=== PATIENT | female | born 1970 | race Caucasian/White ===

== ENCOUNTER 2016-11-15 14:28 | Emergency (ER) | payer MEDICARE, MEDICAID ==
[2016-11-15] MEDS ORDERED: ASPIRIN 81 MG TABLET, CHEWABLE PO ONE (15:15)
--- NOTE | 2016-11-15 15:15 | ER Document Report ---
ED Medical Screen (RME) - General Stated Complaint: DIZZINESS Mode of Arrival: Ambulatory Information source: Patient Notes: Patient complains of dizziness that started last night around 10:30. Laying supine makes it worse. Patient does complain of some midsternal chest tightness. Chest tightness started around 10:30 as well. Patient complains of some nausea and shortness of breath as well. hx: Diabetes, anxiety, depression I have greeted and performed a rapid initial assessment of this patient. A comprehensive ED assessment and evaluation of the patient, analysis of test results and completion of the medical decision making process will be conducted by additional ED providers. TRAVEL OUTSIDE OF THE [place] IN LAST 30 DAYS: No - Related Data Allergies/Adverse Reactions: No Known Allergies Allergy (Verified 11/15/16 15:12) Past Medical History - Past Medical History Cardiac Medical History: Reports: Hx Hypercholesterolemia, Hx Hypertension Denies: Hx Coronary Artery Disease, Hx Heart Attack Pulmonary Medical History: Denies: Hx Asthma, Hx Bronchitis, Hx COPD, Hx Pneumonia, Hx Tuberculosis Neurological Medical History: Denies: Hx Cerebrovascular Accident, Hx Seizures Endocrine Medical History: Reports: Hx Diabetes Mellitus Type 2 Renal/ Medical History: Reports: Hx Kidney Stones - 2011 GI Medical History: Reports: Hx Gastroesophageal Reflux Disease Musculoskeltal Medical History: Reports Hx Arthritis - spine Psychiatric Medical History: Reports: Hx Bipolar Disorder, Hx Depression Past Surgical History: Reports: Hx Cholecystectomy, Hx Hysterectomy - Immunizations Hx Diphtheria, Pertussis, Tetanus Vaccination: Yes Physical Exam - Vital signs Vitals: Temp Pulse Resp BP Pulse Ox 98.1 F 103 H 20 157/65 H 100 11/15/16 14:48 11/15/16 14:48 11/15/16 14:48 11/15/16 14:48 11/15/16 14:48 - Cardiovascular Rhythm: Regular Heart sounds: S1 appreciated, S2 appreciated Course - Vital Signs Vital signs: Temp Pulse Resp BP Pulse Ox 98.1 F 103 H 20 157/65 H 100 11/15/16 14:48 11/15/16 14:48 11/15/16 14:48 11/15/16 14:48 11/15/16 14:48
--- NOTE | 2016-11-15 16:32 | EKG REPORT ---
SEVERITY:- OTHERWISE NORMAL ECG - SINUS TACHYCARDIA : Confirmed by: Jesús Ly MD 15-Nov-2016 16:31:13
[2016-11-15 16:57] LABS: HEMATOCRIT 26.8 % (36.0-47.0); HEMOGLOBIN 8.7 g/dL (12.0-15.5); HGB HCT DIFFERENCE -0.7; MEAN CORPUSCULAR HEMOGLOBIN 31.8 pg (27.0-33.4); MEAN CORPUSCULAR HGB CONC 32.3 g/dL (32.0-36.0); MEAN CORPUSCULAR VOLUME 99 fl (80-97); RED BLOOD COUNT 2.72 10^6/uL (3.72-5.28); RED CELL DISTRIBUTION WIDTH 15.5 % (11.5-14.0)
[2016-11-15] MEDS ORDERED: MECLIZINE HCL 25 MG TABLET PO ONE (17:13)
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
[2016-11-15 17:18] LABS: ALANINE AMINOTRANSFERASE 22 U/L (9-52); ALKALINE PHOSPHATASE 105 U/L (38-126); ANION GAP 9 (5-19); ASPARTATE AMINO TRANSFERASE 28 U/L (14-36); BILIRUBIN,TOTAL 1.3 mg/dL (0.2-1.3); BLOOD UREA NITROGEN 37 mg/dL (7-20); CARBON DIOXIDE 25 mmol/L (22-30); CHLORIDE 106 mmol/L (98-107); CREATINE KINASE 112 U/L (30-135); CREATININE RESULT 3.79 mg/dL (0.52-1.25); GLUCOSE 182 mg/dL (75-110); MAGNESIUM 1.4 mg/dL (1.6-2.3); SODIUM 140.1 mmol/L (137-145); TOTAL PROTEIN 5.8 g/dL (6.3-8.2)
[2016-11-15 17:30] LABS: CREATINE KINASE MB 2.21 ng/mL (<4.55)
[2016-11-15 17:31] LABS: TROPONIN I < 0.012 ng/mL
[2016-11-15 17:33] LABS: BASOPHILS % (MANUAL) 0 % (0-2); EOSINOPHILS % (MANUAL) 2 % (0-6); LYMPHOCYTES % (MANUAL) 28 % (13-45); TOTAL CELLS COUNTED 100
[2016-11-15 17:35] LABS: ANISOCYTOSIS SLIGHT; TOXIC GRANULATION SLIGHT
[2016-11-15 17:36] LABS: WHITE BLOOD COUNT 1.6 10^3/uL (4.0-10.5)
[2016-11-15 21:50] LABS: APPEARANCE,URINE CLEAR; BILIRUBIN,URINE NEGATIVE (NEGATIVE); GLUCOSE, URINE NEGATIVE (NEGATIVE); KETONES,URINE NEGATIVE (NEGATIVE); LEUKOCYTE ESTERASE,URINE SMALL (NEGATIVE); NITRITE,URINE NEGATIVE (NEGATIVE); PROTEIN,URINE NEGATIVE (NEGATIVE); URINE SPECIFIC GRAVITY 1.009; UROBILINOGEN,URINE NEGATIVE mg/dL (<2.0)
[2016-11-15 22:40] VITALS: BP 129/68
[2016-11-16 20:15] LABS: PATH REVIEW PATHOLOGIST REVIEWED
== END 2016-11-15 22:46 | disposition home or self-care (01) ==
LOC: ER 14:28
DX: R42 Dizziness and giddiness (principal); D69.6 Thrombocytopenia, unspecified; N39.0 Urinary tract infection, site not specified; R55 Syncope and collapse; F17.210 Nicotine dependence, cigarettes, uncomplicated; E78.00 Pure hypercholesterolemia, unspecified; I10 Essential (primary) hypertension; E11.9 Type 2 diabetes mellitus without complications; K21.9 Gastro-esophageal reflux disease without esophagitis; Z87.442 Personal history of urinary calculi; Z90.710 Acquired absence of both cervix and uterus; Z90.49 Acquired absence of other specified parts of digestive tract
CPT/HCPCS: 93005; 99284; 36415; 82553; 82550; 83690; 83735; 85025; 80053; 81001; 84484; 71020; 93010; A9270 ×2

== ENCOUNTER 2016-12-17 20:20 | Emergency (ER) | payer MEDICARE, MEDICAID ==
[2016-12-17] MEDS ORDERED: ONDANSETRON 4 MG TAB.RAPDIS PO ONE (20:35)
--- NOTE | 2016-12-17 20:36 | ER Document Report ---
ED Medical Screen (RME) - General Stated Complaint: DIZZINESS Mode of Arrival: Medic Information source: Patient Notes: Family member state that patient was difficult to arouse today. Patient does complain of some dizziness. EMS states that patient alert and oriented 4. Patient states she's not had any food today. Patient now per EMS was 154. Patient reports nausea. Patient does complain of some left-sided abdominal tenderness hx: Diabetes, splenomegaly, hysterectomy, cholecystectomy, chronic back pain, vertigo I have greeted and performed a rapid initial assessment of this patient. A comprehensive ED assessment and evaluation of the patient, analysis of test results and completion of the medical decision making process will be conducted by additional ED providers. TRAVEL OUTSIDE OF THE [place] IN LAST 30 DAYS: No - Related Data Allergies/Adverse Reactions: No Known Allergies Allergy (Verified 11/15/16 15:12) Past Medical History - Past Medical History Cardiac Medical History: Reports: Hx Hypercholesterolemia, Hx Hypertension Denies: Hx Coronary Artery Disease, Hx Heart Attack Pulmonary Medical History: Denies: Hx Asthma, Hx Bronchitis, Hx COPD, Hx Pneumonia, Hx Tuberculosis Neurological Medical History: Denies: Hx Cerebrovascular Accident, Hx Seizures Endocrine Medical History: Reports: Hx Diabetes Mellitus Type 2 Renal/ Medical History: Reports: Hx Kidney Stones - 2011. Denies: Hx Peritoneal Dialysis GI Medical History: Reports: Hx Gastroesophageal Reflux Disease, Hx Hepatitis - C Musculoskeltal Medical History: Reports Hx Arthritis - spine Psychiatric Medical History: Reports: Hx Bipolar Disorder, Hx Depression Infectious Medical History: Reports: Hx Hepatitis - C Past Surgical History: Reports: Hx Cholecystectomy, Hx Hysterectomy - Immunizations Hx Diphtheria, Pertussis, Tetanus Vaccination: Yes Physical Exam - Vital signs Vitals: Temp Pulse Resp BP 97.9 F 91 20 134/67 H 12/17/16 20:30 12/17/16 20:30 12/17/16 20:30 12/17/16 20:30 - Abdominal Tenderness: Tender - Left upper abdominal tenderness - Neurological [place]hy Coma Scale Eye Opening: Spontaneous [place] Coma Scale Verbal: Oriented [place] Coma Scale Motor: Obeys Commands [place] Coma Scale Total: 15 Course - Vital Signs Vital signs: Temp Pulse Resp BP Pulse Ox 97.9 F 91 20 134/67 H 12/17/16 20:30 12/17/16 20:30 12/17/16 20:30 12/17/16 20:30
[2016-12-17 22:16] LABS: ABSOLUTE EOSINOPHILS # (AUTO) 0.1 10^3/uL (0.0-0.6); ABSOLUTE LYMPHOCYTES (AUTO) 0.8 10^3/uL (0.5-4.7); ABSOLUTE MONOCYTES (AUTO) 0.2 10^3/uL (0.1-1.4); ABSOLUTE NEUT (AUTO) 1.7 10^3/uL (1.7-8.2); MEAN CORPUSCULAR HEMOGLOBIN 32.8 pg (27.0-33.4); RED CELL DISTRIBUTION WIDTH 14.9 % (11.5-14.0); WHITE BLOOD COUNT 2.8 10^3/uL (4.0-10.5)
[2016-12-17 22:19] LABS: APPEARANCE,URINE CLEAR; BILIRUBIN,URINE NEGATIVE (NEGATIVE); GLUCOSE, URINE NEGATIVE (NEGATIVE); KETONES,URINE NEGATIVE (NEGATIVE); LEUKOCYTE ESTERASE,URINE NEGATIVE (NEGATIVE); NITRITE,URINE NEGATIVE (NEGATIVE); PROTEIN,URINE NEGATIVE (NEGATIVE); UROBILINOGEN,URINE NEGATIVE mg/dL (<2.0)
[2016-12-17 22:21] LABS: BASOPHILS % (AUTO) 0.7 % (0-2); EOSINOPHILS % (AUTO) 2.5 % (0-6); LYMPHOCYTES % (AUTO) 30.2 % (13-45); MEAN CORPUSCULAR HGB CONC 34.5 g/dL (32.0-36.0); MEAN CORPUSCULAR VOLUME 95 fl (80-97); MONOCYTES % (AUTO) 5.6 % (3-13); RED BLOOD COUNT 3.36 10^6/uL (3.72-5.28)
[2016-12-17 22:29] LABS: ALANINE AMINOTRANSFERASE 28 U/L (9-52); ALBUMIN 3.1 g/dL (3.5-5.0); ALKALINE PHOSPHATASE 112 U/L (38-126); ANION GAP 9 (5-19); ASPARTATE AMINO TRANSFERASE 25 U/L (14-36); BILIRUBIN,TOTAL 1.6 mg/dL (0.2-1.3); BLOOD UREA NITROGEN 39 mg/dL (7-20); CALCIUM 9.2 mg/dL (8.4-10.2); CARBON DIOXIDE 25 mmol/L (22-30); CHLORIDE 106 mmol/L (98-107); CREATININE RESULT 4.11 mg/dL (0.52-1.25); GLUCOSE 152 mg/dL (75-110); LIPASE 54.1 U/L (23-300); POTASSIUM 4.5 mmol/L (3.6-5.0); SODIUM 139.7 mmol/L (137-145); TOTAL PROTEIN 6.7 g/dL (6.3-8.2)
--- NOTE | 2016-12-18 00:11 | ER Document Report ---
ED General - General Chief Complaint: Dizziness Stated Complaint: DIZZINESS Mode of Arrival: Medic Notes: Patient is a 38-year-old female presents for complaint of dizziness and feeling unwell. No vomiting. Mild intermittent headache which is chronic for her. She does have a history of pancytopenia. She is followed by a physician for this. Her counts have actually been slowly improving. Denies recent fevers or infections. She denies any focal weakness or numbness. When I walk into the room check she says that she feels improved wants to go home before even have a chance to evaluate her. She does let me evaluate her. She says that she's had similar dizziness in the past. She was seen in the ER once before prescribed meclizine for vertigo. She does not have this medication anymore. TRAVEL OUTSIDE OF THE [place] IN LAST 30 DAYS: No - Related Data Allergies/Adverse Reactions: No Known Allergies Allergy (Verified 11/15/16 15:12) Past Medical History - General Information source: Patient - Social History Smoking Status: Unknown if Ever Smoked Frequency of alcohol use: None Drug Abuse: None Family History: Reviewed & Not Pertinent Patient has suicidal ideation: No Patient has homicidal ideation: No - Past Medical History Cardiac Medical History: Reports: Hx Hypercholesterolemia, Hx Hypertension Denies: Hx Coronary Artery Disease, Hx Heart Attack Pulmonary Medical History: Denies: Hx Asthma, Hx Bronchitis, Hx COPD, Hx Pneumonia, Hx Tuberculosis Neurological Medical History: Denies: Hx Cerebrovascular Accident, Hx Seizures Endocrine Medical History: Reports: Hx Diabetes Mellitus Type 2 Renal/ Medical History: Reports: Hx Kidney Stones - 2011. Denies: Hx Peritoneal Dialysis GI Medical History: Reports: Hx Gastroesophageal Reflux Disease, Hx Hepatitis - C Musculoskeltal Medical History: Reports Hx Arthritis - spine Psychiatric Medical History: Reports: Hx Bipolar Disorder, Hx Depression Infectious Medical History: Reports: Hx Hepatitis - C Past Surgical History: Reports: Hx Cholecystectomy, Hx Hysterectomy - Immunizations Hx Diphtheria, Pertussis, Tetanus Vaccination: Yes Hx Pneumococcal Vaccination: 09/03/12 Review of Systems - Review of Systems Notes: My Normal Review Basic REVIEW OF SYSTEMS: CONSTITUTIONAL : Denies fever, chills, or sweats. Denies recent illness. EENT: Denies eye, ear, throat, or mouth pain or symptoms. Denies nasal or sinus congestion. CARDIOVASCULAR: Denies chest pain. RESPIRATORY: Denies cough, cold, or chest congestion. Denies shortness of breath, difficulty breathing, or wheezing. GASTROINTESTINAL: Denies abdominal pain. Denies nausea, vomiting, or diarrhea. Denies constipation. Last BM: GENITOURINARY: Denies difficulty urinating, painful urination, burning, frequency, or blood in urine. MUSCULOSKELETAL: Denies neck or back pain or joint pain or swelling. SKIN: Denies rash or skin lesions. NEUROLOGICAL: Had dizziness ALL OTHER SYSTEMS REVIEWED AND NEGATIVE. Physical Exam - Vital signs Vitals: Temp Pulse Resp BP 97.9 F 91 20 134/67 H 12/17/16 20:30 12/17/16 20:30 12/17/16 20:30 12/17/16 20:30 - Notes Notes: General Appearance: Well nourished, alert, cooperative, no acute distress, no obvious discomfort. Well-appearing. Vitals: reviewed, See vital signs table. Head: no swelling or tenderness to the head Eyes: PERRL, EOMI, Conjuctiva clear Mouth: No decreasd moisture Neck: Supple, no neck tenderness, No thyromegaly Lungs: No wheezing, No rales, No rhonci, No accessory muscle use, good air exchange bilaterally. Heart: Normal rate, Regular rythm, No murmur, no rub Abdomen: Normal BS, soft, No rigidity, No abdominal tenderness, No guarding, no rebound, no abdominal masses, no organomegaly Extremities: strength 5/5 in all extremities, good pulses in all extremities, no swelling or tenderness in the extremities, no edema. Skin: warm, dry, appropriate color, no rash Neuro: speech clear, oriented x 3, normal affect, responds appropriately to questions. Normal gait. Cranial nerves II through XII are intact. Distal sensation intact. Patient moves all extremities without difficulty. Course - Vital Signs Vital signs: Temp Pulse Resp BP Pulse Ox 97.9 F 91 20 134/67 H 12/17/16 20:30 12/17/16 20:30 12/17/16 20:30 12/17/16 20:30 - Laboratory Result Diagrams: 12/17/16 22:10 12/17/16 22:10 Laboratory results interpreted by me: 12/17/16 12/17/16 12/17/16 21:47 22:10 22:10 WBC 2.8 L RBC 3.36 L Hgb 11.0 L Hct 32.0 L RDW 14.9 H Plt Count 36 L BUN 39 H Creatinine 4.11 H Est GFR ( Amer) 14 L Est GFR (Non-Af Amer) 12 L Glucose 152 H Total Bilirubin 1.6 H Albumin 3.1 L Urine Blood LARGE H - Transfer of Care Notes: 12/18/16 00:09 I informed patient that I still think she should have a CT scan of her head being that she has significant thrombocytopenia and recurrent dizziness. Patient refuses this. I did inform her that I think this would be an appropriate test and I strongly recommended because if she does have bleeding on her brain this could be life-threatening. Patient says she feels well and still somewhat CT scan requests to be discharged home. Patient will be discharged home she requests. I informed her that we are happy to reevaluate her and take care of her any time and requests that she does return if she changes her mind and does want CT scan. We are also happy to reevaluate her at any time. Patient agrees with plan and will be discharged home she requests. Patient is awake alert and appropriate and demonstrates medical decision making capability and therefore cannot force any tests on her. Dictation of this chart was performed using voice recognition software; therefore, there may be some unintended grammatical errors. Discharge - Discharge Clinical Impression: Dizziness Condition: Stable Disposition: HOME, SELF-CARE Additional Instructions: Please consider returning to ER any time for reevaluation and possible CT scan of your head. As we talked about in the room, I do recommend a CT scan of your head to rule out any bleeding being that you had the dizziness and you have a history of low platelets which puts you at high risk of bleeding. Bleeding in your head could be life-threatening. Please take the medication as prescribed to help with dizziness. Please follow closely with your doctor. Please return to ER anytime for reevaluation.
[2016-12-18 01:13] VITALS: BP 126/66
== END 2016-12-18 00:10 | disposition home or self-care (01) ==
LOC: ER 20:20
DX: R42 Dizziness and giddiness (principal)
CPT/HCPCS: 99284; 36415; 83690; 85025; 80053; 81001; A9270; S0119

== ENCOUNTER 2017-01-14 16:48 | Emergency (ER) | payer MEDICARE, MEDICAID ==
--- NOTE | 2017-01-14 17:10 | ER Document Report ---
ED Medical Screen (RME) - General Stated Complaint: RIGHT SIDE/FOOT PAIN Notes: Patient is a 38-year-old female presents emergency department after fall today. Mechanical fall landing on her right foot and then onto her right chest. Patient complaining of right lower chest pain as well as right ankle. Patient states that she has a history of thrombocytopenia 2/2 cirrhosis I have greeted and performed a rapid initial assessment of this patient. A comprehensive ED assessment and evaluation of the patient, analysis of test results and completion of the medical decision making process will be conducted by additional ED providers. TRAVEL OUTSIDE OF THE [place] IN LAST 30 DAYS: No - Related Data Allergies/Adverse Reactions: No Known Allergies Allergy (Verified 01/14/17 17:06) Past Medical History - Past Medical History Cardiac Medical History: Reports: Hx Hypercholesterolemia, Hx Hypertension Denies: Hx Coronary Artery Disease, Hx Heart Attack Pulmonary Medical History: Denies: Hx Asthma, Hx Bronchitis, Hx COPD, Hx Pneumonia, Hx Tuberculosis Neurological Medical History: Denies: Hx Cerebrovascular Accident, Hx Seizures Endocrine Medical History: Reports: Hx Diabetes Mellitus Type 2 Renal/ Medical History: Reports: Hx Kidney Stones - 2011. Denies: Hx Peritoneal Dialysis GI Medical History: Reports: Hx Gastroesophageal Reflux Disease, Hx Hepatitis - C Musculoskeltal Medical History: Reports Hx Arthritis - spine Psychiatric Medical History: Reports: Hx Bipolar Disorder, Hx Depression Infectious Medical History: Reports: Hx Hepatitis - C Past Surgical History: Reports: Hx Cholecystectomy, Hx Hysterectomy - Immunizations Hx Diphtheria, Pertussis, Tetanus Vaccination: Yes Physical Exam - Vital signs Vitals: Temp Pulse Resp BP Pulse Ox 97.9 F 109 H 20 145/55 H 99 01/14/17 16:52 01/14/17 16:52 01/14/17 16:52 01/14/17 16:52 01/14/17 16:52 Course - Vital Signs Vital signs: Temp Pulse Resp BP Pulse Ox 97.9 F 109 H 20 145/55 H 99 01/14/17 16:52 01/14/17 16:52 01/14/17 16:52 01/14/17 16:52 01/14/17 16:52
[2017-01-14 17:42] LABS: PROTHROMBIN TIME 18.8 SEC (11.4-15.4)
[2017-01-14 17:43] LABS: HEMATOCRIT 31.9 % (36.0-47.0); HEMOGLOBIN 11.1 g/dL (12.0-15.5); HGB HCT DIFFERENCE 1.4; MEAN CORPUSCULAR HGB CONC 34.7 g/dL (32.0-36.0); MEAN CORPUSCULAR VOLUME 92 fl (80-97); RED BLOOD COUNT 3.46 10^6/uL (3.72-5.28); RED CELL DISTRIBUTION WIDTH 14.2 % (11.5-14.0)
--- NOTE | 2017-01-14 17:44 | ER Document Report ---
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 Her last platelet count was 17. She denies any effusion, head injury, neck pain, numbness, tingling, difficulty walking or back pain. TRAVEL OUTSIDE OF THE [place] IN LAST 30 DAYS: No - Related data Allergies/Adverse Reactions: No Known Allergies Allergy (Verified 01/14/17 17:06) Past Medical History - General Information source: Patient - Social History Smoking Status: Unknown if Ever Smoked Chew tobacco use (# tins/day): No Frequency of alcohol use: None Drug Abuse: None Family History: Reviewed & Not Pertinent Patient has suicidal ideation: No Patient has homicidal ideation: No - Past Medical History Cardiac Medical History: Reports: Hx Hypercholesterolemia, Hx Hypertension Denies: Hx Coronary Artery Disease, Hx Heart Attack Pulmonary Medical History: Denies: Hx Asthma, Hx Bronchitis, Hx COPD, Hx Pneumonia, Hx Tuberculosis Neurological Medical History: Denies: Hx Cerebrovascular Accident, Hx Seizures Endocrine Medical History: Reports: Hx Diabetes Mellitus Type 2 Renal/ Medical History: Reports: Hx Kidney Stones - 2011. Denies: Hx Peritoneal Dialysis GI Medical History: Reports: Hx Gastroesophageal Reflux Disease, Hx Hepatitis - C Musculoskeltal Medical History: Reports Hx Arthritis - spine Psychiatric Medical History: Reports: Hx Bipolar Disorder, Hx Depression Infectious Medical History: Reports: Hx Hepatitis - C Past Surgical History: Reports: Hx Cholecystectomy, Hx Hysterectomy - Immunizations Hx Diphtheria, Pertussis, Tetanus Vaccination: Yes Hx Pneumococcal Vaccination: 09/03/12 Review of Systems - Review of Systems Notes: REVIEW OF SYSTEMS: CONSTITUTIONAL: -fevers, -chills EENT: -eye pain, -difficulty swallowing, -nasal congestion CARDIOVASCULAR:-chest pain, -syncope. RESPIRATORY: -cough, -SOB GASTROINTESTINAL: -abdominal pain, - nausea, -vomiting, -diarrhea GENITOURINARY: -dysuria, -hematuria MUSCULOSKELETAL: +right ankle pain, -back pain, -neck pain SKIN: -rash or skin lesions. HEMATOLOGIC: -easy bruising or bleeding. LYMPHATIC: -swollen, enlarged glands. NEUROLOGICAL: -altered mental status or loss of consciousness, -headache, - neurologic symptoms PSYCHIATRIC: -anxiety, -depression. ALL OTHER SYSTEMS REVIEWED AND NEGATIVE. Physical Exam - Vital signs Vitals: Temp Pulse Resp BP Pulse Ox 97.9 F 109 H 20 145/55 H 99 01/14/17 16:52 01/14/17 16:52 01/14/17 16:52 01/14/17 16:52 01/14/17 16:52 - Notes Notes: PHYSICAL EXAMINATION: GENERAL: Well-appearing, well-nourished and in no acute distress. HEAD: Atraumatic, normocephalic. EYES: Pupils equal round and reactive to light, extraocular movements intact, sclera anicteric, conjunctiva are normal. ENT: nares patent, oropharynx clear without exudates. Moist mucous membranes. NECK: Normal range of motion, supple without lymphadenopathy LUNGS: Breath sounds clear to auscultation bilaterally and equal. No wheezes rales or rhonchi. HEART: Mild tenderness over right lateral chest wall. Regular rate and rhythm without murmurs ABDOMEN: Soft, nontender, normoactive bowel sounds. No guarding, no rebound. No masses appreciated. EXTREMITIES: Mild tenderness over right lateral malleolus, no effusion. Normal range of motion, no pitting or edema. No cyanosis. NEUROLOGICAL: Cranial nerves grossly intact. Normal speech, normal gait. Normal sensory, motor, and reflex exams. PSYCH: Normal mood, normal affect. SKIN: Warm, Dry, normal turgor, no rashes or lesions noted. Course - Re-evaluation Re-evalutation: Patient's chest x-ray does not show any rib fractures and ankle x-ray does not show any fractures or effusions. No hemarthrosis. Patient's platelets are 20 today, which are baseline for her. She follows with hematology as outpatient. She does not require a platelet transfusion at this time. Patient states that she takes Motrin at home. Will treat her with anti-inflammatories and ice packs with follow-up at her primary care physician and events solutions consultant. - Vital Signs Vital signs: Temp Pulse Resp BP Pulse Ox 97.9 F 109 H 20 145/55 H 99 01/14/17 16:52 01/14/17 16:52 01/14/17 16:52 01/14/17 16:52 01/14/17 16:52 - Laboratory Result Diagrams: 01/14/17 17:15 01/14/17 17:15 Laboratory results interpreted by me: 01/14/17 01/14/17 01/14/17 17:15 17:15 17:15 WBC 1.8 L RBC 3.46 L Hgb 11.1 L Hct 31.9 L RDW 14.2 H Plt Count 20 L* Abs Neuts (Manual) 1.1 L PT 18.8 H BUN 42 H Creatinine 3.78 H Est GFR ( Amer) 15 L Est GFR (Non-Af Amer) 13 L Glucose 263 H Total Bilirubin 1.8 H Albumin 3.4 L - Diagnostic Test Radiology reviewed: Image reviewed, Reports reviewed Radiology results interpreted by me: CXR and right ankle x-ray: NAD Discharge - Discharge Clinical Impression: Ankle sprain Qualifiers: Encounter type: initial encounter Involved ligament of ankle: unspecified ligament Laterality: right Qualified Code(s): S93.401A - Sprain of unspecified ligament of right ankle, initial encounter Chest wall contusion Qualifiers: Encounter type: initial encounter Laterality: right Qualified Code(s): S20.211A - Contusion of right front wall of thorax, initial encounter Condition: Good Disposition: HOME, SELF-CARE Additional Instructions: SPRAIN: Your injury is a sprain. A sprain results from stretching or tearing of the ligaments, usually from a twisting injury. The ligaments will require time and protection in order to heal properly. Many sprains are quite disabling and should be taken seriously. The usual initial treatment of sprains is cold packs, elevation, and rest of the injured area. Your physician has assessed the seriousness of your ligament injury, and has outlined a treatment plan. Understand that this treatment may change, depending on how you progress. If a re-examination was recommended, it is important that you follow up as instructed. Call the doctor any time if there is severe pain, numbness, or loss of function in the injured area. LILIANA WRAP: A compression dressing (liliana wrap) has been placed. This helps hold the area still. It limits swelling and internal bleeding. The wrap should be comfortably snug -- not tight. You should feel a sense of pressure, but not severe pain under the wrap. Unless the physician tells you otherwise, you can adjust the wrap for comfort. If the wrap causes symptoms suggesting it's too tight -- uncomfortable pressure, swelling or discoloration beyond the wrap, numbness, or severe pain - - you must loosen the wrap. If these symptoms don't resolve promptly, return for re-evaluation. SPRAINED ANKLE: Your sprained ankle results from stretching or tearing of the ligaments which support the ankle. This usually results from twisting the foot inward and under. The ligaments will require time and protection in order to heal properly. Many ankle sprains are quite disabling, and should be taken seriously. The usual treatment for an ankle sprain is cold packs; protection with tape , splints, or wraps; elevation; and staying off the ankle for at least a day. As the ankle improves, you can walk IF it's not painful to bear weight. Sports are best postponed until healing is complete. More serious sprains usually require strengthening exercises after early healing. Your physician has assessed the seriousness of the ligament injury to your ankle. However, the treatment may change, depending on how your ankle progresses. If further exams were recommended, it is important that you follow through. Call the doctor if your foot becomes numb, painful, or severely swollen. ICE & ELEVATION: Apply ice packs frequently against the painful area. Many different schedules are recommended, such as "20 minutes on, 20 minutes off" or "one hour ice, two hours rest." If you need to work, you may need to go longer between ice treatments. You should plan to have the area ice packed AT LEAST one- fourth of the time. The ice should be applied over the wrap, tape, or splint, or over a layer of cloth -- not directly against the skin. Some ice bags have a built-in cloth and can be put directly on the skin. Your injured part should be elevated as much as possible over the next 48 hours. Try to keep the injury above the level of the heart. Avoid use of the injured area. Elevation and rest will decrease the swelling. USE OF [id number] IBUPROFEN: Ibuprofen (Advil, Nuprin, Medipren, Motrin IB) is a medication for fever and pain control. In addition, it has anti- inflammatory effects which may be beneficial, especially in the treatment of injuries. It's best to take ibuprofen with food. Persons with ulcer disease or allergy to aspirin should notify their physician of this before taking ibuprofen. Ibuprofen can be given every four to six hours, for a total of four doses daily. Age Pain or fever dose Antiinflammatory dose 6-8 yr 200 mg (1 tab) 200 mg (1 tab) 9-11 yr 200 mg (1 tab) 200-400 mg (1-2 tab) 11-14 yr 200-400 mg (1-2 tab) 400 mg (2 tab) 15-adult 400 mg (2 tab) 600 mg (3 tab) FOLLOW-UP CARE: If you have been referred to a physician for follow-up care, call the physician s office for an appointment as you were instructed or within the next two days. If you experience worsening or a significant change in your symptoms, notify the physician immediately or return to the Emergency Department at any time for re-evaluation. Contusion Your injury has resulted in a contusion -- a crushing of the deep tissues. No injury to important structures was detected during the physician's exam. Contusions vary in the amount of pain they cause, and in the length of time required for healing. Typically, the area will become bruised, and will remain painful to touch for two or three weeks. However, most patients are back to working and playing within a few days. After the initial period of rest and cold-packs, your symptoms (together with the doctor's recommendations) will determine how rapidly you can get back to full activity. Usually this means "do what feels okay, but don't do things that hurt." If re-examination was recommended, it's important to follow up as instructed. Call the doctor or return any time if pain increases, if swelling becomes severe, if you develop numbness or weakness in an injured extremity, or if any other alarming symptoms occur.
[2017-01-14 17:58] LABS: ALANINE AMINOTRANSFERASE 23 U/L (9-52); ALBUMIN 3.4 g/dL (3.5-5.0); ALKALINE PHOSPHATASE 124 U/L (38-126); ANION GAP 12 (5-19); ASPARTATE AMINO TRANSFERASE 23 U/L (14-36); BILIRUBIN,TOTAL 1.8 mg/dL (0.2-1.3); BLOOD UREA NITROGEN 42 mg/dL (7-20); CALCIUM 9.2 mg/dL (8.4-10.2); CARBON DIOXIDE 24 mmol/L (22-30); CHLORIDE 105 mmol/L (98-107); CREATININE RESULT 3.78 mg/dL (0.52-1.25); GLUCOSE 263 mg/dL (75-110); POTASSIUM 4.2 mmol/L (3.6-5.0); SODIUM 141.2 mmol/L (137-145); TOTAL PROTEIN 6.6 g/dL (6.3-8.2)
[2017-01-14 18:11] LABS: BASOPHILS % (MANUAL) 0 % (0-2); EOSINOPHILS % (MANUAL) 4 % (0-6); LYMPHOCYTES % (MANUAL) 30 % (13-45); TOTAL CELLS COUNTED 50
[2017-01-14 18:12] LABS: OVALOCYTES SLIGHT; POIKILOCYTOSIS 1+
[2017-01-14 18:13] LABS: TEAR DROP CELLS SLIGHT
[2017-01-14 18:14] LABS: WHITE BLOOD COUNT 1.8 10^3/uL (4.0-10.5)
[2017-01-14] MEDS ORDERED: IBUPROFEN 600 MG TABLET PO ONE (18:43)
[2017-01-14 19:34] VITALS: BP 146/86
== END 2017-01-14 19:34 | disposition home or self-care (01) ==
LOC: ER 16:48
DX: S93.401A Sprain of unspecified ligament of right ankle, initial encounter (principal); S20.211A Contusion of right front wall of thorax, initial encounter; M79.671 Pain in right foot; D69.6 Thrombocytopenia, unspecified; K74.69 Other cirrhosis of liver; X58.XXXA Exposure to other specified factors, initial encounter
CPT/HCPCS: 99284; 36415; 85025; 85610; 80053; 73610; 71020; A9270

== ENCOUNTER → 2017-02-27 | Outpatient (CLI) | payer MEDICARE, MEDICAID | LOC: OD 13:49 | PROVIDERS: ATTEND Physician Assistant Surgical | DX: R41.0 Disorientation, unspecified (principal); K74.69 Other cirrhosis of liver | CPT/HCPCS: 36415; 82140 ==

== ENCOUNTER 2017-03-12 11:09 | Emergency (ER) | payer MEDICARE, MEDICAID ==
[2017-03-12] MEDS ORDERED: ONDANSETRON 4 MG TAB.RAPDIS PO ONE ×2 (11:19→11:46)
--- NOTE | 2017-03-12 11:21 | ER Document Report ---
ED Medical Screen (RME) - General Chief Complaint: Nausea/Vomiting Stated Complaint: VOMITING Time Seen by Provider: 03/12/17 11:19 TRAVEL OUTSIDE OF THE [place] IN LAST 30 DAYS: No - HPI Patient complains to provider of: nausea vomiting Notes: 03/12/17 11:20 Patient coming in for nausea vomiting has also for 2 days. - Related Data Allergies/Adverse Reactions: No Known Allergies Allergy (Verified 03/12/17 11:15) Past Medical History - Social History Chew tobacco use (# tins/day): No Frequency of alcohol use: None Drug Abuse: None - Past Medical History Cardiac Medical History: Reports: Hx Hypercholesterolemia, Hx Hypertension Denies: Hx Coronary Artery Disease, Hx Heart Attack Pulmonary Medical History: Denies: Hx Asthma, Hx Bronchitis, Hx COPD, Hx Pneumonia, Hx Tuberculosis Neurological Medical History: Denies: Hx Cerebrovascular Accident, Hx Seizures Endocrine Medical History: Reports: Hx Diabetes Mellitus Type 2 Renal/ Medical History: Reports: Hx Kidney Stones - 2011. Denies: Hx Peritoneal Dialysis GI Medical History: Reports: Hx Gastroesophageal Reflux Disease, Hx Hepatitis - C Musculoskeltal Medical History: Reports Hx Arthritis - spine Psychiatric Medical History: Reports: Hx Bipolar Disorder, Hx Depression Infectious Medical History: Reports: Hx Hepatitis - C Past Surgical History: Reports: Hx Cholecystectomy, Hx Hysterectomy - Immunizations Hx Diphtheria, Pertussis, Tetanus Vaccination: Yes Review of Systems - Review of Systems Gastrointestinal: Nausea, Vomiting -: Yes All other systems reviewed and negative Physical Exam - Vital signs Vitals: Temp Pulse Resp BP Pulse Ox 97.5 F 101 H 21 H 183/79 H 97 03/12/17 11:10 03/12/17 11:10 03/12/17 11:10 03/12/17 11:10 03/12/17 11:10 Interpretation: Normal - General General appearance: Appears well, Alert - HEENT Head: Normocephalic, Atraumatic Eyes: Normal Pupils: PERRL - Cardiovascular Murmur: No - Neurological Neuro grossly intact: Yes Cognition: Normal Orientation: AAOx4 [place] Coma Scale Eye Opening: Spontaneous [place] Coma Scale Verbal: Oriented [place] Coma Scale Motor: Obeys Commands [place] Coma Scale Total: 15 Speech: Normal Motor strength normal: LUE, RUE, LLE, RLE Sensory: Normal Course - Re-evaluation Re-evalutation: 03/12/17 11:21 I have greeted and performed a rapid initial assessment of this patient. A comprehensive ED assessment and evaluation of the patient, analysis of test results and completion of the medical decision making process will be conducted by additional ED providers. - Vital Signs Vital signs: Temp Pulse Resp BP Pulse Ox 97.5 F 101 H 20 183/79 H 97 03/12/17 11:10 03/12/17 11:10 03/12/17 11:14 03/12/17 11:10 03/12/17 11:10
--- NOTE | 2017-03-12 11:45 | ER Document Report ---
ED GI/ - General Chief Complaint: Nausea/Vomiting Stated Complaint: VOMITING Time Seen by Provider: 03/12/17 11:19 Mode of Arrival: Ambulatory Information source: Patient Notes: 47-year-old female complaining of nausea and vomiting this week. She's also complaining of vaginal discharge and irritation burning and itching. She denies intercourse for very long time. No fever or chills. She has a history of liver cirrhosis and "bleeding into her spleen" with thrombocytopenia. She has mild left flank pain. TRAVEL OUTSIDE OF THE [place] IN LAST 30 DAYS: No - Related Data Allergies/Adverse Reactions: No Known Allergies Allergy (Verified 03/12/17 11:15) Past Medical History - General Information source: Patient - Social History Smoking Status: Current Every Day Smoker Chew tobacco use (# tins/day): No Frequency of alcohol use: None Drug Abuse: None Lives with: Spouse/Significant other Family History: Reviewed & Not Pertinent - Past Medical History Cardiac Medical History: Reports: Hx Hypercholesterolemia, Hx Hypertension Endocrine Medical History: Reports: Hx Diabetes Mellitus Type 2 Renal/ Medical History: Reports: Hx Kidney Stones - 2011. Denies: Hx Peritoneal Dialysis GI Medical History: Reports: Hx Gastroesophageal Reflux Disease, Hx Hepatitis - C Musculoskeltal Medical History: Reports Hx Arthritis - spine Psychiatric Medical History: Reports: Hx Bipolar Disorder, Hx Depression Infectious Medical History: Reports: Hx Hepatitis - C Past Surgical History: Reports: Hx Cholecystectomy, Hx Hysterectomy - Immunizations Hx Diphtheria, Pertussis, Tetanus Vaccination: Yes Hx Pneumococcal Vaccination: 09/03/12 Review of Systems - Review of Systems Constitutional: No symptoms reported EENT: No symptoms reported Cardiovascular: No symptoms reported Respiratory: No symptoms reported Gastrointestinal: See HPI Genitourinary: No symptoms reported Female Genitourinary: See HPI Musculoskeletal: No symptoms reported Skin: No symptoms reported Hematologic/Lymphatic: No symptoms reported Neurological/Psychological: No symptoms reported Physical Exam - Vital signs Vitals: Temp Pulse Resp BP Pulse Ox 97.5 F 101 H 21 H 183/79 H 97 03/12/17 11:10 03/12/17 11:10 03/12/17 11:10 03/12/17 11:10 03/12/17 11:10 Interpretation: Normal - General General appearance: Appears well, Alert - HEENT Head: Normocephalic, Atraumatic Eyes: Normal Conjunctiva: Normal Pupils: PERRL Mucous membranes: Normal Neck: Supple. No: Lymphadenopathy - Respiratory Respiratory status: No respiratory distress Chest status: Nontender Breath sounds: Normal Chest palpation: Normal - Cardiovascular Rhythm: Regular Heart sounds: Normal auscultation Murmur: No - Abdominal Inspection: Normal Distension: No distension Bowel sounds: Normal Tenderness: Nontender. No: Tender Organomegaly: No organomegaly - Genitourinary External exam: Normal Speculum exam: Vaginal discharge - fernández Vaginal bleeding: None - Back Back: Normal, Nontender. No: CVA tenderness - Extremities General upper extremity: Normal inspection, Nontender, Normal color, Normal ROM , Normal temperature General lower extremity: Normal inspection, Nontender, Normal color, Normal ROM , Normal temperature, Normal weight bearing. No: Sandeep's sign - Neurological Neuro grossly intact: Yes Cognition: Normal Orientation: AAOx4 [place] Coma Scale Eye Opening: Spontaneous [place] Coma Scale Verbal: Oriented [place] Coma Scale Motor: Obeys Commands [place] Coma Scale Total: 15 Speech: Normal Motor strength normal: LUE, RUE, LLE, RLE Sensory: Normal - Psychological Associated symptoms: Normal affect, Normal mood - Skin Skin Temperature: Warm Skin Moisture: Dry Skin Color: Normal Skin irregularity: negative: Rash Course - Re-evaluation Re-evalutation: 03/12/17 13:11 consult luz maria guerrier for the CT, pt imaging. 03/12/17 16:02 CT is negative or hydronephrosis or renal stones and shows the same small amount of ascites and cirrhosis as previous CTs. 03/12/17 16:[address] guerrier again, pt can be discharged home with the flagyl prescription - Vital Signs Vital signs: Temp Pulse Resp BP Pulse Ox 97.5 F 101 H 20 183/79 H 97 03/12/17 11:10 03/12/17 11:10 03/12/17 11:14 03/12/17 11:10 03/12/17 11:10 - Laboratory Result Diagrams: 03/12/17 11:33 03/12/17 11:33 Laboratory results interpreted by me: 03/12/17 03/12/17 03/12/17 11:33 11:33 11:33 WBC 3.7 L RBC 3.42 L Hgb 10.9 L Hct 31.4 L RDW 15.8 H Plt Count 29 L* Chloride 109 H BUN 41 H Creatinine 4.03 H Est GFR ( Amer) 14 L Est GFR (Non-Af Amer) 12 L Glucose 164 H Total Bilirubin 1.8 H Direct Bilirubin 0.7 H Urine Protein 30 H Urine Glucose (UA) 50 H Urine Blood LARGE H Ur Leukocyte Esterase MODERATE H Discharge - Discharge Clinical Impression: Microscopic hematuria, Renal insufficiency, Trichomoniasis, Thrombocytopenia Nausea and vomiting Qualifiers: Vomiting type: unspecified Vomiting Intractability: non-intractable Qualified Code(s): R11.2 - Nausea with vomiting, unspecified Condition: Good Disposition: HOME, SELF-CARE Instructions: Vomiting ([facility]), Intravenous (IV) Fluids ([facility]), Trichomonas Infection ([facility]), Metronidazole ([facility]), Cirrhosis ([facility]) Additional Instructions: to er if worse see dr. kelsey tomorrow for recheck, copy of labs given to you take nausea medication with the flagyl, no alcohol with the medication Please complete the patient satisfaction survey if you get one, and return it.. If you do not receive a survey, then you can go to the [facility] website, [email or web address] and place your comments about your very good care. Thank you very much. It was a pleasure being your medical provider today. Prescriptions: Promethazine HCl [Phenergan 25 mg Tablet] 25 mg PO Q4HP PRN #20 tablet PRN Reason: Metronidazole 100 mg PO BID #4 tablet Referrals: NILE WELLS MD [Primary Care Provider] - Follow up as needed JONATAN PITT MD [ACTIVE STAFF] - Follow up tomorrow
[2017-03-12] MEDS ORDERED: NORMAL SALINE 1000 ML 2,000 ML IV ONE (11:46)
[2017-03-12 12:00] LABS: ABSOLUTE EOSINOPHILS # (AUTO) 0.1 10^3/uL (0.0-0.6); ABSOLUTE LYMPHOCYTES (AUTO) 0.7 10^3/uL (0.5-4.7); ABSOLUTE MONOCYTES (AUTO) 0.2 10^3/uL (0.1-1.4); ABSOLUTE NEUT (AUTO) 2.7 10^3/uL (1.7-8.2); BASOPHILS % (AUTO) 0.5 % (0-2); EOSINOPHILS % (AUTO) 2.4 % (0-6); HEMATOCRIT 31.4 % (36.0-47.0); HEMOGLOBIN 10.9 g/dL (12.0-15.5); HGB HCT DIFFERENCE 1.3; LYMPHOCYTES % (AUTO) 19.5 % (13-45); MEAN CORPUSCULAR HEMOGLOBIN 31.8 pg (27.0-33.4); MEAN CORPUSCULAR HGB CONC 34.6 g/dL (32.0-36.0); MEAN CORPUSCULAR VOLUME 92 fl (80-97); MONOCYTES % (AUTO) 5.8 % (3-13); RED BLOOD COUNT 3.42 10^6/uL (3.72-5.28); RED CELL DISTRIBUTION WIDTH 15.8 % (11.5-14.0); SEGMENTED NEUTROPHILS % (AUTO) 71.8 % (42-78); WHITE BLOOD COUNT 3.7 10^3/uL (4.0-10.5)
[2017-03-12 12:09] LABS: APPEARANCE,URINE CLEAR; BILIRUBIN,URINE NEGATIVE (NEGATIVE); GLUCOSE, URINE 50 mg/dL (NEGATIVE); KETONES,URINE NEGATIVE (NEGATIVE); LEUKOCYTE ESTERASE,URINE MODERATE (NEGATIVE); NITRITE,URINE NEGATIVE (NEGATIVE); PROTEIN,URINE 30 mg/dL (NEGATIVE); URINE SPECIFIC GRAVITY 1.011; UROBILINOGEN,URINE NEGATIVE mg/dL (<2.0)
[2017-03-12 12:17] LABS: ALANINE AMINOTRANSFERASE 31 U/L (9-52); ALBUMIN 3.6 g/dL (3.5-5.0); ALKALINE PHOSPHATASE 102 U/L (38-126); ANION GAP 13 (5-19); ASPARTATE AMINO TRANSFERASE 31 U/L (14-36); BILIRUBIN,DIRECT 0.7 mg/dL (0.0-0.4); BILIRUBIN,TOTAL 1.8 mg/dL (0.2-1.3); BLOOD UREA NITROGEN 41 mg/dL (7-20); CALCIUM 9.3 mg/dL (8.4-10.2); CARBON DIOXIDE 23 mmol/L (22-30); CHLORIDE 109 mmol/L (98-107); CREATININE RESULT 4.03 mg/dL (0.52-1.25); GLUCOSE 164 mg/dL (75-110); LIPASE 101.1 U/L (23-300); POTASSIUM 4.5 mmol/L (3.6-5.0); SODIUM 144.5 mmol/L (137-145); TOTAL PROTEIN 7.1 g/dL (6.3-8.2)
[2017-03-12] MEDS ORDERED: NORMAL SALINE 1000 ML 1,000 ML IV ONE (12:42)
[2017-03-12 14:45] LABS: CHLAM PCR NOT DETECTED (NOT DETECT)
[2017-03-12 16:18] VITALS: BP 110/57
== END 2017-03-12 16:13 | disposition home or self-care (01) ==
LOC: ER 11:09
DX: R11.2 Nausea with vomiting, unspecified (principal); A59.9 Trichomoniasis, unspecified; N28.9 Disorder of kidney and ureter, unspecified; R31.29 Other microscopic hematuria; K74.60 Unspecified cirrhosis of liver; D69.6 Thrombocytopenia, unspecified; R10.9 Unspecified abdominal pain; E11.9 Type 2 diabetes mellitus without complications; I10 Essential (primary) hypertension; F17.200 Nicotine dependence, unspecified, uncomplicated; Z87.442 Personal history of urinary calculi; Z87.19 Personal history of other diseases of the digestive system; Z90.49 Acquired absence of other specified parts of digestive tract; Z90.710 Acquired absence of both cervix and uterus
CPT/HCPCS: 99284; 36415; 87086; 87210; 83690; 85025; 80053; 81001; 87491; 87591; 76380; A9270; J7030; S0119

== ENCOUNTER 2017-03-17 14:28 | Emergency (ER) | payer MEDICARE, MEDICAID ==
--- NOTE | 2017-03-17 15:54 | ER Document Report ---
ED Fall - General Chief Complaint: Fall Stated Complaint: FALL/RIGHT KNEE INJURY Time Seen by Provider: 03/17/17 15:42 Mode of Arrival: Ambulatory Information source: Patient Notes: 27-year-old female presents to ED for complaint of fall yesterday she states she tripped over a brick. She states she has pain in her right knee right arm and has a sore throat. She states she had numerous falls in the but he knows why that she went to her primary doctor yesterday before the fall working on that. TRAVEL OUTSIDE OF THE [place] IN LAST 30 DAYS: No - HPI Occurred: Yesterday Where: Home, Outdoors Context: Tripped Associated symptoms: None Location of injury/pain: Knee, Upper extremity, Lower extremity Quality of pain: Achy, Sharp Severity: Severe Pain Level: 5 - Related data Allergies/Adverse Reactions: No Known Allergies Allergy (Verified 03/17/17 14:33) Past Medical History - General Information source: Patient - Social History Smoking Status: Never Smoker Cigarette use (# per day): No Chew tobacco use (# tins/day): No Smoking Education Provided: No Frequency of alcohol use: None Drug Abuse: None Lives with: Family Family History: Reviewed & Not Pertinent Patient has suicidal ideation: No Patient has homicidal ideation: No - Past Medical History Cardiac Medical History: Reports: Hx Hypercholesterolemia, Hx Hypertension Pulmonary Medical History: Reports: None EENT Medical History: Reports: None Neurological Medical History: Reports: None Endocrine Medical History: Reports: Hx Diabetes Mellitus Type 2 Renal/ Medical History: Reports: Hx End Stage Renal Disease, Hx Kidney Stones - 2011, Other - States she is waiting for a liver and kidney transplant Malignancy Medical History: Reports: None GI Medical History: Reports: Hx Gastroesophageal Reflux Disease, Hx Hepatitis - C, Other - States she is waiting for a kidney and liver transplant Musculoskeltal Medical History: Reports Hx Arthritis - spine Skin Medical History: Reports None Psychiatric Medical History: Reports: Hx Anxiety, Hx Bipolar Disorder, Hx Depression Traumatic Medical History: Reports: None Infectious Medical History: Reports: Hx Hepatitis - C Past Surgical History: Reports: Hx Cholecystectomy, Hx Hysterectomy - Immunizations Hx Diphtheria, Pertussis, Tetanus Vaccination: Yes Hx Pneumococcal Vaccination: 09/03/12 Review of Systems - Review of Systems Constitutional: No symptoms reported EENT: No symptoms reported Cardiovascular: No symptoms reported Respiratory: No symptoms reported Gastrointestinal: No symptoms reported Genitourinary: No symptoms reported Female Genitourinary: No symptoms reported Musculoskeletal: Other - Pain right in the right kidney. And right forearm after falling yesterday. She has abrasions with scabs to these areas Skin: Other - abrasions to right knee right forearm and right lower leg Hematologic/Lymphatic: No symptoms reported Neurological/Psychological: No symptoms reported -: Yes All other systems reviewed and negative Physical Exam - Vital signs Vitals: Temp Pulse Resp BP Pulse Ox 99.0 F 101 H 18 119/88 H 97 03/17/17 14:32 03/17/17 14:32 03/17/17 14:32 03/17/17 14:32 03/17/17 14:32 Interpretation: Normal - General General appearance: Appears well, Alert - HEENT Head: Normocephalic, Atraumatic Eyes: Normal Pupils: PERRL - Respiratory Respiratory status: No respiratory distress Chest status: Nontender Breath sounds: Normal Chest palpation: Normal - Cardiovascular Rhythm: Regular Heart sounds: Normal auscultation Murmur: No - Abdominal Inspection: Normal Distension: No distension Bowel sounds: Normal Tenderness: Nontender Organomegaly: No organomegaly - Back Back: Normal, Nontender - Extremities General upper extremity: Normal inspection, Nontender, Normal color, Normal ROM , Normal temperature General lower extremity: Normal inspection, Nontender, Normal color, Normal ROM , Normal temperature, Normal weight bearing. No: Sandeep's sign - Neurological Neuro grossly intact: Yes Cognition: Normal Orientation: AAOx4 [place] Coma Scale Eye Opening: Spontaneous [place] Coma Scale Verbal: Oriented [place] Coma Scale Motor: Obeys Commands [place] Coma Scale Total: 15 Speech: Normal Motor strength normal: LUE, RUE, LLE, RLE Sensory: Normal - Psychological Associated symptoms: Normal affect, Normal mood - Skin Skin Temperature: Warm Skin Moisture: Dry Skin Color: Normal, Ecchymosis - to right knee right forearm and right lower leg Location of irregularity: Extremities - abrasions and scabs to right knee right forearm and right lower leg Irregularity with: Tenderness Course - Re-evaluation Re-evalutation: 03/17/17 18:20 X-rays discussed with patient and written report given to patient. There is no pain at the site of the radial neck this is not an acute injury. Her pain is in the middle of the forearm where her abrasions and scabs are. Patient will be discharged home with a small prescription for narcotics due to her pain with acute injuries. Patient has been instructed to when she takes her pain medicine to try to not get up and walk around as she has had frequent falls lately. Patient has been instructed not to use Tylenol and Motrin as she states she is in the kidney and liver failure. To follow-up with her primary doctor by telephone on Monday to schedule a follow-up appointment. - Vital Signs Vital signs: Temp Pulse Resp BP Pulse Ox 99.0 F 101 H 18 119/88 H 97 03/17/17 14:32 03/17/17 14:32 03/17/17 14:32 03/17/17 14:32 03/17/17 14:32 - Diagnostic Test Radiology reviewed: Image reviewed, Reports reviewed Discharge - Discharge Clinical Impression: Contusion multiple areas Fall Qualifiers: Encounter type: initial encounter Qualified Code(s): W19.XXXA - Unspecified fall, initial encounter Abrasion of right forearm Qualifiers: Encounter type: initial encounter Qualified Code(s): S50.811A - Abrasion of right forearm, initial encounter Abrasion, right knee, initial encounter Qualifiers: Encounter type: initial encounter Qualified Code(s): S80.211A - Abrasion, right knee, initial encounter Abrasion, right lower leg, initial encounter Qualifiers: Encounter type: initial encounter Qualified Code(s): S80.811A - Abrasion, right lower leg, initial encounter Condition: Stable Disposition: HOME, SELF-CARE Additional Instructions: CONTUSION: Your injury has resulted in a contusion -- a crushing of the deep tissues. No injury to important structures was detected during the physician's exam. Contusions vary in the amount of pain they cause, and in the length of time required for healing. Typically, the area will become bruised, and will remain painful to touch for two or three weeks. However, most patients are back to working and playing within a few days. After the initial period of rest and cold-packs, your symptoms (together with the doctor's recommendations) will determine how rapidly you can get back to full activity. Usually this means "do what feels okay, but don't do things that hurt." If re-examination was recommended, it's important to follow up as instructed. Call the doctor or return any time if pain increases, if swelling becomes severe, if you develop numbness or weakness in an injured extremity, or if any other alarming symptoms occur. ABRASIONS: An abrasion is a scraping injury of the skin. Some scarring may result. The seriousness of an abrasion is not always obvious at first. Hidden tissue damage may be present and infection may occur despite proper care. Complete healing may take from ten days to as long as a month. The healing time depends on the depth of the abrasion, and on the amount of crushing of underlying tissues from the injury. Keep the wound and dressing clean. Do not shower or bathe the area until okayed by the doctor. If the dressing gets wet, remove it and blot the wound dry, then reapply a clean dressing. Dressings should be changed every day. Sunscreen should be used for six months after the skin is healed. If any signs of infection occur (swelling, redness, increasing tenderness, red streaks, profuse purulent drainage from the abrasion, tender lumps in the armpit or groin above the abrasion, or fever), see the doctor immediately. USE OF TYLENOL (ACETAMINOPHEN): Acetaminophen may be taken for pain relief or fever control. It's much safer than aspirin, offering a wider range of "safe" dosages. It is safe during . Some brand names are Tylenol, Panadol, Datril, Anacin 3, Tempra, and Liquiprin. Acetaminophen can be repeated every four hours. The following are maximum recommended dosages: WEIGHT Dose Drops Elixir Chewable( 80mg) (LBS.) drprs=droppers tsp=teaspoon 6 40 mg 0.4 ml (1/2) 6-11 80 mg 0.8 ml (full) tsp 1 tab 12-16 120 mg 1 1/2 drprs 3/4 tsp 1 1/2 tabs 17-23 160 mg 2 drprs 1 tsp 2 tabs 24-30 240 mg 3 drprs 1 1/2 tsp 3 tabs 30-35 320 mg 2 tsp 4 tabs 36-41 360 mg 2 1/4 tsp 4 1/2 tabs 42-47 400 mg 2 1/2 tsp 5 tabs 48-53 480 mg 3 tsp 6 tabs 54-59 520 mg 3 1/4 tsp 6 1/2 tabs 60-64 560 mg 3 1/2 tsp 7 tabs 65-70 600 mg 3 3/4 tsp 7 1/2 tabs 71-76 640 mg 4 tsp 8 tabs 77-82 720 mg 4 1/2 tsp 9 tabs 83-88 800 mg 5 tsp 10 tabs >89 pounds or adults 650 mg to 900 mg Acetaminophen can be repeated every four hours. Maximum dose not to exceed 4000 mg a day. These maximum recommended dosages are slightly higher than the dosages written on the product container, but these dosages are very safe and below the toxic dosage for acetaminophen. ICE & ELEVATION: Apply ice packs frequently against the painful area. Many different schedules are recommended, such as "20 minutes on, 20 minutes off" or "one hour ice, two hours rest." If you need to work, you may need to go longer between ice treatments. You should plan to have the area ice packed AT LEAST one- fourth of the time. The ice should be applied over the wrap, tape, or splint, or over a layer of cloth -- not directly against the skin. Some ice bags have a built-in cloth and can be put directly on the skin. Your injured part should be elevated as much as possible over the next 48 hours. Try to keep the injury above the level of the heart. Avoid use of the injured area. Elevation and rest will decrease the swelling. ORAL NARCOTIC MEDICATION: You have been given a prescription for pain control. This medication is a narcotic. It's best taken with food, as nausea can result if taken on an empty stomach. Don't operate machinery or drive within six hours of taking this medication. Do not combine this medicine with alcohol, or with any medication which can cause sedation (such as cold tablets or sleeping pills) unless you get permission from the physician. Narcotics tend to cause constipation. If possible, drink plenty of fluids and eat a diet high in fiber and fruits. Please be aware that prescription narcotics also have the potential for abuse. People become addicted to these medications because of the general sense of wellbeing that they induce. This feeling along with a significant reduction in tension, anxiety, and aggression provides a stimulating seductive quality to these drugs. Once your pain is under control, we encourage you to discard your unused narcotics. FOLLOW-UP CARE: If you have been referred to a physician for follow-up care, call the physician s office for an appointment as you were instructed or within the next two days. If you experience worsening or a significant change in your symptoms, notify the physician immediately or return to the Emergency Department at any time for re-evaluation. Prescriptions: Oxycodone HCl [Oxy-Ir 5 mg Tablet] 5 mg PO BIDP PRN #7 tab PRN Reason: Forms: Elevated Blood Pressure Referrals: SUSANNA CHAVEZ PA-C [Primary Care Provider] - 03/20/17
[2017-03-17 18:39] VITALS: BP 165/72
== END 2017-03-17 18:39 | disposition home or self-care (01) ==
LOC: ER 14:28
DX: S50.811A Abrasion of right forearm, initial encounter (principal); S80.211A Abrasion, right knee, initial encounter; S80.811A Abrasion, right lower leg, initial encounter; W01.0XXA Fall on same level from slipping, tripping and stumbling without subsequent striking against object, initial encounter; Y92.007 Garden or yard of unspecified non-institutional (private) residence as the place of occurrence of the external cause; E78.00 Pure hypercholesterolemia, unspecified; I10 Essential (primary) hypertension; E11.22 Type 2 diabetes mellitus with diabetic chronic kidney disease; I12.0 Hypertensive chronic kidney disease with stage 5 chronic kidney disease or end stage renal disease; N18.6 End stage renal disease; Z86.19 Personal history of other infectious and parasitic diseases; Z90.49 Acquired absence of other specified parts of digestive tract; Z90.710 Acquired absence of both cervix and uterus
CPT/HCPCS: 87070; 87880; 99283

== ENCOUNTER → 2017-03-23 | Outpatient (CLI) | payer MEDICARE, MEDICAID ==
[2017-03-23 14:58] LABS: ALANINE AMINOTRANSFERASE 29 U/L (9-52); ALBUMIN 3.2 g/dL (3.5-5.0); ALKALINE PHOSPHATASE 119 U/L (38-126); ANION GAP 10 (5-19); ASPARTATE AMINO TRANSFERASE 27 U/L (14-36); BILIRUBIN,DIRECT 0.8 mg/dL (0.0-0.4); BILIRUBIN,TOTAL 1.7 mg/dL (0.2-1.3); BLOOD UREA NITROGEN 50 mg/dL (7-20); CARBON DIOXIDE 23 mmol/L (22-30); CHLORIDE 107 mmol/L (98-107); CREATININE RESULT 4.32 mg/dL (0.52-1.25); GLUCOSE 163 mg/dL (75-110); POTASSIUM 4.9 mmol/L (3.6-5.0); SODIUM 139.7 mmol/L (137-145); TOTAL PROTEIN 6.5 g/dL (6.3-8.2)
== END ==
LOC: OD 13:57
PROVIDERS: ATTEND Internal Medicine
DX: E11.9 Type 2 diabetes mellitus without complications (principal)
CPT/HCPCS: 36415; 80053; 83036

== ENCOUNTER 2017-03-26 17:01 | Emergency (ER) | payer MEDICARE, MEDICAID ==
--- NOTE | 2017-03-26 17:29 | EKG REPORT ---
SEVERITY:- NORMAL ECG - SINUS RHYTHM : Confirmed by: Jesús Ly MD 26-Mar-2017 17:28:54
[2017-03-26 18:00] LABS: ABSOLUTE LYMPHOCYTES (AUTO) 0.4 10^3/uL (0.5-4.7); ABSOLUTE MONOCYTES (AUTO) 0.1 10^3/uL (0.1-1.4); ABSOLUTE NEUT (AUTO) 1.5 10^3/uL (1.7-8.2); BASOPHILS % (AUTO) 0.2 % (0-2); EOSINOPHILS % (AUTO) 1.4 % (0-6); HEMATOCRIT 27.9 % (36.0-47.0); HEMOGLOBIN 9.4 g/dL (12.0-15.5); HGB HCT DIFFERENCE 0.3; LYMPHOCYTES % (AUTO) 18.9 % (13-45); MEAN CORPUSCULAR HEMOGLOBIN 31.5 pg (27.0-33.4); MEAN CORPUSCULAR HGB CONC 33.8 g/dL (32.0-36.0); MEAN CORPUSCULAR VOLUME 93 fl (80-97); MONOCYTES % (AUTO) 5.8 % (3-13); RED BLOOD COUNT 2.99 10^6/uL (3.72-5.28); RED CELL DISTRIBUTION WIDTH 15.9 % (11.5-14.0); SEGMENTED NEUTROPHILS % (AUTO) 73.7 % (42-78); WHITE BLOOD COUNT 2.1 10^3/uL (4.0-10.5)
[2017-03-26 18:01] LABS: APPEARANCE,URINE SLIGHTLY-CLOUDY; BILIRUBIN,URINE NEGATIVE (NEGATIVE); GLUCOSE, URINE NEGATIVE (NEGATIVE); KETONES,URINE NEGATIVE (NEGATIVE); LEUKOCYTE ESTERASE,URINE TRACE (NEGATIVE); NITRITE,URINE NEGATIVE (NEGATIVE); PROTEIN,URINE NEGATIVE (NEGATIVE); URINE SPECIFIC GRAVITY 1.008; UROBILINOGEN,URINE NEGATIVE mg/dL (<2.0)
[2017-03-26 18:10] LABS: ALANINE AMINOTRANSFERASE 28 U/L (9-52); ALBUMIN 3.3 g/dL (3.5-5.0); ALCOHOL < 10 mg/dL (NONE DETECTED); ALKALINE PHOSPHATASE 133 U/L (38-126); ANION GAP 12 (5-19); ASPARTATE AMINO TRANSFERASE 32 U/L (14-36); BILIRUBIN,DIRECT 0.8 mg/dL (0.0-0.4); BILIRUBIN,TOTAL 1.5 mg/dL (0.2-1.3); BLOOD UREA NITROGEN 48 mg/dL (7-20); CALCIUM 8.9 mg/dL (8.4-10.2); CARBON DIOXIDE 23 mmol/L (22-30); CHLORIDE 108 mmol/L (98-107); CREATININE RESULT 4.08 mg/dL (0.52-1.25); GLUCOSE 169 mg/dL (75-110); POTASSIUM 4.2 mmol/L (3.6-5.0); SODIUM 142.5 mmol/L (137-145); TOTAL PROTEIN 6.7 g/dL (6.3-8.2)
[2017-03-26 18:18] LABS: URINE BARBITURATES SCREEN NEGATIVE; URINE METHADONE SCREEN NEGATIVE; URINE OPIATES LOW NEGATIVE; URINE PHENCYCLIDINE SCREEN NEGATIVE
--- NOTE | 2017-03-26 19:23 | ER Document Report ---
ED General - General Chief Complaint: Chest Pain Stated Complaint: CHEST PAIN/SUICIDAL IDEATION Time Seen by Provider: 03/26/17 17:12 Mode of Arrival: Medic Information source: Patient Notes: 47-year-old female history of depression presents with complaints of chest pain. Patient notes the pain is reproducible denies any fevers or chills admits to shortness of breath. Patient denies any history of any cardiac concerns. It is noted that the patient admits to suicidal ideations however denies this to myself, appears patient has been having altercations with her sister TRAVEL OUTSIDE OF THE [place] IN LAST 30 DAYS: No - HPI Onset: Yesterday Onset/Duration: Persistent Quality of pain: Achy Severity: Mild Pain Level: 1 Associated symptoms: Body/muscle aches, Chest pain Exacerbated by: Denies Relieved by: Denies Similar symptoms previously: Yes Recently seen / treated by doctor: Yes - Related Data Allergies/Adverse Reactions: No Known Allergies Allergy (Verified 03/26/17 17:19) Past Medical History - Social History Smoking Status: Unknown if Ever Smoked Chew tobacco use (# tins/day): No Frequency of alcohol use: None Drug Abuse: None Family History: Reviewed & Not Pertinent Patient has suicidal ideation: Yes Patient has homicidal ideation: No - Past Medical History Cardiac Medical History: Reports: Hx Hypercholesterolemia, Hx Hypertension Denies: Hx Coronary Artery Disease, Hx Heart Attack Pulmonary Medical History: Denies: Hx Asthma, Hx Bronchitis, Hx COPD, Hx Pneumonia, Hx Tuberculosis Neurological Medical History: Denies: Hx Cerebrovascular Accident, Hx Seizures Endocrine Medical History: Reports: Hx Diabetes Mellitus Type 2 Renal/ Medical History: Reports: Hx End Stage Renal Disease, Hx Kidney Stones - 2011. Denies: Hx Peritoneal Dialysis GI Medical History: Reports: Hx Gastroesophageal Reflux Disease, Hx Hepatitis - C Musculoskeltal Medical History: Reports Hx Arthritis - spine Psychiatric Medical History: Reports: Hx Anxiety, Hx Bipolar Disorder, Hx Depression Infectious Medical History: Reports: Hx Hepatitis - C Past Surgical History: Reports: Hx Cholecystectomy, Hx Hysterectomy - Immunizations Hx Diphtheria, Pertussis, Tetanus Vaccination: Yes Hx Pneumococcal Vaccination: 09/03/12 Review of Systems - Review of Systems Notes: PHYSICAL EXAMINATION: GENERAL: Well-appearing, well-nourished and in no acute distress. HEAD: Atraumatic, normocephalic. EYES: Pupils equal round and reactive to light, extraocular movements intact, conjunctiva are normal. ENT: Nares patent, oropharynx clear without exudates. Moist mucous membranes. NECK: Normal range of motion, supple without lymphadenopathy LUNGS: Breath sounds clear to auscultation bilaterally and equal. No wheezes rales or rhonchi. HEART: Regular rate and rhythm without murmurs ABDOMEN: Soft, nontender, nondistended abdomen. No guarding, no rebound. No masses appreciated. Female : deferred Musculoskeletal: Normal range of motion, no pitting or edema. No cyanosis. Chest pain is reproducible on palpation NEUROLOGICAL: Cranial nerves grossly intact. Normal speech, normal gait. Normal sensory, motor exams PSYCH: Normal mood, normal affect. SKIN: Mild irritation under the left breast ecchymosis left lateral thigh healing abrasions to the right alughlin left laughlin Physical Exam - Vital signs Vitals: Resp Pulse Ox 30 H 95 03/26/17 17:21 03/26/17 17:21 Course - Re-evaluation Re-evalutation: 03/26/17 19:34 Patient's cardiac enzymes no no significant abnormality, even at the patient's pain has been constant and reproducible I have very low suspicion for any cardiac concerns. I will hold her for mental health evaluation even the threats of suicidal ideation - Vital Signs Vital signs: Temp Pulse Resp BP Pulse Ox 31 H 146/57 H 97 03/26/17 19:01 03/26/17 19:01 03/26/17 19:01 - Laboratory Result Diagrams: 03/26/17 17:35 03/26/17 17:35 Laboratory results interpreted by me: 03/26/17 03/26/17 03/26/17 17:35 17:35 17:35 WBC 2.1 L RBC 2.99 L Hgb 9.4 L Hct 27.9 L RDW 15.9 H Plt Count 34 L Absolute Neutrophils 1.5 L Absolute Lymphocytes 0.4 L Chloride 108 H BUN 48 H Creatinine 4.08 H Est GFR ( Amer) 14 L Est GFR (Non-Af Amer) 12 L Glucose 169 H Total Bilirubin 1.5 H Direct Bilirubin 0.8 H Alkaline Phosphatase 133 H Albumin 3.3 L Urine Blood LARGE H Ur Leukocyte Esterase TRACE H Salicylates 1.6 L Acetaminophen < 10 L - Diagnostic Test Radiology reviewed: Image reviewed, Reports reviewed - EKG Interpretation by Me EKG shows normal: Sinus rhythm, [place], Intervals, QRS Complexes Discharge - Discharge Clinical Impression: Suicidal ideation Chronic kidney disease Qualifiers: Chronic kidney disease stage: stage 3 (moderate) Qualified Code(s): N18.3 - Chronic kidney disease, stage 3 (moderate) Chest pain Qualifiers: Chest pain type: unspecified Qualified Code(s): R07.9 - Chest pain, unspecified Condition: Stable Disposition: PSYCH HOSP/UNIT
[2017-03-26] MEDS ORDERED: ACETAMINOPHEN 325 MG TABLET PO ONE (21:45)
--- NOTE | 2017-03-27 10:11 | ER Document Report ---
ED Psych Disorder / Suicide - General Mode of Arrival: Medic Information source: Patient, [facility] Records TRAVEL OUTSIDE OF THE [place] IN LAST 30 DAYS: No - HPI Patient complains to provider of: Suicidal ideation - pt reported to EMS; however, denied upon arrival Onset: Just prior to arrival Onset was: Sudden Suicide Risk Factors: Lack of social support, Other - stress Situational problems related to: Other - altercations with sister Normal mood: Yes Associated symptoms: Normal affect, Normal mood Similar symptoms previously: Yes Recently seen / treated by doctor: Yes - PCM <ANAHI CHOUDHARY - Last Filed: 03/27/17 10:04> <ARISTIDES AGUILA - Last Filed: 03/27/17 10:43> - General Chief Complaint: Chest Pain Stated Complaint: CHEST PAIN/SUICIDAL IDEATION Time Seen by Provider: 03/26/17 17:12 - HPI Notes: Patient is a 47-year-old female who presented yesterday late afternoon via EMS with a chief complaint of chest pains. Patient did report to EMS at her home that she was experiencing suicidal ideations; however, during medical screening patient denied this. Patient was held voluntarily overnight to speak with mental health. Patient was additionally noted to be having disagreements/ altercations with her sister and also requested law-enforcement, and take a report. Patient this morning states she did make those statements yesterday while under stress. Patient states it was the first time in her life she thought about suicide. Patient states her sister and sister's boyfriend live with her as of recently, and they constantly argue. She states they broke up and he moved out; however, yesterday morning her sister resumed their relationship and he was back at the house. Patient states she just felt overwhelmed after thinking the problem had been resolved. Patient states she would like to go home, and needs a cab because she came in via EMS. Patient advised that the hospital does not provide cabs unless extreme circumstances/ hardships. Patient states her sister does not drive, but she could call her ex and ask for help. Patient is A&O. Mood is euthymic with normal affect. Patient denies suicidal/ homicidal ideations, intent, plan, or means. Patient denies A/V H; delusions not noted. Thought processes were organized. Conversational speech was WNL for prosody. Intellectual abilities were estimated within average range. Attention and focus were fair. Insight, judgment, and impulse control were fair. Diagnosis: Deferred Patient is psychiatrically cleared and recommended for discharge to follow up with a provider of her choice. Patient does not meet criteria for IVC per the [id number] as she denies SI/HI, denies prior attempts, etc. Patient was provided a list of resources should she chose to follow up for counseling. Patient was encouraged to identify and utilize coping skills to assist her in coping with her stressors. I consulted with Dr. Garcia in regards to the care and management of this patient. (ANAHI CHOUDHARY) - Related Data Allergies/Adverse Reactions: No Known Allergies Allergy (Verified 03/26/17 17:19) Home Medications: Current Home Medications Oxycodone HCl [Oxy-Ir 5 mg Tablet] 2 tab PO TIDP PRN 03/26/17 [History] Promethazine HCl [Phenergan 25 mg Tablet] 1 tab PO Q4HP PRN 03/26/17 [History] Spironolactone [Spironolactone] 1 tab PO DAILY 03/26/17 [History] Past Medical History - General Information source: Patient, [facility] Records - Social History Smoking Status: Unknown if Ever Smoked Chew tobacco use (# tins/day): No Frequency of alcohol use: None Drug Abuse: None Family History: Reviewed & Not Pertinent Patient has suicidal ideation: No Patient has homicidal ideation: No - Past Medical History Cardiac Medical History: Reports: Hx Hypercholesterolemia, Hx Hypertension Denies: Hx Coronary Artery Disease, Hx Heart Attack Pulmonary Medical History: Denies: Hx Asthma, Hx Bronchitis, Hx COPD, Hx Pneumonia, Hx Tuberculosis Neurological Medical History: Denies: Hx Cerebrovascular Accident, Hx Seizures Endocrine Medical History: Reports: Hx Diabetes Mellitus Type 2 Renal/ Medical History: Reports: Hx End Stage Renal Disease, Hx Kidney Stones - 2011. Denies: Hx Peritoneal Dialysis GI Medical History: Reports: Hx Gastroesophageal Reflux Disease, Hx Hepatitis - C Musculoskeltal Medical History: Reports Hx Arthritis - spine Psychiatric Medical History: Reports: Hx Anxiety, Hx Bipolar Disorder, Hx Depression Infectious Medical History: Reports: Hx Hepatitis - C Past Surgical History: Reports: Hx Cholecystectomy, Hx Hysterectomy - Immunizations Hx Diphtheria, Pertussis, Tetanus Vaccination: Yes Hx Pneumococcal Vaccination: 09/03/12 <ANAHI CHOUDHARY - Last Filed: 03/27/17 10:04> Course - Laboratory Result Diagrams: 03/26/17 17:35 03/26/17 17:35 <ANAHI CHOUDHARY - Last Filed: 03/27/17 10:04> - Laboratory Result Diagrams: 03/26/17 17:35 03/26/17 17:35 <ARISTIDES AGUILA - Last Filed: 03/27/17 10:43> - Re-evaluation Re-evalutation: 03/27/17 10:42 Patient evaluated by me this morning. I agree with assessment and agree with discharge today. Patient with good eye contact, cooperative with interview, is motivated and adamantly denies SI/HI. She agrees to return or seek help for any worsening symptoms or thoughts of hurting herself of others. (ARISTIDES AGUILA) - Vital Signs Vital signs: Temp Pulse Resp BP Pulse Ox 97.2 F 78 16 145/63 H 95 03/27/17 08:00 03/27/17 08:00 03/27/17 08:00 03/27/17 08:00 03/27/17 08:00 - Laboratory Laboratory results interpreted by me: 03/26/17 03/26/17 03/26/17 17:35 17:35 17:35 WBC 2.1 L RBC 2.99 L Hgb 9.4 L Hct 27.9 L RDW 15.9 H Plt Count 34 L Absolute Neutrophils 1.5 L Absolute Lymphocytes 0.4 L Chloride 108 H BUN 48 H Creatinine 4.08 H Est GFR ( Amer) 14 L Est GFR (Non-Af Amer) 12 L Glucose 169 H Total Bilirubin 1.5 H Direct Bilirubin 0.8 H Alkaline Phosphatase 133 H Albumin 3.3 L Urine Blood LARGE H Ur Leukocyte Esterase TRACE H Salicylates 1.6 L Acetaminophen < 10 L Discharge <ANAHI CHOUDHARY - Last Filed: 03/27/17 10:04> <ARISTIDES AGUILA - Last Filed: 03/27/17 10:43> - Discharge Clinical Impression: Suicidal ideation Chronic kidney disease Qualifiers: Chronic kidney disease stage: stage 3 (moderate) Qualified Code(s): N18.3 - Chronic kidney disease, stage 3 (moderate) Chest pain Qualifiers: Chest pain type: unspecified Qualified Code(s): R07.9 - Chest pain, unspecified Condition: Stable Disposition: HOME, SELF-CARE Additional Instructions: Suicidal Ideation Suicidal ideation is a common medical term for thoughts about suicide, which may be as detailed as a formulated plan, without the suicidal act itself. Although most people who undergo suicidal ideation do not commit suicide, some go on to make suicide attempts. The range of suicidal ideation varies greatly from fleeting to detailed planning, role playing, and unsuccessful attempts. Please follow up with a provider of your choice and request assistance with counseling. Please return if your symptoms worsen. Referrals: [facility] [Provider Group] - Follow up in 3-5 days
[2017-03-27 11:32] VITALS: BP 170/73
== END 2017-03-27 11:32 | disposition home or self-care (01) ==
LOC: ER 17:01
DX: R45.851 Suicidal ideations (principal); N18.3 Chronic kidney disease, stage 3 (moderate); R07.9 Chest pain, unspecified; Z79.899 Other long term (current) drug therapy
CPT/HCPCS: 93005; 99285; 36415; 80307 ×4; 84703; 85025; 80053; 81001; 93010; A9270

== ENCOUNTER 2017-04-19 18:55 | Emergency (ER) | payer MEDICARE, MEDICAID ==
--- NOTE | 2017-04-19 20:45 | ER Document Report ---
ED Skin Rash/Insect Bite/Abscs - General Chief Complaint: Skin Sore(s) Stated Complaint: LEG PAIN Time Seen by Provider: 04/19/17 19:46 Notes: Patient is a 47-year-old female who presents emergency department via EMS with sores on her legs. Palpation she had a rash on her right TRAVEL OUTSIDE OF THE [place] IN LAST 30 DAYS: No - Related Data Allergies/Adverse Reactions: No Known Allergies Allergy (Verified 04/19/17 19:03) Past Medical History - Social History Smoking Status: Never Smoker Chew tobacco use (# tins/day): No Frequency of alcohol use: None Drug Abuse: None Family History: Reviewed & Not Pertinent Patient has suicidal ideation: No Patient has homicidal ideation: No - Past Medical History Cardiac Medical History: Reports: Hx Hypercholesterolemia, Hx Hypertension Denies: Hx Coronary Artery Disease, Hx Heart Attack Pulmonary Medical History: Denies: Hx Asthma, Hx Bronchitis, Hx COPD, Hx Pneumonia, Hx Tuberculosis Neurological Medical History: Denies: Hx Cerebrovascular Accident, Hx Seizures Endocrine Medical History: Reports: Hx Diabetes Mellitus Type 2 Renal/ Medical History: Reports: Hx End Stage Renal Disease, Hx Kidney Stones - 2011. Denies: Hx Peritoneal Dialysis GI Medical History: Reports: Hx Gastroesophageal Reflux Disease, Hx Hepatitis - C Musculoskeltal Medical History: Reports Hx Arthritis - spine Psychiatric Medical History: Reports: Hx Anxiety, Hx Bipolar Disorder, Hx Depression - & anxiety Infectious Medical History: Reports: Hx Hepatitis - C Past Surgical History: Reports: Hx Cholecystectomy - 2011, Hx Hysterectomy - Immunizations Hx Diphtheria, Pertussis, Tetanus Vaccination: Yes Hx Pneumococcal Vaccination: 09/03/12 Physical Exam - Vital signs Vitals: Temp Pulse Resp BP Pulse Ox 98.6 F 112 H 22 H 199/81 H 99 04/19/17 19:03 04/19/17 19:03 04/19/17 19:03 04/19/17 19:03 04/19/17 19:03 Course - Vital Signs Vital signs: Temp Pulse Resp BP Pulse Ox 98.6 F 112 H 22 H 199/81 H 99 04/19/17 19:03 04/19/17 19:03 04/19/17 19:03 04/19/17 19:03 04/19/17 19:03
--- NOTE | 2017-04-19 21:13 | ER Document Report ---
ED Medical Screen (RME) - General Chief Complaint: Skin Sore(s) Stated Complaint: LEG PAIN Time Seen by Provider: 04/19/17 19:46 Notes: Patient is a 47-year-old female presents emergency department complaining of bilateral lower extremity rash worse on the right. Patient states that she has been seen by her primary care provider 2 weeks ago which she says was infection which has since resolved. Her primary care provider now states that her lower extremity wounds are likely related to poor circulation and lower extremity edema. No signs of infection. Patient states that this past 2 days she has noticed red numbness around breaks in her skin that have been leaking fluid. The fluid is clear. She admits to pain. Admits to pressure and itching. Past medical history significant for liver disease, cirrhosis. Patient is unsure of her hepatitis status. Admits to stage II chronic kidney disease, insulin-dependent diabetes, hypertension. Primary care provider is a physician at [facility] medicine Follows with Dr. William for gastroenterology as well as goes to [facility] for possible liver transplant evaluation. She also follows with Dr. Mckinley for her thrombocytopenia. TRAVEL OUTSIDE OF THE [place] IN LAST 30 DAYS: No - Related Data Allergies/Adverse Reactions: No Known Allergies Allergy (Verified 04/19/17 19:03) Past Medical History - Social History Chew tobacco use (# tins/day): No Frequency of alcohol use: None Drug Abuse: None - Past Medical History Cardiac Medical History: Reports: Hx Hypercholesterolemia, Hx Hypertension Denies: Hx Coronary Artery Disease, Hx Heart Attack Pulmonary Medical History: Denies: Hx Asthma, Hx Bronchitis, Hx COPD, Hx Pneumonia, Hx Tuberculosis Neurological Medical History: Denies: Hx Cerebrovascular Accident, Hx Seizures Endocrine Medical History: Reports: Hx Diabetes Mellitus Type 2 Renal/ Medical History: Reports: Hx End Stage Renal Disease, Hx Kidney Stones - 2011. Denies: Hx Peritoneal Dialysis GI Medical History: Reports: Hx Gastroesophageal Reflux Disease, Hx Hepatitis - C Musculoskeltal Medical History: Reports Hx Arthritis - spine Psychiatric Medical History: Reports: Hx Anxiety, Hx Bipolar Disorder, Hx Depression - & anxiety Infectious Medical History: Reports: Hx Hepatitis - C Past Surgical History: Reports: Hx Cholecystectomy - 2012, Hx Hysterectomy - Immunizations Hx Diphtheria, Pertussis, Tetanus Vaccination: Yes Physical Exam - Vital signs Vitals: Temp Pulse Resp BP Pulse Ox 98.6 F 112 H 22 H 199/81 H 99 04/19/17 19:03 04/19/17 19:03 04/19/17 19:03 04/19/17 19:03 04/19/17 19:03 - Skin Location of irregularity: Extremities Character of irregularity: Linear, Petechial Irregularity with: Well defined border, Weeping Course - Vital Signs Vital signs: Temp Pulse Resp BP Pulse Ox 98.6 F 112 H 22 H 199/81 H 99 04/19/17 19:03 04/19/17 19:03 04/19/17 19:03 04/19/17 19:03 04/19/17 19:03
--- NOTE | 2017-04-19 21:13 | ER Document Report ---
ED Skin Rash/Insect Bite/Abscs - General Mode of Arrival: Ambulatory Information source: Patient TRAVEL OUTSIDE OF THE [place] IN LAST 30 DAYS: No - HPI Patient complains to provider of: Skin rash/lesion <FOX FITZPATRICK - Last Filed: 04/19/17 23:47> <PAL GREGORY - Last Filed: 04/20/17 00:12> - General Chief Complaint: Skin Sore(s) Stated Complaint: skin sore Time Seen by Provider: 04/19/17 19:46 Notes: Patient is a 47 year old female, with a past medical history including diabetes , kidney disease, and hypertension, who presents to the emergency department complaining of fluid seeping from sores on her legs. Patient states that she has had sores on her legs and saw her PCP a couple of weeks ago, she was treated with antibiotics which she reports did not help. Patient noticed new sores a few days ago with fluid seeping out and denies itching them, patient is worried about the swelling in her legs and the fluid draining from the sores. Patient states the swelling has been present for a while and she has been told by her kidney doctor to keep her legs elevated which she has but it has not helped. Patient denies fever, chest pain, nausea, and trouble breathing. (FOX FITZPATRICK) - Related Data Allergies/Adverse Reactions: No Known Allergies Allergy (Verified 04/19/17 19:03) Past Medical History - General Information source: Patient - Social History Smoking Status: Never Smoker Chew tobacco use (# tins/day): No Frequency of alcohol use: None Drug Abuse: None Family History: Reviewed & Not Pertinent Patient has suicidal ideation: No Patient has homicidal ideation: No - Past Medical History Cardiac Medical History: Reports: Hx Hypercholesterolemia, Hx Hypertension Denies: Hx Coronary Artery Disease, Hx Heart Attack Pulmonary Medical History: Denies: Hx Asthma, Hx Bronchitis, Hx COPD, Hx Pneumonia, Hx Tuberculosis Neurological Medical History: Denies: Hx Cerebrovascular Accident, Hx Seizures Endocrine Medical History: Reports: Hx Diabetes Mellitus Type 2 Renal/ Medical History: Reports: Hx End Stage Renal Disease, Hx Kidney Stones - 2011. Denies: Hx Peritoneal Dialysis GI Medical History: Reports: Hx Gastroesophageal Reflux Disease, Hx Hepatitis - C Musculoskeltal Medical History: Reports Hx Arthritis - spine Psychiatric Medical History: Reports: Hx Anxiety, Hx Bipolar Disorder, Hx Depression - & anxiety Infectious Medical History: Reports: Hx Hepatitis - C Past Surgical History: Reports: Hx Cholecystectomy - 2012, Hx Hysterectomy - Immunizations Hx Diphtheria, Pertussis, Tetanus Vaccination: Yes Hx Pneumococcal Vaccination: 09/03/12 <FOX FITZPATRICK - Last Filed: 04/19/17 23:47> Review of Systems - Review of Systems Constitutional: denies: Fever EENT: No symptoms reported Cardiovascular: denies: Chest pain Respiratory: denies: Other - difficulty breathing Gastrointestinal: denies: Nausea Genitourinary: No symptoms reported Female Genitourinary: No symptoms reported Musculoskeletal: See HPI, Leg swelling Skin: See HPI, Lesions Hematologic/Lymphatic: No symptoms reported Neurological/Psychological: No symptoms reported -: Yes All other systems reviewed and negative <FOX FITZPATRICK - Last Filed: 04/19/17 23:47> Physical Exam <FOX FITZPATRICK - Last Filed: 04/19/17 23:47> <PAL GREGORY - Last Filed: 04/20/17 00:12> - Vital signs Vitals: Temp Pulse Resp BP Pulse Ox 98.6 F 112 H 22 H 199/81 H 99 04/19/17 19:03 04/19/17 19:03 04/19/17 19:03 04/19/17 19:03 04/19/17 19:03 - Notes Notes: GENERAL: Alert, interacts well. No acute distress. HEAD: Normocephalic, atraumatic. EYES: Pupils equal, round, and reactive to light. Extraocular movements intact. ENT: Oral mucosa moist, tongue midline. NECK: Full range of motion. Supple. Trachea midline. LUNGS: Clear to auscultation bilaterally, no wheezes, rales, or rhonchi. No respiratory distress. HEART: Regular rate and rhythm. No murmurs, gallops, or rubs. ABDOMEN: Soft, non-tender. Non-distended. Bowel sounds present in all 4 quadrants. EXTREMITIES: Moves all 4 extremities spontaneously. Dorsalis pedis pulses 2/4 bilaterally. 2+ pitting edema to the knee bilaterally. NEUROLOGICAL: Alert and oriented x3. Normal speech. PSYCH: Normal affect, normal mood. SKIN: Multiple breaks in skin over lower legs, right worse than left. Tracking consistent with excoriation. Excoriation to medial aspect of right calf. Clear fluid seeping from breaks. Minimal erythema, minimal petechiae. No pustules. 3 old, mostly healed, ulcers over anterior aspect of right lower leg, 4th ulcer less healed on anterior aspect of left lower leg. (FOX FITZPATRICK) Course - Laboratory Result Diagrams: 04/19/17 20:58 04/19/17 20:58 <FOX FITZPATRICK - Last Filed: 04/19/17 23:47> - Laboratory Result Diagrams: 04/19/17 20:58 04/19/17 20:58 <PAL GREGORY - Last Filed: 04/20/17 00:12> - Re-evaluation Re-evalutation: 04/19/17 23:27 CBC shows pancytopenia, slightly worsened from prior but not significantly cell. White blood cell count was 1.7, hemoglobin is 8.9, platelets are 27. Chemistries show chronic renal failure with a BUN of 38 and creatinine of 4.2, GFR is not significantly changed from prior testing approximately 1 month ago, total and direct bilirubin are similarly chronically elevated as is the alkaline phosphatase. ProBNP is only minimally elevated at 573. Cardiac enzymes are negative. Chest x-ray does show a new small left pleural effusion and mild increased interstitial markings. Patient is having no respiratory symptoms and no respiratory distress. The sores on the patient's legs do not appear acutely infected. I did discuss with the patient there is no indication for antibiotics at this time, the sores on the legs are suspicious for excoriations however the patient states she is absolutely not scratching her legs. My other concern is that she may be having some sort of an insect bite whether this comes from fleas from the animals in the home or possibly other environmental envenomation such as fire ant bites. Patient is asked to use Fleet medication on her animals in the home. Patient is offered a single dose of Lasix here to see if it helps to diurese some fluid. 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 No indication of congestive heart failure. (PAL GREGORY) - Vital Signs Vital signs: Temp Pulse Resp BP Pulse Ox 98.6 F 83 19 169/84 H 97 04/19/17 19:03 04/19/17 23:55 04/19/17 23:55 04/19/17 23:55 04/19/17 23:55 - Laboratory Laboratory results interpreted by me: 04/19/17 04/19/17 04/19/17 20:58 20:58 20:58 WBC 1.7 L RBC 2.78 L Hgb 8.9 L Hct 26.4 L RDW 16.0 H Plt Count 27 L* Band Neutrophils % 2 L Abs Neuts (Manual) 1.0 L PT 18.8 H APTT 38.7 H Carbon Dioxide 20 L BUN 38 H Creatinine 4.20 H Est GFR ( Amer) 14 L Est GFR (Non-Af Amer) 11 L Glucose 217 H Total Bilirubin 2.0 H Direct Bilirubin 0.9 H Alkaline Phosphatase 132 H NT-Pro-B Natriuret Pep 04/19/17 20:58 WBC RBC Hgb Hct RDW Plt Count Band Neutrophils % Abs Neuts (Manual) PT APTT Carbon Dioxide BUN Creatinine Est GFR ( Amer) Est GFR (Non-Af Amer) Glucose Total Bilirubin Direct Bilirubin Alkaline Phosphatase NT-Pro-B Natriuret Pep 573 H - EKG Interpretation by Me Additional EKG results interpreted by me: 04/19/17 23:29 EKG shows sinus rhythm rate of 99, first-degree AV block, poor R-wave progression, normal axis, no ST segment elevations or depressions, there are T- wave inversions noted in lead III per my interpretation. (PAL GREGORY) Discharge <FOX FITZPATRICK - Last Filed: 04/19/17 23:47> <PAL GREGORY - Last Filed: 04/20/17 00:12> - Discharge Clinical Impression: Peripheral edema, Pancytopenia, CKD (chronic kidney disease), stage IV, Skin sore Chronic liver failure Qualifiers: Hepatic coma status: without hepatic coma Qualified Code(s): K72.10 - Chronic hepatic failure without coma Hypertension Qualifiers: Hypertension type: essential hypertension Qualified Code(s): I10 - Essential ( primary) hypertension Condition: Stable Disposition: HOME, SELF-CARE Additional Instructions: You have both liver and kidney failure. This makes it very difficult for your body to hold onto fluid. It is likely what is contributing to the swelling in your legs. When you have a break in the skin such as your sores it can cause the fluid to seep out more easily than usual. Comparing your labs to prior visits your liver and your kidney failure do not appear to have changed or worsened. There is no evidence of heart failure. There is no evidence of infection to your legs. We have given you a single dose of Lasix here to see if it helps with your swelling. If it does help with your swelling please discuss more Lasix with your primary care physician, kidney doctor and liver doctor. Please apply antibiotic ointment to the sores on your legs. Please keep your legs elevated during the day and consider resting them with Lauro wraps or wearing compression stockings to help decrease the swelling. I am afraid some of the sores may be from bites from insects such as fleas or fire ants. Please examine your home closely for any insects that may be biting you, please treat your dog for fleas. Brigido Attestation: 04/20/17 00:12 I personally performed the services described in the documentation, reviewed and edited the documentation which was dictated to the scribe in my presence, and it accurately records my words and actions. (PAL GREGORY) Brigido Documentation - Scribe Written by Brigido:: brigido Carrizales, , [id number] acting as scribe for :: Khushi <FOX FITZPATRICK - Last Filed: 04/19/17 23:47>
[2017-04-19 21:25] LABS: HEMATOCRIT 26.4 % (36.0-47.0); HEMOGLOBIN 8.9 g/dL (12.0-15.5); HGB HCT DIFFERENCE 0.3; MEAN CORPUSCULAR HEMOGLOBIN 31.9 pg (27.0-33.4); MEAN CORPUSCULAR HGB CONC 33.6 g/dL (32.0-36.0); MEAN CORPUSCULAR VOLUME 95 fl (80-97); RED BLOOD COUNT 2.78 10^6/uL (3.72-5.28); WHITE BLOOD COUNT 1.7 10^3/uL (4.0-10.5)
[2017-04-19 21:34] LABS: PROTHROMBIN TIME 18.8 SEC (11.4-15.4)
[2017-04-19 21:35] LABS: PARTIAL THROMBOPLASTIN TIME 38.7 SEC (23.5-35.8)
[2017-04-19 21:38] LABS: ALANINE AMINOTRANSFERASE 35 U/L (9-52); ALBUMIN 3.5 g/dL (3.5-5.0); ALKALINE PHOSPHATASE 132 U/L (38-126); ANION GAP 12 (5-19); ASPARTATE AMINO TRANSFERASE 27 U/L (14-36); BILIRUBIN,DIRECT 0.9 mg/dL (0.0-0.4); BLOOD UREA NITROGEN 38 mg/dL (7-20); CALCIUM 8.9 mg/dL (8.4-10.2); CARBON DIOXIDE 20 mmol/L (22-30); CHLORIDE 107 mmol/L (98-107); GLUCOSE 217 mg/dL (75-110); POTASSIUM 3.7 mmol/L (3.6-5.0); SODIUM 139.3 mmol/L (137-145)
[2017-04-19 21:50] LABS: CREATINE KINASE MB 1.18 ng/mL (<4.55)
[2017-04-19 21:51] LABS: TROPONIN I < 0.012 ng/mL
[2017-04-19 21:58] LABS: BAND NEUTROPHILS % (MANUAL) 2 % (3-5); BASOPHILS % (MANUAL) 0 % (0-2); EOSINOPHILS % (MANUAL) 2 % (0-6); LYMPHOCYTES % (MANUAL) 30 % (13-45); TOTAL CELLS COUNTED 50
[2017-04-19 22:01] LABS: ANISOCYTOSIS 1+; OVALOCYTES 1+; TEAR DROP CELLS 1+; TOXIC GRANULATION SLIGHT
[2017-04-19 22:02] LABS: POIKILOCYTOSIS 1+
--- NOTE | 2017-04-19 22:59 | RADIOLOGY REPORT (SQ) ---
EXAM DESCRIPTION: CHEST PA/LAT COMPLETED DATE/TIME: 04/19/2017 9:47 pm REASON FOR STUDY: edema COMPARISON: 01/14/2017 EXAM PARAMETERS: NUMBER OF VIEWS: two views TECHNIQUE: Digital Frontal and Lateral radiographic views of the chest acquired. RADIATION DOSE: NA LIMITATIONS: none FINDINGS: LUNGS AND PLEURA: New small left pleural effusion. No consolidation. Mild increased inte rstitial markings. No consolidation. No pneumothorax. MEDIASTINUM AND HILAR STRUCTURES: Stable. HEART AND VASCULAR STRUCTURES: Mild cardiac enlargement. BONES: No acute findings. HARDWARE: None in the chest. OTHER: No other significant finding. IMPRESSION: New small left pleural effusion. No consolidation. Mild increased interstitial markings . TECHNICAL DOCUMENTATION: JOB ID: [id number] [employer]- All Rights Reserved
[2017-04-19] MEDS ORDERED: FUROSEMIDE 20 MG TABLET PO ONE (23:41)
[2017-04-19 23:55] VITALS: BP 169/84
--- NOTE | 2017-04-20 10:47 | EKG REPORT ---
SEVERITY:- ABNORMAL ECG - SINUS RHYTHM FIRST DEGREE AV BLOCK BORDERLINE R WAVE PROGRESSION, ANTERIOR LEADS : Confirmed by: Evelyn Mauricio MD 20-Apr-2017 10:46:07
== END 2017-04-19 23:55 | disposition home or self-care (01) ==
LOC: ER 18:55
DX: K72.10 Chronic hepatic failure without coma (principal); I12.9 Hypertensive chronic kidney disease with stage 1 through stage 4 chronic kidney disease, or unspecified chronic kidney disease; N18.4 Chronic kidney disease, stage 4 (severe); D61.818 Other pancytopenia; R60.0 Localized edema; L98.9 Disorder of the skin and subcutaneous tissue, unspecified; R21 Rash and other nonspecific skin eruption
CPT/HCPCS: 93005; 99284; 86900; 86901; 36415; 82553; 86850; 82550; 85025; 85610; 85730; 80053; 84484; 83880; 71020; 93010; A9270

== ENCOUNTER 2017-04-28 10:02 | Inpatient (IN) | payer MEDICARE, MEDICAID ==
--- NOTE | 2017-04-28 10:39 | ER Document Report ---
ED Medical Screen (RME) - General Mode of Arrival: Wheelchair Information source: Patient TRAVEL OUTSIDE OF THE [place] IN LAST 30 DAYS: No - HPI Patient complains to provider of: Lower abdominal pain, weakness, and dizziness Onset: Other - see notes above Associated Symptoms: Other - see notes abvoe - Related Data Smoking: Cigarettes Frequency of alcohol use: None Drug Abuse: None <JULIUS VILLARREAL - Last Filed: 04/28/17 11:24> <PAL GREGORY - Last Filed: 04/28/17 16:12> - General Chief Complaint: Weakness Stated Complaint: WEAKNESS Time Seen by Provider: 04/28/17 10:27 Notes: 47 year old female with history of kidney and liver failure (not dialyzed) presents to the ED complaining of lower abdominal pain that has been present for a 'long time' and weakness and dizziness that started yesterday. Patient reports that she has chronic abdominal pain and that her pain is not new or different. Patient had an ultrasound performed today which was scheduled by Dr. Hood. Patient believes her abdominal pain is coming from her enlarged spleen. Today, the patient describes her dizziness as if her head is spinning with a sharp shooting pain across her head and associated blurry vision that lasted for approximately 2 minutes. Patient reports that when she moves positions rapidly from a seated or laying down position to standing she develops dizziness. Patient is additionally complaining of nausea, but denies fever, diaphoresis, chills, vomiting, diarrhea, or urinary symptoms. Patient is currently on 2 antibiotics (started 5 days ago) for a possible staph infection to her bilateral legs as prescribed by a physician at [facility]. ( JULIUS VILLARREAL) - Related Data Allergies/Adverse Reactions: No Known Allergies Allergy (Verified 04/19/17 19:03) Past Medical History - General Information source: Patient - Social History Cigarette use (# per day): Yes Chew tobacco use (# tins/day): No Frequency of alcohol use: None Drug Abuse: None - Past Medical History Cardiac Medical History: Reports: Hx Hypercholesterolemia, Hx Hypertension Endocrine Medical History: Reports: Hx Diabetes Mellitus Type 2 Renal/ Medical History: Reports: Hx End Stage Renal Disease, Hx Kidney Stones - 2012, Hx Renal Insufficiency GI Medical History: Reports: Hx Gastroesophageal Reflux Disease, Hx Hepatitis - C, Hx Liver Failure Musculoskeltal Medical History: Reports Hx Arthritis - spine Psychiatric Medical History: Reports: Hx Anxiety, Hx Bipolar Disorder, Hx Depression - & anxiety Infectious Medical History: Reports: Hx Hepatitis - C Past Surgical History: Reports: Hx Cholecystectomy - 2012, Hx Hysterectomy - Immunizations Hx Diphtheria, Pertussis, Tetanus Vaccination: Yes <JULIUS VILLARREAL - Last Filed: 04/28/17 11:24> Review of Systems - Review of Systems Constitutional: See HPI, Weakness. denies: Chills, Diaphoresis, Fever EENT: See HPI, Blurred vision Cardiovascular: See HPI, Dizziness Respiratory: No symptoms reported Gastrointestinal: See HPI, Abdominal pain, Nausea. denies: Diarrhea, Vomiting Genitourinary: No symptoms reported Female Genitourinary: No symptoms reported Musculoskeletal: No symptoms reported Skin: No symptoms reported Hematologic/Lymphatic: No symptoms reported Neurological/Psychological: See HPI, Headaches -: Yes All other systems reviewed and negative <JULIUS VILLARREAL - Last Filed: 04/28/17 11:24> Physical Exam - General General appearance: Alert In distress: None - Respiratory Respiratory status: No respiratory distress Breath sounds: Normal - Cardiovascular Rhythm: Regular Heart sounds: Normal auscultation Murmur: No Friction rub: No Gallop: None auscultated - Extremities General upper extremity: Normal inspection, Normal ROM General lower extremity: Edema - 2+ pitting edema to the level of the knees bilaterally, Normal ROM. No: Normal inspection - Skin Skin Temperature: Warm Skin Moisture: Dry Skin irregularity: other - Multiple scabbed over lesions with minimal surrounding erythema some which are consistent with excoriations and some which are consistent with abscesses that have been fully drained. Presence of multiple petechiae. <JULIUS VILLARREAL - Last Filed: 04/28/17 11:24> Course - Laboratory Result Diagrams: 04/28/17 10:50 04/28/17 10:50 <JULIUS VILLARREAL - Last Filed: 04/28/17 11:24> - Laboratory Result Diagrams: 04/28/17 10:50 04/28/17 10:50 <PAL GREGORY - Last Filed: 04/28/17 16:12> - Vital Signs Vital signs: Temp Pulse Resp BP Pulse Ox 98.2 F 103 H 17 160/54 H 100 04/28/17 15:34 04/28/17 15:34 04/28/17 15:34 04/28/17 15:34 04/28/17 15:34 - Laboratory Laboratory results interpreted by me: 04/28/17 04/28/17 04/28/17 10:50 10:50 10:50 WBC 1.4 L* RBC 2.58 L Hgb 8.1 L Hct 24.6 L RDW 15.4 H Plt Count 20 L* Monocytes % (Manual) 2 L Abs Neuts (Manual) 0.9 L Abs Lymphs (Manual) 0.4 L Abs Monocytes (Manual) 0.0 L PT 18.6 H APTT 38.8 H BUN 45 H Creatinine 6.10 H Est GFR ( Amer) 9 L Est GFR (Non-Af Amer) 7 L Glucose 145 H Direct Bilirubin 0.7 H Alkaline Phosphatase 138 H Albumin 3.3 L Urine Blood 04/28/17 11:55 WBC RBC Hgb Hct RDW Plt Count Monocytes % (Manual) Abs Neuts (Manual) Abs Lymphs (Manual) Abs Monocytes (Manual) PT APTT BUN Creatinine Est GFR ( Amer) Est GFR (Non-Af Amer) Glucose Direct Bilirubin Alkaline Phosphatase Albumin Urine Blood MODERATE H Doctor's Discharge <JULIUS VILLARREAL - Last Filed: 04/28/17 11:24> <PAL GREGORY - Last Filed: 04/28/17 16:12> - Discharge Clinical Impression: Chronic pancytopenia Acute on chronic renal failure Qualifiers: Acute renal failure type: unspecified Chronic kidney disease stage: stage 4 ( severe) Qualified Code(s): N17.9 - Acute kidney failure, unspecified Liver cirrhosis Qualifiers: Hepatic cirrhosis type: unspecified hepatic cirrhosis Ascites presence: with ascites Qualified Code(s): K74.60 - Unspecified cirrhosis of liver Scribe Documentation - Scribe Written by Scribe:: Val Coy, 04/28/2017 [id number] acting as scribe for :: Khushi <JULIUS VILLARREAL - Last Filed: 04/28/17 11:24>
[2017-04-28 11:20] LABS: PROTHROMBIN TIME 18.6 SEC (11.4-15.4)
[2017-04-28 11:21] LABS: PARTIAL THROMBOPLASTIN TIME 38.8 SEC (23.5-35.8)
[2017-04-28 11:26] LABS: ALANINE AMINOTRANSFERASE 32 U/L (9-52); ALBUMIN 3.3 g/dL (3.5-5.0); ALKALINE PHOSPHATASE 138 U/L (38-126); ANION GAP 12 (5-19); ASPARTATE AMINO TRANSFERASE 31 U/L (14-36); BILIRUBIN,DIRECT 0.7 mg/dL (0.0-0.4); BILIRUBIN,TOTAL 1.2 mg/dL (0.2-1.3); BLOOD UREA NITROGEN 45 mg/dL (7-20); CALCIUM 8.7 mg/dL (8.4-10.2); CARBON DIOXIDE 23 mmol/L (22-30); CHLORIDE 105 mmol/L (98-107); CREATINE KINASE 101 U/L (30-135); GLUCOSE 145 mg/dL (75-110); POTASSIUM 4.3 mmol/L (3.6-5.0); SODIUM 140.3 mmol/L (137-145); TOTAL PROTEIN 6.7 g/dL (6.3-8.2)
[2017-04-28 11:28] LABS: HEMATOCRIT 24.6 % (36.0-47.0); HEMOGLOBIN 8.1 g/dL (12.0-15.5); HGB HCT DIFFERENCE -0.3; MEAN CORPUSCULAR HEMOGLOBIN 31.4 pg (27.0-33.4); MEAN CORPUSCULAR HGB CONC 32.9 g/dL (32.0-36.0); MEAN CORPUSCULAR VOLUME 96 fl (80-97); RED BLOOD COUNT 2.58 10^6/uL (3.72-5.28); RED CELL DISTRIBUTION WIDTH 15.4 % (11.5-14.0)
--- NOTE | 2017-04-28 11:31 | RADIOLOGY REPORT (SQ) ---
EXAM DESCRIPTION: CHEST PA/LAT COMPLETED DATE/TIME: 04/28/2017 11:18 am REASON FOR STUDY: weakness COMPARISON: 04/19/2017 EXAM PARAMETERS: NUMBER OF VIEWS: two views TECHNIQUE: Digital Frontal and Lateral radiographic views of the chest acquired. RADIATION DOSE: NA LIMITATIONS: none FINDINGS: LUNGS AND PLEURA: There is no pulmonary infiltrate or mass. There is a minimal left pleur al effusion that is improved since the earlier study. MEDIASTINUM AND HILAR STRUCTURES: No masses or contour abnormalities. HEART AND VASCULAR STRUCTURES: Heart size within normal limits. There is mild pulmonary vascular pro minence. BONES: No acute findings. HARDWARE: None in the chest. OTHER: No other significant finding. IMPRESSION: Improved small left pleural effusion with mild pulmonary vascular prominence. TECHNICAL DOCUMENTATION: JOB ID: [id number] [employer]- All Rights Reserved
[2017-04-28 11:34] LABS: BASOPHILS % (MANUAL) 0 % (0-2); EOSINOPHILS % (MANUAL) 0 % (0-6); LYMPHOCYTES % (MANUAL) 32 % (13-45); TOTAL CELLS COUNTED 50
[2017-04-28 11:38] LABS: ANISOCYTOSIS 1+; OVALOCYTES 2+; POIKILOCYTOSIS 2+
[2017-04-28 11:39] LABS: CREATINE KINASE MB 2.24 ng/mL (<4.55)
[2017-04-28 11:43] LABS: WHITE BLOOD COUNT 1.4 10^3/uL (4.0-10.5)
[2017-04-28 11:46] LABS: TROPONIN I < 0.012 ng/mL
[2017-04-28 12:26] LABS: APPEARANCE,URINE CLEAR; BILIRUBIN,URINE NEGATIVE (NEGATIVE); GLUCOSE, URINE NEGATIVE (NEGATIVE); KETONES,URINE NEGATIVE (NEGATIVE); LEUKOCYTE ESTERASE,URINE NEGATIVE (NEGATIVE); NITRITE,URINE NEGATIVE (NEGATIVE); PROTEIN,URINE NEGATIVE (NEGATIVE); URINE SPECIFIC GRAVITY 1.009; UROBILINOGEN,URINE NEGATIVE mg/dL (<2.0)
[2017-04-28 12:46] LABS: URINE BARBITURATES SCREEN NEGATIVE; URINE METHADONE SCREEN NEGATIVE; URINE OPIATES LOW NEGATIVE; URINE PHENCYCLIDINE SCREEN NEGATIVE
--- NOTE | 2017-04-28 13:46 | ER Document Report ---
ED General - General Chief Complaint: Weakness Stated Complaint: WEAKNESS Time Seen by Provider: 04/28/17 10:27 Mode of Arrival: Wheelchair TRAVEL OUTSIDE OF THE [place] IN LAST 30 DAYS: No - HPI Patient complains to provider of: Generalized weakness Notes: Patient presents today for generalized weakness. Patient has a history of liver cirrhosis currently undergoing evaluation for liver transplant at [facility]. Patient also has a history of renal failure now on dialysis at this time. Patient states she received an outpatient ultrasound and during the ultrasound process began to feel very weak states they prior she also felt weak after leaving ultrasound felt that she was very wobbly and unable to maintain a steady gait therefore patient was referred to the ER for further evaluation. Otherwise been weakness patient has no other complaints denies any headaches fevers chills nausea vomiting denies any diarrhea denies any bright red stool per rectum denies any hematochezia melena. Patient is lying flat on her back upon my evaluation alert oriented no obvious distress - Related Data Allergies/Adverse Reactions: No Known Allergies Allergy (Verified 04/19/17 19:03) Home Medications: Current Home Medications Cholecalciferol (Vitamin D3) [Vitamin D3 1000 Unit Tablet] 1,000 unit PO MO [History] Clonazepam [Klonopin] 0.5 mg PO BID 04/28/17 [History] Insulin Aspart [Novolog Flexpen] 10 unit SQ WLUNCH 04/28/17 [History] Insulin Aspart [Novolog Flexpen] 10 unit SQ WSUPPER 04/28/17 [History] Insulin Glargine,Hum.rec.anlog [Lantus Solostar] 30 unit SQ QHS 04/28/17 [ History] Oxycodone HCl [Oxycodone HCl 10 MG Tablet] 10 mg PO Q8HP PRN 04/28/17 [History] Promethazine HCl [Phenergan 25 mg Tablet] 25 mg PO Q4HP PRN 04/28/17 [History] Quetiapine Fumarate [Seroquel Xr] 300 mg PO QHS 04/28/17 [History] Spironolactone [Aldactone 25 mg Tablet] 25 mg PO DAILY 04/28/17 [History] Past Medical History - General Information source: Patient - Social History Smoking Status: Unknown if Ever Smoked Cigarette use (# per day): Yes Chew tobacco use (# tins/day): No Frequency of alcohol use: None Drug Abuse: None Family History: Reviewed & Not Pertinent Patient has suicidal ideation: No Patient has homicidal ideation: No - Past Medical History Cardiac Medical History: Reports: Hx Hypercholesterolemia, Hx Hypertension Denies: Hx Coronary Artery Disease, Hx Heart Attack Pulmonary Medical History: Denies: Hx Asthma, Hx Bronchitis, Hx COPD, Hx Pneumonia, Hx Tuberculosis Neurological Medical History: Denies: Hx Cerebrovascular Accident, Hx Seizures Endocrine Medical History: Reports: Hx Diabetes Mellitus Type 2 Renal/ Medical History: Reports: Hx End Stage Renal Disease, Hx Kidney Stones - 2011, Hx Renal Insufficiency. Denies: Hx Peritoneal Dialysis GI Medical History: Reports: Hx Gastroesophageal Reflux Disease, Hx Hepatitis - C, Hx Liver Failure Musculoskeltal Medical History: Reports Hx Arthritis - spine Psychiatric Medical History: Reports: Hx Anxiety, Hx Bipolar Disorder, Hx Depression - & anxiety Infectious Medical History: Reports: Hx Hepatitis - C Past Surgical History: Reports: Hx Cholecystectomy - 2011, Hx Hysterectomy - Immunizations Hx Diphtheria, Pertussis, Tetanus Vaccination: Yes Hx Pneumococcal Vaccination: 09/03/12 Review of Systems - Review of Systems Constitutional: Weakness EENT: No symptoms reported Cardiovascular: No symptoms reported Respiratory: No symptoms reported Gastrointestinal: No symptoms reported Genitourinary: No symptoms reported Female Genitourinary: No symptoms reported Musculoskeletal: No symptoms reported Skin: No symptoms reported Hematologic/Lymphatic: No symptoms reported Neurological/Psychological: No symptoms reported Physical Exam - Vital signs Vitals: Temp Pulse Resp BP Pulse Ox 97.8 F 92 15 145/50 H 98 04/28/17 10:06 04/28/17 10:06 04/28/17 10:06 04/28/17 10:06 04/28/17 10:06 Interpretation: Normal - General General appearance: Appears well, Alert - HEENT Head: Normocephalic, Atraumatic Eyes: Normal Pupils: PERRL - Respiratory Respiratory status: No respiratory distress Chest status: Nontender Breath sounds: Normal Chest palpation: Normal - Cardiovascular Rhythm: Regular Heart sounds: Normal auscultation Murmur: No - Abdominal Inspection: Normal Distension: Distended, Fluid wave Bowel sounds: Normal Tenderness: Nontender Organomegaly: No organomegaly - Back Back: Normal, Nontender - Extremities General upper extremity: Normal inspection, Nontender, Normal color, Normal ROM , Normal temperature General lower extremity: Nontender, Normal color, Normal ROM, Normal temperature , Normal weight bearing. No: Normal inspection - Healing wounds without signs of overt infection bilateral extremities., Sandeep's sign - Neurological Neuro grossly intact: Yes Cognition: Normal Orientation: AAOx4 Wilbur Coma Scale Eye Opening: Spontaneous Ruthy Coma Scale Verbal: Oriented Ruthy Coma Scale Motor: Obeys Commands Ruthy Coma Scale Total: 15 Speech: Normal Motor strength normal: LUE, RUE, LLE, RLE Sensory: Normal - Psychological Associated symptoms: Normal affect, Normal mood - Skin Skin Temperature: Warm Skin Moisture: Dry Skin Color: Normal Course - Re-evaluation Re-evalutation: 04/28/17 19:17 Lab work shows pancytopenia which is chronic chronic anemia chronic, cytopenia. Patient also has elevation acute on chronic renal failure with a creatinine now 6. Upon reevaluation the patient patient now admits that she was recently seen at the and [facility] and started on Keflex and Bactrim for possible wound infections. Patient case was discussed with nephrology Beck who agrees with the likely acute changes are due to antibiotics recommend holding antibiotics and gentle IV hydration. Discussed with hospitalist Dr. Ly with admit the patient to the telemetry unit for further evaluation. - Vital Signs Vital signs: Temp Pulse Resp BP Pulse Ox 98.2 F 103 H 17 160/54 H 100 04/28/17 15:34 04/28/17 15:34 04/28/17 15:34 04/28/17 15:34 04/28/17 15:34 - Laboratory Result Diagrams: 04/28/17 10:50 04/28/17 10:50 Laboratory results interpreted by me: 04/28/17 04/28/17 04/28/17 10:50 10:50 10:50 WBC 1.4 L* RBC 2.58 L Hgb 8.1 L Hct 24.6 L RDW 15.4 H Plt Count 20 L* Monocytes % (Manual) 2 L Abs Neuts (Manual) 0.9 L Abs Lymphs (Manual) 0.4 L Abs Monocytes (Manual) 0.0 L PT 18.6 H APTT 38.8 H BUN 45 H Creatinine 6.10 H Est GFR ( Amer) 9 L Est GFR (Non-Af Amer) 7 L Glucose 145 H Direct Bilirubin 0.7 H Alkaline Phosphatase 138 H Albumin 3.3 L Urine Blood 04/28/17 11:55 WBC RBC Hgb Hct RDW Plt Count Monocytes % (Manual) Abs Neuts (Manual) Abs Lymphs (Manual) Abs Monocytes (Manual) PT APTT BUN Creatinine Est GFR ( Amer) Est GFR (Non-Af Amer) Glucose Direct Bilirubin Alkaline Phosphatase Albumin Urine Blood MODERATE H Discharge - Discharge Clinical Impression: Chronic pancytopenia Acute on chronic renal failure Qualifiers: Acute renal failure type: unspecified Chronic kidney disease stage: stage 4 ( severe) Qualified Code(s): N17.9 - Acute kidney failure, unspecified Liver cirrhosis Qualifiers: Hepatic cirrhosis type: unspecified hepatic cirrhosis Ascites presence: with ascites Qualified Code(s): K74.60 - Unspecified cirrhosis of liver Condition: Fair Disposition: ADMITTED INPATIENT Admitting Provider: Hospitalist - Malachi Unit Admitted: Telemetry
[2017-04-28] MEDS ORDERED: NORMAL SALINE 1000 ML 1,000 ML IV ONE ×2 (14:05→14:53)
[2017-04-28] MEDS ORDERED: ACETAMINOPHEN 325 MG TABLET PO PRN (14:44)
[2017-04-28] MEDS ORDERED: ONDANSETRON HCL INJ/PF 4 MG/2 ML SDV IV PRN (14:44)
[2017-04-28] MEDS ORDERED: GLUCAGON,HUMAN RECOMB 1 MG INJ IM PRN (14:55)
[2017-04-28] MEDS ORDERED: DEXTROSE 40% GEL 15 GM TUBE PO PRN ×2 (14:55)
[2017-04-28] MEDS ORDERED: DEXTROSE 50%-WATER 25 GM/50 ML DISP.SYRIN IV PRN ×2 (14:55)
[2017-04-28] MEDS ORDERED: OXYCODONE HCL IR 5 MG TABLET PO PRN (14:56)
--- NOTE | 2017-04-28 15:43 | PDOC H&P ---
History of Present Illness Admission Date/PCP: 04/28/17 14:30 SUSANNA CHAVEZ PA-C Patient complains of: Generalized weakness and fatigue History of Present Illness: HUMBERTO KAY is a 47 year old female, with history of liver cirrhosis, portal hypertension, being followed by gastroenterology as well as by the liver clinic in [facility] was sent to the hospital from radiology due to generalized weakness. The patient was recently treated for cellulitis in [place] about a week ago. The patient is on 6 days of oral antibiotics. The patient has been coming back in for visiting physicians for her liver failure. She was sent by Dr. Hood to radiology for an abdominal ultrasound to evaluate the liver and the spleen. Apparently the patient was weak and therefore was sent to the hospital for evaluation. Patient complained of headache earlier this morning with some lightheadedness. Patient denies any symptoms at all other than stated above. No syncope. No sinus congestion or chills or fever. No shortness of breath or chest pain or pleurisy. No diarrhea. No vaginal discharge or bleeding. No dysuria urgency or frequency. In the emergency room, creatinine was noted to be elevated compared to baseline and therefore the patient was referred for admission. Past Medical History Past Medical History: Medication reconciliation pending verification from the patient's pharmacist. Cardiac Medical History: Reports: Hyperlipidema, Hypertension Denies: Coronary Artery Disease, Myocardial Infarction Pulmonary Medical History: Denies: Asthma, Bronchitis, Chronic Obstructive Pulmonary Disease (COPD), Pneumonia, Tuberculosis Neurological Medical History: Denies: Seizures Endocrine Medical History: Reports: Diabetes Mellitus Type 2, Obesity Renal/ Medical History: Reports: End Stage Renal Disease GI Medical History: Reports: Cirrhosis, Gastroesophageal Reflux Disease, Hepatitis - C Musculoskeltal Medical History: Reports: Arthritis - spine Psychiatric Medical History: Reports: Bipolar Disorder, Depression - & anxiety Hematology: Reports: Anemia Past Surgical History Past Surgical History: Reports: Cholecystectomy - 2012, Hysterectomy Social History Information Source: Patient Smoking Status: Never Smoker Frequency of Alcohol Use: None Hx Recreational Drug Use: No Drugs: None Hx Prescription Drug Abuse: No Family History Family History: None Parental Family History Reviewed: Yes Children Family History Reviewed: Yes Sibling(s) Family History Reviewed.: Yes Medication/Allergy Allergies/Adverse Reactions: No Known Allergies Allergy (Verified 04/19/17 19:03) Review of Systems Constitutional: PRESENT: fatigue, headache(s), weakness. ABSENT: chills, fever( s), night sweats, weight gain, weight loss Eyes: ABSENT: visual disturbances Ears: ABSENT: hearing changes Nose, Mouth, and Throat: ABSENT: mouth pain, sore throat Cardiovascular: PRESENT: dyspnea on exertion, edema - Chronic low lower extremities. ABSENT: chest pain, orthropnea, palpitations Respiratory: ABSENT: cough, dyspnea, hemoptysis, sputum Gastrointestinal: PRESENT: nausea. ABSENT: abdominal pain, constipation, diarrhea, hematemesis, hematochezia, melena, vomiting Genitourinary: ABSENT: difficulty urinating, dysuria, hematuria Musculoskeletal: ABSENT: joint swelling Integumentary: ABSENT: pruritus, rash, wounds Neurological: ABSENT: abnormal gait, abnormal speech, confusion, dizziness, focal weakness, syncope Psychiatric: ABSENT: anxiety, depression, homidical ideation, suicidal ideation Endocrine: ABSENT: cold intolerance, heat intolerance, polydipsia, polyphagia, polyuria Hematologic/Lymphatic: ABSENT: easy bleeding, easy bruising Physical Exam Vital Signs: Temp Pulse Resp BP Pulse Ox 97.8 F 96 27 H 130/50 H 100 04/28/17 10:06 04/28/17 11:27 04/28/17 15:01 04/28/17 15:01 04/28/17 15:01 General appearance: PRESENT: no acute distress, cooperative, morbidly obese Head exam: PRESENT: atraumatic, normocephalic Eye exam: PRESENT: conjunctiva pale, EOMI, PERRLA. ABSENT: scleral icterus Ear exam: PRESENT: normal external ear exam. ABSENT: drainage Mouth exam: PRESENT: moist, neck supple, tongue midline Neck exam: ABSENT: carotid bruit, JVD, lymphadenopathy, thyromegaly Respiratory exam: PRESENT: clear to auscultation bria, unlabored. ABSENT: rales , rhonchi, wheezes Cardiovascular exam: PRESENT: RRR, +S1, +S2. ABSENT: diastolic murmur, gallop, rubs, systolic murmur Pulses: PRESENT: normal dorsalis pedis pul Vascular exam: PRESENT: normal capillary refill GI/Abdominal exam: PRESENT: distended, hypoactive bowel sounds, soft. ABSENT: guarding, mass, organolmegaly, rebound, tenderness - More of pressure on the abdomen rather than tenderness Rectal exam: PRESENT: deferred Extremities exam: PRESENT: full ROM, other - Trace lower extremity edema. ABSENT: calf tenderness, clubbing Neurological exam: PRESENT: alert, awake, oriented to person, oriented to place , oriented to time, oriented to situation Psychiatric exam: PRESENT: appropriate affect, normal mood. ABSENT: homicidal ideation, suicidal ideation Skin exam: PRESENT: dry, intact, rash - Noted in both lower extremities without any purulent drainage on the dry wounds on the left., warm. ABSENT: cyanosis Results Impressions: Chest X-Ray 04/28/17 10:40 IMPRESSION: Improved small left pleural effusion with mild pulmonary vascular prominence. Assessment & Plan - Diagnosis (1) Acute on chronic renal failure Qualifiers: Acute renal failure type: unspecified Chronic kidney disease stage: stage 4 (severe) Qualified Code(s): N17.9 - Acute kidney failure, unspecified; N18.4 - Chronic kidney disease, stage 4 (severe) Is this a current diagnosis for this admission?: Yes (2) Liver cirrhosis Qualifiers: Hepatic cirrhosis type: unspecified hepatic cirrhosis Ascites presence : with ascites Qualified Code(s): K74.60 - Unspecified cirrhosis of liver Is this a current diagnosis for this admission?: Yes (3) Portal hypertension Is this a current diagnosis for this admission?: Yes (4) Diabetes mellitus type 2 in obese Is this a current diagnosis for this admission?: Yes (5) GERD (gastroesophageal reflux disease) Qualifiers: Esophagitis presence: without esophagitis Qualified Code(s): K21.9 - Gastro-esophageal reflux disease without esophagitis Is this a current diagnosis for this admission?: Yes (6) Morbid obesity Qualifiers: Obesity type: unspecified obesity type Qualified Code(s): E66.01 - Morbid (severe) obesity due to excess calories Is this a current diagnosis for this admission?: Yes (7) Pancytopenia Is this a current diagnosis for this admission?: Yes (8) Bipolar disorder Qualifiers: Active/Remission status: remission status unspecified Qualified Code (s): F31.9 - Bipolar disorder, unspecified Is this a current diagnosis for this admission?: Yes (9) Anxiety and depression Is this a current diagnosis for this admission?: Yes (10) Hyperlipidemia Qualifiers: Hyperlipidemia type: unspecified Qualified Code(s): E78.5 - Hyperlipidemia, unspecified Is this a current diagnosis for this admission?: Yes - Time Time Spent: 50 to 70 Minutes - Inpatient Certification Based on my medical assessment, after consideration of the patient's comorbidities, presenting symptoms, or acuity I expect that the services needed warrant INPATIENT care.: Yes I certify that my determination is in accordance with my understanding of Medicare's requirements for reasonable and necessary INPATIENT services [42 CFR 412.3e].: Yes Medical Necessity: Significant Comorbidiites Make Outpatient Treatment Too Risky , Need Close Monitoring Due to Risk of Patient Decompensation, Need For IV Fluids, Risk of Complication if Not Cared For in Hospital Post Hospital Care: D/C Acute Specialist Documentation - Plan Summary Plan Summary: Patient will be admitted to telemetry. I will gently hydrate the patient with normal saline for 2 L and recheck creatinine in the morning. We will consult nephrology for further evaluation. I will put the patient on Lasix as well as Aldactone. I will also put her on Inderal. In the meantime I will hold her insulin and just put her on sliding scale. We will monitor for hypoglycemia. Patient is coagulopathic and thrombocytopenic likely from underlying chronic liver disease as well as splenic sequestration. No need for DVT prophylaxis at this time. I will change the patient's antibiotic to clindamycin. Further testing depends on the initial evaluation as outlined above.
--- NOTE | 2017-04-28 16:47 | PDOC CONSULTATION ---
Consultation Consult Date: 04/28/17 Consult reason:: LILIA History of Present Illness Admission Date/PCP: 04/28/17 14:45 SUSANNA CHAVEZ PA-C History of Present Illness: HUMBERTO KAY is a 47 year old female, with history of liver cirrhosis, portal hypertension, being followed by gastroenterology as well as by the liver clinic in [facility] was sent to the hospital from radiology due to generalized weakness. The patient was recently treated for cellulitis in [place] about a week ago. The patient is on 6 days of oral antibiotics. The patient has been coming back in for visiting physicians for her liver failure. She was sent by Dr. Hood to radiology for an abdominal ultrasound to evaluate the liver and the spleen. Apparently the patient was orthostatic and weak and therefore was sent to the ER for evaluation. Patient complained of headache earlier this morning with some lightheadedness. Patient denies any symptoms other than stated above. No syncope. No sinus congestion or chills or fever. No shortness of breath or chest pain or pleurisy. No diarrhea. been constipated x 5 days. No vaginal discharge or bleeding. No dysuria urgency or frequency. Patient was seen to be in LILIA on top of underlying CKD and admitted for eval and management. Past Medical History Cardiac Medical History: Reports: Hyperlipidemia Denies: Coronary Artery Disease, Myocardial Infarction Pulmonary Medical History: Denies: Asthma, Bronchitis, Chronic Obstructive Pulmonary Disease (COPD), Pneumonia, Tuberculosis Neurological Medical History: Denies: Seizures Endocrine Medical History: Reports: Diabetes Mellitus Type 2, Obesity Renal/ Medical History: Reports: Chronic Kidney Disease Stage V, End Stage Renal Disease GI Medical History: Reports: Cirrhosis, Gastroesophageal Reflux Disease, Hepatitis - C Musculoskeltal Medical History: Reports: Arthritis - spine Psychiatric Medical History: Reports: Bipolar Disorder, Depression - & anxiety Hematology Medical History: Reports Anemia Past Surgical History Past Surgical History: Reports: Cholecystectomy - 2012, Hysterectomy Social History Smoking Status: Never Smoker Frequency of Alcohol Use: None Hx Recreational Drug Use: No Drugs: None Hx Prescription Drug Abuse: No Family History Parental Family History Reviewed: Yes - negative for esrd Children Family History Reviewed: Yes Sibling(s) Family History Reviewed.: Yes Medication/Allergy Home Medications: Cholecalciferol (Vitamin D3) [Vitamin D3 1000 Unit Tablet] 1,000 unit PO MO Insulin Aspart [Novolog Flexpen] 10 unit SQ WLUNCH 04/28/17 Insulin Aspart [Novolog Flexpen] 10 unit SQ WSUPPER 04/28/17 Oxycodone HCl [Oxycodone HCl 10 MG Tablet] 10 mg PO Q8HP PRN 04/28/17 Promethazine HCl [Phenergan 25 mg Tablet] 25 mg PO Q4HP PRN 04/28/17 Quetiapine Fumarate [Seroquel Xr] 300 mg PO QHS 04/28/17 Clindamycin HCl [Cleocin 150 mg Capsule] 300 mg PO Q6 #12 capsule 04/29/17 Clonazepam [Klonopin] 0.5 mg PO BID PRN #0 04/29/17 Docusate Sodium [Colace 100 mg Capsule] 100 mg PO BID capsule 04/29/17 Furosemide [Lasix] 40 mg PO DAILY #30 tablet 04/29/17 Insulin Glargine,Hum.rec.anlog [Lantus Solostar] 15 unit SQ QHS #0 04/29/17 Propranolol HCl [Inderal 20 mg Tablet] 20 mg PO Q12 #60 tablet 04/29/17 Spironolactone [Aldactone 25 mg Tablet] 50 mg PO DAILY #0 04/29/17 Allergies/Adverse Reactions: No Known Allergies Allergy (Verified 04/19/17 19:03) Review of Systems Constitutional: PRESENT: fatigue. ABSENT: fever(s), night sweats Nose, Mouth, and Throat: ABSENT: mouth pain, sore throat Cardiovascular: PRESENT: edema. ABSENT: dyspnea on exertion, orthropnea Respiratory: ABSENT: cough, dyspnea, hemoptysis Gastrointestinal: PRESENT: bloating, constipation. ABSENT: abdominal pain, coffee ground emesis, diarrhea, dysphagia, heartburn, hematemesis, hematochezia , melena, nausea, vomiting Neurological: ABSENT: confusion, convulsions, focal weakness Hematologic/Lymphatic: ABSENT: easy bruising, lymphadenopathy Physical Exam Vital Signs: Temp Pulse Resp BP Pulse Ox 98.2 F 103 H 17 160/54 H 100 04/28/17 15:34 04/28/17 15:34 04/28/17 15:34 04/28/17 15:34 04/28/17 15:34 Intake & Output 04/27/17 04/28/17 04/29/17 06:59 06:59 06:59 Weight 111.5 kg General appearance: PRESENT: no acute distress Eye exam: PRESENT: conjunctiva pink, EOMI, PERRLA, scleral icterus Ear exam: PRESENT: normal external ear exam Mouth exam: PRESENT: moist, neck supple Neck exam: ABSENT: lymphadenopathy, meningismus, tenderness, thyromegaly, tracheal deviation Respiratory exam: PRESENT: clear to auscultation bria. ABSENT: crackles, rhonchi Cardiovascular exam: PRESENT: +S1, +S2, systolic murmur GI/Abdominal exam: PRESENT: ascites, distended, soft. ABSENT: diminished bowel sounds, firm, guarding, hypoactive bowel sounds, organomegaly, tenderness Extremities exam: PRESENT: +2 edema Neurological exam: PRESENT: alert, awake, oriented to person, oriented to place , oriented to time Focused psych exam: ABSENT: psychomotor agitation Skin exam: ABSENT: cyanosis, dry, erythema Results Impressions: Chest X-Ray 04/28/17 10:40 IMPRESSION: Improved small left pleural effusion with mild pulmonary vascular prominence. Assessment & Plan - Diagnosis (1) LILIA (acute kidney injury) Plan: possibly from ATN from Cellulitis of left leg / Bactrim/ worsening portal HTN.Stop Bactrim and gently hydrate . Treat constipation.No acute indication of Dialysis.Agree with current treatments. I am off till monday. (2) Liver cirrhosis Qualifiers: Hepatic cirrhosis type: unspecified hepatic cirrhosis Ascites presence : with ascites Qualified Code(s): K74.60 - Unspecified cirrhosis of liver Is this a current diagnosis for this admission?: YesPlan: with portal HTN.No evidence of hepato renal yet.Monitor closely. (3) Pancytopenia Is this a current diagnosis for this admission?: Yes (4) Portal hypertension Is this a current diagnosis for this admission?: YesPlan: No signs of decompensation. Monitor. (5) Chronic kidney disease, stage 5, kidney failure Plan: Base creatinine is around 4. Not seen me in office for a long time !!.No indications for SYSTEMS SOFTWARE SPECIALIST currently. Monitor closely. I am off till monday.
[2017-04-28] MEDS: CLINDAMYCIN HCL 150 MG CAPSULE PO SCH ×2 (17:16→23:04)
[2017-04-28] MEDS: DOCUSATE SODIUM 100 MG CAPSULE PO SCH (17:17)
[2017-04-28] MEDS: FUROSEMIDE 40 MG TABLET PO SCH (17:17)
--- NOTE | 2017-04-28 20:53 | EKG REPORT ---
SEVERITY:- ABNORMAL ECG - SINUS RHYTHM FIRST DEGREE AV BLOCK : Confirmed by: Tima Leach 28-Apr-2017 20:52:28
[2017-04-28] MEDS: PROPRANOLOL HCL 20 MG TABLET PO SCH (22:17)
[2017-04-28] MEDS: INSULIN REG, HUMAN 100 UNIT/ML 3 ML VIAL (PYX) SUBCUT PRN (22:29)
[2017-04-29 05:23] LABS: ANION GAP 12 (5-19); BLOOD UREA NITROGEN 47 mg/dL (7-20); CALCIUM 8.6 mg/dL (8.4-10.2); CARBON DIOXIDE 21 mmol/L (22-30); CHLORIDE 104 mmol/L (98-107); CREATININE RESULT 5.44 mg/dL (0.52-1.25); GLUCOSE 199 mg/dL (75-110); POTASSIUM 4.6 mmol/L (3.6-5.0); SODIUM 137.3 mmol/L (137-145)
[2017-04-29] MEDS: CLINDAMYCIN HCL 150 MG CAPSULE PO SCH ×2 (05:28→12:08)
[2017-04-29] MEDS ORDERED: LANSOPRAZOLE 30 MG TAB.RAP.DR PO SCH (06:00)
[2017-04-29 07:00] LABS: ABSOLUTE EOSINOPHILS # (AUTO) 0.1 10^3/uL (0.0-0.6); ABSOLUTE LYMPHOCYTES (AUTO) 0.8 10^3/uL (0.5-4.7); ABSOLUTE MONOCYTES (AUTO) 0.2 10^3/uL (0.1-1.4); ABSOLUTE NEUT (AUTO) 2.6 10^3/uL (1.7-8.2); BASOPHILS % (AUTO) 0.5 % (0-2); EOSINOPHILS % (AUTO) 2.5 % (0-6); HEMATOCRIT 29.6 % (36.0-47.0); HEMOGLOBIN 9.8 g/dL (12.0-15.5); HGB HCT DIFFERENCE -0.2; LYMPHOCYTES % (AUTO) 20.8 % (13-45); MEAN CORPUSCULAR HEMOGLOBIN 31.6 pg (27.0-33.4); MEAN CORPUSCULAR VOLUME 96 fl (80-97); MONOCYTES % (AUTO) 5.7 % (3-13); RED BLOOD COUNT 3.09 10^6/uL (3.72-5.28); RED CELL DISTRIBUTION WIDTH 15.4 % (11.5-14.0); SEGMENTED NEUTROPHILS % (AUTO) 70.5 % (42-78)
[2017-04-29 07:23] LABS: WHITE BLOOD COUNT 3.8 10^3/uL (4.0-10.5)
[2017-04-29] MEDS ORDERED: SPIRONOLACTONE 25 MG TABLET PO SCH (10:00)
[2017-04-29] MEDS: FUROSEMIDE 40 MG TABLET PO SCH (10:52)
[2017-04-29] MEDS: DOCUSATE SODIUM 100 MG CAPSULE PO SCH (10:52)
[2017-04-29] MEDS: PROPRANOLOL HCL 20 MG TABLET PO SCH (10:52)
[2017-04-29] MEDS: INSULIN REG, HUMAN 100 UNIT/ML 3 ML VIAL (PYX) SUBCUT PRN (12:09)
[2017-04-29 13:14] VITALS: BP 145/84
--- NOTE | 2017-04-29 14:17 | PDOC DISCHARGE SUMMARY ---
General - Admit/Disc Date/PCP Admission Date/Primary Care Provider: 04/28/17 14:45 SUSANNA CHAVEZ PA-C Discharge Date: 04/29/17 - Discharge Diagnosis (1) Acute on chronic renal failure Is this a current diagnosis for this admission?: Yes (2) Liver cirrhosis Is this a current diagnosis for this admission?: Yes (3) Portal hypertension Is this a current diagnosis for this admission?: Yes (4) Diabetes mellitus type 2 in obese Is this a current diagnosis for this admission?: Yes (5) GERD (gastroesophageal reflux disease) Is this a current diagnosis for this admission?: Yes (6) Morbid obesity Is this a current diagnosis for this admission?: Yes (7) Pancytopenia Is this a current diagnosis for this admission?: Yes (8) Bipolar disorder Is this a current diagnosis for this admission?: Yes (9) Anxiety and depression Is this a current diagnosis for this admission?: Yes (10) Hyperlipidemia Is this a current diagnosis for this admission?: Yes - Additional Information Discharge Diet: Cardiac - Low-fat low-salt, Diabetic - No concentrated sweets, Other (Comments) - Renal Discharge Activity: Activity As Tolerated, Balance Activity w/Rest Home Medications: Cholecalciferol (Vitamin D3) [Vitamin D3 1000 Unit Tablet] 1,000 unit PO MO Insulin Aspart [Novolog Flexpen] 10 unit SQ WLUNCH 04/28/17 Insulin Aspart [Novolog Flexpen] 10 unit SQ WSUPPER 04/28/17 Oxycodone HCl [Oxycodone HCl 10 MG Tablet] 10 mg PO Q8HP PRN 04/28/17 Promethazine HCl [Phenergan 25 mg Tablet] 25 mg PO Q4HP PRN 04/28/17 Quetiapine Fumarate [Seroquel Xr] 300 mg PO QHS 04/28/17 Clindamycin HCl [Cleocin 150 mg Capsule] 300 mg PO Q6 #12 capsule 04/29/17 Clonazepam [Klonopin] 0.5 mg PO BID PRN #0 04/29/17 Docusate Sodium [Colace 100 mg Capsule] 100 mg PO BID capsule 04/29/17 Furosemide [Lasix] 40 mg PO DAILY #30 tablet 04/29/17 Insulin Glargine,Hum.rec.anlog [Lantus Solostar] 15 unit SQ QHS #0 04/29/17 Propranolol HCl [Inderal 20 mg Tablet] 20 mg PO Q12 #60 tablet 04/29/17 Spironolactone [Aldactone 25 mg Tablet] 50 mg PO DAILY #0 04/29/17 Additional Information: Return to the emergency room if symptoms recur. Basic metabolic panel as outpatient with primary care physician in 2-3 days. History of Present Illness Patient complains of: Generalized weakness History of Present Illness: HUMBERTO KAY is a 47 year old female, with history of liver cirrhosis, portal hypertension, being followed by gastroenterology as well as by the liver clinic in [facility] was sent to the hospital from radiology due to generalized weakness. The patient was recently treated for cellulitis in [place] about a week ago. The patient is on 6 days of oral antibiotics. The patient has been coming back in for visiting physicians for her liver failure. She was sent by Dr. Hood to radiology for an abdominal ultrasound to evaluate the liver and the spleen. Apparently the patient was weak and therefore was sent to the hospital for evaluation. Patient complained of headache earlier this morning with some lightheadedness. Patient denies any symptoms at all other than stated above. No syncope. No sinus congestion or chills or fever. No shortness of breath or chest pain or pleurisy. No diarrhea. No vaginal discharge or bleeding. No dysuria urgency or frequency. In the emergency room, creatinine was noted to be elevated compared to baseline and therefore the patient was referred for admission. Hospital Course Hospital Course: The patient was admitted to telemetry. Nephrology was consulted for the renal failure. The patient was hydrated with normal saline. Due to patient's history of cirrhosis with some ascites and likely portal hypertension, patient was started on propranolol. Likewise diuretic was started w/ Lasix and Aldactone. Nephrology evaluated the patient and eventually recommended gentle hydration for a liter or 2, with discontinuation of prior antibiotics likely causing increasing creatinine. The patient was recently treated for cellulitis and his antibiotics were changed to clindamycin. The following morning the patient significantly improved symptomatically. Creatinine improved to 5.4. At this point the patient requested to be discharged. She no longer wants to stay in the hospital as she feels more comfortable at home and she felt she is back to her baseline. She was therefore advised to increase fluid intake and follow-up with nephrology service in a week or 2. She was advised to return to the emergency room if symptoms recur. She was likewise advised to have a creatinine check in 2-3 days with her primary care physician. is at bedside was agreeable with the plan. The rest of the hospital stays unremarkable. Physical Exam Vital Signs: Temp Pulse Resp BP Pulse Ox 98.9 F 75 17 128/54 H 98 04/29/17 12:57 04/29/17 12:57 04/29/17 12:57 04/29/17 12:57 04/29/17 12:57 Intake & Output 04/28/17 04/29/17 04/30/17 06:59 06:59 06:59 Intake Total 1130 Output Total 2200 Balance -1070 Weight 112.7 kg General appearance: PRESENT: no acute distress, cooperative, obese Head exam: PRESENT: normocephalic Eye exam: PRESENT: EOMI Mouth exam: PRESENT: moist, neck supple Neck exam: ABSENT: JVD Respiratory exam: PRESENT: clear to auscultation bria. ABSENT: rhonchi, wheezes Cardiovascular exam: PRESENT: RRR. ABSENT: gallop GI/Abdominal exam: PRESENT: normal bowel sounds, soft. ABSENT: distended, tenderness Extremities exam: PRESENT: other - Trace lower extremity edema Neurological exam: PRESENT: alert, awake, oriented to person, oriented to place , oriented to time, oriented to situation Skin exam: PRESENT: dry, warm. ABSENT: cyanosis Results Laboratory Results: 04/29/17 06:30 04/29/17 04:46 04/28/17 04/29/17 04/29/17 17:25 04:46 04:46 WBC Cancelled RBC Cancelled Hgb Cancelled Hct Cancelled MCV Cancelled MCH Cancelled MCHC Cancelled RDW Cancelled Plt Count Cancelled Seg Neutrophils % Cancelled Lymphocytes % Cancelled Monocytes % Cancelled Eosinophils % Cancelled Basophils % Cancelled Absolute Neutrophils Cancelled Absolute Lymphocytes Cancelled Absolute Monocytes Cancelled Absolute Eosinophils Cancelled Absolute Basophils Cancelled Sodium 137.3 Potassium 4.6 Chloride 104 Carbon Dioxide 21 L Anion Gap 12 BUN 47 H Creatinine 5.44 H Est GFR ( Amer) 10 L Est GFR (Non-Af Amer) 8 L Glucose 199 H Calcium 8.6 Ammonia 30.1 04/29/17 06:30 WBC 3.8 L D RBC 3.09 L Hgb 9.8 L Hct 29.6 L MCV 96 MCH 31.6 MCHC 33.0 RDW 15.4 H Plt Count 29 L* Seg Neutrophils % 70.5 Lymphocytes % 20.8 Monocytes % 5.7 Eosinophils % 2.5 Basophils % 0.5 Absolute Neutrophils 2.6 Absolute Lymphocytes 0.8 Absolute Monocytes 0.2 Absolute Eosinophils 0.1 Absolute Basophils 0.0 Sodium Potassium Chloride Carbon Dioxide Anion Gap BUN Creatinine Est GFR ( Amer) Est GFR (Non-Af Amer) Glucose Calcium Ammonia Impressions: Chest X-Ray 04/28/17 10:40 IMPRESSION: Improved small left pleural effusion with mild pulmonary vascular prominence. Qualifiers PATEINT BEING DISCHARGED WITH ANY OF THE FOLLOWING DIAGNOSIS?: No Plan Discharge Plan: Follow-up with primary care physician in 2-3 days. Follow-up with Dr. Solares in 1-2 weeks. Time Spent: Less than 30 Minutes
== END 2017-04-29 13:15 | disposition home or self-care (01) | DRG 683 ==
LOC: ER 10:02 → UNDOADMIN 14:30 → EH 14:30 → 4S 15:30 → EH 15:30
PROVIDERS: ADMIT Family Medicine; ATTEND Family Medicine
DX: N17.0 Acute kidney failure with tubular necrosis (principal); I12.0 Hypertensive chronic kidney disease with stage 5 chronic kidney disease or end stage renal disease; L03.116 Cellulitis of left lower limb; D61.818 Other pancytopenia; K76.6 Portal hypertension; Z68.41 Body mass index [BMI] 40.0-44.9, adult; K74.60 Unspecified cirrhosis of liver; N18.6 End stage renal disease; E11.22 Type 2 diabetes mellitus with diabetic chronic kidney disease; K21.9 Gastro-esophageal reflux disease without esophagitis; F31.9 Bipolar disorder, unspecified; F41.8 Other specified anxiety disorders; E78.5 Hyperlipidemia, unspecified; K59.00 Constipation, unspecified; E66.01 Morbid (severe) obesity due to excess calories; R53.1 Weakness; Z99.2 Dependence on renal dialysis; Z79.4 Long term (current) use of insulin; Z79.899 Other long term (current) drug therapy
CPT/HCPCS: 36415; 71020; 76700; 80048; 80053; 80307; 81001; 82140; 82272; 82550; 82553; 82962; 84484; 85025; 85610; 85730; 93005; 93010; 93976; 99285; J1815; J3490; J7030

== ENCOUNTER → 2017-04-28 | Outpatient (CLI) | payer MEDICARE, MEDICAID ==
--- NOTE | 2017-04-28 11:58 | RADIOLOGY REPORT (SQ) ---
EXAM DESCRIPTION: U/S ABDOMEN COMPLETE W/DOPPLER COMPLETED DATE/TIME: 04/28/2017 10:10 am REASON FOR STUDY: CIRRHOSIS, NON ALCOHOL K74.69 OTHER CIRRHOSIS OF LIVER R16.1 SPLENOMEGALY, NOT E LSEWHERE CLASSIFIED N19 UNSPECIFIED KIDNEY FAILURE COMPARISON: 09/07/2015 TECHNIQUE: Dynamic and static grayscale images acquired of the abdomen and recorded on PACS. Additio nal selected color Doppler and spectral images recorded. LIMITATIONS: None. FINDINGS: PANCREAS: The body of the pancreas is normal. The head and tail were obscured by gas. LIVER: 16.4 cm. Coarse echotexture. Slightly nodular margins. There is a small amount of fluid dusty und the liver. LIVER VASCULATURE: Normal directional flow of the main portal vein and hepatic veins. GALLBLADDER: Surgically absent. ULTRASOUND-DETECTED INTERIANO'S SIGN: Not applicable. INTRAHEPATIC DUCTS AND COMMON DUCT: Common bile duct is normal at 5 mm. INFERIOR VENA CAVA: Normal flow. AORTA: The proximal aorta was normal. The mid and distal aorta were obscured by gas. RIGHT KIDNEY: Normal size, 11.5 cm. Normal echogenicity. No solid or suspicious masses. No hyd ronephrosis. No calcifications. LEFT KIDNEY: Normal size, 11.9 cm. Normal echogenicity. No solid or suspicious masses. No hydr onephrosis. No calcifications. SPLEEN: Splenomegaly. 19.3 cm. PERITONEAL AND PLEURAL SPACES: There is a small amount of ascites. OTHER: No other significant finding. IMPRESSION: 1. Cirrhosis of the liver with a small amount of ascites and with splenomegaly. 2. The study is otherwise normal. TECHNICAL DOCUMENTATION: JOB ID: [id number] [employer]- All Rights Reserved
== END ==
LOC: RAD 08:36
PROVIDERS: ATTEND Internal Medicine Gastroenterology
DX: K74.69 Other cirrhosis of liver (principal); R16.1 Splenomegaly, not elsewhere classified; N19 Unspecified kidney failure
CPT/HCPCS: 76700; 93976

== ENCOUNTER → 2017-05-04 | Outpatient (CLI) | payer MEDICARE, MEDICAID ==
[2017-05-04 17:49] LABS: HEMATOCRIT 27.1 % (36.0-47.0); HGB HCT DIFFERENCE -0.1; MEAN CORPUSCULAR HEMOGLOBIN 31.6 pg (27.0-33.4); MEAN CORPUSCULAR HGB CONC 33.3 g/dL (32.0-36.0); MEAN CORPUSCULAR VOLUME 95 fl (80-97); RED BLOOD COUNT 2.86 10^6/uL (3.72-5.28); RED CELL DISTRIBUTION WIDTH 15.3 % (11.5-14.0)
[2017-05-04 18:03] LABS: ANION GAP 13 (5-19); BLOOD UREA NITROGEN 60 mg/dL (7-20); CALCIUM 8.5 mg/dL (8.4-10.2); CARBON DIOXIDE 21 mmol/L (22-30); CHLORIDE 104 mmol/L (98-107); CREATININE RESULT 6.22 mg/dL (0.52-1.25); GLUCOSE 325 mg/dL (75-110); POTASSIUM 4.7 mmol/L (3.6-5.0)
== END ==
LOC: OD 16:04
PROVIDERS: ATTEND Physician Assistant Medical
DX: N18.4 Chronic kidney disease, stage 4 (severe) (principal); D64.9 Anemia, unspecified
CPT/HCPCS: 36415; 80048; 85027

== ENCOUNTER 2017-05-13 23:25 | Emergency (ER) | payer MEDICARE, MEDICAID ==
[2017-05-14] MEDS ORDERED: MORPHINE SULFATE 10 MG/ML INJ IV ONE ×2 (01:11→02:54)
[2017-05-14] MEDS ORDERED: ONDANSETRON HCL INJ/PF 4 MG/2 ML SDV IV ONE (01:12)
[2017-05-14 01:39] LABS: HEMATOCRIT 24.6 % (36.0-47.0); HEMOGLOBIN 8.2 g/dL (12.0-15.5); MEAN CORPUSCULAR HEMOGLOBIN 32.1 pg (27.0-33.4); MEAN CORPUSCULAR HGB CONC 33.5 g/dL (32.0-36.0); MEAN CORPUSCULAR VOLUME 96 fl (80-97); RED BLOOD COUNT 2.56 10^6/uL (3.72-5.28); RED CELL DISTRIBUTION WIDTH 16.6 % (11.5-14.0); WHITE BLOOD COUNT 1.8 10^3/uL (4.0-10.5)
[2017-05-14 01:45] LABS: PROTHROMBIN TIME 19.5 SEC (11.4-15.4)
[2017-05-14 01:46] LABS: PARTIAL THROMBOPLASTIN TIME 37.4 SEC (23.5-35.8)
[2017-05-14 01:52] LABS: ALANINE AMINOTRANSFERASE 36 U/L (9-52); ALKALINE PHOSPHATASE 138 U/L (38-126); ANION GAP 10 (5-19); ASPARTATE AMINO TRANSFERASE 29 U/L (14-36); BILIRUBIN,DIRECT 0.8 mg/dL (0.0-0.4); BILIRUBIN,TOTAL 1.6 mg/dL (0.2-1.3); BLOOD UREA NITROGEN 42 mg/dL (7-20); CALCIUM 8.4 mg/dL (8.4-10.2); CARBON DIOXIDE 21 mmol/L (22-30); CHLORIDE 106 mmol/L (98-107); CREATININE RESULT 4.02 mg/dL (0.52-1.25); GLUCOSE 353 mg/dL (75-110); SODIUM 137.3 mmol/L (137-145)
[2017-05-14 01:58] LABS: BASOPHILS % (MANUAL) 0 % (0-2); EOSINOPHILS % (MANUAL) 2 % (0-6); LYMPHOCYTES % (MANUAL) 30 % (13-45); TOTAL CELLS COUNTED 50
[2017-05-14 02:01] LABS: ANISOCYTOSIS 1+; OVALOCYTES 2+; POIKILOCYTOSIS 1+; TARGET CELLS 1+; TOXIC VACUOLATION PRESENT
--- NOTE | 2017-05-14 04:25 | RADIOLOGY REPORT (SQ) ---
EXAM DESCRIPTION: U/S ABDOMEN COMPLETE W/DOPPLER COMPLETED DATE/TIME: 05/14/2017 4:06 am REASON FOR STUDY: Flank pain COMPARISON: Abdominal ultrasound 04/28/2017. CT abdomen and pelvis 03/12/2017. TECHNIQUE: Dynamic and static grayscale images acquired of the abdomen and recorded on PACS. Additio nal selected color Doppler and spectral images recorded. LIMITATIONS: Overlying bowel loops. FINDINGS: PANCREAS: Obscured by overlying bowel loops. LIVER: Measures 16.6 cm. Heterogeneous echotexture and nodular contour, consistent with cirrhosis. LIVER VASCULATURE: Normal directional flow of the main portal vein. GALLBLADDER: Surgically absent. ULTRASOUND-DETECTED INTERIANO'S SIGN: Not applicable. INTRAHEPATIC DUCTS AND COMMON DUCT: Mild biliary ductal dilation. The common bile duct measures 8.1 mm. INFERIOR VENA CAVA: Not well visualized. AORTA: No aneurysm in the visualized proximal and distal segments, the mid abdominal aorta is obscure d by overlying bowel gas. RIGHT KIDNEY: Measures 10.7 cm. No hydronephrosis. No calcifications. LEFT KIDNEY: Measures 11.7 cm. No hydronephrosis. No calcifications. SPLEEN: Measures 20.3 cm. PERITONEAL AND PLEURAL SPACES: Small ascites. No pleural effusions were identified. IMPRESSION: Cirrhosis with splenomegaly and small ascites. Mild biliary ductal dilation. TECHNICAL DOCUMENTATION: JOB ID: [id number] [email or web address]- All Rights Reserved
[2017-05-14] MEDS ORDERED: HYDROCODONE/ACETAMINOPHEN 5-325 MG 6 TAB/DSPK PO PRN (04:41)
--- NOTE | 2017-05-14 04:43 | ER Document Report ---
ED GI/ - General Chief Complaint: Flank Pain Stated Complaint: FLANK PAIN Time Seen by Provider: 05/14/17 00:59 Notes: Patient is a 47 year old female that comes to the ED with chief complaint of left sided abdominal pain. She has a complicated past medical history including liver cirrhosis, splenomegaly, ESRD, type II diabetes, and currently awaiting liver transplant status at [facility]. She denies trauma, fever, vomiting, abnormal bowel movements. She is on pain medication but she ran out a couple of weeks ago. Patient has pending follow-up with both her provider and with [facility]. TRAVEL OUTSIDE OF THE [place] IN LAST 30 DAYS: No - Related Data Allergies/Adverse Reactions: No Known Allergies Allergy (Verified 04/19/17 19:03) Past Medical History - General Information source: Patient - Social History Smoking Status: Never Smoker Chew tobacco use (# tins/day): No Frequency of alcohol use: None Drug Abuse: None Lives with: Family Family History: Reviewed & Not Pertinent Patient has suicidal ideation: No Patient has homicidal ideation: No - Past Medical History Cardiac Medical History: Reports: Hx Hypercholesterolemia, Hx Hypertension Denies: Hx Coronary Artery Disease, Hx Heart Attack Pulmonary Medical History: Denies: Hx Asthma, Hx Bronchitis, Hx COPD, Hx Pneumonia, Hx Tuberculosis Neurological Medical History: Denies: Hx Cerebrovascular Accident, Hx Seizures Endocrine Medical History: Reports: Hx Diabetes Mellitus Type 2 Renal/ Medical History: Reports: Hx End Stage Renal Disease, Hx Kidney Stones - 2011, Hx Renal Insufficiency. Denies: Hx Peritoneal Dialysis GI Medical History: Reports: Hx Cirrhosis, Hx Gastroesophageal Reflux Disease, Hx Hepatitis - C, Hx Liver Failure Musculoskeltal Medical History: Reports Hx Arthritis - spine Psychiatric Medical History: Reports: Hx Anxiety, Hx Bipolar Disorder, Hx Depression - & anxiety Infectious Medical History: Reports: Hx Hepatitis - C Past Surgical History: Reports: Hx Cholecystectomy - 2011, Hx Hysterectomy - Immunizations Hx Diphtheria, Pertussis, Tetanus Vaccination: Yes Hx Pneumococcal Vaccination: 09/03/12 Review of Systems - Review of Systems Constitutional: No symptoms reported EENT: No symptoms reported Cardiovascular: No symptoms reported Respiratory: No symptoms reported Gastrointestinal: See HPI Genitourinary: No symptoms reported Female Genitourinary: No symptoms reported Musculoskeletal: No symptoms reported Skin: No symptoms reported Hematologic/Lymphatic: No symptoms reported Neurological/Psychological: No symptoms reported Physical Exam - Vital signs Vitals: Temp Pulse Resp BP Pulse Ox 98.2 F 113 H 18 176/68 H 100 05/13/17 23:34 05/13/17 23:34 05/13/17 23:34 05/13/17 23:34 05/13/17 23:34 Interpretation: Normal - General General appearance: Appears well, Alert In distress: None - patient does not appear to be in distress - HEENT Head: Normocephalic, Atraumatic Eyes: Normal Conjunctiva: Normal Extraocular movements intact: Yes Eyelashes: Normal Pupils: PERRL Mucous membranes: Normal Pharynx: Normal Neck: Normal - Respiratory Respiratory status: No respiratory distress Chest status: Nontender Breath sounds: Normal Chest palpation: Normal - Cardiovascular Rhythm: Regular. No: Tachycardia - no tachycardia on my exam Heart sounds: Normal auscultation, S1 appreciated, S2 appreciated Murmur: No - Abdominal Inspection: Normal Distension: No distension Bowel sounds: Normal Organomegaly: Hepatomegaly, Splenomegaly - Patient does have a palpable spleen on examination, this is not significantly tender, there is mild generalized tenderness over the left abdomen on examination. No evidence of trauma. - Back Back: Normal, Nontender. No: Tender - Extremities General upper extremity: Normal inspection, Nontender, Normal ROM, Normal strength General lower extremity: Normal inspection, Nontender, Normal ROM, Normal strength. No: Edema - Neurological Neuro grossly intact: Yes Cognition: Normal Orientation: AAOx4 [place] Coma Scale Eye Opening: Spontaneous [place] Coma Scale Verbal: Oriented [place] Coma Scale Motor: Obeys Commands [place] Coma Scale Total: 15 Speech: Normal Motor strength normal: LUE, RUE, LLE, RLE Sensory: Normal - Psychological Associated symptoms: Normal affect, Normal mood - Skin Skin Temperature: Warm Skin Moisture: Dry Skin Color: Normal Course - Re-evaluation Re-evalutation: Patient has pancytopenia similar to prior, coagulation study similar to prior, renal functioning is actually improved compared to prior. No fever, patient is not tachycardic on my evaluation, no hypotension. No evidence of ascites on examination, abdominal exam is not suggestive of spontaneous bacterial peritonitis. Ultrasound showing splenomegaly, trace ascites,Discussed with Dr. Angel. No evidence of bleeding noted from the spleen, no free fluid. There is some questionable common bile duct dilatation, however direct bilirubin is similar to prior, patient has absolutely no epigastric or right upper quadrant tenderness on examination, on reevaluation she is completely asymptomatic after medications. I did discuss patient's ultrasound, workup in detail. Patient states she feels much better and she is asking to leave, she states that she would like something for pain pending her follow-up. Patient was provided with this. I discussed strict return precautions and concerning symptoms with patient. Patient states understanding and agreement. - Vital Signs Vital signs: Temp Pulse Resp BP Pulse Ox 98.2 F 101 H 22 H 122/66 96 05/13/17 23:34 05/14/17 04:50 05/14/17 04:50 05/14/17 04:50 05/14/17 04:50 - Laboratory Result Diagrams: 05/14/17 01:29 05/14/17 01:29 Laboratory results interpreted by me: 05/14/17 05/14/17 05/14/17 01:29 01:29 01:29 WBC 1.8 L RBC 2.56 L Hgb 8.2 L Hct 24.6 L RDW 16.6 H Plt Count 23 L* Abs Neuts (Manual) 1.2 L PT 19.5 H APTT 37.4 H Carbon Dioxide 21 L BUN 42 H Creatinine 4.02 H Est GFR ( Amer) 14 L Est GFR (Non-Af Amer) 12 L Glucose 353 H Total Bilirubin 1.6 H Direct Bilirubin 0.8 H Alkaline Phosphatase 138 H Total Protein 6.0 L Albumin 3.0 L Discharge - Discharge Clinical Impression: Left sided abdominal pain, Splenomegaly Condition: Stable Disposition: HOME, SELF-CARE Additional Instructions: Take the pain medication as prescribed if needed. Follow-up with your [facility] appointment and your local primary care provider. Return to emergency department immediately if you worsen in any way including return or worsening pain, fever, vomiting, lightheadedness, or any other concerning symptoms. Prescriptions: Morphine Sulfate [Morphine Ir 15 Mg Tablet] 15 mg PO Q4HP PRN #20 tablet PRN Reason: Referrals: SUSANNA PEREIRA MD [Primary Care Provider] - Follow up as needed
[2017-05-14 04:59] VITALS: BP 122/66
== END 2017-05-14 04:53 | disposition home or self-care (01) ==
LOC: ER 23:25
DX: R16.2 Hepatomegaly with splenomegaly, not elsewhere classified (principal); K74.60 Unspecified cirrhosis of liver; D61.818 Other pancytopenia; I12.0 Hypertensive chronic kidney disease with stage 5 chronic kidney disease or end stage renal disease; E11.22 Type 2 diabetes mellitus with diabetic chronic kidney disease; N18.6 End stage renal disease
CPT/HCPCS: 96376; 99284; 96374; 96375; 36415; 85025; 85610; 85730; 80053; 76700; 93976; J2270; J2405; A9270

== ENCOUNTER → 2017-06-02 | Outpatient (CLI) | payer MEDICARE, MEDICAID ==
[2017-06-02 11:47] LABS: HEMATOCRIT 24.9 % (36.0-47.0); HEMOGLOBIN 8.6 g/dL (12.0-15.5); HGB HCT DIFFERENCE 0.9; MEAN CORPUSCULAR HEMOGLOBIN 33.2 pg (27.0-33.4); MEAN CORPUSCULAR HGB CONC 34.4 g/dL (32.0-36.0); MEAN CORPUSCULAR VOLUME 96 fl (80-97); RED BLOOD COUNT 2.59 10^6/uL (3.72-5.28); RED CELL DISTRIBUTION WIDTH 15.4 % (11.5-14.0)
[2017-06-02 12:03] LABS: ANION GAP 10 (5-19); BLOOD UREA NITROGEN 32 mg/dL (7-20); CALCIUM 8.4 mg/dL (8.4-10.2); CARBON DIOXIDE 23 mmol/L (22-30); CHLORIDE 108 mmol/L (98-107); CREATININE RESULT 3.96 mg/dL (0.52-1.25); GLUCOSE 374 mg/dL (75-110); PHOSPHORUS 3.6 mg/dL (2.5-4.5); POTASSIUM 4.1 mmol/L (3.6-5.0); SODIUM 140.8 mmol/L (137-145)
[2017-06-02 12:04] LABS: APPEARANCE,URINE CLEAR; BILIRUBIN,URINE NEGATIVE (NEGATIVE); GLUCOSE, URINE 500 mg/dL (NEGATIVE); KETONES,URINE NEGATIVE (NEGATIVE); PROTEIN,URINE 30 mg/dL (NEGATIVE); URINE SPECIFIC GRAVITY 1.013; UROBILINOGEN,URINE NEGATIVE mg/dL (<2.0)
[2017-06-02 12:05] LABS: BACTERIA,URINE 1+ /HPF; LEUKOCYTE ESTERASE,URINE NEGATIVE (NEGATIVE); NITRITE,URINE NEGATIVE (NEGATIVE); WBC,URINE 0-1 /HPF
[2017-06-02 12:10] LABS: URINE CREATININE 128.6 mg/dL (15-278); URINE PROTEIN 15.2 mg/dL (<12)
[2017-06-02 12:14] LABS: WHITE BLOOD COUNT 1.1 10^3/uL (4.0-10.5)
== END ==
LOC: OD 10:43
PROVIDERS: ATTEND Physician Assistant Medical
DX: N18.5 Chronic kidney disease, stage 5 (principal); R60.9 Edema, unspecified; I12.0 Hypertensive chronic kidney disease with stage 5 chronic kidney disease or end stage renal disease; E11.22 Type 2 diabetes mellitus with diabetic chronic kidney disease; D63.1 Anemia in chronic kidney disease
CPT/HCPCS: 36415; 80048; 81001; 82570; 83970; 84100; 84156; 85027

== ENCOUNTER 2017-07-03 10:01 | Emergency (ER) | payer MEDICARE, MEDICAID ==
--- NOTE | 2017-07-03 10:21 | ER Document Report ---
ED General - General Stated Complaint: SLURRED SPEECH Time Seen by Provider: 07/03/17 10:13 Mode of Arrival: Medic Information source: Patient Notes: 47-year-old female presents with complaints of headache slurred speech blurry vision left facial droop which resolved and then the right facial droop which resolved and now she is having a left facial droop again. Patient speaking clearly but quite tearful Patient following commands, last known well was last night TRAVEL OUTSIDE OF THE [place] IN LAST 30 DAYS: No - HPI Onset: Just prior to arrival Onset/Duration: Sudden Quality of pain: Achy Severity: Mild Pain Level: 1 Associated symptoms: Headache Exacerbated by: Denies Relieved by: Denies Similar symptoms previously: No Recently seen / treated by doctor: No - Related Data Allergies/Adverse Reactions: No Known Allergies Allergy (Verified 04/19/17 19:03) Past Medical History - Social History Smoking Status: Never Smoker Cigarette use (# per day): No Chew tobacco use (# tins/day): No Smoking Education Provided: No Family History: Reviewed & Not Pertinent - Past Medical History Cardiac Medical History: Reports: Hx Hypercholesterolemia, Hx Hypertension Denies: Hx Coronary Artery Disease, Hx Heart Attack Pulmonary Medical History: Denies: Hx Asthma, Hx Bronchitis, Hx COPD, Hx Pneumonia, Hx Tuberculosis Neurological Medical History: Denies: Hx Cerebrovascular Accident, Hx Seizures Endocrine Medical History: Reports: Hx Diabetes Mellitus Type 2 Renal/ Medical History: Reports: Hx End Stage Renal Disease, Hx Kidney Stones - 2011, Hx Renal Insufficiency. Denies: Hx Peritoneal Dialysis GI Medical History: Reports: Hx Cirrhosis, Hx Gastroesophageal Reflux Disease, Hx Hepatitis - C, Hx Liver Failure Musculoskeltal Medical History: Reports Hx Arthritis - spine Psychiatric Medical History: Reports: Hx Anxiety, Hx Bipolar Disorder, Hx Depression - & anxiety Infectious Medical History: Reports: Hx Hepatitis - C Past Surgical History: Reports: Hx Cholecystectomy - 2011, Hx Hysterectomy - Immunizations Hx Diphtheria, Pertussis, Tetanus Vaccination: Yes Hx Pneumococcal Vaccination: 09/03/12 Review of Systems - Review of Systems Notes: REVIEW OF SYSTEMS: CONSTITUTIONAL : Denies fever, chills, or sweats. Denies recent illness. EENT: Denies eye, ear, throat, or mouth pain or symptoms. Denies nasal or sinus congestion or discharge. Denies throat, tongue, or mouth swelling or difficulty swallowing. CARDIOVASCULAR: Denies chest pain. Denies palpitations or racing or irregular heart beat. Denies ankle edema. RESPIRATORY: Denies cough, cold, or chest congestion. Denies shortness of breath, difficulty breathing, or wheezing. GASTROINTESTINAL: Denies abdominal pain or distention. Denies nausea, vomiting , or diarrhea. Denies blood in vomitus, stools, or per rectum. Denies black, tarry stools. Denies constipation. GENITOURINARY: Denies difficulty urinating, painful urination, burning, frequency, blood in urine, or discharge. FEMALE GENITOURINARY: Denies vaginal bleeding, heavy or abnormal periods, irregular periods. Denies vaginal discharge or odor. MUSCULOSKELETAL: Denies back or neck pain or stiffness. Denies joint pain or swelling. SKIN: Denies rash, lesions or sores. HEMATOLOGIC : Denies easy bruising or bleeding. LYMPHATIC: Denies swollen, enlarged glands. NEUROLOGICAL: Admits to slurred speech left facial droop and right facial droop and left facial droop PSYCHIATRIC: Denies anxiety or stress. Denies depression, suicidal ideation, or homicidal ideation. ALL OTHER SYSTEMS REVIEWED AND NEGATIVE. PHYSICAL EXAMINATION: GENERAL: Well-appearing, well-nourished and in no acute distress. HEAD: Atraumatic, normocephalic. EYES: Pupils equal round and reactive to light, extraocular movements intact, conjunctiva are normal. ENT: Nares patent, oropharynx clear without exudates. Moist mucous membranes. NECK: Normal range of motion, supple without lymphadenopathy LUNGS: Breath sounds clear to auscultation bilaterally and equal. No wheezes rales or rhonchi. HEART: Regular rate and rhythm without murmurs ABDOMEN: Soft, nontender, nondistended abdomen. No guarding, no rebound. No masses appreciated. Female : deferred Musculoskeletal: Normal range of motion, no pitting or edema. No cyanosis. NEUROLOGICAL: left facial droop PSYCH: Normal mood, normal affect. SKIN: Warm, Dry, normal turgor, no rashes or lesions noted. Dictation was performed using [employer] voice recognition software Physical Exam - Vital signs Vitals: Temp Pulse Resp BP Pulse Ox 98.9 F 94 20 183/78 H 100 07/03/17 10:07/03/17 10:07/03/17 10:07/03/17 10:07/03/17 10:14 Course - Re-evaluation Re-evalutation: 07/03/17 10:25 I have very low suspicion for a CVA given how her symptoms seem to go back and forth from one side to another she has no weakness noted her speech is clear when you repeat your questions to her. I will order CT MRI to rule out an intracranial abnormality 07/03/17 11:[address] Frye that there is a bleed 07/03/17 11:14 I notified patient and sister(who i had sent out for a CVA herself) i will contact [facility] 07/03/17 11:25 [facility] ED physician accepts but requests we talk to neurosurgery first for possible direct admit only 1 platelt in the hospitali, will give that , will take 6 hours to fly more in 07/03/17 11:40 Dr Claire accepts - Vital Signs Vital signs: Temp Pulse Resp BP Pulse Ox 98.9 F 94 16 183/78 H 99 07/03/17 10:14 07/03/17 10:14 07/03/17 10:33 07/03/17 10:14 07/03/17 10:33 - Laboratory Result Diagrams: 07/03/17 10:05 07/03/17 10:05 Laboratory results interpreted by me: 07/03/17 07/03/17 07/03/17 10:05 10:05 10:05 WBC 3.1 L RBC 3.04 L Hgb 10.1 L Hct 28.4 L Plt Count 28 L* PT 19.3 H BUN 43 H Creatinine 4.41 H Est GFR ( Amer) 13 L Est GFR (Non-Af Amer) 11 L Glucose 319 H Total Bilirubin 3.2 H Direct Bilirubin 1.6 H AST 48 H Alkaline Phosphatase 139 H Creatine Kinase 494 H Albumin 3.3 L - Diagnostic Test Radiology reviewed: Image reviewed, Reports reviewed - EKG Interpretation by Me EKG shows normal: Sinus rhythm, Antonito, Intervals, QRS Complexes Discharge - Discharge Clinical Impression: Chronic kidney disease, stage 5, kidney failure, Brain mass, Pancytopenia Intraparenchymal hematoma of brain Qualifiers: Encounter type: initial encounter Laterality: left Loss of consciousness presence/duration: without LOC Qualified Code(s): S06.350A - Traumatic hemorrhage of left cerebrum without loss of consciousness, initial encounter HTN (hypertension) Qualifiers: Hypertension type: essential hypertension Qualified Code(s): I10 - Essential ( primary) hypertension Condition: Fair Disposition: [place] Referrals: GUILLE WILLIS CRNP [Primary Care Provider] - Follow up as needed
[2017-07-03] MEDS ORDERED: HALOPERIDOL LACTATE INJ 5 MG/1 ML VIAL IV ONE (10:26)
[2017-07-03 10:28] LABS: ABSOLUTE EOSINOPHILS # (AUTO) 0.1 10^3/uL (0.0-0.6); ABSOLUTE LYMPHOCYTES (AUTO) 0.7 10^3/uL (0.5-4.7); ABSOLUTE MONOCYTES (AUTO) 0.2 10^3/uL (0.1-1.4); ABSOLUTE NEUT (AUTO) 2.1 10^3/uL (1.7-8.2); BASOPHILS % (AUTO) 0.6 % (0-2); EOSINOPHILS % (AUTO) 2.8 % (0-6); HEMATOCRIT 28.4 % (36.0-47.0); HEMOGLOBIN 10.1 g/dL (12.0-15.5); HGB HCT DIFFERENCE 1.9; LYMPHOCYTES % (AUTO) 21.6 % (13-45); MEAN CORPUSCULAR HEMOGLOBIN 33.3 pg (27.0-33.4); MEAN CORPUSCULAR HGB CONC 35.5 g/dL (32.0-36.0); MEAN CORPUSCULAR VOLUME 94 fl (80-97); MONOCYTES % (AUTO) 7.4 % (3-13); RED BLOOD COUNT 3.04 10^6/uL (3.72-5.28); RED CELL DISTRIBUTION WIDTH 13.6 % (11.5-14.0); SEGMENTED NEUTROPHILS % (AUTO) 67.6 % (42-78); WHITE BLOOD COUNT 3.1 10^3/uL (4.0-10.5)
[2017-07-03 10:29] LABS: PROTHROMBIN TIME 19.3 SEC (11.4-15.4)
[2017-07-03 10:30] LABS: PARTIAL THROMBOPLASTIN TIME 33.5 SEC (23.5-35.8)
[2017-07-03 10:45] LABS: ALANINE AMINOTRANSFERASE 30 U/L (9-52); ALBUMIN 3.3 g/dL (3.5-5.0); ALKALINE PHOSPHATASE 139 U/L (38-126); ANION GAP 13 (5-19); ASPARTATE AMINO TRANSFERASE 48 U/L (14-36); BILIRUBIN,DIRECT 1.6 mg/dL (0.0-0.4); BILIRUBIN,TOTAL 3.2 mg/dL (0.2-1.3); BLOOD UREA NITROGEN 43 mg/dL (7-20); CARBON DIOXIDE 27 mmol/L (22-30); CHLORIDE 103 mmol/L (98-107); CREATINE KINASE 494 U/L (30-135); CREATININE RESULT 4.41 mg/dL (0.52-1.25); GLUCOSE 319 mg/dL (75-110); POTASSIUM 3.7 mmol/L (3.6-5.0); SODIUM 142.5 mmol/L (137-145); TOTAL PROTEIN 6.9 g/dL (6.3-8.2)
[2017-07-03 10:47] LABS: ALCOHOL < 10 mg/dL (NONE DETECTED)
[2017-07-03] MEDS ORDERED: ASPIRIN 325 MG TABLET PO ONE (10:53)
[2017-07-03 10:56] LABS: CREATINE KINASE MB 1.29 ng/mL (<4.55)
[2017-07-03 11:01] LABS: TROPONIN I < 0.012 ng/mL
[2017-07-03] MEDS ORDERED: NORMAL SALINE 250 ML IV PRN ×2 (11:08)
--- NOTE | 2017-07-03 11:13 | RADIOLOGY REPORT (SQ) ---
EXAM DESCRIPTION: CT HEAD WITHOUT COMPLETED DATE/TIME: 07/03/2017 11:04 am REASON FOR STUDY: slurred speech COMPARISON: 04/22/2016 TECHNIQUE: Axial images acquired through the brain without intravenous contrast. Images reviewed wi th bone, brain and subdural windows. Images stored on PACS. All CT scanners at this facility use dose modulation, iterative reconstruction, and/or weight based d osing when appropriate to reduce radiation dose to as low as reasonably achievable (ALARA). [facility]: Dose Right [facility]: CareDose [facility]: Dose Right [facility]: Teradose 4D [facility]: Smart Technologies RADIATION DOSE: Up-to-date CT equipment and radiation dose reduction techniques were employed. CTDIv ol: 64.6 mGy. DLP: 1034 mGy-cm. mGy. LIMITATIONS: None. FINDINGS: VENTRICLES: Normal size and contour. CEREBRUM: There is masslike area of hemorrhage within the posterior left frontal lobe measuring 2.9 x 1.9 cm. There is surrounding edema and mild associated mass effect. Otherwise normal pavon/white mat ter differentiation. CEREBELLUM: No masses. No hemorrhage. No alteration of density. No evidence for acute infarction. EXTRAAXIAL SPACES: No fluid collections. No masses. ORBITS AND GLOBE: No intra- or extraconal masses. Normal contour of globe without masses. CALVARIUM: No fracture. PARANASAL SINUSES: No fluid or mucosal thickening. SOFT TISSUES: No mass or hematoma. OTHER: No other significant finding. IMPRESSION: 2.9 CM MASSLIKE AREA OF INTRAPARENCHYMAL HEMORRHAGE LEFT POSTERIOR FRONTAL LOBE. MAIN D IFFERENTIAL INCLUDES HEMORRHAGIC INFARCTION OR MASS. FOLLOW-UP MRI IS RECOMMENDED. COMMENT: Pertinent findings on the imaging study reported as a CRITICAL RESULT to SYMONE DONALDSON at11: 06 on 07/03/2017. Category of Critical Result: INTRACRANIAL HEMORRHAGE Quality ID # [id number]: Final reports with documentation of one or more dose reduction techniques (e.g., Au tomated exposure control, adjustment of the mA and/or kV according to patient size, use of iterative reconstruction technique) TECHNICAL DOCUMENTATION: JOB ID: [id number]- All Rights Reserved
[2017-07-03] MEDS ORDERED: LABETALOL HCL INJ 20 MG/4 ML DISP.SYRIN IV ONE (11:21)
[2017-07-03] MEDS ORDERED: METOPROLOL TARTRATE PF/INJ 5 MG/5 ML SDV IV ONE (11:21)
--- NOTE | 2017-07-03 11:29 | RADIOLOGY REPORT (SQ) ---
EXAM DESCRIPTION: CHEST SINGLE VIEW COMPLETED DATE/TIME: 07/03/2017 11:09 am REASON FOR STUDY: slurred speech COMPARISON: 32,017 EXAM PARAMETERS: NUMBER OF VIEWS: One view. TECHNIQUE: Single frontal radiographic view of the chest acquired. RADIATION DOSE: NA LIMITATIONS: None. FINDINGS: LUNGS AND PLEURA: No opacities, masses or pneumothorax. No pleural effusion. MEDIASTINUM AND HILAR STRUCTURES: No masses. Contour normal. HEART AND VASCULAR STRUCTURES: Heart normal in size. Normal vasculature. BONES: No acute findings. HARDWARE: None in the chest. OTHER: No other significant finding. IMPRESSION: NO ACUTE RADIOGRAPHIC FINDING IN THE CHEST. TECHNICAL DOCUMENTATION: JOB ID: [id number]
--- NOTE | 2017-07-03 12:54 | EKG REPORT ---
SEVERITY:- ABNORMAL ECG - SINUS RHYTHM. PROBABLE INFERIOR INFARCT, AGE INDETERMINATE BORDERLINE R WAVE PROGRESSION, ANTERIOR LEADS : Confirmed by: Jesús Ly MD 03-Jul-2017 12:53:36
[2017-07-03 13:00] VITALS: BP 149/66
== END 2017-07-03 13:00 | disposition short-term general hospital (02) ==
LOC: ER 10:01
DX: S06.350A Traumatic hemorrhage of left cerebrum without loss of consciousness, initial encounter (principal); X58.XXXA Exposure to other specified factors, initial encounter; I12.0 Hypertensive chronic kidney disease with stage 5 chronic kidney disease or end stage renal disease; E11.22 Type 2 diabetes mellitus with diabetic chronic kidney disease; N18.5 Chronic kidney disease, stage 5; D61.818 Other pancytopenia; R47.81 Slurred speech; H53.8 Other visual disturbances; R29.810 Facial weakness; R51 Headache; R22.0 Localized swelling, mass and lump, head
CPT/HCPCS: 93005; 99291; 99292; 86900; 86901; 36415; 82553; 36430; 86850; 80307; 82550; 85025; 85610; 85730; 80053; 84484; 71010; 70450; 93010; P9035

== ENCOUNTER → 2017-08-18 | Outpatient (CLI) | payer MEDICARE, MEDICAID ==
[2017-08-18 16:34] LABS: ANION GAP 13 (5-19); BLOOD UREA NITROGEN 44 mg/dL (7-20); CALCIUM 8.9 mg/dL (8.4-10.2); CARBON DIOXIDE 25 mmol/L (22-30); CHLORIDE 98 mmol/L (98-107); CREATININE RESULT 4.35 mg/dL (0.52-1.25); POTASSIUM 3.8 mmol/L (3.6-5.0); SODIUM 136.3 mmol/L (137-145)
[2017-08-18 16:46] LABS: GLUCOSE 399 mg/dL (75-110)
== END ==
LOC: OD 15:44
PROVIDERS: ATTEND Physician Assistant Medical
DX: E11.22 Type 2 diabetes mellitus with diabetic chronic kidney disease (principal); I12.9 Hypertensive chronic kidney disease with stage 1 through stage 4 chronic kidney disease, or unspecified chronic kidney disease; N18.5 Chronic kidney disease, stage 5; R60.9 Edema, unspecified
CPT/HCPCS: 36415; 80048

== ENCOUNTER → 2017-09-07 | Outpatient (CLI) | payer MEDICARE, MEDICAID ==
[2017-09-07 13:55] LABS: ANION GAP 15 (5-19); BLOOD UREA NITROGEN 57 mg/dL (7-20); CALCIUM 8.5 mg/dL (8.4-10.2); CARBON DIOXIDE 23 mmol/L (22-30); CHLORIDE 101 mmol/L (98-107); CREATININE RESULT 4.87 mg/dL (0.52-1.25); GLUCOSE 359 mg/dL (75-110); PHOSPHORUS 4.2 mg/dL (2.5-4.5); POTASSIUM 3.7 mmol/L (3.6-5.0); SODIUM 138.6 mmol/L (137-145)
[2017-09-08 13:45] LABS: APPEARANCE,URINE SLIGHTLY-CLOUDY; BILIRUBIN,URINE NEGATIVE (NEGATIVE); GLUCOSE, URINE 50 mg/dL (NEGATIVE); KETONES,URINE NEGATIVE (NEGATIVE); LEUKOCYTE ESTERASE,URINE NEGATIVE (NEGATIVE); NITRITE,URINE NEGATIVE (NEGATIVE); PROTEIN,URINE NEGATIVE (NEGATIVE); URINE SPECIFIC GRAVITY 1.011; UROBILINOGEN,URINE NEGATIVE mg/dL (<2.0)
[2017-09-08 13:59] LABS: HEMATOCRIT 29.2 % (36.0-47.0); HEMOGLOBIN 10.2 g/dL (12.0-15.5); HGB HCT DIFFERENCE 1.4; MEAN CORPUSCULAR HEMOGLOBIN 31.8 pg (27.0-33.4); MEAN CORPUSCULAR HGB CONC 34.9 g/dL (32.0-36.0); MEAN CORPUSCULAR VOLUME 91 fl (80-97); RED CELL DISTRIBUTION WIDTH 15.1 % (11.5-14.0); WHITE BLOOD COUNT 2.6 10^3/uL (4.0-10.5)
[2017-09-08 14:40] LABS: PLATELET ESTIMATE 40 10^3/uL (150-450)
[2017-09-08 14:56] LABS: URINE CREATININE 182.1 mg/dL (15-278); URINE PROTEIN 9.9 mg/dL (<12)
== END ==
LOC: OD 11:42
PROVIDERS: ATTEND Physician Assistant Medical
DX: I12.0 Hypertensive chronic kidney disease with stage 5 chronic kidney disease or end stage renal disease (principal); N18.5 Chronic kidney disease, stage 5; R60.9 Edema, unspecified; E11.9 Type 2 diabetes mellitus without complications
CPT/HCPCS: 36415; 80048; 81001; 82570; 83735; 83970; 84100; 84156; 85027

== ENCOUNTER 2017-09-14 16:11 | Inpatient (IN) | payer MEDICARE, MEDICAID ==
[2017-09-14] MEDS ORDERED: NORMAL SALINE 250 ML IV PRN ×2 (17:22)
--- NOTE | 2017-09-14 17:57 | PDOC H&P ---
History of Present Illness Admission Date/PCP: 09/14/17 16:11 CHANEL CYR PA-C Patient complains of: Swelling and 50 lb weight gain History of Present Illness: HUMBERTO KAY is a 47 year old female presents as direct admitted from Dr. Solares office for initiation of dialysis. Pt states that she has gained 50 lbs in one week. Pt states that she has been a little short of breath. Pt states that she agreed to come to the hospital for dialysis. Spoke to Dr. Jaramillo who has agreed to place dialysis cath. Pt's platelet on recount are 40,000. I have spoken to Dr. Solares as well this evening. Past Medical History Cardiac Medical History: Reports: Hyperlipidema, Hypertension Denies: Coronary Artery Disease, Myocardial Infarction Pulmonary Medical History: Denies: Asthma, Bronchitis, Chronic Obstructive Pulmonary Disease (COPD), Pneumonia, Tuberculosis Neurological Medical History: Denies: Seizures Endocrine Medical History: Reports: Diabetes Mellitus Type 2 Renal/ Medical History: Reports: End Stage Renal Disease GI Medical History: Reports: Cirrhosis, Gastroesophageal Reflux Disease, Hepatitis - C Musculoskeltal Medical History: Reports: Arthritis - spine Psychiatric Medical History: Reports: Bipolar Disorder, Depression - & anxiety Hematology: Reports: Anemia Past Surgical History Past Surgical History: Reports: Cholecystectomy - 2012, Hysterectomy Social History Lives with: Spouse/Significant other Smoking Status: Former Smoker Frequency of Alcohol Use: None Hx Recreational Drug Use: No Drugs: None Hx Prescription Drug Abuse: No Family History Family History: Reviewed & Not Pertinent Parental Family History Reviewed: Yes Children Family History Reviewed: Yes Sibling(s) Family History Reviewed.: Yes Medication/Allergy Allergies/Adverse Reactions: No Known Allergies Allergy (Verified 04/19/17 19:03) Review of Systems Constitutional: PRESENT: weight gain Eyes: ABSENT: visual disturbances Ears: ABSENT: hearing changes Cardiovascular: ABSENT: chest pain, dyspnea on exertion, edema, orthropnea, palpitations Respiratory: ABSENT: cough, hemoptysis Gastrointestinal: ABSENT: abdominal pain, constipation, diarrhea, hematemesis, hematochezia, nausea, vomiting Genitourinary: ABSENT: dysuria, hematuria Musculoskeletal: ABSENT: joint swelling Integumentary: ABSENT: rash, wounds Neurological: ABSENT: abnormal gait, abnormal speech, confusion, dizziness, focal weakness, syncope Psychiatric: ABSENT: anxiety, depression, homidical ideation, suicidal ideation Endocrine: ABSENT: cold intolerance, heat intolerance, polydipsia, polyuria Hematologic/Lymphatic: ABSENT: easy bleeding, easy bruising Physical Exam Vital Signs: Temp Pulse Resp BP Pulse Ox 97.8 F 80 16 125/64 100 09/14/17 16:30 09/14/17 16:30 09/14/17 16:30 09/14/17 16:30 09/14/17 16:30 Intake & Output 09/13/17 09/14/17 09/15/17 06:59 06:59 06:59 Weight 113.4 kg General appearance: PRESENT: no acute distress, well-developed, well-nourished Head exam: PRESENT: atraumatic, normocephalic Eye exam: PRESENT: conjunctiva pink, EOMI, PERRLA. ABSENT: scleral icterus Ear exam: PRESENT: normal external ear exam Mouth exam: PRESENT: moist, tongue midline Neck exam: ABSENT: carotid bruit, JVD, lymphadenopathy, thyromegaly Respiratory exam: PRESENT: clear to auscultation bria. ABSENT: rales, rhonchi, wheezes Cardiovascular exam: PRESENT: RRR. ABSENT: diastolic murmur, rubs, systolic murmur Pulses: PRESENT: normal dorsalis pedis pul Vascular exam: PRESENT: normal capillary refill GI/Abdominal exam: PRESENT: ascites Rectal exam: PRESENT: deferred Extremities exam: PRESENT: full ROM. ABSENT: calf tenderness, clubbing, pedal edema Neurological exam: PRESENT: alert, awake, oriented to person, oriented to place , oriented to time, oriented to situation, CN II-XII grossly intact. ABSENT: motor sensory deficit Psychiatric exam: PRESENT: appropriate affect, normal mood. ABSENT: homicidal ideation, suicidal ideation Skin exam: PRESENT: dry, intact, warm. ABSENT: cyanosis, rash Assessment & Plan - Diagnosis (1) ESRD (end stage renal disease) Is this a current diagnosis for this admission?: Yes Plan: Pt will have dialysis cath placed in am by Dr. Jaramillo. Will order for platelet to be given at [address] Jar[address] request. Dr. Solares aware of pt being admitted to hospital. Pt will be NPO in am. (2) Type 2 DM with CKD stage 5 and hypertension Is this a current diagnosis for this admission?: Yes Plan: Will place on SSI. (3) Ascites Qualifiers: Ascites type: other type Qualified Code(s): R18.8 - Other ascites Is this a current diagnosis for this admission?: Yes (4) Liver cirrhosis Qualifiers: Hepatic cirrhosis type: unspecified hepatic cirrhosis Ascites presence: with ascites Qualified Code(s): K74.60 - Unspecified cirrhosis of liver Is this a current diagnosis for this admission?: Yes Plan: Will continue supportive care. (5) Morbid obesity Is this a current diagnosis for this admission?: Yes Plan: Encourage dietary changes. (6) Portal hypertension Is this a current diagnosis for this admission?: Yes Plan: Will obtain home medications. Pt will need to be on a nonselective beta stefania. (7) Increased ammonia level Is this a current diagnosis for this admission?: Yes Plan: concern for Elevated Ammonia: Will check Ammonia level and place on Lactulose. - Time Time Spent: 30 to 50 Minutes
[2017-09-14 18:09] LABS: ABSOLUTE EOSINOPHILS # (AUTO) 0.1 10^3/uL (0.0-0.6); ABSOLUTE LYMPHOCYTES (AUTO) 0.8 10^3/uL (0.5-4.7); ABSOLUTE MONOCYTES (AUTO) 0.2 10^3/uL (0.1-1.4); BASOPHILS % (AUTO) 0.6 % (0-2); EOSINOPHILS % (AUTO) 3.7 % (0-6); HEMATOCRIT 30.2 % (36.0-47.0); HEMOGLOBIN 10.3 g/dL (12.0-15.5); HGB HCT DIFFERENCE 0.7; LYMPHOCYTES % (AUTO) 25.9 % (13-45); MEAN CORPUSCULAR HEMOGLOBIN 31.7 pg (27.0-33.4); MEAN CORPUSCULAR HGB CONC 34.1 g/dL (32.0-36.0); MEAN CORPUSCULAR VOLUME 93 fl (80-97); MONOCYTES % (AUTO) 7.2 % (3-13); RED BLOOD COUNT 3.26 10^6/uL (3.72-5.28); RED CELL DISTRIBUTION WIDTH 15.3 % (11.5-14.0); SEGMENTED NEUTROPHILS % (AUTO) 62.6 % (42-78); WHITE BLOOD COUNT 3.2 10^3/uL (4.0-10.5)
[2017-09-14 18:10] LABS: PROTHROMBIN TIME 18.6 SEC (11.4-15.4)
[2017-09-14] MEDS ORDERED: PHYTONADIONE INJ 1 MG/0.5 ML DISP.SYRIN INJ ONE (18:15)
[2017-09-14] MEDS ORDERED: PHYTONADIONE INJ 10 MG/1 ML AMPULE SUBCUT ONE (19:30)
[2017-09-14] MEDS: LACTULOSE SYRUP 20 GM/30 ML UDCUP PO SCH (21:39)
[2017-09-15] MEDS: LACTULOSE SYRUP 20 GM/30 ML UDCUP PO SCH ×3 (05:06→23:30)
[2017-09-15 05:08] LABS: ABSOLUTE EOSINOPHILS # (AUTO) 0.2 10^3/uL (0.0-0.6); ABSOLUTE LYMPHOCYTES (AUTO) 1.2 10^3/uL (0.5-4.7); ABSOLUTE MONOCYTES (AUTO) 0.3 10^3/uL (0.1-1.4); ABSOLUTE NEUT (AUTO) 2.8 10^3/uL (1.7-8.2); BASOPHILS % (AUTO) 0.7 % (0-2); EOSINOPHILS % (AUTO) 4.4 % (0-6); HEMATOCRIT 29.9 % (36.0-47.0); HEMOGLOBIN 10.4 g/dL (12.0-15.5); HGB HCT DIFFERENCE 1.3; LYMPHOCYTES % (AUTO) 25.5 % (13-45); MEAN CORPUSCULAR HEMOGLOBIN 31.7 pg (27.0-33.4); MEAN CORPUSCULAR HGB CONC 34.7 g/dL (32.0-36.0); MEAN CORPUSCULAR VOLUME 92 fl (80-97); MONOCYTES % (AUTO) 7.6 % (3-13); RED BLOOD COUNT 3.27 10^6/uL (3.72-5.28); RED CELL DISTRIBUTION WIDTH 15.4 % (11.5-14.0); SEGMENTED NEUTROPHILS % (AUTO) 61.8 % (42-78); WHITE BLOOD COUNT 4.5 10^3/uL (4.0-10.5)
[2017-09-15 05:13] LABS: PROTHROMBIN TIME 18.9 SEC (11.4-15.4)
[2017-09-15 05:29] LABS: ALANINE AMINOTRANSFERASE 31 U/L (9-52); ALBUMIN 2.8 g/dL (3.5-5.0); ALKALINE PHOSPHATASE 137 U/L (38-126); ANION GAP 14 (5-19); ASPARTATE AMINO TRANSFERASE 27 U/L (14-36); BILIRUBIN,DIRECT 1.5 mg/dL (0.0-0.4); BILIRUBIN,TOTAL 2.6 mg/dL (0.2-1.3); BLOOD UREA NITROGEN 57 mg/dL (7-20); CALCIUM 8.6 mg/dL (8.4-10.2); CARBON DIOXIDE 23 mmol/L (22-30); CHLORIDE 101 mmol/L (98-107); CREATININE RESULT 5.18 mg/dL (0.52-1.25); POTASSIUM 3.6 mmol/L (3.6-5.0); SODIUM 137.5 mmol/L (137-145); TOTAL PROTEIN 6.1 g/dL (6.3-8.2)
[2017-09-15 05:43] LABS: GLUCOSE 482 mg/dL (75-110)
[2017-09-15] MEDS ORDERED: GLUCAGON,HUMAN RECOMB 1 MG INJ IM PRN (05:44)
[2017-09-15] MEDS ORDERED: DEXTROSE 40% GEL 15 GM TUBE PO PRN ×2 (05:44)
[2017-09-15] MEDS ORDERED: DEXTROSE 50%-WATER 25 GM/50 ML DISP.SYRIN IV PRN ×2 (05:44)
[2017-09-15] MEDS: INSULIN LISPRO 100 UNIT/ML 3 ML VIAL SUBCUT PRN ×2 (06:07→23:29)
[2017-09-15 10:36] LABS: ABSOLUTE EOSINOPHILS # (AUTO) 0.1 10^3/uL (0.0-0.6); ABSOLUTE LYMPHOCYTES (AUTO) 0.8 10^3/uL (0.5-4.7); ABSOLUTE MONOCYTES (AUTO) 0.3 10^3/uL (0.1-1.4); ABSOLUTE NEUT (AUTO) 1.9 10^3/uL (1.7-8.2); EOSINOPHILS % (AUTO) 4.4 % (0-6); HEMATOCRIT 27.2 % (36.0-47.0); HEMOGLOBIN 9.5 g/dL (12.0-15.5); HGB HCT DIFFERENCE 1.3; LYMPHOCYTES % (AUTO) 26.5 % (13-45); MEAN CORPUSCULAR HEMOGLOBIN 31.7 pg (27.0-33.4); MEAN CORPUSCULAR HGB CONC 34.9 g/dL (32.0-36.0); MEAN CORPUSCULAR VOLUME 91 fl (80-97); MONOCYTES % (AUTO) 8.9 % (3-13); RED CELL DISTRIBUTION WIDTH 15.3 % (11.5-14.0); SEGMENTED NEUTROPHILS % (AUTO) 59.2 % (42-78); WHITE BLOOD COUNT 3.1 10^3/uL (4.0-10.5)
[2017-09-15 11:13] LABS: HYPOCHROMASIA 1+; OVALOCYTES 2+; POIKILOCYTOSIS 2+; POLYCHROMASIA SLIGHT; TEAR DROP CELLS SLIGHT
--- NOTE | 2017-09-15 11:48 | PDOC PROGRESS REPORT ---
Subjective Progress Note for:: 09/15/17 Subjective:: Pt states that she is doing ok. Pt states that her abd is swollen. Pt states that she has not urinated for over a week. Spoke to Dr. Solares who is requesting Paracentesis. Radiology was contacted in regards to paracentesis. Physical Exam Vital Signs: Temp Pulse Resp BP Pulse Ox 98.7 F 88 16 116/64 99 09/15/17 09:03 09/15/17 09:03 09/15/17 09:03 09/15/17 09:03 09/15/17 09:03 Intake & Output 09/14/17 09/15/17 09/16/17 06:59 06:59 06:59 Intake Total 120 611 Balance 120 611 Weight 117.9 kg General appearance: PRESENT: no acute distress, well-developed, well-nourished Head exam: PRESENT: atraumatic, normocephalic Eye exam: PRESENT: conjunctiva pink, EOMI, PERRLA. ABSENT: scleral icterus Ear exam: PRESENT: normal external ear exam Mouth exam: PRESENT: dry mucosa Neck exam: ABSENT: carotid bruit, JVD, lymphadenopathy, thyromegaly Respiratory exam: PRESENT: clear to auscultation bria. ABSENT: rales, rhonchi, wheezes Cardiovascular exam: PRESENT: RRR. ABSENT: diastolic murmur, rubs, systolic murmur Pulses: PRESENT: normal dorsalis pedis pul Vascular exam: PRESENT: normal capillary refill GI/Abdominal exam: PRESENT: other - distended, + fluid wave Rectal exam: PRESENT: deferred Extremities exam: PRESENT: full ROM. ABSENT: calf tenderness, clubbing, pedal edema Neurological exam: PRESENT: alert, awake, oriented to person, oriented to place , oriented to time, oriented to situation, CN II-XII grossly intact. ABSENT: motor sensory deficit Psychiatric exam: PRESENT: appropriate affect, normal mood. ABSENT: homicidal ideation, suicidal ideation Skin exam: PRESENT: dry, intact, warm. ABSENT: cyanosis, rash Results Laboratory Results: 09/15/17 10:22 09/15/17 04:35 09/14/17 09/14/17 09/14/17 17:30 17:30 17:30 WBC 3.2 L RBC 3.26 L Hgb 10.3 L Hct 30.2 L MCV 93 MCH 31.7 MCHC 34.1 RDW 15.3 H Plt Count 26 L* Seg Neutrophils % 62.6 Lymphocytes % 25.9 Monocytes % 7.2 Eosinophils % 3.7 Basophils % 0.6 Absolute Neutrophils 2.0 Absolute Lymphocytes 0.8 Absolute Monocytes 0.2 Absolute Eosinophils 0.1 Absolute Basophils 0.0 Sodium Potassium Chloride Carbon Dioxide Anion Gap BUN Creatinine Est GFR ( Amer) Est GFR (Non-Af Amer) Glucose Calcium Total Bilirubin AST ALT Alkaline Phosphatase Ammonia 19.4 Total Protein Albumin Blood Type O POSITIVE 09/15/17 09/15/17 09/15/17 04:35 04:35 10:22 WBC 4.5 3.1 L RBC 3.27 L 3.00 L Hgb 10.4 L 9.5 L Hct 29.9 L 27.2 L MCV 92 91 MCH 31.7 31.7 MCHC 34.7 34.9 RDW 15.4 H 15.3 H Plt Count 30 L* 40 L Seg Neutrophils % 61.8 59.2 Lymphocytes % 25.5 26.5 Monocytes % 7.6 8.9 Eosinophils % 4.4 4.4 Basophils % 0.7 1.0 Absolute Neutrophils 2.8 1.9 Absolute Lymphocytes 1.2 0.8 Absolute Monocytes 0.3 0.3 Absolute Eosinophils 0.2 0.1 Absolute Basophils 0.0 0.0 Sodium 137.5 Potassium 3.6 Chloride 101 Carbon Dioxide 23 Anion Gap 14 BUN 57 H Creatinine 5.18 H Est GFR ( Amer) 11 L Est GFR (Non-Af Amer) 9 L Glucose 482 H* Calcium 8.6 Total Bilirubin 2.6 H AST 27 ALT 31 Alkaline Phosphatase 137 H Ammonia Total Protein 6.1 L Albumin 2.8 L Blood Type Assessment & Plan - Diagnosis (1) ESRD (end stage renal disease) Is this a current diagnosis for this admission?: Yes Plan: Pt will have dialysis cath placed in am by Dr. Jaramillo. Dr. Solares planning to dialyze pt today. 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 (3) Ascites Qualifiers: Ascites type: other type Qualified Code(s): R18.8 - Other ascites Is this a current diagnosis for this admission?: Yes Plan: Radiology contacted for paracentesis today. Stat PT/PTT/INR/CBC. (4) Liver cirrhosis Qualifiers: Hepatic cirrhosis type: unspecified hepatic cirrhosis Ascites presence: with ascites Qualified Code(s): K74.60 - Unspecified cirrhosis of liver Is this a current diagnosis for this admission?: Yes Plan: in setting of Hepatitis C: Will continue supportive care. (5) Morbid obesity Is this a current diagnosis for this admission?: Yes Plan: Encourage dietary changes. (6) Portal hypertension Is this a current diagnosis for this admission?: Yes Plan: Will continue propranolol. (7) Increased ammonia level Is this a current diagnosis for this admission?: Yes Plan: Ruled out. (8) Thrombocytopenia Is this a current diagnosis for this admission?: Yes Plan: Secondary to Liver disease: Pt give 2 units of platelets. (9) Anemia Qualifiers: Anemia type: unspecified type Qualified Code(s): D64.9 - Anemia, unspecified Is this a current diagnosis for this admission?: Yes Plan: Secondary Cirrhosis: Supportive care. (10) Hepatitis C Is this a current diagnosis for this admission?: Yes Plan: Supportive care. (11) DVT prophylaxis Is this a current diagnosis for this admission?: Yes Plan: SCDs - Time Time Spent with patient: 15-24 minutes
--- NOTE | 2017-09-15 12:30 | PDOC CONSULTATION ---
Consultation Consult Date: 09/15/17 Consult reason:: CKD stage V with Uremia, dyspnea for hemodialysis. History of Present Illness Admission Date/PCP: 09/14/17 16:11 CHANEL CYR PA-C History of Present Illness: HUMBERTO KAY is a 47 year old white female with a history of liver cirrhosis with portal hypertension, progressive CKD was admitted yesterday from my office for initiation of dialysis. Patient states that she has gained 50 lbs in one week. Patient states that she has been having progressive shortness of breath. She recently had a large volume paracentesis done but it seems to be rapidly re accumulating. However no abdominal pains, fever or chills. Feels progressively very weak. Latest labs shows worsening Renal nos, pancytopenia. I had spoken to Dr. Jaramillo who has agreed to place dialysis cath. She also has been quite constipated and her last BM was ? a week ago.Poor intake. I saw her again on HD which was initiated after I had access.She now has a right femoral temporary Dialysis Cath and is working well. She is undergoing HD without any issues.VS are stable. Past Medical History Cardiac Medical History: Reports: Hyperlipidemia, Hypertension-primary Denies: Coronary Artery Disease, Myocardial Infarction Pulmonary Medical History: Denies: Asthma, Bronchitis, Chronic Obstructive Pulmonary Disease (COPD), Pneumonia, Tuberculosis Neurological Medical History: Denies: Seizures Endocrine Medical History: Reports: Diabetes Mellitus Type 2 Renal/ Medical History: Reports: Chronic Kidney Disease Stage V, End Stage Renal Disease GI Medical History: Reports: Cirrhosis, Gastroesophageal Reflux Disease, Hepatitis - C Musculoskeltal Medical History: Reports: Arthritis - spine Psychiatric Medical History: Reports: Bipolar Disorder, Depression - & anxiety Psychiatric History Note: Bipolar disorder Past Surgical History Past Surgical History: Reports: Cholecystectomy - 2012, Hysterectomy Social History Lives with: Spouse/Significant other Smoking Status: Former Smoker Frequency of Alcohol Use: None Hx Recreational Drug Use: No Drugs: None Hx Prescription Drug Abuse: No Family History Parental Family History Reviewed: Yes - negative for esrd Children Family History Reviewed: No Sibling(s) Family History Reviewed.: No Medication/Allergy Home Medications: Clonazepam [Klonopin] 0.5 mg PO Q12 09/14/17 Furosemide [Lasix 40 mg Tablet] 40 mg PO BID 09/14/17 Insulin Aspart [Novolog Flexpen] 10 unit SQ BIDBS 09/14/17 NPH, Human Insulin Isophane [Novolin N (NPH) Insulin 100 unit/mL] 12 unit SQ BID @0600,1800 09/14/17 Omeprazole 20 mg PO [id number] 09/14/17 Propranolol HCl [Inderal 20 mg Tablet] 20 mg PO Q12 09/14/17 Quetiapine Fumarate [Quetiapine Fumarate ER] 400 mg PO QHS 09/14/17 Allergies/Adverse Reactions: No Known Allergies Allergy (Verified 04/19/17 19:03) Review of Systems Constitutional: PRESENT: anorexia, fatigue, weakness, weight gain. ABSENT: chills, fever(s), headache(s), night sweats Nose, Mouth, and Throat: ABSENT: mouth pain, sore throat, vertigo Cardiovascular: PRESENT: dyspnea on exertion, edema, orthropnea. ABSENT: chest pain Respiratory: PRESENT: dyspnea. ABSENT: cough, hemoptysis Gastrointestinal: PRESENT: bloating, constipation. ABSENT: abdominal pain, diarrhea, heartburn, hematemesis, hematochezia, melena, nausea, vomiting Genitourinary: ABSENT: dysuria, hematuria Integumentary: ABSENT: lesions, pruritus, rash Neurological: PRESENT: memory loss, tremor(s), weakness. ABSENT: abnormal movements, confusion Hematologic/Lymphatic: ABSENT: easy bleeding, easy bruising, lymphadenopathy Physical Exam Vital Signs: Temp Pulse Resp BP Pulse Ox 98.7 F 88 16 116/64 99 09/15/17 09:03 09/15/17 09:03 09/15/17 09:03 09/15/17 09:03 09/15/17 09:03 Intake & Output 09/14/17 09/15/17 09/16/17 06:59 06:59 06:59 Intake Total 120 611 Balance 120 611 Weight 117.9 kg General appearance: PRESENT: no acute distress, disheveled, obese Eye exam: PRESENT: conjunctiva pale, EOMI, PERRLA, scleral icterus. ABSENT: conjunctiva pink, nystagmus Ear exam: PRESENT: normal external ear exam Mouth exam: PRESENT: neck supple. ABSENT: moist Neck exam: ABSENT: JVD, lymphadenopathy, meningismus, tenderness, thyromegaly, tracheal deviation Respiratory exam: PRESENT: clear to auscultation bria, symmetrical. ABSENT: crackles Cardiovascular exam: PRESENT: +S1, +S2, systolic murmur GI/Abdominal exam: PRESENT: distended, normal bowel sounds, soft. ABSENT: guarding, mass, organomegaly, tenderness Extremities exam: PRESENT: +1 edema Neurological exam: PRESENT: awake, oriented to person, oriented to place, oriented to time Skin exam: PRESENT: dry. ABSENT: erythema, mottled, petechiae Results Laboratory Results: 09/15/17 10:22 09/15/17 04:35 09/14/17 09/14/17 09/14/17 17:30 17:30 17:30 WBC 3.2 L RBC 3.26 L Hgb 10.3 L Hct 30.2 L MCV 93 MCH 31.7 MCHC 34.1 RDW 15.3 H Plt Count 26 L* Seg Neutrophils % 62.6 Lymphocytes % 25.9 Monocytes % 7.2 Eosinophils % 3.7 Basophils % 0.6 Absolute Neutrophils 2.0 Absolute Lymphocytes 0.8 Absolute Monocytes 0.2 Absolute Eosinophils 0.1 Absolute Basophils 0.0 Sodium Potassium Chloride Carbon Dioxide Anion Gap BUN Creatinine Est GFR ( Amer) Est GFR (Non-Af Amer) Glucose Calcium Total Bilirubin AST ALT Alkaline Phosphatase Ammonia 19.4 Total Protein Albumin Blood Type O POSITIVE 09/15/17 09/15/17 09/15/17 04:35 04:35 10:22 WBC 4.5 3.1 L RBC 3.27 L 3.00 L Hgb 10.4 L 9.5 L Hct 29.9 L 27.2 L MCV 92 91 MCH 31.7 31.7 MCHC 34.7 34.9 RDW 15.4 H 15.3 H Plt Count 30 L* 40 L Seg Neutrophils % 61.8 59.2 Lymphocytes % 25.5 26.5 Monocytes % 7.6 8.9 Eosinophils % 4.4 4.4 Basophils % 0.7 1.0 Absolute Neutrophils 2.8 1.9 Absolute Lymphocytes 1.2 0.8 Absolute Monocytes 0.3 0.3 Absolute Eosinophils 0.2 0.1 Absolute Basophils 0.0 0.0 Sodium 137.5 Potassium 3.6 Chloride 101 Carbon Dioxide 23 Anion Gap 14 BUN 57 H Creatinine 5.18 H Est GFR ( Amer) 11 L Est GFR (Non-Af Amer) 9 L Glucose 482 H* Calcium 8.6 Total Bilirubin 2.6 H AST 27 ALT 31 Alkaline Phosphatase 137 H Ammonia Total Protein 6.1 L Albumin 2.8 L Blood Type Assessment & Plan - Diagnosis (1) Liver cirrhosis Qualifiers: Hepatic cirrhosis type: unspecified hepatic cirrhosis Ascites presence: with ascites Qualified Code(s): K74.60 - Unspecified cirrhosis of liver Is this a current diagnosis for this admission?: Yes Plan: From apparent HOBBS now with evidences of portal HTN, pancytopenia. (2) ESRD (end stage renal disease) Is this a current diagnosis for this admission?: Yes Plan: She has had acute on chronic CKD stage V now showing signs of uremia that required that she be initiated on hemodialysis. Etiology is Hepato renal. I went to the procedure at length about starting on hemodialysis through an temporary dialysis catheter in the groin today.I did explain the procedure of HD including complications of Hypotension, infection and rare chances of cardiac arrest. Also discussed the options of not undergoing dialysis and yje consequences. She is willing to proceed. She is undergoingHD without any issues.Its being supervised to ensure a safe and smooth procedure. Plan to UF x 1 L . Orders were discussed with Eunice my treating HD RN. (3) Hepatorenal failure Plan: Advancing Cirrhosis with evidences of Portal HTN. She has a large rather tense Ascites that needs to be drained under cover of albumin.She needs GI evaluation. (4) Thrombocytopenia Is this a current diagnosis for this admission?: Yes Plan: She is getting platlet transfusions. (5) LILIA (acute kidney injury) Plan: Decompensated CKD V now needing HD. (6) Diabetes mellitus type 2 in obese Plan: As per hospitalist (7) Dyspnea on exertion Plan: Likely a combination of central fluid overload as well as pressure form her severe Ascites. So a combination approach of getting fluid off on HD followed by a large volume paracentesis should help her very much. I have discussed this with the hospitalist. (8) Morbid obesity Is this a current diagnosis for this admission?: Yes (9) Portal hypertension Is this a current diagnosis for this admission?: Yes Plan: mentioned earlier. (10) Constipation Plan: She is on lactulose with not much help,I will order a soap suds enema.Discussed with Radha PUENTES. (11) Anemia Qualifiers: Anemia type: unspecified type Qualified Code(s): D64.9 - Anemia, unspecified Is this a current diagnosis for this admission?: Yes Plan: Part of pancytopenia underlying liver cirrhosis from [place] with portal hypertension. (12) Bipolar disorder Qualifiers: Active/Remission status: remission status unspecified Qualified Code(s): F31.9 - Bipolar disorder, unspecified Plan: Stable.
[2017-09-15] MEDS: ONDANSETRON HCL INJ/PF 4 MG/2 ML SDV IV PRN (12:46)
[2017-09-15 12:49] LABS: PARTIAL THROMBOPLASTIN TIME 33.3 SEC (23.5-35.8); PROTHROMBIN TIME 17.7 SEC (11.4-15.4)
[2017-09-15 12:50] LABS: ABSOLUTE BASOPHILS # (AUTO) 0.1 10^3/uL (0.0-0.2); ABSOLUTE EOSINOPHILS # (AUTO) 0.2 10^3/uL (0.0-0.6); ABSOLUTE LYMPHOCYTES (AUTO) 1.4 10^3/uL (0.5-4.7); ABSOLUTE MONOCYTES (AUTO) 0.3 10^3/uL (0.1-1.4); ABSOLUTE NEUT (AUTO) 3.4 10^3/uL (1.7-8.2); BASOPHILS % (AUTO) 1.5 % (0-2); EOSINOPHILS % (AUTO) 4.3 % (0-6); LYMPHOCYTES % (AUTO) 25.4 % (13-45); MEAN CORPUSCULAR HEMOGLOBIN 32.4 pg (27.0-33.4); MEAN CORPUSCULAR HGB CONC 35.3 g/dL (32.0-36.0); MEAN CORPUSCULAR VOLUME 92 fl (80-97); MONOCYTES % (AUTO) 6.2 % (3-13); RED BLOOD COUNT 3.39 10^6/uL (3.72-5.28); RED CELL DISTRIBUTION WIDTH 15.2 % (11.5-14.0); SEGMENTED NEUTROPHILS % (AUTO) 62.6 % (42-78); WHITE BLOOD COUNT 5.4 10^3/uL (4.0-10.5)
[2017-09-15 13:17] LABS: OVALOCYTES 2+; POIKILOCYTOSIS 2+; POLYCHROMASIA SLIGHT
[2017-09-15 14:49] LABS: PATH REVIEW PATHOLOGIST REVIEWED
[2017-09-15 15:59] LABS: FLUID APPEARANCE SLIGHTLY HAZY; FLUID RBC DILUENT USED NONE USED; FLUID RBC SIDE 1 168; FLUID RBC SIDE 2 186; FLUID TYPE PERITONEAL; STAIN REACTIVITY CHECK ACCEPTABLE
[2017-09-15 16:00] LABS: FLUID RBC DILUTION FACTOR 1; TOTAL RBC SQUARES COUNTED FLD 225
--- NOTE | 2017-09-15 16:25 | RADIOLOGY REPORT (SQ) ---
EXAM DESCRIPTION: U/S ABD PARACENTESIS COMPLETED DATE/TIME: 09/15/2017 3:16 pm REASON FOR STUDY: cirrhosis COMPARISON 09/01/2017 LIMITATIONS: None. PROCEDURE: After obtaining informed consent, the patient was brought to the ultrasound suite. The p rocedure was performed with the patient on a gurney. Ultrasound was used to identify a prominent poc ket of ascites in the right lower quadrant. An appropriate access site was selected. The patient wa s prepped and draped in usual sterile fashion. The access site was anesthetized with 7 mL 1% lidoca ine. A Yayn-D-Abgeybwi needle was advanced into the fluid. After aspiration of fluid the needle, th e catheter was advanced off the needle into the fluid. A total of 6,000 mL of clear straw colored fl uid was removed. The patient tolerated the procedure well left the department in satisfactory conditi on. Specimens of ascites sent for testing. IMPRESSION: Successful ultrasound-guided diagnostic and therapeutic paracentesis COMMENT: Patient medication list reviewed: Yes- Quality ID# [id number]:Eligible professional attests to doc umenting in the medical record they obtained, updated, or reviewed the patient's current medications. Quality ID #[id number]: The patient was prepped and draped using maximum sterile barrier technique including cap, mask, sterile gown, sterile gloves, a large sterile sheet, hand hygiene, and 2% Chlorhexidine fo r cutaneous antisepsis. When ultrasound is used, sterile ultrasound techniques are followed requiring sterile gel and sterile probes. Quality ID #[id number]: Final reports for procedures using fluoroscopy that document radiation exposure antoinette hubert, or exposure time and number of fluorographic images (if radiation exposure indices are not avail able) TECHNICAL DOCUMENTATION: JOB ID: [id number] [employer]- All Rights Reserved
[2017-09-15 16:31] LABS: URINE CREATININE 125.8 mg/dL (15-278)
[2017-09-15] MEDS ORDERED: HEPARIN SOD (PORCINE) 1,000 UNIT/ML 10 ML VIAL IV PRN (17:39)
[2017-09-15] MEDS ORDERED: TUBERCULIN,PURIF.PROT.DERIV. 5 TU/0.1 ML TEST 1 ML VIAL ID ONE (19:00)
[2017-09-15] MEDS: CLONAZEPAM 1 MG TABLET PO SCH (21:31)
[2017-09-15] MEDS: ALBUMIN HUMAN 50 ML IV SCH ×2 (21:31→23:29)
[2017-09-16] MEDS: ALBUMIN HUMAN 50 ML IV SCH ×2 (00:20→01:50)
[2017-09-16] MEDS: PROPRANOLOL HCL 20 MG TABLET PO SCH ×3 (01:50→21:30)
[2017-09-16] MEDS: LACTULOSE SYRUP 20 GM/30 ML UDCUP PO SCH ×2 (05:11→13:15)
[2017-09-16 05:18] LABS: ABSOLUTE EOSINOPHILS # (AUTO) 0.1 10^3/uL (0.0-0.6); ABSOLUTE LYMPHOCYTES (AUTO) 1.1 10^3/uL (0.5-4.7); ABSOLUTE MONOCYTES (AUTO) 0.3 10^3/uL (0.1-1.4); ABSOLUTE NEUT (AUTO) 2.2 10^3/uL (1.7-8.2); BASOPHILS % (AUTO) 0.6 % (0-2); EOSINOPHILS % (AUTO) 2.8 % (0-6); HEMATOCRIT 27.7 % (36.0-47.0); HEMOGLOBIN 9.8 g/dL (12.0-15.5); HGB HCT DIFFERENCE 1.7; LYMPHOCYTES % (AUTO) 30.2 % (13-45); MEAN CORPUSCULAR HEMOGLOBIN 32.2 pg (27.0-33.4); MEAN CORPUSCULAR HGB CONC 35.3 g/dL (32.0-36.0); MEAN CORPUSCULAR VOLUME 91 fl (80-97); MONOCYTES % (AUTO) 8.3 % (3-13); RED BLOOD COUNT 3.04 10^6/uL (3.72-5.28); RED CELL DISTRIBUTION WIDTH 14.7 % (11.5-14.0); SEGMENTED NEUTROPHILS % (AUTO) 58.1 % (42-78); WHITE BLOOD COUNT 3.8 10^3/uL (4.0-10.5)
[2017-09-16 05:49] LABS: ALANINE AMINOTRANSFERASE 29 U/L (9-52); ALBUMIN 3.3 g/dL (3.5-5.0); ALKALINE PHOSPHATASE 140 U/L (38-126); ANION GAP 13 (5-19); ASPARTATE AMINO TRANSFERASE 29 U/L (14-36); BILIRUBIN,DIRECT 1.7 mg/dL (0.0-0.4); BILIRUBIN,TOTAL 3.3 mg/dL (0.2-1.3); BLOOD UREA NITROGEN 34 mg/dL (7-20); CALCIUM 8.6 mg/dL (8.4-10.2); CARBON DIOXIDE 28 mmol/L (22-30); CHLORIDE 100 mmol/L (98-107); CREATININE RESULT 3.83 mg/dL (0.52-1.25); GLUCOSE 383 mg/dL (75-110); POTASSIUM 3.5 mmol/L (3.6-5.0); SODIUM 141.1 mmol/L (137-145); TOTAL PROTEIN 6.1 g/dL (6.3-8.2)
[2017-09-16] MEDS: CLONAZEPAM 1 MG TABLET PO SCH ×2 (09:40→21:31)
[2017-09-16] MEDS: INSULIN LISPRO 100 UNIT/ML 3 ML VIAL SUBCUT PRN ×4 (09:41→23:00)
[2017-09-16] MEDS ORDERED: INSULIN LISPRO 100 UNIT/ML 3 ML VIAL SUBCUT ONE (12:07)
--- NOTE | 2017-09-16 15:44 | PDOC PROGRESS REPORT ---
Subjective Progress Note for:: 09/16/17 Subjective:: Pt states that she feels much better. Pt states that she had dialysis yesterday and paracentesis. Physical Exam Vital Signs: Temp Pulse Resp BP Pulse Ox 98.7 F 76 16 109/75 99 09/16/17 11:56 09/16/17 11:56 09/16/17 11:56 09/16/17 11:56 09/16/17 11:56 Intake & Output 09/15/17 09/16/17 09/17/17 06:59 06:59 06:59 Intake Total 120 1111 Output Total 1000 Balance 120 111 Weight 117.9 kg 110.8 kg 110.8 kg General appearance: PRESENT: no acute distress, well-developed, well-nourished Head exam: PRESENT: atraumatic, normocephalic Eye exam: PRESENT: conjunctiva pink, EOMI. ABSENT: scleral icterus Ear exam: PRESENT: normal external ear exam Mouth exam: PRESENT: moist, tongue midline Neck exam: ABSENT: carotid bruit, JVD, lymphadenopathy, thyromegaly Respiratory exam: PRESENT: clear to auscultation bria. ABSENT: rales, rhonchi, wheezes Cardiovascular exam: PRESENT: RRR. ABSENT: diastolic murmur, rubs, systolic murmur Pulses: PRESENT: normal dorsalis pedis pul Vascular exam: PRESENT: normal capillary refill GI/Abdominal exam: PRESENT: normal bowel sounds, soft. ABSENT: distended, guarding, mass, organolmegaly, rebound, tenderness Rectal exam: PRESENT: deferred Extremities exam: PRESENT: full ROM. ABSENT: calf tenderness, clubbing, pedal edema Neurological exam: PRESENT: alert, awake, oriented to person, oriented to place , oriented to time, oriented to situation, CN II-XII grossly intact. ABSENT: motor sensory deficit Psychiatric exam: PRESENT: appropriate affect, normal mood. ABSENT: homicidal ideation, suicidal ideation Skin exam: PRESENT: dry, intact, warm. ABSENT: cyanosis, rash Results Laboratory Results: 09/16/17 04:40 09/16/17 04:40 09/15/17 09/15/17 09/16/17 13:30 14:25 04:40 WBC RBC Hgb Hct MCV MCH MCHC RDW Plt Count Seg Neutrophils % Lymphocytes % Monocytes % Eosinophils % Basophils % Absolute Neutrophils Absolute Lymphocytes Absolute Monocytes Absolute Eosinophils Absolute Basophils Sodium Cancelled Potassium Cancelled Chloride Cancelled Carbon Dioxide Cancelled Anion Gap Cancelled BUN Cancelled Creatinine Cancelled Est GFR ( Amer) Cancelled Est GFR (Non-Af Amer) Cancelled Glucose Cancelled Calcium Cancelled Magnesium 1.9 Total Bilirubin AST ALT Alkaline Phosphatase Total Protein Albumin Urine Osmolality 372 Fluid Type PERITONEAL Fluid Source ASCITES Fluid Color LIGHT YELLOW Fluid Appearance SLIGHTLY HAZY Fluid Viscosity LIQUID Fluid WBC 124 Fluid RBC 196 09/16/17 09/16/17 04:40 04:40 WBC 3.8 L RBC 3.04 L Hgb 9.8 L Hct 27.7 L MCV 91 MCH 32.2 MCHC 35.3 RDW 14.7 H Plt Count 40 L Seg Neutrophils % 58.1 Lymphocytes % 30.2 Monocytes % 8.3 Eosinophils % 2.8 Basophils % 0.6 Absolute Neutrophils 2.2 Absolute Lymphocytes 1.1 Absolute Monocytes 0.3 Absolute Eosinophils 0.1 Absolute Basophils 0.0 Sodium 141.1 Potassium 3.5 L Chloride 100 Carbon Dioxide 28 Anion Gap 13 BUN 34 H Creatinine 3.83 H Est GFR ( Amer) 15 L Est GFR (Non-Af Amer) 13 L Glucose 383 H Calcium 8.6 Magnesium Total Bilirubin 3.3 H AST 29 ALT 29 Alkaline Phosphatase 140 H Total Protein 6.1 L Albumin 3.3 L Urine Osmolality Fluid Type Fluid Source Fluid Color Fluid Appearance Fluid Viscosity Fluid WBC Fluid RBC Impressions: Paracentesis Ultrasound 09/15/17 00:00 IMPRESSION: Successful ultrasound-guided diagnostic and therapeutic paracentesis Assessment & Plan - Diagnosis (1) ESRD (end stage renal disease) Is this a current diagnosis for this admission?: Yes Plan: S/P Dialysis: Pt had dialysis. 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 Will Lantus and Humalog. (3) Ascites Qualifiers: Ascites type: other type Qualified Code(s): R18.8 - Other ascites Is this a current diagnosis for this admission?: Yes Plan: S/P Paracentesis. Pt doing well. (4) Liver cirrhosis Qualifiers: Hepatic cirrhosis type: unspecified hepatic cirrhosis Ascites presence: with ascites Qualified Code(s): K74.60 - Unspecified cirrhosis of liver Is this a current diagnosis for this admission?: Yes Plan: in setting of Hepatitis C: Will continue supportive care. (5) Morbid obesity Is this a current diagnosis for this admission?: Yes Plan: Encourage dietary changes. (6) Portal hypertension Is this a current diagnosis for this admission?: Yes Plan: Will continue propranolol. (7) Increased ammonia level Is this a current diagnosis for this admission?: Yes Plan: Ruled out. (8) Thrombocytopenia Is this a current diagnosis for this admission?: Yes Plan: Secondary to Liver disease: Stable. (9) Anemia Qualifiers: Anemia type: unspecified type Qualified Code(s): D64.9 - Anemia, unspecified Is this a current diagnosis for this admission?: Yes Plan: Secondary Cirrhosis: Supportive care. (10) Hepatitis C Is this a current diagnosis for this admission?: Yes Plan: Supportive care. (11) DVT prophylaxis Is this a current diagnosis for this admission?: Yes Plan: SCDs - Time Time Spent with patient: Less than 15 minutes
[2017-09-16] MEDS ORDERED: (PENDING PHARMACY ID) (Insulin Aspart [Novolog Flexpen] 10 UNIT) SQ SCH (17:00)
[2017-09-16] MEDS: INSULIN LISPRO 100 UNIT/ML 3 ML VIAL SUBCUT SCH (17:14)
[2017-09-16] MEDS ORDERED: (PENDING PHARMACY ID) (Nph, Human Insulin Isophane [Novolin N (Nph) Insulin 100 Unit/Ml] 1 SQ SCH (18:00)
[2017-09-16] MEDS: QUETIAPINE FUMARATE 100 MG TABLET PO SCH (21:31)
[2017-09-16] MEDS ORDERED: QUETIAPINE FUMARATE 400 MG PO SCH (22:00)
[2017-09-17 05:41] LABS: ABSOLUTE EOSINOPHILS # (AUTO) 0.1 10^3/uL (0.0-0.6); ABSOLUTE LYMPHOCYTES (AUTO) 0.8 10^3/uL (0.5-4.7); ABSOLUTE MONOCYTES (AUTO) 0.2 10^3/uL (0.1-1.4); BASOPHILS % (AUTO) 0.4 % (0-2); EOSINOPHILS % (AUTO) 3.2 % (0-6); HEMATOCRIT 22.8 % (36.0-47.0); HEMOGLOBIN 8.1 g/dL (12.0-15.5); HGB HCT DIFFERENCE 1.5; LYMPHOCYTES % (AUTO) 37.8 % (13-45); MEAN CORPUSCULAR HEMOGLOBIN 32.4 pg (27.0-33.4); MEAN CORPUSCULAR HGB CONC 35.5 g/dL (32.0-36.0); MEAN CORPUSCULAR VOLUME 91 fl (80-97); MONOCYTES % (AUTO) 8.4 % (3-13); RED BLOOD COUNT 2.49 10^6/uL (3.72-5.28); RED CELL DISTRIBUTION WIDTH 15.2 % (11.5-14.0); SEGMENTED NEUTROPHILS % (AUTO) 50.2 % (42-78)
[2017-09-17 06:01] LABS: WHITE BLOOD COUNT 2.1 10^3/uL (4.0-10.5)
[2017-09-17 06:09] LABS: ALANINE AMINOTRANSFERASE 30 U/L (9-52); ALBUMIN 2.5 g/dL (3.5-5.0); ALKALINE PHOSPHATASE 138 U/L (38-126); ANION GAP 13 (5-19); ASPARTATE AMINO TRANSFERASE 29 U/L (14-36); BILIRUBIN,DIRECT 1.4 mg/dL (0.0-0.4); BILIRUBIN,TOTAL 2.6 mg/dL (0.2-1.3); BLOOD UREA NITROGEN 35 mg/dL (7-20); CALCIUM 8.2 mg/dL (8.4-10.2); CARBON DIOXIDE 25 mmol/L (22-30); CHLORIDE 101 mmol/L (98-107); GLUCOSE 317 mg/dL (75-110); POTASSIUM 3.5 mmol/L (3.6-5.0); SODIUM 139.4 mmol/L (137-145)
[2017-09-17] MEDS: CLONAZEPAM 1 MG TABLET PO SCH ×2 (09:37→21:41)
[2017-09-17] MEDS: INSULIN LISPRO 100 UNIT/ML 3 ML VIAL SUBCUT PRN ×3 (09:38→17:56)
[2017-09-17] MEDS: INSULIN LISPRO 100 UNIT/ML 3 ML VIAL SUBCUT SCH ×3 (09:39→17:55)
[2017-09-17] MEDS: QUETIAPINE FUMARATE 100 MG TABLET PO SCH ×2 (09:51→21:42)
[2017-09-17] MEDS: PROPRANOLOL HCL 20 MG TABLET PO SCH ×2 (09:51→21:41)
[2017-09-17] MEDS: ONDANSETRON HCL INJ/PF 4 MG/2 ML SDV IV PRN (09:51)
[2017-09-17] MEDS ORDERED: INSULIN GLARGINE,HUM.REC.ANLOG 1,000 UNIT/10 ML UNIT SUBCUT SCH (10:00)
[2017-09-17] MEDS ORDERED: INSULIN GLARGINE,HUM.REC.ANLOG 300 UNIT/3 ML INSULN.PEN SUBCUT SCH (10:00)
[2017-09-17] MEDS ORDERED: INSULIN REG, HUMAN 100 UNIT/ML 3 ML VIAL (PYX) SUBCUT ONE (11:04)
--- NOTE | 2017-09-17 11:09 | PDOC PROGRESS REPORT ---
Subjective Progress Note for:: 09/17/17 Subjective:: Pt states that she is feeling better. Nursing states that pt stated that she is nauseated. Physical Exam Vital Signs: Temp Pulse Resp BP Pulse Ox 99.0 F 85 16 105/64 96 09/17/17 07:50 09/17/17 07:50 09/17/17 07:50 09/17/17 07:50 09/17/17 07:50 Intake & Output 09/16/17 09/17/17 09/18/17 06:59 06:59 06:59 Intake Total 1111 1518 Output Total 1000 350 Balance 111 1168 Weight 110.8 kg 110.8 kg General appearance: PRESENT: no acute distress, well-developed, well-nourished Head exam: PRESENT: atraumatic, normocephalic Eye exam: PRESENT: conjunctiva pink, EOMI, PERRLA. ABSENT: scleral icterus Ear exam: PRESENT: normal external ear exam Mouth exam: PRESENT: moist, tongue midline Neck exam: ABSENT: carotid bruit, JVD, lymphadenopathy, thyromegaly Respiratory exam: PRESENT: clear to auscultation bria. ABSENT: rales, rhonchi, wheezes Cardiovascular exam: PRESENT: RRR. ABSENT: diastolic murmur, rubs, systolic murmur Pulses: PRESENT: normal dorsalis pedis pul Vascular exam: PRESENT: normal capillary refill GI/Abdominal exam: PRESENT: other - +obese Rectal exam: PRESENT: deferred Extremities exam: PRESENT: full ROM. ABSENT: calf tenderness, clubbing, pedal edema Musculoskeletal exam: PRESENT: full ROM Neurological exam: PRESENT: alert, awake, oriented to person, oriented to place , oriented to time, oriented to situation, CN II-XII grossly intact. ABSENT: motor sensory deficit Psychiatric exam: PRESENT: appropriate affect, normal mood. ABSENT: homicidal ideation, suicidal ideation Skin exam: PRESENT: dry, intact, warm. ABSENT: cyanosis, rash Results Laboratory Results: 09/17/17 04:43 09/17/17 04:43 09/17/17 09/17/17 04:43 04:43 WBC 2.1 L D RBC 2.49 L Hgb 8.1 L Hct 22.8 L MCV 91 MCH 32.4 MCHC 35.5 RDW 15.2 H Plt Count 26 L* Seg Neutrophils % 50.2 Lymphocytes % 37.8 Monocytes % 8.4 Eosinophils % 3.2 Basophils % 0.4 Absolute Neutrophils 1.0 L Absolute Lymphocytes 0.8 Absolute Monocytes 0.2 Absolute Eosinophils 0.1 Absolute Basophils 0.0 Sodium 139.4 Potassium 3.5 L Chloride 101 Carbon Dioxide 25 Anion Gap 13 BUN 35 H Creatinine 4.00 H Est GFR ( Amer) 14 L Est GFR (Non-Af Amer) 12 L Glucose 317 H Calcium 8.2 L Total Bilirubin 2.6 H AST 29 ALT 30 Alkaline Phosphatase 138 H Total Protein 5.0 L Albumin 2.5 L Impressions: Paracentesis Ultrasound 09/15/17 00:00 IMPRESSION: Successful ultrasound-guided diagnostic and therapeutic paracentesis Assessment & Plan - Diagnosis (1) ESRD (end stage renal disease) Is this a current diagnosis for this admission?: Yes Plan: S/P Dialysis: Pt had dialysis. 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 Will increase Lantus 40units and Humalog 12 units with meal. Will give an additional 8 units SC. (3) Emesis Is this a current diagnosis for this admission?: Yes Plan: Continue PRN Zofran. (4) Ascites Qualifiers: Ascites type: other type Qualified Code(s): R18.8 - Other ascites Is this a current diagnosis for this admission?: Yes Plan: S/P Paracentesis. Pt doing well. (5) Liver cirrhosis Qualifiers: Hepatic cirrhosis type: unspecified hepatic cirrhosis Ascites presence: with ascites Qualified Code(s): K74.60 - Unspecified cirrhosis of liver Is this a current diagnosis for this admission?: Yes Plan: in setting of Hepatitis C: Will continue supportive care. (6) Morbid obesity Is this a current diagnosis for this admission?: Yes Plan: Encourage dietary changes. (7) Portal hypertension Is this a current diagnosis for this admission?: Yes Plan: Will continue propranolol. (8) Increased ammonia level Is this a current diagnosis for this admission?: Yes Plan: Ruled out. (9) Thrombocytopenia Is this a current diagnosis for this admission?: Yes Plan: Secondary to Liver disease: Stable. (10) Anemia Qualifiers: Anemia type: unspecified type Qualified Code(s): D64.9 - Anemia, unspecified Is this a current diagnosis for this admission?: Yes Plan: Secondary Cirrhosis: Supportive care. (11) Hepatitis C Is this a current diagnosis for this admission?: Yes Plan: Supportive care. (12) DVT prophylaxis Is this a current diagnosis for this admission?: Yes Plan: SCDs
--- NOTE | 2017-09-17 12:38 | Operative Report ---
Operative Report DATE OF SURGERY: 09/15/17 PREOPERATIVE DIAGNOSIS: 1. End-stage renal disease requiring hemodialysis. 2. Multiple comorbidities. POSTOPERATIVE DIAGNOSIS: 1. End-stage renal disease requiring hemodialysis. 2. Multiple comorbidities. OPERATION: 1. Ultrasound evaluation of the right femoral vein. 2. Insertion of temporary hemodialysis catheter via real-time ultrasound axis in the right femoral vein. SURGEON: YESY CASTILLO CORRECTION WORKER: None ANESTHESIA: Local TISSUE REMOVED OR ALTERED: Not applicable COMPLICATIONS: None ESTIMATED BLOOD LOSS: 5 mL. INTRAOPERATIVE FINDINGS: Satisfactory right internal jugular vein, deeply placed in this patient with high BMI. Ultrasound of great value in safe axis. Particularly with thrombocytopenia. Satisfactory positioning with the risks of blood and ingress through all 3 ports. PROCEDURE: After obtaining informed consent, the patient was positioned supine at bedside. The[ left groin] and adjacent areas were prepared with chlorhexidine and draped out with sterile linen. After the universal timeout the procedure commenced. A steriley sheathed ultrasound probe was used to evaluate the right femoral vein]. Local anesthesia was infiltrated adjacent to the probe. Access into the right femoral was accomplished using a micropuncture needle followed, by micropuncture wire and then with a micropuncture catheter. This was followed by introduction of a 0.035 guidewire, the skin opening was enlarged slightly, serially larger dilators were now placed followed by introduction of a triaysis catheter. All of these transitions were smooth. Each lumen was aspirated of blood and irrigated with heparinized solution. The catheter was now sutured to the skin using 3-0 nylon. A Bio A patch was now applied, followed by sterile dressings. Caps were placed on the end of the each of the lumens. The procedure concluded. Copies dictated operative report to Dr. Yesy Jaramillo MD.
[2017-09-18] MEDS: INSULIN LISPRO 100 UNIT/ML 3 ML VIAL SUBCUT PRN ×3 (05:43→17:05)
[2017-09-18] MEDS ORDERED: EPOETIN ALFA INJ 20000 UNIT/1 ML VIAL (RENAL) IV PRN (07:50)
[2017-09-18] MEDS: INSULIN LISPRO 100 UNIT/ML 3 ML VIAL SUBCUT SCH ×3 (08:01→17:05)
[2017-09-18] MEDS ORDERED: ONDANSETRON HCL INJ/PF 4 MG/2 ML SDV IV PRN (08:30)
[2017-09-18] MEDS ORDERED: INSULIN GLARGINE,HUM.REC.ANLOG 300 UNIT/3 ML INSULN.PEN SUBCUT SCH (10:00)
[2017-09-18 10:15] LABS: ANION GAP 11 (5-19); BLOOD UREA NITROGEN 43 mg/dL (7-20); CALCIUM 8.5 mg/dL (8.4-10.2); CARBON DIOXIDE 26 mmol/L (22-30); CHLORIDE 99 mmol/L (98-107); CREATININE RESULT 4.58 mg/dL (0.52-1.25); GLUCOSE 336 mg/dL (75-110); POTASSIUM 3.4 mmol/L (3.6-5.0); SODIUM 136.3 mmol/L (137-145)
[2017-09-18] MEDS: CLONAZEPAM 1 MG TABLET PO SCH ×2 (11:34→22:22)
[2017-09-18] MEDS: PROPRANOLOL HCL 20 MG TABLET PO SCH ×2 (11:40→18:51)
[2017-09-18] MEDS: QUETIAPINE FUMARATE 100 MG TABLET PO SCH ×2 (11:40→22:22)
[2017-09-18 13:45] LABS: ABSOLUTE BASOPHILS # (AUTO) 0.1 10^3/uL (0.0-0.2); ABSOLUTE EOSINOPHILS # (AUTO) 0.1 10^3/uL (0.0-0.6); ABSOLUTE LYMPHOCYTES (AUTO) 0.9 10^3/uL (0.5-4.7); ABSOLUTE MONOCYTES (AUTO) 0.2 10^3/uL (0.1-1.4); ABSOLUTE NEUT (AUTO) 1.3 10^3/uL (1.7-8.2); BASOPHILS % (AUTO) 2.4 % (0-2); HEMATOCRIT 25.5 % (36.0-47.0); HEMOGLOBIN 9.2 g/dL (12.0-15.5); HGB HCT DIFFERENCE 2.1; LYMPHOCYTES % (AUTO) 35.6 % (13-45); MEAN CORPUSCULAR HEMOGLOBIN 33.4 pg (27.0-33.4); MEAN CORPUSCULAR HGB CONC 36.1 g/dL (32.0-36.0); MEAN CORPUSCULAR VOLUME 93 fl (80-97); MONOCYTES % (AUTO) 8.6 % (3-13); RED BLOOD COUNT 2.76 10^6/uL (3.72-5.28); SEGMENTED NEUTROPHILS % (AUTO) 48.4 % (42-78); WHITE BLOOD COUNT 2.6 10^3/uL (4.0-10.5)
--- NOTE | 2017-09-18 14:32 | RADIOLOGY REPORT (SQ) ---
EXAM DESCRIPTION: ABDOMEN 2 VIEWS COMPLETED DATE/TIME: 09/18/2017 1:27 pm REASON FOR STUDY: ascites, dialysis catheter not functioning I12.0 HYP CHR KIDNEY DISEASE W STAGE 5 CHR KIDNEY DISEASE OR K73.9 CHRONIC HEPATITIS, UNSPECIFIED COMPARISON: None. NUMBER OF VIEWS: Two views. TECHNIQUE: Supine and erect radiographic images of the abdomen acquired. LIMITATIONS: None. FINDINGS: FREE AIR: None. No abnormal gas collections. LUNG BASES: Clear. BOWEL GAS PATTERN: Nonobstructive pattern. No dilated loops or air fluid levels. CALCIFICATIONS: No suspicious calcifications. SOFT TISSUES: Splenomegaly is suggested. HARDWARE: None in the abdomen. BONES: No acute fracture. No worrisome bone lesions. OTHER: No other significant finding. IMPRESSION: Splenomegaly. TECHNICAL DOCUMENTATION: JOB ID: [id number] [employer]- All Rights Reserved
--- NOTE | 2017-09-18 16:43 | PDOC PROGRESS REPORT ---
Subjective Progress Note for:: 09/18/17 Subjective:: Seen patient on dialysis today. She is feeling uncomfortable from her rapidly enlarging Ascites. Its non tender. She just had a large volume paracentesis done last monday.She has some dyspnea with exertion.N9o chest pains, fever or chills. Physical Exam Vital Signs: Temp Pulse Resp BP Pulse Ox 97.8 F 78 18 96/57 L 97 09/18/17 11:41 09/18/17 11:41 09/18/17 11:41 09/18/17 11:41 09/18/17 11:41 Intake & Output 09/17/17 09/18/17 09/19/17 06:59 06:59 06:59 Intake Total 1518 1024 Output Total 350 450 Balance 1168 574 Weight 110.8 kg General appearance: PRESENT: no acute distress Respiratory exam: PRESENT: clear to auscultation bria, symmetrical. ABSENT: crackles Cardiovascular exam: PRESENT: +S1, +S2, systolic murmur GI/Abdominal exam: PRESENT: distended, normal bowel sounds, soft. ABSENT: guarding, mass, organomegaly, tenderness Extremities exam: PRESENT: +1 edema Neurological exam: PRESENT: alert, awake, oriented to person, oriented to place Results Laboratory Results: 09/18/17 08:59 09/18/17 08:59 09/17/17 09/18/17 09/18/17 04:43 08:59 08:59 WBC 2.6 L RBC 2.76 L Hgb 9.2 L Hct 25.5 L MCV 93 MCH 33.4 MCHC 36.1 H RDW 15.0 H Plt Count 26 L* 29 L* Seg Neutrophils % 48.4 Lymphocytes % 35.6 Monocytes % 8.6 Eosinophils % 5.0 Basophils % 2.4 H Absolute Neutrophils 1.3 L Absolute Lymphocytes 0.9 Absolute Monocytes 0.2 Absolute Eosinophils 0.1 Absolute Basophils 0.1 Sodium 136.3 L Potassium 3.4 L Chloride 99 Carbon Dioxide 26 Anion Gap 11 BUN 43 H Creatinine 4.58 H Est GFR ( Amer) 12 L Est GFR (Non-Af Amer) 10 L Glucose 336 H Calcium 8.5 Impressions: Paracentesis Ultrasound 09/15/17 00:00 IMPRESSION: Successful ultrasound-guided diagnostic and therapeutic paracentesis Abdomen X-Ray 09/18/17 00:00 IMPRESSION: Splenomegaly. Assessment & Plan - Diagnosis (1) Liver cirrhosis Qualifiers: Hepatic cirrhosis type: unspecified hepatic cirrhosis Ascites presence: with ascites Qualified Code(s): K74.60 - Unspecified cirrhosis of liver Is this a current diagnosis for this admission?: Yes Plan: From apparent GUSTAFSON now with evidences of portal HTN, pancytopenia. Advancing Ascites which looks like needing another large volume paracentesis under albumin now. See GI input. D/W Dr Wheeler. (2) ESRD (end stage renal disease) Is this a current diagnosis for this admission?: Yes Plan: She is undergoing HD currently. However an hour into HD her femoral catheter has clotted off. Its being supervised to ensure a safe and smooth procedure. Plan to UF x 1 L, but she has become rather hypotensive and so no UF us being planned. She will need a exchange of her femoral cath as she is unfit for a permacath now given her low platlets .Will discuss with Dr Jaramillo. Orders were discussed with Eunice my treating HD RN. (3) Hepatorenal failure Plan: Advancing Cirrhosis with evidences of Portal HTN. She has a large rather tense Ascites that needs to be drained again soon under cover of albumin.She needs GI evaluation. (4) Thrombocytopenia Is this a current diagnosis for this admission?: Yes Plan: Follow up on labs which are pending. (8) Morbid obesity Is this a current diagnosis for this admission?: Yes (9) Portal hypertension Is this a current diagnosis for this admission?: Yes (11) Anemia Qualifiers: Anemia type: unspecified type Qualified Code(s): D64.9 - Anemia, unspecified Is this a current diagnosis for this admission?: Yes Plan: Adjust epo. (12) Bipolar disorder Qualifiers: Active/Remission status: remission status unspecified Qualified Code(s): F31.9 - Bipolar disorder, unspecified
--- NOTE | 2017-09-18 17:10 | PDOC PROGRESS REPORT ---
Subjective Progress Note for:: 09/18/17 Subjective:: Pt states that she feels better. Pt states that her stomach is swollen again. Pt states that she drinks a lot of water during the day. Physical Exam Vital Signs: Temp Pulse Resp BP Pulse Ox 97.6 F 92 18 87/54 L 98 09/18/17 15:50 09/18/17 15:50 09/18/17 15:50 09/18/17 15:50 09/18/17 15:50 Intake & Output 09/17/17 09/18/17 09/19/17 06:59 06:59 06:59 Intake Total 1518 1024 Output Total 350 450 Balance 1168 574 Weight 110.8 kg General appearance: PRESENT: no acute distress, well-developed, well-nourished Head exam: PRESENT: atraumatic, normocephalic Eye exam: PRESENT: conjunctiva pink, EOMI, PERRLA. ABSENT: scleral icterus Ear exam: PRESENT: normal external ear exam Mouth exam: PRESENT: moist, tongue midline Neck exam: ABSENT: carotid bruit, JVD, lymphadenopathy, thyromegaly Respiratory exam: PRESENT: clear to auscultation bria. ABSENT: rales, rhonchi, wheezes Cardiovascular exam: PRESENT: RRR. ABSENT: diastolic murmur, rubs, systolic murmur Pulses: PRESENT: normal dorsalis pedis pul Vascular exam: PRESENT: normal capillary refill GI/Abdominal exam: PRESENT: ascites, normal bowel sounds, soft Rectal exam: PRESENT: deferred Extremities exam: PRESENT: full ROM. ABSENT: calf tenderness, clubbing, pedal edema Neurological exam: PRESENT: alert, awake, oriented to person, oriented to place , oriented to time, oriented to situation, CN II-XII grossly intact. ABSENT: motor sensory deficit Psychiatric exam: PRESENT: appropriate affect, normal mood. ABSENT: homicidal ideation, suicidal ideation Skin exam: PRESENT: dry, intact, warm. ABSENT: cyanosis, rash Results Laboratory Results: 09/18/17 08:59 09/18/17 08:59 09/17/17 09/18/17 09/18/17 04:43 08:59 08:59 WBC 2.6 L RBC 2.76 L Hgb 9.2 L Hct 25.5 L MCV 93 MCH 33.4 MCHC 36.1 H RDW 15.0 H Plt Count 26 L* 29 L* Seg Neutrophils % 48.4 Lymphocytes % 35.6 Monocytes % 8.6 Eosinophils % 5.0 Basophils % 2.4 H Absolute Neutrophils 1.3 L Absolute Lymphocytes 0.9 Absolute Monocytes 0.2 Absolute Eosinophils 0.1 Absolute Basophils 0.1 Sodium 136.3 L Potassium 3.4 L Chloride 99 Carbon Dioxide 26 Anion Gap 11 BUN 43 H Creatinine 4.58 H Est GFR ( Amer) 12 L Est GFR (Non-Af Amer) 10 L Glucose 336 H Calcium 8.5 Impressions: Paracentesis Ultrasound 09/15/17 00:00 IMPRESSION: Successful ultrasound-guided diagnostic and therapeutic paracentesis Abdomen X-Ray 09/18/17 00:00 IMPRESSION: Splenomegaly. Assessment & Plan - Diagnosis (1) ESRD (end stage renal disease) Is this a current diagnosis for this admission?: Yes Plan: S/P Dialysis: dialysis cath clotted. Dr. Solares is in the process of speaking to Dr. Jaramillo about other alternatives. 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 Will increase Lantus 50units and Humalog 15 units with meal. (3) Emesis Is this a current diagnosis for this admission?: Yes Plan: Continue PRN Zofran. (4) Ascites Qualifiers: Ascites type: other type Qualified Code(s): R18.8 - Other ascites Is this a current diagnosis for this admission?: Yes Plan: S/P Paracentesis. Pt doing well. (5) Liver cirrhosis Qualifiers: Hepatic cirrhosis type: unspecified hepatic cirrhosis Ascites presence: with ascites Qualified Code(s): K74.60 - Unspecified cirrhosis of liver Is this a current diagnosis for this admission?: Yes Plan: in setting of GUSTAFSON: Will continue supportive care. Consulted GI. Called office via data coder operator - awaiting for return of call. (6) Morbid obesity Is this a current diagnosis for this admission?: Yes Plan: Encourage dietary changes. (7) Portal hypertension Is this a current diagnosis for this admission?: Yes Plan: Will continue propranolol. (8) Increased ammonia level Is this a current diagnosis for this admission?: Yes Plan: Ruled out. (9) Thrombocytopenia Is this a current diagnosis for this admission?: Yes Plan: Secondary to Liver disease: Stable. (10) Anemia Qualifiers: Anemia type: unspecified type Qualified Code(s): D64.9 - Anemia, unspecified Is this a current diagnosis for this admission?: Yes Plan: Secondary Cirrhosis: Supportive care. (11) Hepatitis C Is this a current diagnosis for this admission?: Yes Plan: Supportive care. (12) DVT prophylaxis Is this a current diagnosis for this admission?: Yes Plan: SCDs
--- NOTE | 2017-09-18 18:16 | RADIOLOGY REPORT (SQ) ---
EXAM DESCRIPTION: CHEST SINGLE VIEW COMPLETED DATE/TIME: 09/18/2017 6:08 pm REASON FOR STUDY: dyspnea COMPARISON: 07/03/2017 EXAM PARAMETERS: NUMBER OF VIEWS: One view. TECHNIQUE: Single frontal radiographic view of the chest acquired. RADIATION DOSE: NA LIMITATIONS: None. FINDINGS: LUNGS AND PLEURA: No opacities, masses or pneumothorax. No pleural effusion. MEDIASTINUM AND HILAR STRUCTURES: No masses. Contour normal. HEART AND VASCULAR STRUCTURES: Heart normal in size. Normal vasculature. BONES: No acute findings. HARDWARE: None in the chest. OTHER: No other significant finding. IMPRESSION: NO ACUTE RADIOGRAPHIC FINDING IN THE CHEST. TECHNICAL DOCUMENTATION: JOB ID: [id number] [employer]- All Rights Reserved
[2017-09-19] MEDS: INSULIN LISPRO 100 UNIT/ML 3 ML VIAL SUBCUT PRN ×3 (00:23→18:09)
[2017-09-19 05:12] LABS: ABSOLUTE EOSINOPHILS # (AUTO) 0.1 10^3/uL (0.0-0.6); ABSOLUTE LYMPHOCYTES (AUTO) 0.8 10^3/uL (0.5-4.7); ABSOLUTE MONOCYTES (AUTO) 0.2 10^3/uL (0.1-1.4); ABSOLUTE NEUT (AUTO) 1.3 10^3/uL (1.7-8.2); BASOPHILS % (AUTO) 0.5 % (0-2); EOSINOPHILS % (AUTO) 3.5 % (0-6); HEMATOCRIT 25.9 % (36.0-47.0); HEMOGLOBIN 9.1 g/dL (12.0-15.5); HGB HCT DIFFERENCE 1.4; MEAN CORPUSCULAR HEMOGLOBIN 32.1 pg (27.0-33.4); MEAN CORPUSCULAR HGB CONC 35.2 g/dL (32.0-36.0); MEAN CORPUSCULAR VOLUME 91 fl (80-97); MONOCYTES % (AUTO) 8.3 % (3-13); RED BLOOD COUNT 2.84 10^6/uL (3.72-5.28); RED CELL DISTRIBUTION WIDTH 15.1 % (11.5-14.0); SEGMENTED NEUTROPHILS % (AUTO) 53.7 % (42-78); WHITE BLOOD COUNT 2.4 10^3/uL (4.0-10.5)
[2017-09-19 05:33] LABS: ALANINE AMINOTRANSFERASE 29 U/L (9-52); ALBUMIN 2.6 g/dL (3.5-5.0); ALKALINE PHOSPHATASE 130 U/L (38-126); ANION GAP 11 (5-19); ASPARTATE AMINO TRANSFERASE 22 U/L (14-36); BILIRUBIN,DIRECT 1.1 mg/dL (0.0-0.4); BILIRUBIN,TOTAL 1.9 mg/dL (0.2-1.3); BLOOD UREA NITROGEN 45 mg/dL (7-20); CALCIUM 8.5 mg/dL (8.4-10.2); CARBON DIOXIDE 25 mmol/L (22-30); CHLORIDE 102 mmol/L (98-107); CREATININE RESULT 4.72 mg/dL (0.52-1.25); GLUCOSE 186 mg/dL (75-110); POTASSIUM 3.6 mmol/L (3.6-5.0); SODIUM 138.4 mmol/L (137-145); TOTAL PROTEIN 5.3 g/dL (6.3-8.2)
[2017-09-19] MEDS: PROPRANOLOL HCL 20 MG TABLET PO SCH (05:52)
[2017-09-19] MEDS ORDERED: NORMAL SALINE 250 ML IV PRN ×2 (08:53)
[2017-09-19] MEDS: CLONAZEPAM 1 MG TABLET PO SCH ×2 (09:56→22:56)
[2017-09-19] MEDS: QUETIAPINE FUMARATE 100 MG TABLET PO SCH ×2 (09:57→22:56)
[2017-09-19] MEDS: INSULIN GLARGINE,HUM.REC.ANLOG 300 UNIT/3 ML INSULN.PEN SUBCUT SCH (09:58)
[2017-09-19] MEDS: INSULIN LISPRO 100 UNIT/ML 3 ML VIAL SUBCUT SCH ×3 (09:59→18:09)
[2017-09-19] MEDS ORDERED: BENZONATATE 100 MG CAPSULE PO PRN (12:38)
[2017-09-19] MEDS ORDERED: PROMETHAZINE HCL INJ 25 MG/1 ML VIAL IV PRN (12:38)
[2017-09-19] MEDS: ACETAMINOPHEN 325 MG TABLET PO PRN ×2 (12:44→23:37)
[2017-09-19] MEDS ORDERED: VANCOMYCIN HCL 0 MG in DEXTROSE 5%-WATER 250 ML IV NR (14:00)
--- NOTE | 2017-09-19 14:15 | RADIOLOGY REPORT (SQ) ---
EXAM DESCRIPTION: CHEST SINGLE VIEW COMPLETED DATE/TIME: 09/19/2017 1:53 pm REASON FOR STUDY: fever COMPARISON: AP chest 09/18/2017, 07/03/2017 EXAM PARAMETERS: NUMBER OF VIEWS: One view. TECHNIQUE: Single frontal radiographic view of the chest acquired. RADIATION DOSE: NA LIMITATIONS: AP lordotic portable chest film, morbidly obese patient FINDINGS: LUNGS AND PLEURA: No opacities, masses or pneumothorax. No pleural effusion. MEDIASTINUM AND HILAR STRUCTURES: Retrocardiac hiatal hernia. Prominent central pulmonary arteries, question pulmonary hypertension. HEART AND VASCULAR STRUCTURES: Mild stable cardiomegaly BONES: No acute findings. HARDWARE: None in the chest. OTHER: No other significant finding. IMPRESSION: No acute infiltrates TECHNICAL DOCUMENTATION: JOB ID: [id number] [employer]- All Rights Reserved
[2017-09-19] MEDS ORDERED: VANCOMYCIN HCL 1,500 MG in DEXTROSE 5%-WATER 250 ML IV ONE (15:00)
[2017-09-19] MEDS ORDERED: CEFEPIME 1 GM/D5W RTU 1 GM/50 ML RTUPB IV ONE (16:00)
[2017-09-19] MEDS ORDERED: OXYCODONE HCL IR 5 MG TABLET PO PRN (17:15)
[2017-09-19] MEDS: PROPRANOLOL HCL 10 MG TABLET PO SCH (18:08)
--- NOTE | 2017-09-19 18:54 | PDOC CONSULTATION ---
Consultation Consult Date: 09/19/17 History of Present Illness Admission Date/PCP: 09/15/17 17:25 CHANEL CYR PA-C History of Present Illness: This is a 47-year-old patient was admitted on 09/14/[address] Solares office with abdominal swelling and weight gain. She needed to start dialysis. She had been getting more short of breath. According to the patient she had gained 50 pounds within the previous week. I also saw the patient in the office on 08/29/2017 with a 20 pound weight gain within 6 weeks. She was sent for paracenteses on 09/01/2017 when 6 L of fluid was removed. Ascitic fluid chemistry and cytology were unremarkable. She had been on furosemide but has not been responding much to diuresis. Her renal function has also been slowly worsening. Since admission she has received one hemodialysis and there has been difficulty maintaining a good vascular access. She also had another paracentesis on 09/15/2017 with removal of 6 L of fluid. She remains very distended. Her cirrhosis is thought to be from nonalcoholic fatty liver and previous hepatitis and autoimmune serologies were unremarkable She complains of diffuse abdominal pain with some nausea and vomiting early on today. She has also been running a high fever up to 103. She is on multiple antibiotics. There is plan to replace her vascular access tomorrow after platelet transfusion. Past Medical History Cardiac Medical History: Reports: Hyperlipidema, Hypertension Denies: Coronary Artery Disease, Myocardial Infarction Pulmonary Medical History: Denies: Asthma, Bronchitis, Chronic Obstructive Pulmonary Disease (COPD), Pneumonia, Tuberculosis Neurological Medical History: Denies: Seizures Endocrine Medical History: Reports: Diabetes Mellitus Type 2 Renal/ Medical History: Reports: End Stage Renal Disease GI Medical History: Reports: Cirrhosis - Due to fatty liver disease, Gastroesophageal Reflux Disease Denies: Hepatitis - C GI History Note: Ascites, marked splenomegaly, reflux disease, Musculoskeltal Medical History: Reports: Arthritis - spine Psychiatric Medical History: Reports: Bipolar Disorder, Depression - & anxiety Hematology: Reports: Anemia Past Surgical History Past Surgical History: Reports: Cholecystectomy - 2012, Hysterectomy Social History Lives with: Spouse/Significant other Smoking Status: Former Smoker Frequency of Alcohol Use: None Hx Recreational Drug Use: No Drugs: None Hx Prescription Drug Abuse: No Family History Family History: Reviewed & Not Pertinent Parental Family History Reviewed: No Children Family History Reviewed: NA Sibling(s) Family History Reviewed.: NA Medication/Allergy Home Medications: Clonazepam [Klonopin] 0.5 mg PO Q12 09/14/17 Furosemide [Lasix 40 mg Tablet] 40 mg PO BID 09/14/17 Insulin Aspart [Novolog Flexpen] 10 unit SQ BIDBS 09/14/17 NPH, Human Insulin Isophane [Novolin N (NPH) Insulin 100 unit/mL] 12 unit SQ BID @0600,1800 09/14/17 Omeprazole 20 mg PO ACBRKFST 09/14/17 Propranolol HCl [Inderal 20 mg Tablet] 20 mg PO Q12 09/14/17 Quetiapine Fumarate [Quetiapine Fumarate ER] 400 mg PO QHS 09/14/17 Allergies/Adverse Reactions: No Known Allergies Allergy (Verified 04/19/17 19:03) Review of Systems All systems: reviewed and no additional remarkable complaints except as stated Physical Exam Vital Signs: Temp Pulse Resp BP Pulse Ox 102.1 F H 119 H 24 H 145/74 H 100 09/19/17 11:44 09/19/17 11:56 09/19/17 11:56 09/19/17 11:56 09/19/17 11:56 Intake & Output 09/18/17 09/19/17 09/20/17 06:59 06:59 06:59 Intake Total 1024 446 Output Total 450 0 Balance 574 446 Weight 111.3 kg Exam: General: Patient is alert but looks unwell. HEENT: There is some pallor and jaundice. PERRLA. Oropharynx normal Respiratory: No chest deformity. No respiratory distress. Chest wall palpitation was unremarkable. Breath sounds were normal Cardiovascular: Heart sounds 1 and 2 normal with no murmurs. Abdominal: Firm and distended with ascites. There is no significant tenderness. Extremities: No edema Neurological: Alert and oriented Normal speech Results Laboratory Results: 09/19/17 04:13 09/19/17 04:13 09/19/17 09/19/17 09/19/17 04:13 04:13 10:18 WBC 2.4 L RBC 2.84 L Hgb 9.1 L Hct 25.9 L MCV 91 MCH 32.1 MCHC 35.2 RDW 15.1 H Plt Count 23 L* Seg Neutrophils % 53.7 Lymphocytes % 34.0 Monocytes % 8.3 Eosinophils % 3.5 Basophils % 0.5 Absolute Neutrophils 1.3 L Absolute Lymphocytes 0.8 Absolute Monocytes 0.2 Absolute Eosinophils 0.1 Absolute Basophils 0.0 Sodium 138.4 Potassium 3.6 Chloride 102 Carbon Dioxide 25 Anion Gap 11 BUN 45 H Creatinine 4.72 H Est GFR ( Amer) 12 L Est GFR (Non-Af Amer) 10 L Glucose 186 H Calcium 8.5 Total Bilirubin 1.9 H AST 22 ALT 29 Alkaline Phosphatase 130 H Total Protein 5.3 L Albumin 2.6 L Blood Type O POSITIVE 09/15/17 14:25 Peritoneal Gram Stain - Final 09/15/17 14:25 Peritoneal Body Fluid Culture - Final NO AEROBIC OR ANAEROBIC ORGANISMS RECOVERED Impressions: Paracentesis Ultrasound 09/15/17 00:00 IMPRESSION: Successful ultrasound-guided diagnostic and therapeutic paracentesis Abdomen X-Ray 09/18/17 00:00 IMPRESSION: Splenomegaly. Chest X-Ray 09/19/17 00:00 IMPRESSION: No acute infiltrates Assessment & Plan - Diagnosis (1) Ascites Qualifiers: Ascites type: other type Qualified Code(s): R18.8 - Other ascites Is this a current diagnosis for this admission?: Yes Plan: She has significant ascites that is reaccumulating quickly. This has been a problem over the last 4-6 weeks. She has needed two paracentesis this month and I suspect she will be needing more paracenteses on a 1-2 weeks basis. Her renal function is deteriorating reducing the effectiveness of diuretics. She is scheduled to receive platelet transfusion tomorrow morning prior to vascular surgery and I will suggest paracenteses about the same time. Her ascitic fluid will be sent for cultures due to her current fever. She is on antibiotics. She has a poor prognosis (2) Nonalcoholic fatty liver disease Is this a current diagnosis for this admission?: Yes (3) ESRD (end stage renal disease) Is this a current diagnosis for this admission?: Yes (4) Thrombocytopenia Is this a current diagnosis for this admission?: Yes (5) Liver cirrhosis Qualifiers: Hepatic cirrhosis type: unspecified hepatic cirrhosis Ascites presence: with ascites Qualified Code(s): K74.60 - Unspecified cirrhosis of liver Is this a current diagnosis for this admission?: Yes (6) Portal hypertension Is this a current diagnosis for this admission?: Yes
--- NOTE | 2017-09-19 19:55 | PDOC PROGRESS REPORT ---
Subjective Progress Note for:: 09/19/17 Subjective:: Patient was seen today laying in bed on her right side. She is uncomfortable in pain due to her chronic back pain and swollen stomach. Today she was to get a catheter exchange due to the clotting of the current one. She spiked a fever around 11 this morning and the catheter could not be done. Blood cultures were drawn and antibiotics of vanc and cefepime were started. She is to have here cath exchanged tomorrow if her fever goes down. She also will receive a platelet transfusion tomorrow. She will then receive dialysis after that exchange. Physical Exam Vital Signs: Temp Pulse Resp BP Pulse Ox 102.1 F H 119 H 24 H 145/74 H 100 09/19/17 11:44 09/19/17 11:56 09/19/17 11:56 09/19/17 11:56 09/19/17 11:56 Intake & Output 09/18/17 09/19/17 09/20/17 06:59 06:59 06:59 Intake Total 1024 446 Output Total 450 0 Balance 574 446 Weight 111.3 kg General appearance: PRESENT: mild distress, morbidly obese, well-developed, well -nourished Head exam: PRESENT: atraumatic, normocephalic Mouth exam: PRESENT: moist, tongue midline Neck exam: ABSENT: JVD, tracheal deviation Respiratory exam: PRESENT: clear to auscultation bria. ABSENT: accessory muscle use, chest wall tenderness, crackles, rhonchi, wheezes Cardiovascular exam: PRESENT: +S1, +S2, systolic murmur GI/Abdominal exam: PRESENT: distended, normal bowel sounds, soft. ABSENT: guarding, mass, organomegaly, tenderness Extremities exam: PRESENT: +1 edema. ABSENT: joint swelling, tenderness Musculoskeletal exam: PRESENT: normal inspection, tenderness - -lower back. ABSENT: deformity Neurological exam: PRESENT: alert, awake, oriented to person, oriented to place , oriented to time, oriented to situation Psychiatric exam: PRESENT: appropriate affect, normal mood Skin exam: PRESENT: dry, intact. ABSENT: erythema, rash Results Laboratory Results: 09/19/17 04:13 09/19/17 04:13 09/19/17 09/19/17 09/19/17 04:13 04:13 10:18 WBC 2.4 L RBC 2.84 L Hgb 9.1 L Hct 25.9 L MCV 91 MCH 32.1 MCHC 35.2 RDW 15.1 H Plt Count 23 L* Seg Neutrophils % 53.7 Lymphocytes % 34.0 Monocytes % 8.3 Eosinophils % 3.5 Basophils % 0.5 Absolute Neutrophils 1.3 L Absolute Lymphocytes 0.8 Absolute Monocytes 0.2 Absolute Eosinophils 0.1 Absolute Basophils 0.0 Sodium 138.4 Potassium 3.6 Chloride 102 Carbon Dioxide 25 Anion Gap 11 BUN 45 H Creatinine 4.72 H Est GFR ( Amer) 12 L Est GFR (Non-Af Amer) 10 L Glucose 186 H Calcium 8.5 Total Bilirubin 1.9 H AST 22 ALT 29 Alkaline Phosphatase 130 H Total Protein 5.3 L Albumin 2.6 L Blood Type O POSITIVE 09/15/17 14:25 Peritoneal Gram Stain - Final 09/15/17 14:25 Peritoneal Body Fluid Culture - Final NO AEROBIC OR ANAEROBIC ORGANISMS RECOVERED Impressions: Paracentesis Ultrasound 09/15/17 00:00 IMPRESSION: Successful ultrasound-guided diagnostic and therapeutic paracentesis Abdomen X-Ray 09/18/17 00:00 IMPRESSION: Splenomegaly. Chest X-Ray 09/19/17 00:00 IMPRESSION: No acute infiltrates Assessment & Plan - Diagnosis (1) Fever Plan: awaiting blood cultures, currently receiving antibiotics. Recommend antibiotics be given post dialysis or in the last 30 minutes of dialysis. Other areas of possible infection could be a UTI, spontaneous bacterial peritonitis, or infection around the catheter. Unable to inspect the catheter site because the patient was laying on it and did not want to move. (2) ESRD (end stage renal disease) Is this a current diagnosis for this admission?: Yes Plan: Patient will receive catheter exchange in the morning around 7 and then she will have dialysis shortly after. (3) Thrombocytopenia Is this a current diagnosis for this admission?: Yes Plan: will be receiving a platelet transfusion tomorrow prior to catheter exchange. (4) Ascites Qualifiers: Ascites type: other type Qualified Code(s): R18.8 - Other ascites Is this a current diagnosis for this admission?: Yes Plan: Refer GIs note for plan (5) Liver cirrhosis Qualifiers: Hepatic cirrhosis type: unspecified hepatic cirrhosis Ascites presence: with ascites Qualified Code(s): K74.60 - Unspecified cirrhosis of liver Is this a current diagnosis for this admission?: Yes Plan: Refer to GI's not for plan (6) Anemia Qualifiers: Anemia type: unspecified type Qualified Code(s): D64.9 - Anemia, unspecified Is this a current diagnosis for this admission?: Yes Plan: Will give epogen during dialysis tomorrow. (7) Diabetes mellitus type 2 in obese Plan: currently poorly controlled, recommended to her a better diabetic diet (8) Hepatorenal failure Plan: currently on dialysis to help with the kidneys (9) Morbid obesity Is this a current diagnosis for this admission?: Yes
[2017-09-20] MEDS: INSULIN LISPRO 100 UNIT/ML 3 ML VIAL SUBCUT PRN (00:46)
[2017-09-20] MEDS: ACETAMINOPHEN 325 MG TABLET PO PRN ×2 (04:10→14:30)
[2017-09-20 05:24] LABS: HEMATOCRIT 24.1 % (36.0-47.0); HEMOGLOBIN 8.5 g/dL (12.0-15.5); HGB HCT DIFFERENCE 1.4; MEAN CORPUSCULAR HEMOGLOBIN 32.6 pg (27.0-33.4); MEAN CORPUSCULAR HGB CONC 35.2 g/dL (32.0-36.0); MEAN CORPUSCULAR VOLUME 93 fl (80-97)
[2017-09-20 05:26] LABS: ANION GAP 13 (5-19); BLOOD UREA NITROGEN 50 mg/dL (7-20); CALCIUM 8.4 mg/dL (8.4-10.2); CARBON DIOXIDE 22 mmol/L (22-30); CHLORIDE 103 mmol/L (98-107); CREATININE RESULT 5.49 mg/dL (0.52-1.25); GLUCOSE 156 mg/dL (75-110); MAGNESIUM 1.7 mg/dL (1.6-2.3); PHOSPHORUS 3.3 mg/dL (2.5-4.5); POTASSIUM 3.5 mmol/L (3.6-5.0); SODIUM 138.4 mmol/L (137-145)
[2017-09-20] MEDS: PROPRANOLOL HCL 10 MG TABLET PO SCH (05:41)
[2017-09-20 06:00] LABS: BAND NEUTROPHILS % (MANUAL) 4 % (3-5); BASOPHILS % (MANUAL) 0 % (0-2); EOSINOPHILS % (MANUAL) 0 % (0-6); LYMPHOCYTES % (MANUAL) 14 % (13-45); TOTAL CELLS COUNTED 50
[2017-09-20 06:03] LABS: ANISOCYTOSIS 1+; OVALOCYTES 1+; POIKILOCYTOSIS 1+; POLYCHROMASIA SLIGHT; TEAR DROP CELLS 1+
--- NOTE | 2017-09-20 06:16 | PDOC PROGRESS REPORT ---
Subjective Progress Note for:: 09/19/17 Subjective:: Patient with hepatic failure and renal failure sent to initiate dialysis. Patient developing fevers and nausea. Patient needs her dialysis catheter exchanged. Patient with recurrent ascities. She is nauseated with abdominal pain. Patient started on vancomycin and cefepime. Blood cultures drawn. Physical Exam Vital Signs: Temp Pulse Resp BP Pulse Ox 102.8 F H 127 H 22 H 115/74 99 09/19/17 17:17 09/19/17 17:17 09/19/17 17:17 09/19/17 17:17 09/19/17 17:17 Intake & Output 09/18/17 09/19/17 09/20/17 06:59 06:59 06:59 Intake Total 1024 446 360 Output Total 450 0 400 Balance 574 446 -40 Weight 111.3 kg General appearance: PRESENT: mild distress, morbidly obese Head exam: PRESENT: normocephalic Eye exam: PRESENT: EOMI Ear exam: PRESENT: normal external ear exam Mouth exam: PRESENT: moist Neck exam: ABSENT: carotid bruit, JVD, lymphadenopathy, thyromegaly Respiratory exam: PRESENT: clear to auscultation bria. ABSENT: rales, rhonchi, wheezes Cardiovascular exam: PRESENT: RRR. ABSENT: diastolic murmur, rubs, systolic murmur Pulses: PRESENT: normal dorsalis pedis pul Vascular exam: PRESENT: normal capillary refill GI/Abdominal exam: PRESENT: ascites, distended. ABSENT: guarding, mass, organolmegaly, rebound, tenderness Rectal exam: PRESENT: deferred Extremities exam: PRESENT: full ROM, pedal edema. ABSENT: calf tenderness, clubbing Neurological exam: PRESENT: alert, awake, oriented to person, oriented to place , oriented to time, oriented to situation, CN II-XII grossly intact. ABSENT: motor sensory deficit Psychiatric exam: PRESENT: appropriate affect, normal mood. ABSENT: homicidal ideation, suicidal ideation Skin exam: PRESENT: dry, intact, warm. ABSENT: cyanosis, rash Results Laboratory Results: 09/19/17 04:13 09/19/17 04:13 09/19/17 09/19/17 09/19/17 04:13 04:13 10:18 WBC 2.4 L RBC 2.84 L Hgb 9.1 L Hct 25.9 L MCV 91 MCH 32.1 MCHC 35.2 RDW 15.1 H Plt Count 23 L* Seg Neutrophils % 53.7 Lymphocytes % 34.0 Monocytes % 8.3 Eosinophils % 3.5 Basophils % 0.5 Absolute Neutrophils 1.3 L Absolute Lymphocytes 0.8 Absolute Monocytes 0.2 Absolute Eosinophils 0.1 Absolute Basophils 0.0 Sodium 138.4 Potassium 3.6 Chloride 102 Carbon Dioxide 25 Anion Gap 11 BUN 45 H Creatinine 4.72 H Est GFR ( Amer) 12 L Est GFR (Non-Af Amer) 10 L Glucose 186 H Calcium 8.5 Total Bilirubin 1.9 H AST 22 ALT 29 Alkaline Phosphatase 130 H Total Protein 5.3 L Albumin 2.6 L Blood Type O POSITIVE 09/15/17 14:25 Peritoneal Gram Stain - Final 09/15/17 14:25 Peritoneal Body Fluid Culture - Final NO AEROBIC OR ANAEROBIC ORGANISMS RECOVERED Impressions: Paracentesis Ultrasound 09/15/17 00:00 IMPRESSION: Successful ultrasound-guided diagnostic and therapeutic paracentesis Abdomen X-Ray 09/18/17 00:00 IMPRESSION: Splenomegaly. Chest X-Ray 09/19/17 00:00 IMPRESSION: No acute infiltrates Assessment & Plan - Diagnosis (1) ESRD (end stage renal disease) Is this a current diagnosis for this admission?: Yes Plan: Patient started on dialysis. Patient awaiting exchange of dialysis catheter as the current catheter is not working. Surgery recommend that patient have platelets running at the same time as the catheter is being exchanged. This will be done in the morning. (2) Anemia Qualifiers: Anemia type: unspecified type Qualified Code(s): D64.9 - Anemia, unspecified Is this a current diagnosis for this admission?: Yes Plan: Due to ESRD and hepatic failure. Hemoglobin appears stable. Will allow nephrology to manage i.e. epo and iron supplement if appropriate at this time. (3) DVT prophylaxis Is this a current diagnosis for this admission?: Yes Plan: SCD patient with thrombocytopenia into the [address]. (4) Hepatitis C Is this a current diagnosis for this admission?: Yes Plan: GI was consulted had will evaluate patient. Will continue supportive care. (5) Thrombocytopenia Is this a current diagnosis for this admission?: Yes (6) Ascites Qualifiers: Ascites type: other type Qualified Code(s): R18.8 - Other ascites Is this a current diagnosis for this admission?: Yes Plan: Patient has 6000mL removed on 09/05. The fluid did not show any growth. This is secondary to her hepatic failure. Patient is no longer responding to diuresis. Patient has been started on dialysis. Patient will most likely need repeat paracentesis. (7) Diabetes mellitus type 2 in obese Plan: Continue current management. Adjust insulin accordingly. (8) Liver cirrhosis Qualifiers: Hepatic cirrhosis type: unspecified hepatic cirrhosis Ascites presence: with ascites Qualified Code(s): K74.60 - Unspecified cirrhosis of liver Is this a current diagnosis for this admission?: Yes Plan: Patient is currently decompenstated with recurrent ascities. Patient will most likely need repeat paracentesis. Plan is to give platelets in the am therefore it can be done shortly after. Patient is on low sodium diet. (9) Morbid obesity Is this a current diagnosis for this admission?: Yes Plan: Partly due to fluids however patient counseled on dietary changes. (10) Portal hypertension Is this a current diagnosis for this admission?: Yes Plan: Continue propranolol. (11) Nausea Plan: Continue with antiemetics. (12) Fever Qualifiers: Encounter type: subsequent encounter Is this a current diagnosis for this admission?: Yes Plan: Uncertain if this due to the dialysis catheter and or peritoneal fluid (SBO) . Chest X ray negative. Blood cultures drawn. Patient started on vancomycin and cefepime. Will have paracentesis done once platelets are given. - Time Time Spent with patient: 25-34 minutes Anticipated discharge: Home - Inpatient Certification Medical Necessity: Need Close Monitoring Due to Risk of Patient Decompensation, Need for IV Antibiotics
--- NOTE | 2017-09-20 07:44 | Operative Report ---
Operative Report DATE OF SURGERY: 09/15/17 PREOPERATIVE DIAGNOSIS: 1. End-stage renal disease requiring hemodialysis. 2. Multiple comorbidities. POSTOPERATIVE DIAGNOSIS: 1. End-stage renal disease requiring hemodialysis. 2. Multiple comorbidities. OPERATION: 1. Removal of previous temporary hemodialysis catheter and insertion of new temporary hemodialysis catheter over wire. SURGEON: YESY CASTILLO CLIENT PROJECT COORDINATOR: None ANESTHESIA: Local TISSUE REMOVED OR ALTERED: Not applicable ESTIMATED BLOOD LOSS: 5 mL. INTRAOPERATIVE FINDINGS: Satisfactory satisfactory removal of existing cath and replacement with a longer catheter. Easy egress of blood from all 3 ports and ingress of heparinized solution. PROCEDURE: After obtaining informed consent, the patient was positioned supine at bedside. The[ left groin] and adjacent areas were prepared with chlorhexidine and draped out with sterile linen. After the universal timeout the procedure commenced. Local anesthesia was generously infiltrated in the skin and along the course of the catheter up to the femoral vein. The sutures were removed. This was followed by introduction of a 0.035 guidewire,followed by introduction of a 30 cm long triaysis catheter. All of these transitions were smooth. Each lumen was aspirated of blood and irrigated with heparinized solution. The catheter was now sutured to the skin using 3-0 nylon. A Bio A patch was now applied, followed by sterile dressings. Caps were placed on the end of the each of the lumens. The procedure concluded. Copies dictated operative report to Dr. Yesy Jaramillo MD.
--- NOTE | 2017-09-20 08:03 | CONSULTATION REPORT E ---
Consultation Report NAME: HUMBERTO KAY : 1970 AGE: 47Y DATE: 09/20/2017 406 A TO: YESY BRADFORD M.D. FROM: JOEY VELOZ M.D. Requesting Physician This patient has severe renal failure and requires dialysis. Her existing temporary dialysis catheter is malfunctioning. There are additional issues including rapidly reaccumulating ascites, liver failure, and thrombocytopenia. At this point, I will replace the temporary hemodialysis catheter with a slightly longer catheter in the hopes of obtaining good dialysis today. Overall, the patient's condition is poor and there are significant risks. These were communicated to the patient. She seems agreeable, and we will proceed cautiously. Platelets will be running during the procedure in an effort to reduce risk. DICTATING PHYSICIAN: YESY BRADFORD M.D. [id number] PHY#: [id number] ID: [id number] JOB#: [id number] ACCT: [id number] cc:YESY BRADFORD M.D. > MTDStanley
[2017-09-20] MEDS ORDERED: INSULIN GLARGINE,HUM.REC.ANLOG 1,000 UNIT/10 ML UNIT SUBCUT ONE (08:31)
[2017-09-20 09:55] LABS: APPEARANCE,URINE CLOUDY; BILIRUBIN,URINE NEGATIVE (NEGATIVE); GLUCOSE, URINE NEGATIVE (NEGATIVE); KETONES,URINE NEGATIVE (NEGATIVE); LEUKOCYTE ESTERASE,URINE NEGATIVE (NEGATIVE); NITRITE,URINE NEGATIVE (NEGATIVE); PROTEIN,URINE NEGATIVE (NEGATIVE); URINE SPECIFIC GRAVITY 1.015
[2017-09-20] MEDS: ALBUMIN HUMAN 50 ML IV SCH ×2 (10:17→12:16)
[2017-09-20] MEDS: INSULIN GLARGINE,HUM.REC.ANLOG 300 UNIT/3 ML INSULN.PEN SUBCUT SCH (10:33)
[2017-09-20] MEDS: INSULIN LISPRO 100 UNIT/ML 3 ML VIAL SUBCUT SCH ×3 (10:33→16:55)
[2017-09-20 11:12] LABS: HEMATOCRIT 23.9 % (36.0-47.0); HEMOGLOBIN 8.3 g/dL (12.0-15.5); MEAN CORPUSCULAR HEMOGLOBIN 32.1 pg (27.0-33.4); MEAN CORPUSCULAR HGB CONC 34.7 g/dL (32.0-36.0); MEAN CORPUSCULAR VOLUME 93 fl (80-97); RED BLOOD COUNT 2.58 10^6/uL (3.72-5.28); RED CELL DISTRIBUTION WIDTH 15.9 % (11.5-14.0)
[2017-09-20 11:43] LABS: BASOPHILS % (MANUAL) 0 % (0-2); EOSINOPHILS % (MANUAL) 4 % (0-6); LYMPHOCYTES % (MANUAL) 26 % (13-45); TOTAL CELLS COUNTED 50
[2017-09-20 11:46] LABS: ANISOCYTOSIS SLIGHT; HYPOCHROMASIA SLIGHT; OVALOCYTES SLIGHT; POIKILOCYTOSIS 1+; TEAR DROP CELLS SLIGHT
[2017-09-20] MEDS ORDERED: NORMAL SALINE 250 ML IV PRN ×2 (12:19)
[2017-09-20] MEDS ORDERED: DISPOSABLE IV PRN (13:00)
[2017-09-20] MEDS ORDERED: SODIUM CITRATE IV PRN (13:00)
[2017-09-20] MEDS: CLONAZEPAM 1 MG TABLET PO SCH (13:02)
[2017-09-20] MEDS: QUETIAPINE FUMARATE 100 MG TABLET PO SCH (13:03)
[2017-09-20 13:11] LABS: PARTIAL THROMBOPLASTIN TIME 41.4 SEC (23.5-35.8); PROTHROMBIN TIME 22.9 SEC (11.4-15.4)
[2017-09-20 13:28] LABS: D-DIMER 6.48 ug/mL (0.00-0.50)
[2017-09-20] MEDS ORDERED: MIDODRINE HCL 5 MG TABLET PO SCH (14:00)
[2017-09-20 16:02] VITALS: BP 88/42
--- NOTE | 2017-09-20 17:53 | PDOC TRANSFER SUMMARY ---
General Admission Date/PCP: 09/15/17 17:25 CHANEL CYR PA-C - Transfer Diagnosis (1) ESRD (end stage renal disease) Is this a current diagnosis for this admission?: Yes (2) Anemia Is this a current diagnosis for this admission?: Yes (3) DVT prophylaxis Is this a current diagnosis for this admission?: Yes (4) Hepatitis C Is this a current diagnosis for this admission?: Yes (5) Thrombocytopenia Is this a current diagnosis for this admission?: Yes (6) Ascites Is this a current diagnosis for this admission?: Yes (8) Liver cirrhosis Is this a current diagnosis for this admission?: Yes (9) Morbid obesity Is this a current diagnosis for this admission?: Yes (10) Portal hypertension Is this a current diagnosis for this admission?: Yes (12) Fever Is this a current diagnosis for this admission?: Yes - Transfer Medications Home Medications: Clonazepam [Klonopin] 0.5 mg PO Q12 09/14/17 Furosemide [Lasix 40 mg Tablet] 40 mg PO BID 09/14/17 Insulin Aspart [Novolog Flexpen] 10 unit SQ BIDBS 09/14/17 NPH, Human Insulin Isophane [Novolin N (NPH) Insulin 100 unit/mL] 12 unit SQ BID @0600,1800 09/14/17 Omeprazole 20 mg PO ACBRKFST 09/14/17 Propranolol HCl [Inderal 20 mg Tablet] 20 mg PO Q12 09/14/17 Quetiapine Fumarate [Quetiapine Fumarate ER] 400 mg PO QHS 09/14/17 Transfer Medications: Current Medications Acetaminophen (Tylenol 325 Mg Tablet) 650 mg PO Q4HP PRN PRN Reason: pain\\fever Stop: 10/14/17 17:02 Last Admin: 09/20/17 14:30 Dose: 650 mg Benzonatate (Tessalon Perles 100 Mg Capsule) 100 mg PO Q8HP PRN PRN Reason: COUGH Stop: 10/19/17 12:37 Last Admin: 09/19/17 17:32 Dose: 100 mg Clonazepam (Klonopin 1 Mg Tablet) 0.5 mg PO Q12 SUBHASH Stop: 09/22/17 21:59 Last Admin: 09/20/17 13:02 Dose: 0.5 mg Dextrose (Dextrose Inj 50% Syringe (25 Gm/50 Ml)) 12.5 gm IV PRN PRN; Protocol PRN Reason: FOR BG 50-69 IN ALERT PATIENT Stop: 10/15/17 05:43 Dextrose (Dextrose Inj 50% Syringe (25 Gm/50 Ml)) 25 gm IV PRN PRN PRN Reason: Protocol Stop: 10/15/17 05:43 Glucagon (Glucagen Inj 1 Mg Vial) 1 mg IM PRN PRN; Protocol PRN Reason: Evaluate for BG < 70 Stop: 10/15/17 05:43 Glucose (Glutose 40% Gel 15 Gm Tube) 15 gm PO PRN PRN; Protocol PRN Reason: FOR BG 50-69 IN ALERT PATIENT Stop: 10/15/17 05:43 Glucose (Glutose 40% Gel 15 Gm Tube) 30 gm PO PRN PRN; Protocol PRN Reason: FOR BG < 50 IN ALERT PATIENT Stop: 10/15/17 05:43 Heparin Sodium (Porcine) (Heparin Flush 10 Unit/Ml 5 Ml Disp.Syrg) 30 unit IV Q8 SUBHASH Stop: 10/20/17 13:59 Last Admin: 09/20/17 13:10 Dose: Not Given Heparin Sodium (Porcine) (Heparin Flush 10 Unit/Ml 5 Ml Disp.Syrg) 30 unit IV .AFTER EACH USE PRN PRN Reason: AFTER EACH INTERMITTENT USE Stop: 10/20/17 09:44 Vancomycin HCl 750 mg/ (Dextrose) 250 mls @ 166.667 mls/hr IV [facility] Stop: 09/27/17 17:59 Cefepime HCl (Maxipime Rtu 1 Gm/D5w 50 Ml Premix Bag) 1 gm in 50 mls @ 100 mls/ hr IV [facility]PM [facility] Stop: 09/27/17 17:59 Sodium Citrate 0.2 gm/ SYRINGE (, DISPOSABLE,) 5 mls @ 0 mls/hr IV .DIALYSIS PRN; As Directed PRN Reason: THIS MED IS NOT "PRN" Stop: 09/20/17 23:59 Last Admin: 09/20/17 12:48 Dose: 0.2 gm Sodium Chloride (Nacl 0.9% 250 Ml Iv Soln) 250 mls @ 30 mls/hr IV .DURING TRANSFUSION PRN PRN Reason: THIS MED IS NOT "PRN" Stop: 09/21/17 12:18 Sodium Chloride (Nacl 0.9% 250 Ml Iv Soln) 250 mls @ 0 mls/hr IV CONTINUOUS PRN ; As Directed PRN Reason: AFTER EACH UNIT Stop: 09/21/17 12:18 Insulin Glargine (Lantus Insulin Inj 300 Unit/3 Ml Pen) 50 unit SUBCUT [facility]ILY [facility] Stop: 10/18/17 17:06 Last Admin: 09/20/17 10:33 Dose: Not Given Insulin Human Lispro (Humalog Insulin 100 Unit/1 Ml 3 Ml Vial) 0 - 12 unit SUBCUT Q6HP PRN PRN Reason: Protocol Stop: 10/15/17 05:43 Last Admin: 09/20/17 00:46 Dose: 2 unit Insulin Human Lispro (Humalog Insulin 100 Unit/1 Ml 3 Ml Vial) 15 unit SUBCUT [facility] Stop: 10/19/17 07:59 Last Admin: 09/20/17 16:55 Dose: 15 unit Nystatin (Mycostatin Cream 15 Gm) 1 applic TP BID [facility] Stop: 09/27/17 17:59 Oxycodone HCl (Oxy-Ir 5 Mg Tablet) 5 mg PO Q4HP PRN Stop: 09/26/17 17:14 Last Admin: 09/19/17 17:32 Dose: 5 mg Promethazine HCl (Phenergan Inj 25 Mg/1 Ml Vial) 6.25 mg IV Q4HP PRN PRN Reason: UNRELIEVED N/V Stop: 10/19/17 12:37 Quetiapine Fumarate (Seroquel 100 Mg Tablet) 200 mg PO Q12 SUBHASH Stop: 10/16/17 21:59 Last Admin: 09/20/17 13:03 Dose: 200 mg - Allergies Allergies/Adverse Reactions: No Known Allergies Allergy (Verified 04/19/17 19:03) - Diet/Activity Discharge Diet: Cardiac, Other (Comments) - Renal Hospital Course Hospital Course: Patient is a 47-year-old female with a history of hepatitis C, portal hypertension, type 2 diabetes, end-stage renal disease started on hemodialysis this admission, liver cirrhosis. Patient was directly admitted from Dr. Solares' s office to initiate hemodialysis. Patient had a trial since catheter placed in her right femoral on 09/15. Patient did undergo dialysis on 09/15/2017. Patient dialysis catheter soon clotted off and the dialysis catheter was exchanged on 09/20. Patient was also found to have ascites for which she underwent paracentesis on 09/15/2017. 6 L of fluid was removed. Patient appeared to be somewhat stable although in serious condition over the last several days however on 09/19/2017 patient spiked a temp with a T-max of 102.8. Workup for sepsis was started. Blood cultures are now growing gram-positive positive cocci in 2 bottles on 09/20/2017. Repeat cultures drawn on 09/20/17. Patient was already started on vancomycin and cefepime, when these cultures returned. Patient was also found to be neutropenic with a WBC of 1000 and absolute neutrophil count of 500. Patient also thrombocytopenic with platelets of 15,000. Patient was given 1 unit of platelets, after which her platelets went from 14 to 15,000. Patient was given another unit of platelets afterwards. These note that patient platelets have been steadily trending down since 09/15 at which time they were only 58,000. Patient was evaluated by gastroenterology on 09/19/2017 who recommended patient have a repeat paracentesis however this was not completed due to patient's thrombocytopenia. Patient decompensated hepatic failure, GPC bacteremia, neutropenia, fever and thrombocytopenia is concerning. Furthermore, the patient may be going into DIC. Patient PT is up to 22.9 from 17.7, INR is up to 1.90 from 1.36, PTT is up to 41.4 from 33.3, fibrinogen is 229 and fibrinogen degradation products are 10-40 patient d-dimer is 6.48. Unfortunately we do not have GI to assist with caring for the patient. Nephrology does not feel that patient is stable for dialysis due to her thrombocytopenia. Patient creatinine is currently 5.49. Patient appears to be gradually declining and at this time we have used our last unit of platelets. Patient condition is more than can be treated at this facility and [facility] has accepted this patient in transfer to assist with her care. Physical Exam Vital Signs: Temp Pulse Resp BP Pulse Ox 99.5 F 101 H 28 H 88/42 L 97 09/20/17 15:50 09/20/17 15:50 09/20/17 15:50 09/20/17 15:50 09/20/17 15:50 Intake & Output 09/19/17 09/20/17 09/21/17 06:59 06:59 06:59 Intake Total 446 881 546 Output Total 0 400 Balance 446 481 546 Weight 111.3 kg 112.3 kg General appearance: PRESENT: no acute distress, morbidly obese Head exam: PRESENT: normocephalic Eye exam: PRESENT: EOMI. ABSENT: scleral icterus Ear exam: PRESENT: normal external ear exam Mouth exam: PRESENT: moist Neck exam: ABSENT: carotid bruit, JVD, lymphadenopathy, thyromegaly Respiratory exam: PRESENT: clear to auscultation bria. ABSENT: rales, rhonchi, wheezes Cardiovascular exam: PRESENT: RRR. ABSENT: diastolic murmur, rubs, systolic murmur Pulses: PRESENT: normal dorsalis pedis pul Vascular exam: PRESENT: normal capillary refill GI/Abdominal exam: PRESENT: normal bowel sounds, soft. ABSENT: distended, guarding, mass, organolmegaly, rebound, tenderness Rectal exam: PRESENT: deferred Extremities exam: PRESENT: full ROM. ABSENT: calf tenderness, clubbing, pedal edema Neurological exam: PRESENT: alert, awake, oriented to person, oriented to place , oriented to time, oriented to situation, CN II-XII grossly intact. ABSENT: motor sensory deficit Psychiatric exam: PRESENT: appropriate affect, normal mood. ABSENT: homicidal ideation, suicidal ideation Skin exam: PRESENT: dry, intact, warm. ABSENT: cyanosis, rash Results Laboratory Results: 09/20/17 10:59 09/20/17 04:20 09/19/17 09/20/17 09/20/17 10:18 04:20 04:20 WBC 2.0 L RBC 2.60 L Hgb 8.5 L Hct 24.1 L MCV 93 MCH 32.6 MCHC 35.2 RDW 16.0 H Plt Count 14 L* Seg Neutrophils % Not Reportable Lymphocytes % Not Reportable Monocytes % Not Reportable Eosinophils % Not Reportable Basophils % Not Reportable Absolute Neutrophils Not Reportable Absolute Lymphocytes Not Reportable Absolute Monocytes Not Reportable Absolute Eosinophils Not Reportable Absolute Basophils Not Reportable Sodium 138.4 Potassium 3.5 L Chloride 103 Carbon Dioxide 22 Anion Gap 13 BUN 50 H Creatinine 5.49 H Est GFR ( Amer) 10 L Est GFR (Non-Af Amer) 8 L Glucose 156 H Calcium 8.4 Phosphorus 3.3 Magnesium 1.7 Urine Color Urine Appearance Urine pH Ur Specific [place] Urine Protein Urine Glucose (UA) Urine Ketones Urine Blood Urine Nitrite Ur Leukocyte Esterase Urine WBC (Auto) Urine RBC (Auto) Blood Type O POSITIVE 09/20/17 09/20/17 09:25 10:59 WBC 1.0 L* RBC 2.58 L Hgb 8.3 L Hct 23.9 L MCV 93 MCH 32.1 MCHC 34.7 RDW 15.9 H Plt Count 15 L* Seg Neutrophils % Not Reportable Lymphocytes % Not Reportable Monocytes % Not Reportable Eosinophils % Not Reportable Basophils % Not Reportable Absolute Neutrophils Not Reportable Absolute Lymphocytes Not Reportable Absolute Monocytes Not Reportable Absolute Eosinophils Not Reportable Absolute Basophils Not Reportable Sodium Potassium Chloride Carbon Dioxide Anion Gap BUN Creatinine Est GFR ( Amer) Est GFR (Non-Af Amer) Glucose Calcium Phosphorus Magnesium Urine Color [place] Urine Appearance CLOUDY Urine pH 5.0 Ur Specific Hamilton 1.015 Urine Protein NEGATIVE Urine Glucose (UA) NEGATIVE Urine Ketones NEGATIVE Urine Blood MODERATE H Urine Nitrite NEGATIVE Ur Leukocyte Esterase NEGATIVE Urine WBC (Auto) 3 Urine RBC (Auto) 34 Blood Type Impressions: Paracentesis Ultrasound 09/15/17 00:00 IMPRESSION: Successful ultrasound-guided diagnostic and therapeutic paracentesis Abdomen X-Ray 09/18/17 00:00 IMPRESSION: Splenomegaly. Chest X-Ray 09/19/17 00:00 IMPRESSION: No acute infiltrates Plan Time Spent: Greater than 30 Minutes - Patient being transferred to [facility] for further treatment and evaluation. Patient was accepted by Dr. Treadwell.
[2017-09-20] MEDS ORDERED: VANCOMYCIN HCL 750 MG in DEXTROSE 5%-WATER 250 ML IV SCH (18:00)
[2017-09-20] MEDS ORDERED: NYSTATIN CREAM 15 GM TP SCH (18:00)
[2017-09-20] MEDS ORDERED: CEFEPIME 1 GM/D5W RTU 1 GM/50 ML RTUPB IV SCH (18:00)
--- NOTE | 2017-09-20 18:56 | XCELERA REPORT ---
[address] [address] Transthoracic Echocardiogram Report Name: HUMBERTO KAY Age: 47 yrs Gender: Female : 1970 Patient Status: Inpatient Patient Location: [address] [place] [address] Study Date: 09/20/2017 11:07 AM Height: 64 in Weight: 247 lb BSA: 2.1 m2 Procedure: A complete two-dimensional transthoracic echocardiogram was performed (2D, M-mode, spectral and color flow Doppler). The study was technically difficult with many images being suboptimal in quality. Reason For Study: bacteremia Ordering Physician: JOSE CARPENTER Performed By: Gladis Meza Interpretation Summary The study was technically difficult with many images being suboptimal in quality. The left ventricular ejection fraction is normal. There is borderline concentric left ventricular hypertrophy. The left ventricle is grossly normal size. Doppler measurements suggest pseudonormalized left ventricular relaxation, which is associated with grade II/IV or mild to moderate diastolic dysfunction Wall motion cannot be accurately commented on, but no definite regional wall motion abnormalities noted. The right ventricular systolic function is normal. The left atrial size is normal. The right atrium is normal in size There is a trace to mild amount of mitral regurgitation There is no mitral valve stenosis. There is a trace amount of aortic regurgitation There is no aortic valve stenosis There is a trace or physiologic amount of tricuspid regurgitation There is no tricuspid stenosis. The aortic root is not well visualized. The inferior vena cava was not well visualized Minimal pericardial effusion. MMode/2D Measurements & Calculations RVDd: 3.5 cm LVIDd: 4.0 cm FS: 33.4 % Ao root diam: 2.7 cm IVSd: 1.1 cm LVIDs: 2.7 cm EDV(Teich): 69.5 ml LVPWd: 1.1 cm ESV(Teich): 26.0 ml Ao root area: 5.9 cm2 EF(Teich): 62.6 % LA dimension: 3.6 cm Doppler Measurements & Calculations MV E max marce: MV P1/2t max marce: Ao V2 max: LV V1 max P.2 cm/sec 97.2 cm/sec 168.3 cm/sec 5.8 mmHg MV A max marce: MV P1/2t: 56.3 msec Ao max PG: LV V1 max: 115.0 cm/sec 11.3 mmHg 120.4 cm/sec MV E/A: 0.85 MVA(P1/2t): 3.9 cm2 MV dec slope: 506.2 cm/sec2 PA V2 max: 107.6 cm/sec PA max P.6 mmHg Left Ventricle The left ventricle is grossly normal size. There is borderline concentric left ventricular hypertrophy. The left ventricular ejection fraction is normal. Doppler measurements suggest pseudonormalized left ventricular relaxation, which is associated with grade II/IV or mild to moderate diastolic dysfunction. Wall motion cannot be accurately commented on, but no definite regional wall motion abnormalities noted. Right Ventricle The right ventricle is borderline dilated. There is normal right ventricular wall thickness. The right ventricular systolic function is normal. Atria The right atrium is normal in size. The left atrial size is normal. Interarterial septum not well visualized and not well dopplered. Cannot comment on ASD/PFO presence. Mitral Valve The mitral valve is grossly normal. There is no mitral valve stenosis. There is a trace to mild amount of mitral regurgitation. Aortic Valve The aortic valve opens well. There is no aortic valve stenosis. There is a trace amount of aortic regurgitation. Tricuspid Valve The tricuspid valve is not well visualized secondary to technical limitations. There is no tricuspid stenosis. There is a trace or physiologic amount of tricuspid regurgitation. Pulmonic Valve The pulmonic valve is not well visualized. Great Vessels The aortic root is not well visualized. The inferior vena cava was not well visualized. Effusions Minimal pericardial effusion. : JOSE CARPENTER Shyamal
[2017-09-21] MEDS ORDERED: FLUCONAZOLE 100 MG TABLET PO SCH (10:00)
== END 2017-09-20 17:30 | disposition short-term general hospital (02) | DRG 682 ==
LOC: 4W 16:11 → 4N 09-15 15:30 → OBSVTOIN 09-15 17:25
PROVIDERS: ADMIT Emergency Medicine; ATTEND Emergency Medicine
PROC: 06HY33Z Insertion of Infusion Device into Lower Vein, Percutaneous Approach (ICD-10-PCS; principal; 2017-09-15)
PROC: 0W9G3ZX Drainage of Peritoneal Cavity, Percutaneous Approach, Diagnostic (ICD-10-PCS; 2017-09-15)
PROC: 5A1D70Z Performance of Urinary Filtration, Intermittent, Less than 6 Hours Per Day (ICD-10-PCS; 2017-09-15)
PROC: 5A1D70Z Performance of Urinary Filtration, Intermittent, Less than 6 Hours Per Day (ICD-10-PCS; 2017-09-18)
DX: I12.0 Hypertensive chronic kidney disease with stage 5 chronic kidney disease or end stage renal disease (principal); N18.6 End stage renal disease; Z68.41 Body mass index [BMI] 40.0-44.9, adult; K76.6 Portal hypertension; R18.8 Other ascites; D63.1 Anemia in chronic kidney disease; B19.20 Unspecified viral hepatitis C without hepatic coma; K74.60 Unspecified cirrhosis of liver; D69.6 Thrombocytopenia, unspecified; K76.0 Fatty (change of) liver, not elsewhere classified; E78.5 Hyperlipidemia, unspecified; K21.9 Gastro-esophageal reflux disease without esophagitis; F31.9 Bipolar disorder, unspecified; F41.9 Anxiety disorder, unspecified; E66.01 Morbid (severe) obesity due to excess calories; Z79.4 Long term (current) use of insulin; Z79.899 Other long term (current) drug therapy; Z90.49 Acquired absence of other specified parts of digestive tract; Z90.710 Acquired absence of both cervix and uterus; Z87.891 Personal history of nicotine dependence
CPT/HCPCS: 36415; 36430; 36556; 49083; 71010; 74020; 76937; 80048; 80053; 80074; 81001; 82140; 82570; 82962; 83735; 83935; 84100; 84300; 85025; 85362; 85379; 85384; 85610; 85730; 86900; 86901; 87040; 87070; 87075; 87077; 87186; 87205; 87340; 89050; 93306; C1752; C1769; G0378; G0379; J0692; J1644; J1815; J2405; J3370; J3430; J3490; J7060; P9035; P9047; Q4081

== ENCOUNTER → 2017-10-10 | Outpatient (CLI) | payer MEDICARE, MEDICAID ==
[2017-10-10 13:36] LABS: ABSOLUTE EOSINOPHILS # (AUTO) 0.2 10^3/uL (0.0-0.6); ABSOLUTE LYMPHOCYTES (AUTO) 0.9 10^3/uL (0.5-4.7); ABSOLUTE MONOCYTES (AUTO) 0.2 10^3/uL (0.1-1.4); BASOPHILS % (AUTO) 0.8 % (0-2); EOSINOPHILS % (AUTO) 5.7 % (0-6); HEMOGLOBIN 10.3 g/dL (12.0-15.5); HGB HCT DIFFERENCE 0.9; LYMPHOCYTES % (AUTO) 26.6 % (13-45); MEAN CORPUSCULAR HEMOGLOBIN 31.7 pg (27.0-33.4); MEAN CORPUSCULAR HGB CONC 34.3 g/dL (32.0-36.0); MEAN CORPUSCULAR VOLUME 92 fl (80-97); MONOCYTES % (AUTO) 6.6 % (3-13); RED BLOOD COUNT 3.25 10^6/uL (3.72-5.28); RED CELL DISTRIBUTION WIDTH 17.4 % (11.5-14.0); SEGMENTED NEUTROPHILS % (AUTO) 60.3 % (42-78); WHITE BLOOD COUNT 3.3 10^3/uL (4.0-10.5)
[2017-10-10 13:59] LABS: ANION GAP 18 (5-19); BLOOD UREA NITROGEN 115 mg/dL (7-20); CALCIUM 8.8 mg/dL (8.4-10.2); CARBON DIOXIDE 14 mmol/L (22-30); CHLORIDE 105 mmol/L (98-107); CREATININE RESULT 8.92 mg/dL (0.52-1.25); GLUCOSE 308 mg/dL (75-110); POTASSIUM 4.4 mmol/L (3.6-5.0); SODIUM 136.8 mmol/L (137-145)
== END ==
LOC: OD 11:42
PROVIDERS: ATTEND Physician Assistant Medical
DX: I12.0 Hypertensive chronic kidney disease with stage 5 chronic kidney disease or end stage renal disease (principal); N18.5 Chronic kidney disease, stage 5; E11.9 Type 2 diabetes mellitus without complications; D64.9 Anemia, unspecified
CPT/HCPCS: 36415; 80048; 85025

== ENCOUNTER → 2017-10-20 | Outpatient (CLI) | payer MEDICARE, MEDICAID ==
[2017-10-20 09:53] LABS: ABSOLUTE EOSINOPHILS # (AUTO) 0.6 10^3/uL (0.0-0.6); ABSOLUTE LYMPHOCYTES (AUTO) 1.4 10^3/uL (0.5-4.7); ABSOLUTE MONOCYTES (AUTO) 0.5 10^3/uL (0.1-1.4); ABSOLUTE NEUT (AUTO) 4.3 10^3/uL (1.7-8.2); BASOPHILS % (AUTO) 0.6 % (0-2); EOSINOPHILS % (AUTO) 8.4 % (0-6); HEMATOCRIT 37.9 % (36.0-47.0); HEMOGLOBIN 12.7 g/dL (12.0-15.5); HGB HCT DIFFERENCE 0.2; LYMPHOCYTES % (AUTO) 20.3 % (13-45); MEAN CORPUSCULAR HEMOGLOBIN 31.6 pg (27.0-33.4); MEAN CORPUSCULAR HGB CONC 33.4 g/dL (32.0-36.0); MEAN CORPUSCULAR VOLUME 95 fl (80-97); MONOCYTES % (AUTO) 7.7 % (3-13); PROTHROMBIN TIME 17.2 SEC (11.4-15.4); RED CELL DISTRIBUTION WIDTH 18.1 % (11.5-14.0); WHITE BLOOD COUNT 6.8 10^3/uL (4.0-10.5)
[2017-10-20 09:57] LABS: AMORPHOUS SEDIMENT,URINE TRACE /HPF; APPEARANCE,URINE SLIGHTLY-CLOUDY; BILIRUBIN,URINE NEGATIVE (NEGATIVE); GLUCOSE, URINE >=500 mg/dL (NEGATIVE); KETONES,URINE NEGATIVE (NEGATIVE); LEUKOCYTE ESTERASE,URINE NEGATIVE (NEGATIVE); NITRITE,URINE NEGATIVE (NEGATIVE); PROTEIN,URINE 30 mg/dL (NEGATIVE); URINE SPECIFIC GRAVITY 1.011; UROBILINOGEN,URINE NEGATIVE mg/dL (<2.0)
[2017-10-20 10:04] LABS: ALANINE AMINOTRANSFERASE 12 U/L (9-52); ALKALINE PHOSPHATASE 233 U/L (38-126); ANION GAP 15 (5-19); ASPARTATE AMINO TRANSFERASE 39 U/L (14-36); BILIRUBIN,DIRECT 0.9 mg/dL (0.0-0.4); BILIRUBIN,TOTAL 1.9 mg/dL (0.2-1.3); BLOOD UREA NITROGEN 100 mg/dL (7-20); CALCIUM 8.6 mg/dL (8.4-10.2); CARBON DIOXIDE 20 mmol/L (22-30); CHLORIDE 101 mmol/L (98-107); CREATININE RESULT 7.43 mg/dL (0.52-1.25); PHOSPHORUS 7.8 mg/dL (2.5-4.5); POTASSIUM 3.8 mmol/L (3.6-5.0); SODIUM 135.7 mmol/L (137-145); TOTAL PROTEIN 6.3 g/dL (6.3-8.2)
[2017-10-20 10:21] LABS: GLUCOSE 412 mg/dL (75-110)
== END ==
LOC: OD 09:18
PROVIDERS: ATTEND Physician Assistant Medical
DX: N18.5 Chronic kidney disease, stage 5 (principal); I12.9 Hypertensive chronic kidney disease with stage 1 through stage 4 chronic kidney disease, or unspecified chronic kidney disease; D61.818 Other pancytopenia
CPT/HCPCS: 36415; 80053; 81001; 83970; 84100; 85025; 85610; 85730

== ENCOUNTER 2017-11-09 12:46 | Emergency (ER) | payer MEDICARE, MEDICAID ==
[2017-11-09 17:09] LABS: ABSOLUTE BASOPHILS # (AUTO) 0.1 10^3/uL (0.0-0.2); ABSOLUTE EOSINOPHILS # (AUTO) 0.4 10^3/uL (0.0-0.6); ABSOLUTE LYMPHOCYTES (AUTO) 1.6 10^3/uL (0.5-4.7); ABSOLUTE MONOCYTES (AUTO) 0.6 10^3/uL (0.1-1.4); BASOPHILS % (AUTO) 1.1 % (0-2); EOSINOPHILS % (AUTO) 5.4 % (0-6); HEMATOCRIT 32.2 % (36.0-47.0); HEMOGLOBIN 11.2 g/dL (12.0-15.5); LYMPHOCYTES % (AUTO) 24.7 % (13-45); MEAN CORPUSCULAR HEMOGLOBIN 32.1 pg (27.0-33.4); MEAN CORPUSCULAR HGB CONC 34.7 g/dL (32.0-36.0); MEAN CORPUSCULAR VOLUME 92 fl (80-97); MONOCYTES % (AUTO) 8.7 % (3-13); RED BLOOD COUNT 3.49 10^6/uL (3.72-5.28); RED CELL DISTRIBUTION WIDTH 15.7 % (11.5-14.0); SEGMENTED NEUTROPHILS % (AUTO) 60.1 % (42-78); TOTAL CELLS COUNTED % (AUTO) 100 %; WHITE BLOOD COUNT 6.6 10^3/uL (4.0-10.5)
[2017-11-09 17:19] LABS: INTERNATIONAL RATION (INR) 1.45; PROTHROMBIN TIME 18.5 SEC (11.4-15.4)
[2017-11-09 17:27] LABS: PLATELET COUNT 49 10^3/uL (150-450)
[2017-11-09 17:36] LABS: ALANINE AMINOTRANSFERASE 20 U/L (9-52); ALBUMIN 2.9 g/dL (3.5-5.0); ALKALINE PHOSPHATASE 166 U/L (38-126); ANION GAP 13 (5-19); ASPARTATE AMINO TRANSFERASE 35 U/L (14-36); BILIRUBIN,DIRECT 1.2 mg/dL (0.0-0.4); BILIRUBIN,TOTAL 2.4 mg/dL (0.2-1.3); BLOOD UREA NITROGEN 83 mg/dL (7-20); CALCIUM 8.7 mg/dL (8.4-10.2); CARBON DIOXIDE 23 mmol/L (22-30); CHLORIDE 101 mmol/L (98-107); GLUCOSE 319 mg/dL (75-110); POTASSIUM 3.1 mmol/L (3.6-5.0); SODIUM 137.2 mmol/L (137-145)
--- NOTE | 2017-11-09 19:08 | ER Document Report ---
ED General - General Chief Complaint: Abdominal Swelling Stated Complaint: ABDOMINAL SWELLING Time Seen by Provider: 11/09/17 19:06 Notes: 47-year-old female past medical history hepatic encephalopathy here with complaints of abdominal swelling ongoing for the past few weeks but progressively worsening. She states she does not have any abdominal pain or back pain unless she was laying flat in which case her abdominal pain and back pain starts up again. TRAVEL OUTSIDE OF THE [place] IN LAST 30 DAYS: No - Related Data Allergies/Adverse Reactions: No Known Allergies Allergy (Verified 11/09/17 12:46) Past Medical History - Social History Smoking Status: Never Smoker Frequency of alcohol use: None Drug Abuse: None Family History: Reviewed & Not Pertinent Patient has suicidal ideation: No Patient has homicidal ideation: No - Past Medical History Cardiac Medical History: Reports: Hx Hypercholesterolemia, Hx Hypertension Denies: Hx Coronary Artery Disease, Hx Heart Attack Pulmonary Medical History: Denies: Hx Asthma, Hx Bronchitis, Hx COPD, Hx Pneumonia, Hx Tuberculosis Neurological Medical History: Denies: Hx Cerebrovascular Accident, Hx Seizures Endocrine Medical History: Reports: Hx Diabetes Mellitus Type 2 Renal/ Medical History: Reports: Hx End Stage Renal Disease, Hx Kidney Stones - 2011, Hx Renal Insufficiency. Denies: Hx Peritoneal Dialysis GI Medical History: Reports: Hx Cirrhosis - Due to fatty liver disease, Hx Gastroesophageal Reflux Disease, Hx Liver Failure. Denies: Hx Hepatitis - C Musculoskeltal Medical History: Reports Hx Arthritis - spine Psychiatric Medical History: Reports: Hx Anxiety, Hx Bipolar Disorder, Hx Depression - & anxiety Infectious Medical History: Denies: Hx Hepatitis - C Past Surgical History: Reports: Hx Cholecystectomy - 2011, Hx Hysterectomy - Immunizations Hx Diphtheria, Pertussis, Tetanus Vaccination: Yes Hx Pneumococcal Vaccination: 09/03/12 Review of Systems - Review of Systems Notes: See history of present illness for pertinent positive review of systems; otherwise all review of systems have been reviewed and are negative Physical Exam - Vital signs Vitals: Temp Pulse Resp BP Pulse Ox 98.0 F 76 18 108/57 L 100 11/09/17 12:57 11/09/17 12:57 11/09/17 12:57 11/09/17 12:57 11/09/17 12:57 - Notes Notes: PHYSICAL EXAMINATION: GENERAL: Well-appearing and in no acute distress. HEAD: Atraumatic, normocephalic. EYES: Pupils equal round and reactive to light, extraocular movements intact, sclera anicteric, conjunctiva are normal. ENT: nares patent, oropharynx clear without exudates. Moist mucous membranes. NECK: Normal range of motion, supple without lymphadenopathy LUNGS: CTAB and equal. No wheezes rales or rhonchi. HEART: Regular rate and rhythm without murmurs ABDOMEN: Soft, no tenderness. Moderate distention. No guarding, no rebound EXTREMITIES: Normal range of motion, no pitting edema. No cyanosis. NEUROLOGICAL: Cranial nerves grossly intact. Normal sensory/motor exams. PSYCH: Normal mood, normal affect. SKIN: Warm, Dry, normal turgor, no rashes or lesions noted Course - Re-evaluation Re-evalutation: 11/09/17 19:35 MEDICAL DECISION MAKING: Concern for abdominal ascites secondary to liver disease Will obtain blood work and discuss possible paracentesis Patient understands and agrees to the plan of care 11/09/17 20:32 Results unchanged from previous blood work results Patient does not want to be admitted and stay overnight I have printed an order form for her to receive outpatient paracentesis tomorrow She will come back tomorrow and have this performed outpatient - Vital Signs Vital signs: Temp Pulse Resp BP Pulse Ox 98.6 F 75 18 104/59 L 100 11/09/17 17:55 11/09/17 17:55 11/09/17 17:55 11/09/17 17:55 11/09/17 17:55 - Laboratory Result Diagrams: 11/09/17 16:50 11/09/17 16:50 Laboratory results interpreted by me: 11/09/17 11/09/17 11/09/17 16:50 16:50 16:50 RBC 3.49 L Hgb 11.2 L Hct 32.2 L RDW 15.7 H Plt Count 49 L PT 18.5 H Potassium 3.1 L BUN 83 H Creatinine 5.23 H Est GFR ( Amer) 11 L Est GFR (Non-Af Amer) 9 L Glucose 319 H Total Bilirubin 2.4 H Direct Bilirubin 1.2 H Alkaline Phosphatase 166 H Total Protein 6.0 L Albumin 2.9 L Urine Blood Urine Urobilinogen Ur Leukocyte Esterase 11/09/17 19:04 RBC Hgb Hct RDW Plt Count PT Potassium BUN Creatinine Est GFR ( Amer) Est GFR (Non-Af Amer) Glucose Total Bilirubin Direct Bilirubin Alkaline Phosphatase Total Protein Albumin Urine Blood SMALL H Urine Urobilinogen 2.0 H Ur Leukocyte Esterase TRACE H Discharge - Discharge Clinical Impression: Abdominal swelling, generalized Condition: Good Disposition: HOME, SELF-CARE Additional Instructions: Please take the outpatient radiology order that was given to you and go to the outpatient radiology department to have the paracentesis performed. Forms: Follow-Up Radiology Testing Referrals: NGA STUBBS MD [Primary Care Provider] - Follow up as needed
[2017-11-09 19:29] LABS: APPEARANCE,URINE SLIGHTLY-CLOUDY; BILIRUBIN,URINE NEGATIVE (NEGATIVE); COLOR,URINE YELLOW; GLUCOSE, URINE NEGATIVE (NEGATIVE); KETONES,URINE NEGATIVE (NEGATIVE); LEUKOCYTE ESTERASE,URINE TRACE (NEGATIVE); NITRITE,URINE NEGATIVE (NEGATIVE); PROTEIN,URINE NEGATIVE (NEGATIVE); URINE SPECIFIC GRAVITY 1.012
[2017-11-09 20:44] VITALS: BP 116/63
== END 2017-11-09 20:41 | disposition home or self-care (01) ==
LOC: ER 12:46
DX: R19.07 Generalized intra-abdominal and pelvic swelling, mass and lump (principal); E78.00 Pure hypercholesterolemia, unspecified; I10 Essential (primary) hypertension; E11.22 Type 2 diabetes mellitus with diabetic chronic kidney disease; I12.0 Hypertensive chronic kidney disease with stage 5 chronic kidney disease or end stage renal disease; N18.6 End stage renal disease; K74.69 Other cirrhosis of liver; K76.0 Fatty (change of) liver, not elsewhere classified; Z87.442 Personal history of urinary calculi; Z90.49 Acquired absence of other specified parts of digestive tract; Z90.710 Acquired absence of both cervix and uterus
CPT/HCPCS: 36415; 80053; 81001; 81025; 85025; 85610; 85730; 99284

== ENCOUNTER 2017-11-10 09:07 | Day surgery (SDC) | payer MEDICARE, MEDICAID ==
[2017-11-10] MEDS ORDERED: ALBUMIN HUMAN 250 ML IV PRN (09:40)
--- NOTE | 2017-11-10 15:15 | RADIOLOGY REPORT (SQ) ---
EXAM DESCRIPTION: U/S ABD PARACENTESIS COMPLETED DATE/TIME: 11/10/2017 1:25 pm REASON FOR STUDY: ASCITES COMPARISON Multiple previous, most recently 09/15/2017 LIMITATIONS: None. PROCEDURE: After obtaining informed consent, the patient was brought to the ultrasound suite. The p rocedure was performed with the patient on a gurney. Ultrasound was used to identify a prominent poc ket of ascites in the right lower quadrant. An appropriate access site was selected. The patient wa s prepped and draped in usual sterile fashion. The access site was anesthetized with 10 mL 1% lidoc olaf. A [id number] needle was advanced into the fluid. After aspiration of fluid the needle, t he catheter was advanced off the needle into the fluid. A total of 8,000 mL of clear straw-colored f luid was removed. The patient tolerated the procedure well left the department in satisfactory condit ion. Patient was given IV albumin. No fluid was sent for testing IMPRESSION: Successful ultrasound-guided therapeutic only paracentesis COMMENT: Patient medication list reviewed: Yes- Quality ID# [id number]:Eligible professional attests to doc umenting in the medical record they obtained, updated, or reviewed the patient's current medications. Quality ID #[id number]: The patient was prepped and draped using maximum sterile barrier technique including cap, mask, sterile gown, sterile gloves, a large sterile sheet, hand hygiene, and 2% Chlorhexidine fo r cutaneous antisepsis. When ultrasound is used, sterile ultrasound techniques are followed requiring sterile gel and sterile probes. Quality ID #[id number]: Final reports for procedures using fluoroscopy that document radiation exposure antoinette hubert, or exposure time and number of fluorographic images (if radiation exposure indices are not avail able) TECHNICAL DOCUMENTATION: JOB ID: [id number] [employer]- All Rights Reserved
[2017-11-10 16:20] VITALS: BP 102/58
== END 2017-11-10 14:25 | disposition home or self-care (01) ==
LOC: RAD 09:07
PROVIDERS: ATTEND Internal Medicine Gastroenterology
PROC: 0W9G3ZZ Drainage of Peritoneal Cavity, Percutaneous Approach (ICD-10-PCS; principal; 2017-11-10)
DX: R18.8 Other ascites (principal)
CPT/HCPCS: 82962; 49083; P9047

== ENCOUNTER → 2017-11-30 | Outpatient (CLI) | payer MEDICARE, MEDICAID ==
[2017-11-30 13:00] LABS: APPEARANCE,URINE SLIGHTLY-CLOUDY; BILIRUBIN,URINE NEGATIVE (NEGATIVE); COLOR,URINE YELLOW; GLUCOSE, URINE NEGATIVE (NEGATIVE); KETONES,URINE NEGATIVE (NEGATIVE); LEUKOCYTE ESTERASE,URINE NEGATIVE (NEGATIVE); NITRITE,URINE NEGATIVE (NEGATIVE); PROTEIN,URINE NEGATIVE (NEGATIVE); URIC ACID CRYSTALS,URINE FEW /HPF; URINE SPECIFIC GRAVITY 1.012
[2017-11-30 13:00] LABS: ABSOLUTE EOSINOPHILS # (AUTO) 0.1 10^3/uL (0.0-0.6); ABSOLUTE LYMPHOCYTES (AUTO) 0.6 10^3/uL (0.5-4.7); ABSOLUTE MONOCYTES (AUTO) 0.1 10^3/uL (0.1-1.4); ABSOLUTE NEUT (AUTO) 1.3 10^3/uL (1.7-8.2); BASOPHILS % (AUTO) 1.1 % (0-2); EOSINOPHILS % (AUTO) 4.7 % (0-6); HEMATOCRIT 30.9 % (36.0-47.0); HEMOGLOBIN 10.5 g/dL (12.0-15.5); LYMPHOCYTES % (AUTO) 27.3 % (13-45); MEAN CORPUSCULAR HEMOGLOBIN 31.1 pg (27.0-33.4); MEAN CORPUSCULAR VOLUME 92 fl (80-97); MONOCYTES % (AUTO) 5.7 % (3-13); RED BLOOD COUNT 3.38 10^6/uL (3.72-5.28); RED CELL DISTRIBUTION WIDTH 13.6 % (11.5-14.0); SEGMENTED NEUTROPHILS % (AUTO) 61.2 % (42-78); TOTAL CELLS COUNTED % (AUTO) 100 %; WHITE BLOOD COUNT 2.2 10^3/uL (4.0-10.5)
[2017-11-30 13:12] LABS: ANION GAP 12 (5-19); BLOOD UREA NITROGEN 78 mg/dL (7-20); CALCIUM 8.9 mg/dL (8.4-10.2); CARBON DIOXIDE 19 mmol/L (22-30); CHLORIDE 104 mmol/L (98-107); GLUCOSE 207 mg/dL (75-110); PHOSPHORUS 5.2 mg/dL (2.5-4.5); POTASSIUM 3.2 mmol/L (3.6-5.0); SODIUM 134.8 mmol/L (137-145)
[2017-11-30 13:17] LABS: URINE CREATININE 273.9 mg/dL (15-278)
[2017-11-30 13:42] LABS: PLATELET COUNT 25 10^3/uL (150-450)
== END ==
LOC: OD 12:18
PROVIDERS: ATTEND Physician Assistant Medical
DX: I12.0 Hypertensive chronic kidney disease with stage 5 chronic kidney disease or end stage renal disease (principal); N18.5 Chronic kidney disease, stage 5; E11.9 Type 2 diabetes mellitus without complications; E87.2 Acidosis; R18.0 Malignant ascites
CPT/HCPCS: 36415; 80048; 81001; 82570; 83735; 83970; 84100; 84156; 85025

== ENCOUNTER 2017-12-12 06:56 | Day surgery (SDC) | payer MEDICARE, MEDICAID ==
[~2017-12-12 06:56] MED LIST: ALBUMIN HUMAN 200 ML IV PRN
[2017-12-12 08:37] LABS: HEMATOCRIT 29.7 % (36.0-47.0); MEAN CORPUSCULAR HGB CONC 33.8 g/dL (32.0-36.0); MEAN CORPUSCULAR VOLUME 92 fl (80-97); RED BLOOD COUNT 3.24 10^6/uL (3.72-5.28); RED CELL DISTRIBUTION WIDTH 13.7 % (11.5-14.0)
[2017-12-12 08:39] LABS: INTERNATIONAL RATION (INR) 1.41; PROTHROMBIN TIME 18.2 SEC (11.4-15.4)
[2017-12-12 08:40] LABS: PARTIAL THROMBOPLASTIN TIME 34.2 SEC (23.5-35.8)
[2017-12-12 08:53] LABS: BLOOD UREA NITROGEN 82 mg/dL (7-20); GLUCOSE 259 mg/dL (75-110)
[2017-12-12 08:54] LABS: PLATELET COUNT 25 10^3/uL (150-450)
[2017-12-12 15:00] VITALS: BP 112/60
--- NOTE | 2017-12-12 15:58 | RADIOLOGY REPORT (SQ) ---
EXAM DESCRIPTION: U/S ABD PARACENTESIS COMPLETED DATE/TIME: 12/12/2017 2:08 pm REASON FOR STUDY: ASCITES COMPARISON None. LIMITATIONS: None. PROCEDURE: After obtaining informed consent, the patient was brought to the ultrasound suite. The p rocedure was performed with the patient on a gurney. Ultrasound was used to identify a prominent poc ket of ascites in the left lower quadrant. An appropriate access site was selected. The patient was prepped and draped in usual sterile fashion. The access site was anesthetized with 10 mL 1% lidoca ine. A [id number] needle was advanced into the fluid. After aspiration of fluid the needle, th e catheter was advanced off the needle into the fluid. A total of 6,000 mL of straw-colored fluid wa s removed. The patient tolerated the procedure well left the department in satisfactory condition. IMPRESSION: Successful ultrasound-guided paracentesis COMMENT: Patient medication list reviewed: Yes- Quality ID# [id number]:Eligible professional attests to doc umenting in the medical record they obtained, updated, or reviewed the patient's current medications. Quality ID #[id number]: The patient was prepped and draped using maximum sterile barrier technique including cap, mask, sterile gown, sterile gloves, a large sterile sheet, hand hygiene, and 2% Chlorhexidine fo r cutaneous antisepsis. When ultrasound is used, sterile ultrasound techniques are followed requiring sterile gel and sterile probes. Quality ID #[id number]: Final reports for procedures using fluoroscopy that document radiation exposure antoinette hubert, or exposure time and number of fluorographic images (if radiation exposure indices are not avail able) TECHNICAL DOCUMENTATION: JOB ID: [id number] [employer]- All Rights Reserved
== END 2017-12-12 15:00 | disposition home or self-care (01) ==
LOC: RAD 06:56
PROVIDERS: ATTEND Internal Medicine Gastroenterology
PROC: 0W9F3ZZ Drainage of Abdominal Wall, Percutaneous Approach (ICD-10-PCS; principal; 2017-12-12)
DX: K74.60 Unspecified cirrhosis of liver (principal); R18.8 Other ascites; E11.9 Type 2 diabetes mellitus without complications; I10 Essential (primary) hypertension; K21.9 Gastro-esophageal reflux disease without esophagitis; D69.6 Thrombocytopenia, unspecified; K75.81 Nonalcoholic steatohepatitis (NASH); G93.41 Metabolic encephalopathy; E66.09 Other obesity due to excess calories; Z79.4 Long term (current) use of insulin; Z79.01 Long term (current) use of anticoagulants; Z79.899 Other long term (current) drug therapy; Z86.73 Personal history of transient ischemic attack (TIA), and cerebral infarction without residual deficits; Z68.38 Body mass index [BMI] 38.0-38.9, adult
CPT/HCPCS: 86900; 86901; 36415; 36430; 84520; 82565; 82947; 85027; 85610; 85730; 49083; P9035; P9047

== ENCOUNTER 2017-12-17 17:13 | Emergency (ER) | payer MEDICARE, MEDICAID ==
--- NOTE | 2017-12-17 18:07 | ER Document Report ---
ED General - General Chief Complaint: R lower leg injury Stated Complaint: LEG INJURY Time Seen by Provider: 12/17/17 17:58 Mode of Arrival: Ambulatory Information source: Patient Notes: 47 yr old female diabetic presents with complaints of right laughlin contusion of 3 day duration. pt struck it on a bed, denies any other injuries. pt denies any fevers or chills. TRAVEL OUTSIDE OF THE [place] IN LAST 30 DAYS: No - HPI Onset: Other Onset/Duration: Persistent Quality of pain: Achy Severity: Mild Pain Level: 1 Associated symptoms: Leg swelling Exacerbated by: Denies Relieved by: Denies Similar symptoms previously: No Recently seen / treated by doctor: No - Related Data Allergies/Adverse Reactions: No Known Allergies Allergy (Verified 11/09/17 12:46) Past Medical History - Social History Smoking Status: Current Some Day Smoker Cigarette use (# per day): Yes Chew tobacco use (# tins/day): No Smoking Education Provided: No Frequency of alcohol use: None Drug Abuse: None Family History: Reviewed & Not Pertinent Patient has suicidal ideation: No Patient has homicidal ideation: No - Past Medical History Cardiac Medical History: Reports: Hx Hypercholesterolemia, Hx Hypertension Denies: Hx Coronary Artery Disease, Hx Heart Attack Pulmonary Medical History: Denies: Hx Asthma, Hx Bronchitis, Hx COPD, Hx Pneumonia, Hx Tuberculosis Neurological Medical History: Reports: Hx Cerebrovascular Accident - 2017. Denies: Hx Seizures Endocrine Medical History: Reports: Hx Diabetes Mellitus Type 2 Renal/ Medical History: Reports: Hx End Stage Renal Disease, Hx Kidney Stones - 2011, Hx Renal Insufficiency. Denies: Hx Peritoneal Dialysis GI Medical History: Reports: Hx Cirrhosis - Due to fatty liver disease, Hx Gastroesophageal Reflux Disease, Hx Liver Failure. Denies: Hx Hepatitis - C Musculoskeltal Medical History: Reports Hx Arthritis - spine Psychiatric Medical History: Reports: Hx Anxiety, Hx Bipolar Disorder, Hx Depression - & anxiety Infectious Medical History: Denies: Hx Hepatitis - C Past Surgical History: Reports: Hx Cholecystectomy - 2011, Hx Hysterectomy - Immunizations Hx Diphtheria, Pertussis, Tetanus Vaccination: Yes Hx Pneumococcal Vaccination: 09/03/12 Review of Systems - Review of Systems Notes: REVIEW OF SYSTEMS: CONSTITUTIONAL : Denies fever, chills, or sweats. Denies recent illness. EENT: Denies eye, ear, throat, or mouth pain or symptoms. Denies nasal or sinus congestion or discharge. Denies throat, tongue, or mouth swelling or difficulty swallowing. CARDIOVASCULAR: Denies chest pain. Denies palpitations or racing or irregular heart beat. Denies ankle edema. RESPIRATORY: Denies cough, cold, or chest congestion. Denies shortness of breath, difficulty breathing, or wheezing. GASTROINTESTINAL: Denies abdominal pain or distention. Denies nausea, vomiting , or diarrhea. Denies blood in vomitus, stools, or per rectum. Denies black, tarry stools. Denies constipation. GENITOURINARY: Denies difficulty urinating, painful urination, burning, frequency, blood in urine, or discharge. FEMALE GENITOURINARY: Denies vaginal bleeding, heavy or abnormal periods, irregular periods. Denies vaginal discharge or odor. MUSCULOSKELETAL: Denies back or neck pain or stiffness. Denies joint pain or swelling. SKIN: Right laughlin abrasion HEMATOLOGIC : Denies easy bruising or bleeding. LYMPHATIC: Denies swollen, enlarged glands. NEUROLOGICAL: Denies confusion or altered mental status. Denies passing out or loss of consciousness. Denies dizziness or lightheadedness. Denies headache. Denies weakness or paralysis or loss of use of either side. Denies problems with gait or speech. Denies sensory loss, numbness, or tingling. Denies seizures. PSYCHIATRIC: Denies anxiety or stress. Denies depression, suicidal ideation, or homicidal ideation. ALL OTHER SYSTEMS REVIEWED AND NEGATIVE. PHYSICAL EXAMINATION: GENERAL: Well-appearing, well-nourished and in no acute distress. HEAD: Atraumatic, normocephalic. EYES: Pupils equal round and reactive to light, extraocular movements intact, conjunctiva are normal. ENT: Nares patent, oropharynx clear without exudates. Moist mucous membranes. NECK: Normal range of motion, supple without lymphadenopathy LUNGS: Breath sounds clear to auscultation bilaterally and equal. No wheezes rales or rhonchi. HEART: Regular rate and rhythm without murmurs ABDOMEN: Soft, nontender, nondistended abdomen. No guarding, no rebound. No masses appreciated. Female : deferred Musculoskeletal: Normal range of motion, no pitting or edema. No cyanosis. NEUROLOGICAL: Cranial nerves grossly intact. Normal speech, normal gait. Normal sensory, motor exams PSYCH: Normal mood, normal affect. SKIN: Right laughlin abrasion skin tear is noted there is some pus like material in addition no secondary signs of infection there is dark erythema consistent with contusion rather than infectious process Dictation was performed using [employer] voice recognition software Physical Exam - Vital signs Vitals: Temp Pulse Resp BP Pulse Ox 98.5 F 102 H 20 129/59 H 100 12/17/17 17:27 18 17:27 12/17/17 17:27 12/17/17 17:27 12/17/17 17:27 Course - Re-evaluation Re-evalutation: 12/17/17 21:00 Wound care was performed by the nurse area was cleansed extensively Xeroform dressing was placed patient will be placed on antibiotics and given wound care, there is no signs of osteomyelitis or systemic infection at this time however patient has been made very aware that this can worsen After performing a Medical Screening Examination, I estimate there is LOW risk for OPEN FRACTURE, COMPARTMENT SYNDROME, TENDON RUPTURE, ACUTE NEUROVASCULAR INJURY, or RETAINED FOREIGN BODY, thus I consider the discharge disposition reasonable. Also, there is no evidence or peritonitis, sepsis, or toxicity. I have reevaluated this patient multiple times and no significant life threatening changes are noted. The patient and I have discussed the diagnosis and risks, and we agree with discharging home with close follow-up with the understanding that symptoms and presentations can change. We also discussed returning to the Emergency Department immediately if new or worsening symptoms occur. We have discussed the symptoms which are most concerning (e.g., changing or worsening pain, fever, numbness, weakness, cool or painful digits) that necessitate immediate return. - Vital Signs Vital signs: Temp Pulse Resp BP Pulse Ox 98.4 F 98 18 132/56 H 100 12/17/17 18:25 12/17/17 18:25 12/17/17 18:25 12/17/17 18:25 12/17/17 18:25 Discharge - Discharge Clinical Impression: Hyperglycemia, diabetic wound Hepatitis C Qualifiers: Viral hepatitis chronicity: unspecified Hepatic coma status: without hepatic coma Qualified Code(s): B19.20 - Unspecified viral hepatitis C without hepatic coma HTN (hypertension) Qualifiers: Hypertension type: essential hypertension Qualified Code(s): I10 - Essential ( primary) hypertension Condition: Stable Disposition: HOME, SELF-CARE Instructions: Wound Infection ([facility]) Prescriptions: Cephalexin Monohydrate [Keflex 500 mg Capsule] 500 mg PO QID #40 capsule Sulfamethoxazole/Trimethoprim [Bactrim Ds Tablet] 2 each PO BID #40 tablet Referrals: Wound Care [Provider Group] - Follow up tomorrow
[2017-12-17 18:31] VITALS: BP 132/56
== END 2017-12-17 18:25 | disposition home or self-care (01) ==
LOC: ER 17:13
DX: S80.822A Blister (nonthermal), left lower leg, initial encounter (principal); S80.811A Abrasion, right lower leg, initial encounter; W22.03XA Walked into furniture, initial encounter; Y92.003 Bedroom of unspecified non-institutional (private) residence as the place of occurrence of the external cause; E11.69 Type 2 diabetes mellitus with other specified complication; E11.65 Type 2 diabetes mellitus with hyperglycemia; F17.210 Nicotine dependence, cigarettes, uncomplicated; I10 Essential (primary) hypertension
CPT/HCPCS: 99283

== ENCOUNTER 2017-12-26 07:13 | Day surgery (SDC) | payer MEDICARE, MEDICAID ==
[~2017-12-26 07:13] MED LIST changes: -ALBUMIN HUMAN 200 ML IV PRN; +ALBUMIN HUMAN 250 ML IV PRN
[2017-12-26 08:36] LABS: HEMATOCRIT 30.3 % (36.0-47.0); HEMOGLOBIN 10.5 g/dL (12.0-15.5); MEAN CORPUSCULAR HGB CONC 34.6 g/dL (32.0-36.0); MEAN CORPUSCULAR VOLUME 89 fl (80-97); RED BLOOD COUNT 3.39 10^6/uL (3.72-5.28); RED CELL DISTRIBUTION WIDTH 13.8 % (11.5-14.0); WHITE BLOOD COUNT 4.7 10^3/uL (4.0-10.5)
[2017-12-26 08:43] LABS: INTERNATIONAL RATION (INR) 1.43; PROTHROMBIN TIME 18.3 SEC (11.4-15.4)
[2017-12-26 08:44] LABS: PARTIAL THROMBOPLASTIN TIME 33.5 SEC (23.5-35.8)
[2017-12-26 08:45] LABS: BLOOD UREA NITROGEN 76 mg/dL (7-20)
[2017-12-26 08:58] LABS: PLATELET COUNT 36 10^3/uL (150-450)
[2017-12-26 13:15] VITALS: BP 125/61
--- NOTE | 2017-12-26 14:46 | RADIOLOGY REPORT (SQ) ---
EXAM DESCRIPTION: U/S ABD PARACENTESIS COMPLETED DATE/TIME: 12/26/2017 12:36 pm REASON FOR STUDY: ASCITES COMPARISON 12/12/2017 LIMITATIONS: None. PROCEDURE: After obtaining informed consent, the patient was brought to the ultrasound suite. The p rocedure was performed with the patient on a gurney. Ultrasound was used to identify a prominent poc ket of ascites in the left lower quadrant. An appropriate access site was selected. The patient was prepped and draped in usual sterile fashion. The access site was anesthetized with 9 mL 1% lidocai ne. A Fnxz-S-Rmrufkad needle was advanced into the fluid. After aspiration of fluid the needle, the catheter was advanced off the needle into the fluid. A total of 7,400 mL of clear yellow fluid was removed. The patient tolerated the procedure well left the department in satisfactory condition. IMPRESSION: Successful ultrasound-guided therapeutic paracentesis COMMENT: Patient medication list reviewed: Yes- Quality ID# [id number]:Eligible professional attests to doc umenting in the medical record they obtained, updated, or reviewed the patient's current medications. Quality ID #[id number]: The patient was prepped and draped using maximum sterile barrier technique including cap, mask, sterile gown, sterile gloves, a large sterile sheet, hand hygiene, and 2% Chlorhexidine fo r cutaneous antisepsis. When ultrasound is used, sterile ultrasound techniques are followed requiring sterile gel and sterile probes. Quality ID #[id number]: Final reports for procedures using fluoroscopy that document radiation exposure antoinette hubert, or exposure time and number of fluorographic images (if radiation exposure indices are not avail able) TECHNICAL DOCUMENTATION: JOB ID: [id number] [employer]- All Rights Reserved Reading location - IP/workstation name: [email or web address]
== END 2017-12-26 13:15 | disposition home or self-care (01) ==
LOC: RAD 07:13
PROVIDERS: ATTEND Internal Medicine Gastroenterology
PROC: 0W9G3ZZ Drainage of Peritoneal Cavity, Percutaneous Approach (ICD-10-PCS; principal; 2017-12-26)
DX: R18.8 Other ascites (principal); K74.69 Other cirrhosis of liver; N19 Unspecified kidney failure; G93.41 Metabolic encephalopathy; E11.9 Type 2 diabetes mellitus without complications; D69.6 Thrombocytopenia, unspecified; E66.09 Other obesity due to excess calories
CPT/HCPCS: 86900; 86901; 36415; 36430; 82962; 84520; 82565; 85027; 85610; 85730; 49083; P9035; P9047

== ENCOUNTER → 2018-01-08 | Day surgery (SDC) | payer MEDICARE, MEDICAID | LOC: RAD 07:21 | PROVIDERS: ATTEND Internal Medicine Gastroenterology | DX: R18.8 Other ascites (principal) | CPT/HCPCS: P9047 ==

== ENCOUNTER 2018-01-09 11:14 | Emergency (ER) | payer MEDICARE, MEDICAID ==
--- NOTE | 2018-01-09 11:47 | ER Document Report ---
ED Medical Screen (RME) - General Chief Complaint: Shortness Of Breath Stated Complaint: BREATHING ISSUES Time Seen by Provider: 01/09/18 11:33 Mode of Arrival: Ambulatory Information source: Patient Notes: 47-year-old female presents 3 weeks after having paracentesis with complaints of further swelling, patient denies any fevers or chills admits to shortness of breath I have greeted and performed a rapid initial assessment of this patient. A comprehensive ED assessment and evaluation of the patient, analysis of test results and completion of the medical decision making process will be conducted by additional ED providers. PHYSICAL EXAMINATION: GENERAL: Well-appearing, well-nourished and in no acute distress. HEAD: Atraumatic, normocephalic. EYES: Pupils equal round extraocular movements intact, conjunctiva are normal. ENT: Nares patent NECK: Normal range of motion LUNGS: No respiratory distress Musculoskeletal: Normal range of motion NEUROLOGICAL: Normal speech, normal gait. PSYCH: Normal mood, normal affect. SKIN: Warm, Dry, normal turgor, no rashes or lesions noted. TRAVEL OUTSIDE OF THE [place] IN LAST 30 DAYS: No - Related Data Allergies/Adverse Reactions: No Known Allergies Allergy (Verified 01/09/18 11:16) Past Medical History - Social History Chew tobacco use (# tins/day): No Frequency of alcohol use: None Drug Abuse: None - Past Medical History Cardiac Medical History: Reports: Hx Hypercholesterolemia, Hx Hypertension Denies: Hx Coronary Artery Disease, Hx Heart Attack Pulmonary Medical History: Denies: Hx Asthma, Hx Bronchitis, Hx COPD, Hx Pneumonia, Hx Tuberculosis Neurological Medical History: Reports: Hx Cerebrovascular Accident. Denies: Hx Seizures Endocrine Medical History: Reports: Hx Diabetes Mellitus Type 2 Renal/ Medical History: Reports: Hx End Stage Renal Disease, Hx Kidney Stones - 2011, Hx Renal Insufficiency. Denies: Hx Peritoneal Dialysis GI Medical History: Reports: Hx Cirrhosis - Due to fatty liver disease, Hx Gastroesophageal Reflux Disease, Hx Liver Failure. Denies: Hx Hepatitis - C Musculoskeltal Medical History: Reports Hx Arthritis - BACK Psychiatric Medical History: Reports: Hx Anxiety, Hx Bipolar Disorder, Hx Depression - & anxiety Infectious Medical History: Denies: Hx Hepatitis - C Past Surgical History: Reports: Hx Cholecystectomy - 2011, Hx Hysterectomy - Immunizations Hx Diphtheria, Pertussis, Tetanus Vaccination: No History of Influenza Vaccine for 07/2017 - 12/2017 Season: Yes Influenza Administration Date for 07/2017 - 12/2017 Season: 07/30/17 Physical Exam - Vital signs Vitals: Temp Pulse Resp BP Pulse Ox 98.2 F 99 20 116/61 100 01/09/18 11:19 01/09/18 11:19 01/09/18 11:19 01/09/18 11:19 01/09/18 11:19 Course - Vital Signs Vital signs: Temp Pulse Resp BP Pulse Ox 98.2 F 99 20 116/61 100 01/09/18 11:19 01/09/18 11:19 01/09/18 11:19 01/09/18 11:19 01/09/18 11:19
--- NOTE | 2018-01-09 12:19 | ER Document Report ---
ED General - General Chief Complaint: Shortness Of Breath Stated Complaint: BREATHING ISSUES Time Seen by Provider: 01/09/18 11:33 Mode of Arrival: Ambulatory Notes: 47-year-old female. History of recurrent ascites. Worsening shortness of breath. Here at request for paracentesis to help with her breathing. Patient had paracentesis done approximately 3 weeks ago. Fluid has returned. Denies any fevers, chills, sweats. Denies any significant abdominal pain. Paracentesis have been performed by radiology department here on numerous occasions. TRAVEL OUTSIDE OF THE [place] IN LAST 30 DAYS: No - HPI Onset/Duration: Worse Quality of pain: Cramping Severity: Mild - Related Data Allergies/Adverse Reactions: No Known Allergies Allergy (Verified 01/09/18 11:16) Past Medical History - General Information source: Patient - Social History Smoking Status: Never Smoker Chew tobacco use (# tins/day): No Frequency of alcohol use: None Drug Abuse: None Lives with: Family Family History: Reviewed & Not Pertinent Patient has suicidal ideation: No Patient has homicidal ideation: No - Past Medical History Cardiac Medical History: Reports: Hx Hypercholesterolemia, Hx Hypertension Denies: Hx Coronary Artery Disease, Hx Heart Attack Pulmonary Medical History: Denies: Hx Asthma, Hx Bronchitis, Hx COPD, Hx Pneumonia, Hx Tuberculosis Neurological Medical History: Reports: Hx Cerebrovascular Accident. Denies: Hx Seizures Endocrine Medical History: Reports: Hx Diabetes Mellitus Type 2 Renal/ Medical History: Reports: Hx End Stage Renal Disease, Hx Kidney Stones - 2011, Hx Renal Insufficiency. Denies: Hx Peritoneal Dialysis GI Medical History: Reports: Hx Cirrhosis - Due to fatty liver disease, Hx Gastroesophageal Reflux Disease, Hx Liver Failure. Denies: Hx Hepatitis - C Musculoskeltal Medical History: Reports Hx Arthritis - BACK Psychiatric Medical History: Reports: Hx Anxiety, Hx Bipolar Disorder, Hx Depression - & anxiety Infectious Medical History: Denies: Hx Hepatitis - C Past Surgical History: Reports: Hx Cholecystectomy - 2011, Hx Hysterectomy - Immunizations Hx Diphtheria, Pertussis, Tetanus Vaccination: No Hx Pneumococcal Vaccination: 09/03/12 Review of Systems - Review of Systems Constitutional: denies: Fever, Malaise, Weakness EENT: denies: Blurred vision, Difficulty swallowing, Mouth pain Cardiovascular: Dyspnea. denies: Palpitations, Heart racing, Orthopnea, Syncope , Dizziness, Edema Respiratory: Short of breath. denies: Cough, Hurts to breathe, Wheezing Gastrointestinal: Abdominal pain. denies: Diarrhea, Nausea, Vomiting, Constipation Genitourinary: denies: Burning, Dysuria, Discharge Musculoskeletal: denies: Back pain, Gout, Joint pain Skin: denies: Change in hair/nails, Dryness, Lesions Hematologic/Lymphatic: Easy bruising. denies: Anemia, Blood clots, Easy bleeding Neurological/Psychological: denies: Dementia, Weakness, Numbness Physical Exam - Vital signs Vitals: Temp Pulse Resp BP Pulse Ox 98.2 F 99 20 116/61 100 01/09/18 11:19 01/09/18 11:19 01/09/18 11:19 01/09/18 11:19 01/09/18 11:19 Interpretation: Normal - General General appearance: Appears well, Alert - HEENT Head: Normocephalic, Atraumatic Eyes: Normal Pupils: PERRL - Respiratory Respiratory status: No respiratory distress Chest status: Nontender Breath sounds: Normal Chest palpation: Normal - Cardiovascular Rhythm: Regular Heart sounds: Normal auscultation Murmur: No - Abdominal Inspection: Normal Distension: Distended, Other - Large distended ascitic abdomen. Positive fluid wave Bowel sounds: Normal Tenderness: Nontender. No: Tender Organomegaly: No organomegaly - Back Back: Normal, Nontender - Extremities General upper extremity: Normal inspection, Nontender, Normal color, Normal ROM , Normal temperature. No: Edema General lower extremity: Normal inspection, Nontender, Normal color, Normal ROM , Normal temperature, Normal weight bearing. No: Edema, Sandeep's sign - Neurological Neuro grossly intact: Yes Cognition: Normal Orientation: AAOx4 [place] Coma Scale Eye Opening: Spontaneous [place] Coma Scale Verbal: Oriented [place] Coma Scale Motor: Obeys Commands [place] Coma Scale Total: 15 Speech: Normal Motor strength normal: LUE, RUE, LLE, RLE Sensory: Normal - Psychological Associated symptoms: Normal affect, Normal mood - Skin Skin Temperature: Warm Skin Moisture: Dry Skin Color: Normal Course - Re-evaluation Re-evalutation: 01/09/18 12:27 Consulted with radiology department. They have him on the schedule. Will try to do the ultrasound-guided paracentesis shortly. 01/09/18 13:03 Followed by gastroenterology as well as radiology. Radiology states that they do not like to do this procedure without giving her platelets. This would take approximately 4 or more hours. At this time I do not feel patient is an emergency patient. This needs to be scheduled as an appropriate outpatient visit. Consulting again with the radiologist to get advice on how they would like to proceed at this time. 01/09/18 13:[address] Hood with GI. States that she can be done tomorrow. We will coordinate this so that she can get platelets at 7 AM and be on the schedule for paracentesis tomorrow as will be unlikely to get platelets given and procedure done today. - Vital Signs Vital signs: Temp Pulse Resp BP Pulse Ox 98.2 F 99 27 H 117/64 100 01/09/18 11:19 01/09/18 11:19 01/09/18 12:22 01/09/18 12:21 01/09/18 12:22 - Laboratory Result Diagrams: 01/09/18 12:00 01/09/18 12:00 Laboratory results interpreted by me: 01/09/18 01/09/18 01/09/18 12:00 12:00 12:00 WBC 3.2 L RBC 3.34 L Hgb 10.2 L Hct 30.4 L RDW 16.2 H Plt Count 25 L* PT 18.7 H Sodium 136.3 L Carbon Dioxide 19 L BUN 90 H Creatinine 6.75 H Est GFR ( Amer) 8 L Est GFR (Non-Af Amer) 7 L Glucose 185 H Total Bilirubin 1.5 H Direct Bilirubin 1.0 H AST 48 H Alkaline Phosphatase 152 H Albumin 3.2 L Discharge - Discharge Clinical Impression: Chronic liver failure Qualifiers: Hepatic coma status: without hepatic coma Qualified Code(s): K72.10 - Chronic hepatic failure without coma Ascites Qualifiers: Ascites type: other type Qualified Code(s): R18.8 - Other ascites Condition: Good Additional Instructions: We are unable to perform procedure today but radiology will schedule you for tomorrow. Please schedule with the radiology department tomorrow as blood products will need to be given prior to the procedure. You for your understanding. Return if you have worsening symptoms or concerns but please be sure to make your appointment tomorrow. Referrals: EDIN HOOD MD [ACTIVE STAFF] - 01/10/18 7:00 am
[2018-01-09 12:26] LABS: ABSOLUTE EOSINOPHILS # (AUTO) 0.1 10^3/uL (0.0-0.6); ABSOLUTE LYMPHOCYTES (AUTO) 0.8 10^3/uL (0.5-4.7); ABSOLUTE MONOCYTES (AUTO) 0.3 10^3/uL (0.1-1.4); BASOPHILS % (AUTO) 0.8 % (0-2); EOSINOPHILS % (AUTO) 4.2 % (0-6); HEMATOCRIT 30.4 % (36.0-47.0); HEMOGLOBIN 10.2 g/dL (12.0-15.5); LYMPHOCYTES % (AUTO) 24.2 % (13-45); MEAN CORPUSCULAR HEMOGLOBIN 30.6 pg (27.0-33.4); MEAN CORPUSCULAR HGB CONC 33.6 g/dL (32.0-36.0); MEAN CORPUSCULAR VOLUME 91 fl (80-97); MONOCYTES % (AUTO) 7.8 % (3-13); RED BLOOD COUNT 3.34 10^6/uL (3.72-5.28); RED CELL DISTRIBUTION WIDTH 16.2 % (11.5-14.0); TOTAL CELLS COUNTED % (AUTO) 100 %; WHITE BLOOD COUNT 3.2 10^3/uL (4.0-10.5)
[2018-01-09 12:29] LABS: INTERNATIONAL RATION (INR) 1.46; PROTHROMBIN TIME 18.7 SEC (11.4-15.4)
[2018-01-09 12:47] LABS: ALANINE AMINOTRANSFERASE 41 U/L (9-52); ALBUMIN 3.2 g/dL (3.5-5.0); ALKALINE PHOSPHATASE 152 U/L (38-126); ANION GAP 11 (5-19); ASPARTATE AMINO TRANSFERASE 48 U/L (14-36); BILIRUBIN,TOTAL 1.5 mg/dL (0.2-1.3); BLOOD UREA NITROGEN 90 mg/dL (7-20); CARBON DIOXIDE 19 mmol/L (22-30); CHLORIDE 106 mmol/L (98-107); GLUCOSE 185 mg/dL (75-110); POTASSIUM 3.9 mmol/L (3.6-5.0); SODIUM 136.3 mmol/L (137-145); TOTAL PROTEIN 6.3 g/dL (6.3-8.2)
[2018-01-09 12:58] LABS: PLATELET COUNT 25 10^3/uL (150-450)
[2018-01-09 12:59] LABS: ANISOCYTOSIS 1+; HYPOCHROMASIA 1+; OVALOCYTES 2+; PLATELET COMMENT DECREASED; POIKILOCYTOSIS 2+; POLYCHROMASIA SLIGHT; ROULEAUX SLIGHT
[2018-01-09 13:24] VITALS: BP 116/50
== END 2018-01-09 13:29 | disposition home or self-care (01) ==
LOC: ER 11:14
DX: K72.10 Chronic hepatic failure without coma (principal); R18.8 Other ascites; R06.02 Shortness of breath; I12.0 Hypertensive chronic kidney disease with stage 5 chronic kidney disease or end stage renal disease; E11.22 Type 2 diabetes mellitus with diabetic chronic kidney disease; N18.6 End stage renal disease; R10.9 Unspecified abdominal pain
CPT/HCPCS: 36415; 80053; 85025; 85610; 99285

== ENCOUNTER 2018-01-10 06:35 | Day surgery (SDC) | payer MEDICARE, MEDICAID ==
[~2018-01-10 06:35] MED LIST changes: +ALBUMIN HUMAN 50 ML IV PRN
[2018-01-10] MEDS ORDERED: LIDOCAINE 1% INJ-PF (10 MG/ML) 30 ML SDV ONE (09:58)
--- NOTE | 2018-01-10 12:14 | RADIOLOGY REPORT (SQ) ---
EXAM DESCRIPTION: U/S ABD PARACENTESIS COMPLETED DATE/TIME: 01/10/2018 11:48 am REASON FOR STUDY: ASCITES COMPARISON None. LIMITATIONS: None. PROCEDURE: After obtaining informed consent, the patient was brought to the ultrasound suite. The p rocedure was performed with the patient on a gurney. Ultrasound was used to identify a prominent poc ket of ascites in the right lower quadrant. An appropriate access site was selected. The patient wa s prepped and draped in usual sterile fashion. The access site was anesthetized with 10 mL 1% lidoc olaf. A Anmb-E-Bjauawei needle was advanced into the fluid. After aspiration of fluid the needle, t he catheter was advanced off the needle into the fluid. A total of 8100 mL mL of sarath color fluid w as removed. The patient tolerated the procedure well left the department in satisfactory condition. IMPRESSION: Successful ultrasound-guided paracentesis COMMENT: Patient medication list reviewed: Yes Quality ID #[id number]: The patient was prepped and draped using maximum sterile barrier technique including cap, mask, sterile gown, sterile gloves, a large sterile sheet, hand hygiene, and 2% Chlorhexidine fo r cutaneous antisepsis. When ultrasound is used, sterile ultrasound techniques are followed requiring sterile gel and sterile probes. Quality ID #[id number]: Final reports for procedures using fluoroscopy that document radiation exposure antoinette hubert, or exposure time and number of fluorographic images (if radiation exposure indices are not avail able) TECHNICAL DOCUMENTATION: JOB ID: [id number] [employer]- All Rights Reserved Reading location - IP/workstation name: [email or web address]
[2018-01-10 13:01] VITALS: BP 109/57
== END 2018-01-10 13:00 | disposition home or self-care (01) ==
LOC: RAD 06:35
PROVIDERS: ATTEND Internal Medicine Gastroenterology
PROC: 0W9G3ZZ Drainage of Peritoneal Cavity, Percutaneous Approach (ICD-10-PCS; principal; 2018-01-10)
DX: R18.8 Other ascites (principal); E78.00 Pure hypercholesterolemia, unspecified; J44.9 Chronic obstructive pulmonary disease, unspecified; I12.0 Hypertensive chronic kidney disease with stage 5 chronic kidney disease or end stage renal disease; E11.22 Type 2 diabetes mellitus with diabetic chronic kidney disease; N18.6 End stage renal disease; K74.60 Unspecified cirrhosis of liver; K76.0 Fatty (change of) liver, not elsewhere classified
CPT/HCPCS: 86900; 86901; 36415; 36430; 82962; 49083; P9035; P9047; J3490

== ENCOUNTER 2018-01-24 07:23 | Day surgery (SDC) | payer MEDICARE, MEDICAID ==
[~2018-01-24 07:23] MED LIST changes: -ALBUMIN HUMAN 50 ML IV PRN
[2018-01-24 07:55] LABS: HEMATOCRIT 29.8 % (36.0-47.0); MEAN CORPUSCULAR HEMOGLOBIN 30.9 pg (27.0-33.4); MEAN CORPUSCULAR HGB CONC 33.7 g/dL (32.0-36.0); MEAN CORPUSCULAR VOLUME 92 fl (80-97); RED BLOOD COUNT 3.25 10^6/uL (3.72-5.28); RED CELL DISTRIBUTION WIDTH 16.2 % (11.5-14.0); WHITE BLOOD COUNT 3.7 10^3/uL (4.0-10.5)
[2018-01-24 08:04] LABS: INTERNATIONAL RATION (INR) 1.38; PARTIAL THROMBOPLASTIN TIME 33.8 SEC (23.5-35.8); PROTHROMBIN TIME 17.8 SEC (11.4-15.4)
[2018-01-24 08:12] LABS: BLOOD UREA NITROGEN 75 mg/dL (7-20)
[2018-01-24 08:16] LABS: PLATELET COUNT 28 10^3/uL (150-450)
[2018-01-24] MEDS ORDERED: LIDOCAINE 1% INJ-PF (10 MG/ML) 30 ML SDV ONE (09:55)
--- NOTE | 2018-01-24 11:49 | RADIOLOGY REPORT (SQ) ---
EXAM DESCRIPTION: U/S ABD PARACENTESIS COMPLETED DATE/TIME: 01/24/2018 11:14 am REASON FOR STUDY: ASCITES COMPARISON Multiple previous LIMITATIONS: None. PROCEDURE: After obtaining informed consent, the patient was brought to the ultrasound suite. The p rocedure was performed with the patient on a gurney. Ultrasound was used to identify a prominent poc ket of ascites left lower quadrant. An appropriate access site was selected. The patient was preppe d and draped in usual sterile fashion. The access site was anesthetized with 7 mL 1% lidocaine. A Bbtk-V-Jgyckazc needle was advanced into the fluid. After aspiration of fluid the needle, the cathet er was advanced off the needle into the fluid. A total of 8,000 mL of clear straw-colored fluid was removed. The patient tolerated the procedure well left the department in satisfactory condition. IMPRESSION: Successful ultrasound-guided therapeutic only paracentesis COMMENT: Patient medication list reviewed: Yes- Quality ID# [id number]:Eligible professional attests to doc umenting in the medical record they obtained, updated, or reviewed the patient's current medications. Quality ID #[id number]: The patient was prepped and draped using maximum sterile barrier technique including cap, mask, sterile gown, sterile gloves, a large sterile sheet, hand hygiene, and 2% Chlorhexidine fo r cutaneous antisepsis. When ultrasound is used, sterile ultrasound techniques are followed requiring sterile gel and sterile probes. Quality ID #[id number]: Final reports for procedures using fluoroscopy that document radiation exposure antoinette hubert, or exposure time and number of fluorographic images (if radiation exposure indices are not avail able) TECHNICAL DOCUMENTATION: JOB ID: [id number] [employer]- All Rights Reserved Reading location - IP/workstation name: [email or web address]
[2018-01-24 13:26] VITALS: BP 110/56
== END 2018-01-24 12:45 | disposition home or self-care (01) ==
LOC: RAD 07:23
PROVIDERS: ATTEND Internal Medicine Gastroenterology
PROC: 0W9G3ZZ Drainage of Peritoneal Cavity, Percutaneous Approach (ICD-10-PCS; principal; 2018-01-24)
DX: R18.8 Other ascites (principal); K74.69 Other cirrhosis of liver; D69.6 Thrombocytopenia, unspecified; G93.41 Metabolic encephalopathy; I12.9 Hypertensive chronic kidney disease with stage 1 through stage 4 chronic kidney disease, or unspecified chronic kidney disease; E11.22 Type 2 diabetes mellitus with diabetic chronic kidney disease; N18.9 Chronic kidney disease, unspecified; R00.0 Tachycardia, unspecified; E66.09 Other obesity due to excess calories; K21.9 Gastro-esophageal reflux disease without esophagitis; Z79.899 Other long term (current) drug therapy; Z79.4 Long term (current) use of insulin; Z86.73 Personal history of transient ischemic attack (TIA), and cerebral infarction without residual deficits; Z68.34 Body mass index [BMI] 34.0-34.9, adult
CPT/HCPCS: 86900; 86901; 36415; 36430; 82962; 84520; 82565; 85027; 85610; 85730; 49083; P9035; P9047; J3490

== ENCOUNTER 2018-01-29 16:36 | Emergency (ER) | payer MEDICARE, MEDICAID ==
--- NOTE | 2018-01-29 16:52 | RADIOLOGY REPORT (SQ) ---
EXAM DESCRIPTION: CHEST SINGLE VIEW COMPLETED DATE/TIME: 01/29/2018 4:43 pm REASON FOR STUDY: bed 12 stroke alert COMPARISON: AP chest 09/19/2017 EXAM PARAMETERS: NUMBER OF VIEWS: One view. TECHNIQUE: Single frontal radiographic view of the chest acquired. RADIATION DOSE: NA LIMITATIONS: None. FINDINGS: LUNGS AND PLEURA: No opacities, masses or pneumothorax. No pleural effusion. MEDIASTINUM AND HILAR STRUCTURES: No masses. Contour normal. HEART AND VASCULAR STRUCTURES: Heart normal in size. Normal vasculature. BONES: No acute findings. HARDWARE: None in the chest. OTHER: No other significant finding. IMPRESSION: NO ACUTE RADIOGRAPHIC FINDING IN THE CHEST. TECHNICAL DOCUMENTATION: JOB ID: [id number] [employer]- All Rights Reserved Reading location - IP/workstation name: [email or web address]
--- NOTE | 2018-01-29 16:56 | RADIOLOGY REPORT (SQ) ---
EXAM DESCRIPTION: CT HEAD WITHOUT COMPLETED DATE/TIME: 01/29/2018 4:45 pm REASON FOR STUDY: bed 12 stroke alert COMPARISON: [address] brain exams since 2007, most recently 07/03/2017 TECHNIQUE: Axial images acquired through the brain without intravenous contrast. Images reviewed wi th bone, brain and subdural windows. Additional sagittal and coronal reconstructions were generated. Images stored on PACS. All CT scanners at this facility use dose modulation, iterative reconstruction, and/or weight based d osing when appropriate to reduce radiation dose to as low as reasonably achievable (ALARA). [facility]: Dose Right [facility]: CareDose [facility]: Dose Right [facility]: Teradose 4D [facility]: [employer] RADIATION DOSE: CT Rad equipment meets quality standard of care and radiation dose reduction techniq ues were employed. CTDIvol: 53.2 mGy. DLP: 937 mGy-cm. mGy. LIMITATIONS: None. FINDINGS: VENTRICLES: Normal size and contour. CEREBRUM: Small focal area of encephalomalacia in the left frontal pavon-white junction region on axia l images 21-24. This is in an area of acute parenchymal hemorrhage seen 07/03/2017. Remainder of the cerebral hemispheres are unremarkable. No CT evidence of acute large territory isch emic change, acute intracranial hemorrhage, mass effect, or midline shift. CEREBELLUM: No masses. No hemorrhage. No alteration of density. No evidence for acute infarction. EXTRAAXIAL SPACES: No fluid collections. No masses. ORBITS AND GLOBE: No intra- or extraconal masses. Normal contour of globe without masses. CALVARIUM: No fracture. PARANASAL SINUSES: No fluid or mucosal thickening. SOFT TISSUES: No mass or hematoma. OTHER: Very heavily calcified bill moore's slough of Cramer vessels. 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 No acute findings. EVIDENCE OF ACUTE STROKE: No COMMENT: Pertinent findings on the imaging study reported as a CRITICAL RESULT to Fannie Agustin at16:45 on 01/29/2018. Category of Critical Result: CT code stroke Quality ID # [id number]: Final reports with documentation of one or more dose reduction techniques (e.g., Au tomated exposure control, adjustment of the mA and/or kV according to patient size, use of iterative reconstruction technique) TECHNICAL DOCUMENTATION: JOB ID: [id number] [employer]- All Rights Reserved Reading location - IP/workstation name: [facility]
[2018-01-29 16:57] LABS: ABSOLUTE EOSINOPHILS # (AUTO) 0.3 10^3/uL (0.0-0.6); ABSOLUTE LYMPHOCYTES (AUTO) 1.2 10^3/uL (0.5-4.7); ABSOLUTE MONOCYTES (AUTO) 0.4 10^3/uL (0.1-1.4); ABSOLUTE NEUT (AUTO) 2.9 10^3/uL (1.7-8.2); BASOPHILS % (AUTO) 0.6 % (0-2); EOSINOPHILS % (AUTO) 5.3 % (0-6); HEMATOCRIT 32.5 % (36.0-47.0); HEMOGLOBIN 10.9 g/dL (12.0-15.5); LYMPHOCYTES % (AUTO) 24.8 % (13-45); MEAN CORPUSCULAR HEMOGLOBIN 30.9 pg (27.0-33.4); MEAN CORPUSCULAR HGB CONC 33.5 g/dL (32.0-36.0); MEAN CORPUSCULAR VOLUME 93 fl (80-97); MONOCYTES % (AUTO) 7.9 % (3-13); RED BLOOD COUNT 3.51 10^6/uL (3.72-5.28); SEGMENTED NEUTROPHILS % (AUTO) 61.4 % (42-78); TOTAL CELLS COUNTED % (AUTO) 100 %; WHITE BLOOD COUNT 4.8 10^3/uL (4.0-10.5)
[2018-01-29 17:00] LABS: INTERNATIONAL RATION (INR) 1.41; PARTIAL THROMBOPLASTIN TIME 36.6 SEC (23.5-35.8); PROTHROMBIN TIME 18.1 SEC (11.4-15.4)
[2018-01-29 17:11] LABS: ALANINE AMINOTRANSFERASE 39 U/L (9-52); ALBUMIN 3.7 g/dL (3.5-5.0); ALKALINE PHOSPHATASE 177 U/L (38-126); ANION GAP 15 (5-19); ASPARTATE AMINO TRANSFERASE 43 U/L (14-36); BILIRUBIN,DIRECT 1.1 mg/dL (0.0-0.4); BILIRUBIN,TOTAL 1.8 mg/dL (0.2-1.3); BLOOD UREA NITROGEN 67 mg/dL (7-20); CALCIUM 9.2 mg/dL (8.4-10.2); CARBON DIOXIDE 18 mmol/L (22-30); CHLORIDE 108 mmol/L (98-107); CREATINE KINASE 75 U/L (30-135); GLUCOSE 212 mg/dL (75-110); SODIUM 141.3 mmol/L (137-145); TOTAL PROTEIN 6.8 g/dL (6.3-8.2)
[2018-01-29 17:20] LABS: PLATELET COUNT 38 10^3/uL (150-450)
[2018-01-29 17:21] LABS: CREATINE KINASE MB 1.81 ng/mL (<4.55); POTASSIUM 2.9 mmol/L (3.6-5.0); TROPONIN I < 0.012 ng/mL
[2018-01-29] MEDS ORDERED: POTASSIUM CHLORIDE 10 MEQ TABLET.SA PO ONE (17:42)
--- NOTE | 2018-01-29 17:43 | ER Document Report ---
ED General - General Chief Complaint: S/S of Possible Stroke Stated Complaint: POSSIBLE STROKE Time Seen by Provider: 01/29/18 17:41 Mode of Arrival: Medic Information source: Patient Notes: This is a 47-year-old female with a history of hepatitis C, cirrhosis, thrombocytopenia, intracranial bleed in the past. Patient is brought in by EMS for possible CVA/TIA. Patient was sitting on her porch and family member states that her mouth began to twitch and her eyes rolled in the back of her head. EMS was called. Patient's symptoms apparently improved. She does state that her speech seems to be a little off. TRAVEL OUTSIDE OF THE [place] IN LAST 30 DAYS: No - HPI Onset: Just prior to arrival Onset/Duration: Sudden Quality of pain: No pain Severity: None Pain Level: Denies Associated symptoms: denies: Chest pain, Fever, Shortness of breath Exacerbated by: Denies Relieved by: Denies Similar symptoms previously: Yes Recently seen / treated by doctor: Yes - Related Data Allergies/Adverse Reactions: No Known Allergies Allergy (Verified 01/23/18 16:45) Past Medical History - General Information source: Patient - Social History Smoking Status: Unknown if Ever Smoked Cigarette use (# per day): No Chew tobacco use (# tins/day): No Frequency of alcohol use: None Drug Abuse: None Lives with: Family Family History: Reviewed & Not Pertinent Patient has suicidal ideation: No Patient has homicidal ideation: No - Past Medical History Cardiac Medical History: Reports: Hx Hypercholesterolemia, Hx Hypertension Denies: Hx Coronary Artery Disease, Hx Heart Attack Pulmonary Medical History: Denies: Hx Asthma, Hx Bronchitis, Hx COPD, Hx Pneumonia, Hx Tuberculosis Neurological Medical History: Reports: Hx Cerebrovascular Accident. Denies: Hx Seizures Endocrine Medical History: Reports: Hx Diabetes Mellitus Type 2 Renal/ Medical History: Reports: Hx End Stage Renal Disease, Hx Kidney Stones - 2011, Hx Renal Insufficiency. Denies: Hx Peritoneal Dialysis GI Medical History: Reports: Hx Cirrhosis - Due to fatty liver disease, Hx Gastroesophageal Reflux Disease, Hx Liver Failure. Denies: Hx Hepatitis - C Musculoskeltal Medical History: Reports Hx Arthritis - BACK Psychiatric Medical History: Reports: Hx Anxiety, Hx Bipolar Disorder, Hx Depression - & anxiety Infectious Medical History: Denies: Hx Hepatitis - C Past Surgical History: Reports: Hx Cholecystectomy - 2011, Hx Hysterectomy - Immunizations Hx Diphtheria, Pertussis, Tetanus Vaccination: No Hx Pneumococcal Vaccination: 09/03/12 Review of Systems - Review of Systems Constitutional: denies: Chills, Fever EENT: No symptoms reported Cardiovascular: denies: Chest pain, Palpitations, Heart racing Respiratory: denies: Cough, Hemoptysis, Short of breath Gastrointestinal: denies: Abdominal pain, Vomiting Genitourinary: No symptoms reported Female Genitourinary: No symptoms reported Musculoskeletal: No symptoms reported Skin: No symptoms reported Hematologic/Lymphatic: No symptoms reported Neurological/Psychological: See HPI Physical Exam - Vital signs Vitals: Pulse Ox 99 01/29/18 16:38 Notes: Physical exam: GENERAL: A 7-year-old female, alert and oriented 3, appears chronically ill, no acute distress HEAD: Atraumatic, normocephalic. EYES: Pupils equal round and reactive to light, extraocular movements intact, sclera anicteric, conjunctiva are normal. ENT: TMs normal, nares patent, oropharynx clear without exudates. Moist mucous membranes. NECK: Normal range of motion, supple without obvious mass or JVD. LUNGS: Breath sounds clear to auscultation bilaterally and equal. No wheezes rales or rhonchi. HEART: Regular rate and rhythm without murmurs, rubs or gallops. ABDOMEN: Soft, normoactive bowel sounds. He does have obvious cirrhosis without any abdominal pain. EXTREMITIES: Normal range of motion, no pitting or edema. No clubbing or cyanosis. NEUROLOGICAL: Cranial nerves II through XII grossly intact. Normal speech, moving all extremities. PSYCH: Normal mood, normal affect. SKIN: Warm, Dry, normal turgor, no rashes or lesions noted. Course - Re-evaluation Re-evalutation: 01/29/18 23:19 Note: I had a long conversation with the patient and her family. Both the nurse and I were called in several times for patient fluttering eyes but every time I walk in the room, she is alert and responsive. There is no seizure activity. Patient does state that she has been anxious. The family member states that she has done this in the past and it is usually from anxiety and she has been off of her Klonopin and has not been able to get a renewed prescription from her primary care doctor. Additionally, the patient's daughter states that she does not really want her mother here because of past experience with an infected right groin dialysis port. Patient is requesting transfer to [facility]. At this point, the patient appears quite stable for discharge actually. I have recommended she follow-up with GI. I did give the patient a prescription for clonazepam because she has had it in the past and she does a history of anxiety. After a lengthy discussion, they all seem happy with this. The patient has no evidence of acute stroke. Additionally, she has a history of intracranial bleed and thrombocytopenia. The CT shows no evidence of an intracranial bleed and the patient's clinical exam and clinical picture is not consistent with an acute bleed. She is stable for discharge. - Vital Signs Vital signs: Temp Pulse Resp BP Pulse Ox 14 127/66 H 99 01/29/18 18:01 01/29/18 18:00 01/29/18 18:01 - Laboratory Result Diagrams: 01/29/18 16:15 01/29/18 16:15 Laboratory results interpreted by me: 01/29/18 01/29/18 01/29/18 16:15 16:15 16:15 RBC 3.51 L Hgb 10.9 L Hct 32.5 L RDW 17.0 H Plt Count 38 L PT 18.1 H APTT 36.6 H Potassium 2.9 L* Chloride 108 H Carbon Dioxide 18 L BUN 67 H Creatinine 5.21 H Est GFR ( Amer) 11 L Est GFR (Non-Af Amer) 9 L Glucose 212 H Total Bilirubin 1.8 H Direct Bilirubin 1.1 H AST 43 H Alkaline Phosphatase 177 H - Diagnostic Test Radiology reviewed: Image reviewed, Reports reviewed - CT of the head shows no bleed Discharge - Discharge Clinical Impression: Near syncope, Anxiety Condition: Stable Disposition: HOME, SELF-CARE Additional Instructions: As we discussed: Your head CT look good today: There was no evidence of any bleeding. Your potassium was low (2.9). You were given some potassium in the emergency room. Continue with your potassium supplementations. Continue current medicines. For the anxiety, I have prescribed some Klonopin which you have been on in the past. Continue to follow-up with a GI doctor for paracentesis (abdominal drainage) as needed every 2 weeks. Follow-up with your primary care doctor as well Return to the ER for any worsening confusion, feeling like he going to pass out or any concerns or getting worse. Prescriptions: Clonazepam 0.5 mg PO Q8HP PRN #20 tablet PRN Reason: Clonazepam [Klonopin 0.5 mg Tablet Rapid Dissolve] 0.5 mg PO Q8HP PRN #20 tab.rapdis PRN Reason: Referrals: NGA BUCK MD [Primary Care Provider] - Follow up as needed
[2018-01-29 18:23] VITALS: BP 127/66
--- NOTE | 2018-01-29 19:22 | EKG REPORT ---
SEVERITY:- ABNORMAL ECG - SINUS TACHYCARDIA NONSPECIFIC T ABNORMALITIES, DIFFUSE LEADS NON PROGRESSION R WAVE ANT CHEST LEADS, CONSIDER ANTERIOR NV, OLD : Confirmed by: Tima Leach 29-Jan-2018 19:21:29
== END 2018-01-29 18:30 | disposition home or self-care (01) ==
LOC: ER 16:36
DX: R55 Syncope and collapse (principal); F41.9 Anxiety disorder, unspecified; R25.3 Fasciculation; Z86.73 Personal history of transient ischemic attack (TIA), and cerebral infarction without residual deficits; I12.0 Hypertensive chronic kidney disease with stage 5 chronic kidney disease or end stage renal disease; E11.22 Type 2 diabetes mellitus with diabetic chronic kidney disease; N18.6 End stage renal disease
CPT/HCPCS: 93005; 99285; 36415; 82553; 82550; 85025; 85610; 85730; 80053; 84484; 71045; 70450; 93010; A9270

== ENCOUNTER 2018-02-07 07:54 | Day surgery (SDC) | payer MEDICARE, MEDICAID ==
[2018-02-07 08:31] LABS: HEMATOCRIT 29.4 % (36.0-47.0); HEMOGLOBIN 9.8 g/dL (12.0-15.5); MEAN CORPUSCULAR HEMOGLOBIN 31.1 pg (27.0-33.4); MEAN CORPUSCULAR HGB CONC 33.3 g/dL (32.0-36.0); MEAN CORPUSCULAR VOLUME 93 fl (80-97); RED BLOOD COUNT 3.15 10^6/uL (3.72-5.28); RED CELL DISTRIBUTION WIDTH 16.2 % (11.5-14.0); WHITE BLOOD COUNT 3.3 10^3/uL (4.0-10.5)
[2018-02-07 08:34] LABS: PROTHROMBIN TIME 17.9 SEC (11.4-15.4)
[2018-02-07 08:42] LABS: BLOOD UREA NITROGEN 76 mg/dL (7-20)
[2018-02-07 09:58] LABS: PLATELET COUNT 26 10^3/uL (150-450)
[2018-02-07] MEDS ORDERED: LIDOCAINE 1% INJ-PF (10 MG/ML) 30 ML SDV ONE (10:42)
--- NOTE | 2018-02-07 12:10 | RADIOLOGY REPORT (SQ) ---
EXAM DESCRIPTION: U/S ABD PARACENTESIS COMPLETED DATE/TIME: 02/07/2018 12:02 pm REASON FOR STUDY: ASCITES COMPARISON Multiple previous, most recently 01/24/2018 LIMITATIONS: None. PROCEDURE: After obtaining informed consent, the patient was brought to the ultrasound suite. The p rocedure was performed with the patient on a gurney. Ultrasound was used to identify a prominent poc ket of ascites in the right lower quadrant. An appropriate access site was selected. The patient wa s prepped and draped in usual sterile fashion. The access site was anesthetized with 9 mL 1% lidoca ine. A Ftpg-R-Ypgqczbk needle was advanced into the fluid. After aspiration of fluid the needle, th e catheter was advanced off the needle into the fluid. A total of 8,000 mL of clear yellow fluid was removed. The patient tolerated the procedure well left the department in satisfactory condition. Patient received IV albumin infusion after the paracentesis. Ascites fluid was not sent for testing. IMPRESSION: Successful ultrasound-guided paracentesis COMMENT: Patient medication list reviewed: Yes- Quality ID# [id number]:Eligible professional attests to doc umenting in the medical record they obtained, updated, or reviewed the patient's current medications. TECHNICAL DOCUMENTATION: JOB ID: [id number] [employer]- All Rights Reserved Reading location - IP/workstation name: [email or web address]
[2018-02-07 13:08] VITALS: BP 111/67
== END 2018-02-07 12:30 | disposition home or self-care (01) ==
LOC: RAD 07:54
PROVIDERS: ATTEND Internal Medicine Gastroenterology
PROC: 0W9G3ZZ Drainage of Peritoneal Cavity, Percutaneous Approach (ICD-10-PCS; principal; 2018-02-07)
DX: K74.60 Unspecified cirrhosis of liver (principal); R18.8 Other ascites; D69.6 Thrombocytopenia, unspecified; I10 Essential (primary) hypertension; K21.9 Gastro-esophageal reflux disease without esophagitis; Z79.01 Long term (current) use of anticoagulants
CPT/HCPCS: 86900; 86901; 36415 ×2; 36430; 84520; 82565; 85027; 85610; 85730; 49083; P9035; P9047; J3490

== ENCOUNTER → 2018-02-08 | Outpatient (CLI) | payer MEDICARE, MEDICAID ==
[2018-02-08 12:10] LABS: HEMATOCRIT 28.2 % (36.0-47.0); HEMOGLOBIN 9.5 g/dL (12.0-15.5); MEAN CORPUSCULAR HEMOGLOBIN 31.3 pg (27.0-33.4); MEAN CORPUSCULAR HGB CONC 33.7 g/dL (32.0-36.0); MEAN CORPUSCULAR VOLUME 93 fl (80-97); RED BLOOD COUNT 3.04 10^6/uL (3.72-5.28); RED CELL DISTRIBUTION WIDTH 15.7 % (11.5-14.0); WHITE BLOOD COUNT 2.8 10^3/uL (4.0-10.5)
[2018-02-08 12:32] LABS: ANION GAP 15 (5-19); BLOOD UREA NITROGEN 80 mg/dL (7-20); CALCIUM 9.1 mg/dL (8.4-10.2); CARBON DIOXIDE 20 mmol/L (22-30); CHLORIDE 108 mmol/L (98-107); GLUCOSE 103 mg/dL (75-110); PHOSPHORUS 5.4 mg/dL (2.5-4.5); POTASSIUM 3.7 mmol/L (3.6-5.0); SODIUM 142.9 mmol/L (137-145)
[2018-02-08 12:44] LABS: APPEARANCE,URINE SLIGHTLY-CLOUDY; BILIRUBIN,URINE NEGATIVE (NEGATIVE); COLOR,URINE YELLOW; GLUCOSE, URINE NEGATIVE (NEGATIVE); KETONES,URINE NEGATIVE (NEGATIVE); LEUKOCYTE ESTERASE,URINE TRACE (NEGATIVE); NITRITE,URINE NEGATIVE (NEGATIVE); PROTEIN,URINE NEGATIVE (NEGATIVE); URINE SPECIFIC GRAVITY 1.009; UROBILINOGEN,URINE NEGATIVE mg/dL (<2.0)
[2018-02-08 13:46] LABS: PLATELET COUNT 27 10^3/uL (150-450)
== END ==
LOC: OD 11:03
PROVIDERS: ATTEND Physician Assistant Medical
DX: N18.5 Chronic kidney disease, stage 5 (principal); I12.9 Hypertensive chronic kidney disease with stage 1 through stage 4 chronic kidney disease, or unspecified chronic kidney disease; E87.5 Hyperkalemia
CPT/HCPCS: 36415; 80048; 81001; 83735; 83970; 84100; 85027

== ENCOUNTER 2018-02-21 10:49 | Day surgery (SDC) | payer MEDICARE, MEDICAID ==
[2018-02-21 11:36] LABS: HEMOGLOBIN 9.9 g/dL (12.0-15.5); MEAN CORPUSCULAR HEMOGLOBIN 31.6 pg (27.0-33.4); MEAN CORPUSCULAR HGB CONC 34.1 g/dL (32.0-36.0); MEAN CORPUSCULAR VOLUME 93 fl (80-97); RED BLOOD COUNT 3.14 10^6/uL (3.72-5.28); RED CELL DISTRIBUTION WIDTH 14.5 % (11.5-14.0); WHITE BLOOD COUNT 2.9 10^3/uL (4.0-10.5)
[2018-02-21 11:38] LABS: INTERNATIONAL RATION (INR) 1.44; PARTIAL THROMBOPLASTIN TIME 33.5 SEC (23.5-35.8); PROTHROMBIN TIME 18.3 SEC (11.4-15.4)
[2018-02-21 11:42] LABS: BLOOD UREA NITROGEN 66 mg/dL (7-20)
[2018-02-21 12:14] LABS: PLATELET COUNT 28 10^3/uL (150-450)
[2018-02-21] MEDS ORDERED: LIDOCAINE 1% INJ-PF (10 MG/ML) 30 ML SDV ONE (13:20)
[2018-02-21 15:44] VITALS: BP 105/68
--- NOTE | 2018-02-21 15:55 | RADIOLOGY REPORT (SQ) ---
EXAM DESCRIPTION: U/S ABD PARACENTESIS COMPLETED DATE/TIME: 02/21/2018 2:42 pm REASON FOR STUDY: ASCITES COMPARISON MULTIPLE PREVIOUS LIMITATIONS: None. PROCEDURE: After obtaining informed consent, the patient was brought to the ultrasound suite. The p rocedure was performed with the patient on a gurney. Ultrasound was used to identify a prominent poc ket of ascites in the left lower quadrant. An appropriate access site was selected. The patient was prepped and draped in usual sterile fashion. The access site was anesthetized with 8 mL 1% lidocai ne. A Bjdj-U-Khnxlcde needle was advanced into the fluid. After aspiration of fluid the needle, the catheter was advanced off the needle into the fluid. A total of 8,000 mL of clear yellow fluid was removed. The patient tolerated the procedure well left the department in satisfactory condition. Therapeutic only. Patient received platelets and IV albumin IMPRESSION: Successful ultrasound-guided paracentesis COMMENT: Patient medication list reviewed: Yes- Quality ID# [id number]:Eligible professional attests to doc umenting in the medical record they obtained, updated, or reviewed the patient's current medications. TECHNICAL DOCUMENTATION: JOB ID: [id number] [employer]- All Rights Reserved Reading location - IP/workstation name: [email or web address]
== END 2018-02-21 15:35 | disposition home or self-care (01) ==
LOC: RAD 10:49
PROVIDERS: ATTEND Internal Medicine Gastroenterology
DX: R18.8 Other ascites (principal); K75.81 Nonalcoholic steatohepatitis (NASH); K74.60 Unspecified cirrhosis of liver; I10 Essential (primary) hypertension; E11.9 Type 2 diabetes mellitus without complications
CPT/HCPCS: 86900; 86901; 36415; 36430; 86850; 82962; 84520; 82565; 85027; 85610; 85730; 49083; P9035; P9047; J3490

== ENCOUNTER 2018-03-07 07:00 | Day surgery (SDC) | payer MEDICARE, MEDICAID ==
[2018-03-07] MEDS ORDERED: ALBUMIN HUMAN 250 ML IV PRN (07:22)
[2018-03-07 08:18] LABS: INTERNATIONAL RATION (INR) 1.49; PROTHROMBIN TIME 18.8 SEC (11.4-15.4)
[2018-03-07 08:19] LABS: PARTIAL THROMBOPLASTIN TIME 34.5 SEC (23.5-35.8)
[2018-03-07 08:20] LABS: HEMATOCRIT 30.2 % (36.0-47.0); HEMOGLOBIN 10.4 g/dL (12.0-15.5); MEAN CORPUSCULAR HEMOGLOBIN 31.6 pg (27.0-33.4); MEAN CORPUSCULAR HGB CONC 34.4 g/dL (32.0-36.0); MEAN CORPUSCULAR VOLUME 92 fl (80-97); RED CELL DISTRIBUTION WIDTH 14.6 % (11.5-14.0); WHITE BLOOD COUNT 2.8 10^3/uL (4.0-10.5)
[2018-03-07 08:35] LABS: BLOOD UREA NITROGEN 67 mg/dL (7-20)
[2018-03-07 08:43] LABS: PLATELET COUNT 24 10^3/uL (150-450)
--- NOTE | 2018-03-07 13:37 | RADIOLOGY REPORT (SQ) ---
EXAM DESCRIPTION: U/S ABD PARACENTESIS COMPLETED DATE/TIME: 03/07/2018 1:21 pm REASON FOR STUDY: ASCITES COMPARISON None. LIMITATIONS: None. PROCEDURE: After obtaining informed consent, the patient was brought to the ultrasound suite. The p rocedure was performed with the patient on a gurney. Ultrasound was used to identify a prominent poc ket of ascites in the right lower quadrant. An appropriate access site was selected. The patient wa s prepped and draped in usual sterile fashion. The access site was anesthetized with 3 mL 1% lidoca ine. A Dvmt-F-Ygoyhvls needle was advanced into the fluid. After aspiration of fluid the needle, th e catheter was advanced off the needle into the fluid. A total of 8,000 mL of sarath colored fluid wa s removed. The patient tolerated the procedure well left the department in satisfactory condition. IMPRESSION: Successful ultrasound-guided paracentesis COMMENT: Patient medication list reviewed: Yes- Quality ID# [id number]:Eligible professional attests to doc umenting in the medical record they obtained, updated, or reviewed the patient's current medications. TECHNICAL DOCUMENTATION: JOB ID: [id number] [employer]- All Rights Reserved Reading location - IP/workstation name: [email or web address]
[2018-03-07 14:12] VITALS: BP 116/60
== END 2018-03-07 14:05 | disposition home or self-care (01) ==
LOC: RAD 07:00
PROVIDERS: ATTEND Internal Medicine Gastroenterology
DX: R18.8 Other ascites (principal); I12.9 Hypertensive chronic kidney disease with stage 1 through stage 4 chronic kidney disease, or unspecified chronic kidney disease; E11.22 Type 2 diabetes mellitus with diabetic chronic kidney disease; N18.9 Chronic kidney disease, unspecified; K74.60 Unspecified cirrhosis of liver; D69.6 Thrombocytopenia, unspecified; Z86.73 Personal history of transient ischemic attack (TIA), and cerebral infarction without residual deficits
CPT/HCPCS: 86900; 86901; 36415; 36430; 84520; 82565; 85027; 85610; 85730; 49083; P9035; P9047

== ENCOUNTER 2018-03-19 07:20 | Day surgery (SDC) | payer MEDICARE, MEDICAID ==
[2018-03-19 08:18] LABS: HEMATOCRIT 29.6 % (36.0-47.0); HEMOGLOBIN 10.2 g/dL (12.0-15.5); MEAN CORPUSCULAR HEMOGLOBIN 31.3 pg (27.0-33.4); MEAN CORPUSCULAR HGB CONC 34.5 g/dL (32.0-36.0); MEAN CORPUSCULAR VOLUME 91 fl (80-97); RED BLOOD COUNT 3.25 10^6/uL (3.72-5.28); RED CELL DISTRIBUTION WIDTH 14.4 % (11.5-14.0); WHITE BLOOD COUNT 2.8 10^3/uL (4.0-10.5)
[2018-03-19 08:29] LABS: INTERNATIONAL RATION (INR) 1.58; PROTHROMBIN TIME 19.7 SEC (11.4-15.4)
[2018-03-19 08:30] LABS: PARTIAL THROMBOPLASTIN TIME 37.4 SEC (23.5-35.8)
[2018-03-19 08:33] LABS: BLOOD UREA NITROGEN 66 mg/dL (7-20)
[2018-03-19 08:53] LABS: PLATELET COUNT 25 10^3/uL (150-450)
[2018-03-19] MEDS ORDERED: LIDOCAINE 1% INJ-PF (10 MG/ML) 30 ML SDV ONE (12:41)
--- NOTE | 2018-03-19 14:19 | RADIOLOGY REPORT (SQ) ---
EXAM DESCRIPTION: U/S ABD PARACENTESIS COMPLETED DATE/TIME: 03/19/2018 1:47 pm REASON FOR STUDY: ASCITES COMPARISON Multiple previous LIMITATIONS: None. PROCEDURE: After obtaining informed consent, the patient was brought to the ultrasound suite. The p rocedure was performed with the patient on a gurney. Ultrasound was used to identify a prominent poc ket of ascites . An appropriate access site was selected. The patient was prepped and draped in usu al sterile fashion. The access site was anesthetized with 8 mL of 1% lidocaine. A Lxzo-O-Yforkbqs needle was advanced into the fluid. After aspiration of fluid the needle, the catheter was advanced off the needle into the fluid. A total of 8,000 mL of sarath colored fluid was removed. The patient t olerated the procedure well left the department in satisfactory condition. Patient received platelets and IV albumin infusion. No ascites was sent for testing. IMPRESSION: Successful ultrasound-guided paracentesis COMMENT: Patient medication list reviewed: Yes- Quality ID# [id number]:Eligible professional attests to doc umenting in the medical record they obtained, updated, or reviewed the patient's current medications. TECHNICAL DOCUMENTATION: JOB ID: [id number] [employer]- All Rights Reserved Reading location - IP/workstation name: [email or web address]
[2018-03-19 14:35] VITALS: BP 97/59
== END 2018-03-19 14:20 | disposition home or self-care (01) ==
LOC: RAD 07:20
PROVIDERS: ATTEND Internal Medicine Gastroenterology
DX: R18.8 Other ascites (principal); K74.60 Unspecified cirrhosis of liver; K75.81 Nonalcoholic steatohepatitis (NASH); D69.6 Thrombocytopenia, unspecified; E11.9 Type 2 diabetes mellitus without complications; I10 Essential (primary) hypertension; Z79.01 Long term (current) use of anticoagulants
CPT/HCPCS: 86900; 86901; 36415; 36430; 84520; 82565; 85027; 85610; 85730; 49083; P9035; P9047; J3490

== ENCOUNTER 2018-03-20 15:58 | Day surgery (SDC) | payer MEDICARE, MEDICAID ==
[~2018-03-20 15:58] MED LIST changes: -ALBUMIN HUMAN 250 ML IV PRN; +DIPHENHYDRAMINE HCL 50 MG/ML VIAL ONE; +EPINEPHRINE INJ 1 MG/10 ML DISP.SYRIN ONE; +FENTANYL CITRATE INJ/PF 100 MCG/2 ML AMPUL ONE; +FLUMAZENIL INJ 0.5 MG/5 ML VIAL ONE; +GLUCAGON,HUMAN RECOMB 1 MG INJ ONE; +MIDAZOLAM 2 MG/2 ML INJ ONE; +NALOXONE HCL INJ/PF 0.4 MG/1 ML SDV ONE
[2018-03-20] MEDS: MIDAZOLAM 2 MG/2 ML INJ ONE ×2 (18:03→18:10)
--- NOTE | 2018-03-20 18:35 | Operative Report ---
Operative Report DATE OF SURGERY: 03/20/18 Operative Report: Pre-op diagnosis: History of cirrhosis. Esophageal variceal surveillance Post-op diagnosis: 1. Small grade 1 esophageal varices Surgery: Esophagogastroduodenoscopy with biopsy Medications: Versed 2.5 mg Fentanyl 50 mcg IV push Tissue removed: Antral biopsy for pathology Procedure: After informed consent obtained from patient, the throat was sprayed with Hurricane and conscious sedation was achieved. The upper endoscope was inserted into the esophagus under direct vision and advanced into the stomach. The duodenum was entered and examined to the second part. Endoscope was then slowly pulled out of the patient as the mucosa was examined into details. Patient tolerated procedure well. Findings Esophagus: There were 2 small varices that flattened with air insufflation. Antrum: Normal Body: Normal except for residual food Fundus: Normal Duodenum first part: Normal Duodenum second part: Normal Plan: Await pathology. Repeat EGD in 1 year OPERATION: .
[2018-03-20 19:19] VITALS: BP 108/59
== END 2018-03-20 19:20 | disposition home or self-care (01) ==
LOC: END 15:58
PROVIDERS: ATTEND Internal Medicine Gastroenterology
DX: I85.00 Esophageal varices without bleeding (principal); R18.8 Other ascites; K74.69 Other cirrhosis of liver; K21.9 Gastro-esophageal reflux disease without esophagitis; I12.9 Hypertensive chronic kidney disease with stage 1 through stage 4 chronic kidney disease, or unspecified chronic kidney disease; E11.22 Type 2 diabetes mellitus with diabetic chronic kidney disease; N18.4 Chronic kidney disease, stage 4 (severe); D69.6 Thrombocytopenia, unspecified; K75.81 Nonalcoholic steatohepatitis (NASH); Z86.73 Personal history of transient ischemic attack (TIA), and cerebral infarction without residual deficits; Z79.899 Other long term (current) drug therapy
CPT/HCPCS: 43239; 88305 ×2; J2250; J3010; J0171; J1200; J1610; J2310; J3490

== ENCOUNTER 2018-03-26 10:22 | Emergency (ER) | payer MEDICARE, MEDICAID ==
[2018-03-26] MEDS ORDERED: ONDANSETRON 4 MG TAB.RAPDIS PO ONE (10:56)
--- NOTE | 2018-03-26 10:58 | ER Document Report ---
ED General - General Chief Complaint: Vomiting Stated Complaint: VOMITING & DIZZY Time Seen by Provider: 03/26/18 10:47 TRAVEL OUTSIDE OF THE [place] IN LAST 30 DAYS: No - HPI Notes: 48-year-old female history of cirrhosis, hepatitis C presents with nausea vomiting for a week. Patient states she thinks she needs to have her abdomen tapped again she is not scheduled for 6 more days. States her physician/ primary care will not let her get weekly. They Also Limit the Drainage Amount 8 L Where She Has Gone to [place] with a Drain 10 L. She Is Tired of Having Her Abdomen Feels Firm. Although She Denies Pain She States She Is Just Bloated with This Ascites. - Related Data Allergies/Adverse Reactions: No Known Allergies Allergy (Verified 03/26/18 10:23) Past Medical History - Social History Smoking Status: Unknown if Ever Smoked Family History: Reviewed & Not Pertinent - Past Medical History Cardiac Medical History: Reports: Hx Hypercholesterolemia, Hx Hypertension Denies: Hx Coronary Artery Disease, Hx Heart Attack Pulmonary Medical History: Denies: Hx Asthma, Hx Bronchitis, Hx COPD, Hx Pneumonia, Hx Tuberculosis Neurological Medical History: Reports: Hx Cerebrovascular Accident - 06/2017. Denies: Hx Seizures Endocrine Medical History: Reports: Hx Diabetes Mellitus Type 2 Renal/ Medical History: Reports: Hx End Stage Renal Disease, Hx Kidney Stones - 2011, Hx Renal Insufficiency. Denies: Hx Peritoneal Dialysis GI Medical History: Reports: Hx Cirrhosis - Due to fatty liver disease, Hx Gastroesophageal Reflux Disease, Hx Liver Failure. Denies: Hx Hepatitis - C Musculoskeltal Medical History: Reports Hx Arthritis - BACK Psychiatric Medical History: Reports: Hx Anxiety, Hx Bipolar Disorder, Hx Depression - & anxiety Infectious Medical History: Denies: Hx Hepatitis - C Past Surgical History: Reports: Hx Cholecystectomy - 2011, Hx Hysterectomy - Immunizations Hx Diphtheria, Pertussis, Tetanus Vaccination: No Hx Pneumococcal Vaccination: 09/03/12 Review of Systems - Review of Systems Notes: REVIEW OF SYSTEMS: CONSTITUTIONAL: -fevers, -chills EENT: -eye pain, -difficulty swallowing, -nasal congestion CARDIOVASCULAR: -chest pain, -syncope. RESPIRATORY: -cough, -SOB GASTROINTESTINAL: -abdominal pain, positive for nausea and vomiting-diarrhea GENITOURINARY: -dysuria, -hematuria MUSCULOSKELETAL: -back pain, -neck pain SKIN: -rash or skin lesions. HEMATOLOGIC: -easy bruising or bleeding. LYMPHATIC: -swollen, enlarged glands. NEUROLOGICAL: -altered mental status or loss of consciousness, -headache, - neurologic symptoms PSYCHIATRIC: -anxiety, -depression. ALL OTHER SYSTEMS REVIEWED AND NEGATIVE. Physical Exam - Vital signs Vitals: Temp Pulse Resp BP Pulse Ox 98.0 F 80 14 117/53 L 99 03/26/18 10:29 03/26/18 10:03/26/18 10:03/26/18 10:03/26/18 10:29 - Notes Notes: PHYSICAL EXAMINATION: GENERAL: Well-appearing, well-nourished and in no acute distress. HEAD: Atraumatic, normocephalic. EYES: Pupils equal round and reactive to light, extraocular movements intact, sclera anicteric, conjunctiva are normal. ENT: nares patent, oropharynx clear without exudates. Moist mucous membranes. NECK: Normal range of motion, supple without lymphadenopathy LUNGS: Breath sounds clear to auscultation bilaterally and equal. No wheezes rales or rhonchi. HEART: Regular rate and rhythm without murmurs abdomen: Patient's abdomen soft nontender but there is a fluid wave noted.. EXTREMITIES: Normal range of motion, no pitting or edema. No cyanosis. NEUROLOGICAL: Cranial nerves grossly intact. Normal speech, normal gait. Normal sensory and motor exams. PSYCH: Normal mood, normal affect. SKIN: Warm, Dry, normal turgor, no rashes or lesions noted. Course - Re-evaluation Re-evalutation: 03/26/18 12:02 Pleasant female presents with some mild nausea. She is just frustrated with her disease state. Extensive lab workup to show thrombocytopenia but this is near her baseline. She is scheduled to get more platelets next Monday when she gets her abdomen drained of ascites. Patient given antiemetics feeling much improved. Will be given some more oral antiemetics as prescription follow-up with family doctor tomorrow. - Vital Signs Vital signs: Temp Pulse Resp BP Pulse Ox 98.0 F 80 14 117/53 L 99 03/26/18 10:29 03/26/18 10:03/26/18 10:03/26/18 10:03/26/18 10:29 - Laboratory Result Diagrams: 03/26/18 11:00 Laboratory results interpreted by me: 03/26/18 03/26/18 03/26/18 11:00 11:00 11:00 WBC 2.9 L RBC 3.32 L Hgb 10.5 L Hct 30.6 L RDW 14.7 H Plt Count 24 L* Total Bilirubin 2.1 H Direct Bilirubin 1.0 H AST 37 H Ammonia < 8.7 L Total Protein 5.6 L Albumin 3.0 L - EKG Interpretation by Me Additional EKG results interpreted by me: 03/26/18 11:35 Normal sinus rhythm [address] elevations or depressions no pathologic T- wave inversions. Discharge - Discharge Clinical Impression: Liver cirrhosis Qualifiers: Hepatic cirrhosis type: other cirrhosis Qualified Code(s): K74.69 - Other cirrhosis of liver Vomiting Qualifiers: Vomiting type: unspecified Vomiting Intractability: non-intractable Nausea presence: with nausea Qualified Code(s): R11.2 - Nausea with vomiting, unspecified Disposition: HOME, SELF-CARE Instructions: Vomiting ([facility]) Prescriptions: Ondansetron [Zofran Odt 4 mg Tablet] 1 - 2 tab PO Q4H PRN #15 tab.rapdis PRN Reason: For Nausea/Vomiting Referrals: NGA BUCK MD [Primary Care Provider] - Follow up as needed
[2018-03-26 11:18] LABS: ABSOLUTE EOSINOPHILS # (AUTO) 0.1 10^3/uL (0.0-0.6); ABSOLUTE LYMPHOCYTES (AUTO) 0.6 10^3/uL (0.5-4.7); ABSOLUTE MONOCYTES (AUTO) 0.2 10^3/uL (0.1-1.4); BASOPHILS % (AUTO) 1.2 % (0-2); EOSINOPHILS % (AUTO) 4.5 % (0-6); HEMATOCRIT 30.6 % (36.0-47.0); HEMOGLOBIN 10.5 g/dL (12.0-15.5); LYMPHOCYTES % (AUTO) 19.9 % (13-45); MEAN CORPUSCULAR HEMOGLOBIN 31.5 pg (27.0-33.4); MEAN CORPUSCULAR HGB CONC 34.2 g/dL (32.0-36.0); MEAN CORPUSCULAR VOLUME 92 fl (80-97); MONOCYTES % (AUTO) 6.1 % (3-13); RED BLOOD COUNT 3.32 10^6/uL (3.72-5.28); RED CELL DISTRIBUTION WIDTH 14.7 % (11.5-14.0); SEGMENTED NEUTROPHILS % (AUTO) 68.3 % (42-78); TOTAL CELLS COUNTED % (AUTO) 100 %; WHITE BLOOD COUNT 2.9 10^3/uL (4.0-10.5)
[2018-03-26 11:34] LABS: ALANINE AMINOTRANSFERASE 36 U/L (9-52); ALKALINE PHOSPHATASE 102 U/L (38-126); ASPARTATE AMINO TRANSFERASE 37 U/L (14-36); BILIRUBIN,TOTAL 2.1 mg/dL (0.2-1.3); TOTAL PROTEIN 5.6 g/dL (6.3-8.2)
[2018-03-26 11:47] LABS: PLATELET COUNT 24 10^3/uL (150-450)
--- NOTE | 2018-03-26 16:39 | EKG REPORT ---
SEVERITY:- ABNORMAL ECG - SINUS RHYTHM PROBABLE INFERIOR INFARCT, AGE INDETERMINATE : Confirmed by: Tima Leach 26-Mar-2018 16:38:42
[2018-03-26 19:46] VITALS: BP 117/62
== END 2018-03-26 15:14 | disposition home or self-care (01) ==
LOC: ER 10:22
DX: K74.69 Other cirrhosis of liver (principal); R11.2 Nausea with vomiting, unspecified; R42 Dizziness and giddiness; I10 Essential (primary) hypertension; E11.9 Type 2 diabetes mellitus without complications
CPT/HCPCS: 93005; 99284; 36415; 82140; 85025; 80076; 93010; A9270; S0119

== ENCOUNTER 2018-04-02 08:52 | Day surgery (SDC) | payer MEDICARE, MEDICAID ==
[~2018-04-02 08:52] MED LIST changes: +ALBUMIN HUMAN 62.5 GM/250 ML RTUINJ IV PRN; -DIPHENHYDRAMINE HCL 50 MG/ML VIAL ONE; -EPINEPHRINE INJ 1 MG/10 ML DISP.SYRIN ONE; -FENTANYL CITRATE INJ/PF 100 MCG/2 ML AMPUL ONE; -FLUMAZENIL INJ 0.5 MG/5 ML VIAL ONE; -GLUCAGON,HUMAN RECOMB 1 MG INJ ONE; -MIDAZOLAM 2 MG/2 ML INJ ONE; -NALOXONE HCL INJ/PF 0.4 MG/1 ML SDV ONE
[2018-04-02 09:43] LABS: HEMATOCRIT 28.4 % (36.0-47.0); HEMOGLOBIN 9.9 g/dL (12.0-15.5); MEAN CORPUSCULAR HGB CONC 34.9 g/dL (32.0-36.0); MEAN CORPUSCULAR VOLUME 92 fl (80-97); RED CELL DISTRIBUTION WIDTH 14.9 % (11.5-14.0); WHITE BLOOD COUNT 3.7 10^3/uL (4.0-10.5)
[2018-04-02 09:57] LABS: BLOOD UREA NITROGEN 76 mg/dL (7-20)
[2018-04-02 11:25] LABS: INTERNATIONAL RATION (INR) 1.43; PROTHROMBIN TIME 18.2 SEC (11.4-15.4)
[2018-04-02 11:26] LABS: PARTIAL THROMBOPLASTIN TIME 37.6 SEC (23.5-35.8)
[2018-04-02] MEDS ORDERED: LIDOCAINE 1% INJ-PF (10 MG/ML) 30 ML SDV ONE (12:29)
--- NOTE | 2018-04-02 14:31 | RADIOLOGY REPORT (SQ) ---
EXAM DESCRIPTION: U/S ABD PARACENTESIS COMPLETED DATE/TIME: 04/02/2018 2:03 pm REASON FOR STUDY: ASCITES COMPARISON None. LIMITATIONS: None. PROCEDURE: After obtaining informed consent, the patient was brought to the ultrasound suite. The p rocedure was performed with the patient on a gurney. Ultrasound was used to identify a prominent poc ket of ascites in the right lower quadrant. An appropriate access site was selected. The patient wa s prepped and draped in usual sterile fashion. The access site was anesthetized with 5 mL 1% lidoca ine. A Vtyc-B-Xzwugyte needle was advanced into the fluid. After aspiration of fluid the needle, th e catheter was advanced off the needle into the fluid. A total of 8,000 mL of sarath colored fluid wa s removed. The patient tolerated the procedure well left the department in satisfactory condition. IMPRESSION: Successful ultrasound-guided paracentesis COMMENT: Patient medication list reviewed: Yes- Quality ID# [id number]:Eligible professional attests to doc umenting in the medical record they obtained, updated, or reviewed the patient's current medications. TECHNICAL DOCUMENTATION: JOB ID: [id number] [employer]- All Rights Reserved Reading location - IP/workstation name: [email or web address]
[2018-04-02 15:04] VITALS: BP 91/47
[2018-04-02 15:34] LABS: PLATELET COUNT 25 10^3/uL (150-450)
== END 2018-04-02 14:00 | disposition home or self-care (01) ==
LOC: RAD 08:52
PROVIDERS: ATTEND Internal Medicine Gastroenterology
DX: R18.8 Other ascites (principal); K74.60 Unspecified cirrhosis of liver; K75.81 Nonalcoholic steatohepatitis (NASH); D69.6 Thrombocytopenia, unspecified; E11.9 Type 2 diabetes mellitus without complications; I10 Essential (primary) hypertension; Z79.899 Other long term (current) drug therapy; Z79.01 Long term (current) use of anticoagulants
CPT/HCPCS: 86900; 86901; 36415; 36430; 84520; 82565; 85027; 85610; 85730; 49083; P9035; P9047; J3490

== ENCOUNTER → 2018-04-12 | Outpatient (CLI) | payer MEDICARE, MEDICAID ==
[2018-04-12 11:24] LABS: HEMATOCRIT 28.5 % (36.0-47.0); HEMOGLOBIN 9.9 g/dL (12.0-15.5); MEAN CORPUSCULAR HEMOGLOBIN 32.4 pg (27.0-33.4); MEAN CORPUSCULAR HGB CONC 34.7 g/dL (32.0-36.0); MEAN CORPUSCULAR VOLUME 94 fl (80-97); RED BLOOD COUNT 3.04 10^6/uL (3.72-5.28); RED CELL DISTRIBUTION WIDTH 15.8 % (11.5-14.0)
[2018-04-12 11:49] LABS: ANION GAP 13 (5-19); BLOOD UREA NITROGEN 76 mg/dL (7-20); CALCIUM 8.9 mg/dL (8.4-10.2); CARBON DIOXIDE 23 mmol/L (22-30); CHLORIDE 106 mmol/L (98-107); GLUCOSE 129 mg/dL (75-110); POTASSIUM 4.3 mmol/L (3.6-5.0); SODIUM 141.5 mmol/L (137-145)
[2018-04-12 12:17] LABS: PLATELET COUNT 28 10^3/uL (150-450)
== END ==
LOC: OD 09:45
PROVIDERS: ATTEND Physician Assistant Medical
DX: Z12.31 Encounter for screening mammogram for malignant neoplasm of breast (principal)
CPT/HCPCS: 36415; 80048; 85027

== ENCOUNTER 2018-04-18 08:44 | Day surgery (SDC) | payer MEDICARE, MEDICAID ==
[~2018-04-18 08:44] MED LIST changes: +ALBUMIN HUMAN 62.5 GM/250 ML RTUINJ IV ONE
[2018-04-18 09:54] LABS: INTERNATIONAL RATION (INR) 1.55; PROTHROMBIN TIME 19.4 SEC (11.4-15.4)
[2018-04-18 10:02] LABS: BLOOD UREA NITROGEN 69 mg/dL (7-20)
[2018-04-18 11:52] LABS: HEMATOCRIT 26.2 % (36.0-47.0); HEMOGLOBIN 9.1 g/dL (12.0-15.5); MEAN CORPUSCULAR HEMOGLOBIN 32.2 pg (27.0-33.4); MEAN CORPUSCULAR HGB CONC 34.8 g/dL (32.0-36.0); MEAN CORPUSCULAR VOLUME 93 fl (80-97); RED BLOOD COUNT 2.83 10^6/uL (3.72-5.28); RED CELL DISTRIBUTION WIDTH 15.1 % (11.5-14.0); WHITE BLOOD COUNT 3.2 10^3/uL (4.0-10.5)
[2018-04-18 12:21] LABS: PLATELET COUNT 25 10^3/uL (150-450)
[2018-04-18] MEDS ORDERED: LIDOCAINE 1% INJ-PF (10 MG/ML) 30 ML SDV ONE (13:33)
--- NOTE | 2018-04-18 15:09 | RADIOLOGY REPORT (SQ) ---
EXAM DESCRIPTION: U/S ABD PARACENTESIS COMPLETED DATE/TIME: 04/18/2018 2:44 pm REASON FOR STUDY: ASCITES COMPARISON Multiple previous LIMITATIONS: None. PROCEDURE: After obtaining informed consent, the patient was brought to the ultrasound suite. The p rocedure was performed with the patient on a gurney. Ultrasound was used to identify a prominent poc ket of ascites in the right lower quadrant. An appropriate access site was selected. The patient wa s prepped and draped in usual sterile fashion. The access site was anesthetized with 7 mL 1% lidoca ine. A Fceg-C-Agajpigc needle was advanced into the fluid. After aspiration of fluid the needle, th e catheter was advanced off the needle into the fluid. A total of 8000 mL mL of clear yellow fluid w as removed. The patient tolerated the procedure well left the department in satisfactory condition. IMPRESSION: Successful ultrasound-guided paracentesis COMMENT: Patient medication list reviewed: Yes- Quality ID# [id number]:Eligible professional attests to doc umenting in the medical record they obtained, updated, or reviewed the patient's current medications. TECHNICAL DOCUMENTATION: JOB ID: [id number] [employer]- All Rights Reserved Reading location - IP/workstation name: [email or web address]
--- NOTE | 2018-04-18 15:24 | RADIOLOGY REPORT (SQ) ---
EXAM DESCRIPTION: CT HEAD WITHOUT COMPLETED DATE/TIME: 04/18/2018 2:55 pm REASON FOR STUDY: HEPATIC ENCEPHALOPATHY (G93.41), DISORIENTATIONS (R41.0), HEADACHE (R51) R18.8 OT HER ASCITES G93.41 METABOLIC ENCEPHALOPATHY R41.0 DISORIENTATION, UNSPECIFIED COMPARISON: None. TECHNIQUE: Axial images acquired through the brain without intravenous contrast. Images reviewed wi th bone, brain and subdural windows. Additional sagittal and coronal reconstructions were generated. Images stored on PACS. All CT scanners at this facility use dose modulation, iterative reconstruction, and/or weight based d osing when appropriate to reduce radiation dose to as low as reasonably achievable (ALARA). [facility]: Dose Right [facility]: CareDose [facility]: Dose Right [facility]: Teradose 4D [facility]: [employer] RADIATION DOSE: CT Rad equipment meets quality standard of care and radiation dose reduction techniq ues were employed. CTDIvol: 48.5 mGy. DLP: 855 mGy-cm. mGy. LIMITATIONS: None. FINDINGS: VENTRICLES: Normal size and contour. CEREBRUM: No masses. No hemorrhage. No midline shift. Small focal area of encephalomalacia in the left frontal lobe unchanged. No evidence for acute infarction. Normal pavon/white matter differentiat ion. No areas of low density in the white matter. CEREBELLUM: No masses. No hemorrhage. No alteration of density. No evidence for acute infarction. EXTRAAXIAL SPACES: No fluid collections. No masses. ORBITS AND GLOBE: No intra- or extraconal masses. Normal contour of globe without masses. CALVARIUM: No fracture. PARANASAL SINUSES: No fluid or mucosal thickening. SOFT TISSUES: No mass or hematoma. OTHER: No other significant finding. IMPRESSION: STABLE SMALL OLD INFARCT IN THE LEFT FRONTAL LOBE. OTHERWISE NO ACUTE OR SIGNIFICANT FI NDINGS. EVIDENCE OF ACUTE STROKE: NO. COMMENT: Quality ID # [id number]: Final reports with documentation of one or more dose reduction techniques (e.g., Automated exposure control, adjustment of the mA and/or kV according to patient size, use of iterative reconstruction technique) TECHNICAL DOCUMENTATION: JOB ID: [id number] [employer]- All Rights Reserved Reading location - IP/workstation name: [email or web address]
[2018-04-18 16:09] VITALS: BP 132/66
== END 2018-04-18 16:00 | disposition home or self-care (01) ==
LOC: RAD 08:44
PROVIDERS: ATTEND Internal Medicine Gastroenterology
DX: R18.8 Other ascites (principal); G93.41 Metabolic encephalopathy; R41.0 Disorientation, unspecified; R51 Headache; E11.9 Type 2 diabetes mellitus without complications; I10 Essential (primary) hypertension; K75.81 Nonalcoholic steatohepatitis (NASH); K74.60 Unspecified cirrhosis of liver
CPT/HCPCS: 86900; 86901; 36415; 36430; 84520; 82565; 85027; 85610; 85730; 49083; 70450; P9035; P9047; J3490

== ENCOUNTER 2018-04-20 13:20 | Emergency (ER) | payer MEDICARE, MEDICAID ==
--- NOTE | 2018-04-20 14:13 | ER Document Report ---
ED Medical Screen (RME) - General Chief Complaint: Flank Pain Stated Complaint: POSSIBLE KIDNEY ISSUES Time Seen by Provider: 04/20/18 14:00 Mode of Arrival: Ambulatory Information source: Patient Notes: 48 yr old male hx of cirrhosis presents with suprapubic pressure and bilateral flank pain . deniees fevers, hd 8 liters taken off on monday, no abd pain I have greeted and performed a rapid initial assessment of this patient. A comprehensive ED assessment and evaluation of the patient, analysis of test results and completion of the medical decision making process will be conducted by additional ED providers. PHYSICAL EXAMINATION: GENERAL: Well-appearing, well-nourished and in no acute distress. HEAD: Atraumatic, normocephalic. EYES: Pupils equal round extraocular movements intact, conjunctiva are normal. ENT: Nares patent NECK: Normal range of motion LUNGS: No respiratory distress Musculoskeletal: Normal range of motion NEUROLOGICAL: Normal speech, normal gait. PSYCH: Normal mood, normal affect. SKIN: Warm, Dry, normal turgor, no rashes or lesions noted. TRAVEL OUTSIDE OF THE [place] IN LAST 30 DAYS: No - Related Data Allergies/Adverse Reactions: No Known Allergies Allergy (Verified 04/20/18 13:23) Past Medical History - Past Medical History Cardiac Medical History: Reports: Hx Hypercholesterolemia, Hx Hypertension Denies: Hx Coronary Artery Disease, Hx Heart Attack Pulmonary Medical History: Denies: Hx Asthma, Hx Bronchitis, Hx COPD, Hx Pneumonia, Hx Tuberculosis Neurological Medical History: Reports: Hx Cerebrovascular Accident - 06/2017, Hx Seizures - BACK Endocrine Medical History: Reports: Hx Diabetes Mellitus Type 2 Renal/ Medical History: Reports: Hx End Stage Renal Disease, Hx Kidney Stones - 2011, Hx Renal Insufficiency. Denies: Hx Peritoneal Dialysis GI Medical History: Reports: Hx Cirrhosis - Due to fatty liver disease, Hx Gastroesophageal Reflux Disease, Hx Liver Failure. Denies: Hx Hepatitis - C Musculoskeltal Medical History: Reports Hx Arthritis - BACK Psychiatric Medical History: Reports: Hx Anxiety, Hx Bipolar Disorder, Hx Depression - & anxiety Infectious Medical History: Denies: Hx Hepatitis - C Past Surgical History: Reports: Hx Cholecystectomy - 2011, Hx Hysterectomy - Immunizations Hx Diphtheria, Pertussis, Tetanus Vaccination: No History of Influenza Vaccine for 07/2017 - 12/2017 Season: Unknown Influenza Administration Date for 07/2017 - 12/2017 Season: 07/30/17 Physical Exam - Vital signs Vitals: Temp Pulse Resp BP Pulse Ox 98.4 F 94 16 123/58 L 100 04/20/18 13:38 04/20/18 13:38 04/20/18 13:38 04/20/18 13:38 04/20/18 13:38 Course - Vital Signs Vital signs: Temp Pulse Resp BP Pulse Ox 98.4 F 94 16 123/58 L 100 04/20/18 13:38 04/20/18 13:38 04/20/18 13:38 04/20/18 13:38 04/20/18 13:38 Doctor's Discharge - Discharge Referrals: EDIN FELIZ MD [Primary Care Provider] - Follow up as needed
--- NOTE | 2018-04-20 14:39 | ER Document Report ---
ED GI/ - General Chief Complaint: Flank Pain Stated Complaint: POSSIBLE KIDNEY ISSUES Time Seen by Provider: 04/20/18 14:00 Mode of Arrival: Ambulatory Notes: The patient is a 48-year-old female, past medical history chronic ascites, presents with suprapubic pain, dysuria and bilateral flank pain, worse on the right side. She is also having some diarrhea and vomiting. She denies fevers, hematemesis, blood in her stool, rash or abdominal pain. TRAVEL OUTSIDE OF THE [place] IN LAST 30 DAYS: No - Related Data Allergies/Adverse Reactions: No Known Allergies Allergy (Verified 04/20/18 13:23) Past Medical History - General Information source: Patient - Social History Smoking Status: Never Smoker Chew tobacco use (# tins/day): No Frequency of alcohol use: None Drug Abuse: None Family History: Reviewed & Not Pertinent Patient has suicidal ideation: No Patient has homicidal ideation: No - Past Medical History Cardiac Medical History: Reports: Hx Hypercholesterolemia, Hx Hypertension Denies: Hx Coronary Artery Disease, Hx Heart Attack Pulmonary Medical History: Denies: Hx Asthma, Hx Bronchitis, Hx COPD, Hx Pneumonia, Hx Tuberculosis Neurological Medical History: Reports: Hx Cerebrovascular Accident - 06/2017, Hx Seizures - BACK Endocrine Medical History: Reports: Hx Diabetes Mellitus Type 2 Renal/ Medical History: Reports: Hx End Stage Renal Disease, Hx Kidney Stones - 2011, Hx Renal Insufficiency. Denies: Hx Peritoneal Dialysis GI Medical History: Reports: Hx Cirrhosis - Due to fatty liver disease, Hx Gastroesophageal Reflux Disease, Hx Liver Failure. Denies: Hx Hepatitis - C Musculoskeltal Medical History: Reports Hx Arthritis - BACK Psychiatric Medical History: Reports: Hx Anxiety, Hx Bipolar Disorder, Hx Depression - & anxiety Infectious Medical History: Denies: Hx Hepatitis - C Past Surgical History: Reports: Hx Cholecystectomy - 2011, Hx Hysterectomy - Immunizations Hx Diphtheria, Pertussis, Tetanus Vaccination: No Hx Pneumococcal Vaccination: 09/03/12 Review of Systems - Review of Systems Notes: REVIEW OF SYSTEMS: CONSTITUTIONAL: -fevers, -chills EENT: -eye pain, -difficulty swallowing, -nasal congestion CARDIOVASCULAR: -chest pain, -syncope. RESPIRATORY: -cough, -SOB GASTROINTESTINAL: -abdominal pain, +nausea, +vomiting, +diarrhea GENITOURINARY: +dysuria, +hematuria MUSCULOSKELETAL: +B/L flank pain, -neck pain SKIN: -rash or skin lesions. HEMATOLOGIC: -easy bruising or bleeding. LYMPHATIC: -swollen, enlarged glands. NEUROLOGICAL: -altered mental status or loss of consciousness, -headache, - neurologic symptoms PSYCHIATRIC: -anxiety, -depression. ALL OTHER SYSTEMS REVIEWED AND NEGATIVE. Physical Exam - Vital signs Vitals: Temp Pulse Resp BP Pulse Ox 98.4 F 94 16 123/58 L 100 04/20/18 13:38 04/20/18 13:38 04/20/18 13:38 04/20/18 13:38 04/20/18 13:38 - Notes Notes: PHYSICAL EXAMINATION: GENERAL: Uncomfortable, vomiting. HEAD: Atraumatic, normocephalic. EYES: Pupils equal round and reactive to light, extraocular movements intact, sclera anicteric, conjunctiva are normal. ENT: nares patent, oropharynx clear without exudates. Moist mucous membranes. NECK: Normal range of motion, supple without lymphadenopathy LUNGS: Breath sounds clear to auscultation bilaterally and equal. No wheezes rales or rhonchi. HEART: Regular rate and rhythm without murmurs ABDOMEN: Nontender abdomen, ascites. BACK: No CVA tenderness. EXTREMITIES: Normal range of motion, no pitting or edema. No cyanosis. NEUROLOGICAL: Cranial nerves grossly intact. Normal speech, normal gait. Normal sensory and motor exams. PSYCH: Normal mood, normal affect. SKIN: Warm, Dry, normal turgor, no rashes or lesions noted. Course - Re-evaluation Re-evalutation: Patient with a 1 mm kidney stone at the UVJ. She has hematuria, but no evidence of an infected kidney stone. After Zofran and hydrocodone, her pain and nausea are under control. Blood work is consistent with her known CKD and liver failure. Instructed patient about return precautions and she understands. - Vital Signs Vital signs: Temp Pulse Resp BP Pulse Ox 98.4 F 94 16 123/58 L 100 04/20/18 13:38 04/20/18 13:38 04/20/18 13:38 04/20/18 13:38 04/20/18 13:38 - Laboratory Result Diagrams: 04/20/18 14:20 04/20/18 14:20 Laboratory results interpreted by me: 04/20/18 04/20/18 04/20/18 13:38 14:20 14:20 WBC 3.3 L RBC 2.70 L Hgb 8.8 L Hct 25.4 L RDW 15.2 H Plt Count 28 L* BUN 60 H Creatinine 5.13 H Est GFR ( Amer) 11 L Est GFR (Non-Af Amer) 9 L Glucose 185 H Total Bilirubin 1.7 H Direct Bilirubin 0.8 H AST 44 H Albumin 3.3 L Urine Blood SMALL H Ur Leukocyte Esterase TRACE H - Diagnostic Test Radiology reviewed: Image reviewed, Reports reviewed Radiology results interpreted by me: CT A/P: 1. LARGE AMOUNT OF ASCITES. 2. MILD PROMINENCE OF THE COLLECTING SYSTEM OF THE RIGHT KIDNEY. THE RIGHT URETER IS DIFFICULT TO VISUALIZE DUE TO THE LARGE AMOUNT OF ASCITES. THERE IS A TINY 1 MM CALCULUS IN THE POSTERIOR BLADDER ALONG THE RIGHT SIDE NEAR THE EXPECTED LOCATION OF THE URETERAL VESICULAR JUNCTION AND CANNOT EXCLUDE A POSSIBLE TINY CALCULUS AT THE UVJ. 3. HETEROGENOUS NODULAR CONTOUR OF THE LIVER CONSISTENT WITH CIRRHOSIS. MASSIVE SPLENOMEGALY, ALSO PRESENT ON PRIOR STUDIES. 4. EDEMA IN THE SUBCUTANEOUS TISSUES OF THE BODY. 5. NO OTHER SIGNIFICANT FINDINGS. Discharge - Discharge Clinical Impression: Kidney stone Condition: Stable Disposition: HOME, SELF-CARE Additional Instructions: KIDNEY STONE: You are passing or have passed a kidney stone. These stones are usually due to increased calcium or uric acid concentrations in your urine. Stones within the kidney itself are not painful. The pain occurs as the stone leaves the kidney to pass down the long tube, called the ureter, leading to the bladder. If the stone is small, it will usually pass by itself. Most patients can pass the stone at home. You will usually receive medications for pain, nausea or vomiting, and sometimes a medication to assist in passing the kidney stone. However, if the pain is very severe or if vomiting prevents you from taking oral pain medications, you may need to return for further treatment. Drink three or four quarts of fluids per day. You will be given pain medication (if needed) and urine strainers. Strain all your urine to see if the stone passes. If your doctor has asked you to bring the stone in for analysis, return with the stone once it has passed. Return if pain or vomiting become severe, if you develop a high fever, if you are unable to pass your urine, or if other unusual symptoms occur. ANTINAUSEA MEDICATION: You have been given a medication to suppress nausea and vomiting. This type of medication can be given as a shot, pill, or suppository. It will usually last for many hours. Pills and shots usually last six to eight hours, suppositories last about 12 hours. For the typical illness, only one or two doses of the medication may be necessary. Mild lightheadedness may occur. This type of medicine can cause drowsiness. Do not drive or operate dangerous machinery while under its influence. Do not mix with alcohol. See your doctor at once if you have muscle spasms or tightness, or uncontrollable motions (particularly of the neck, mouth, or jaw). Persistent vomiting or severe lightheadedness should also be evaluated by the physician. ORAL NARCOTIC MEDICATION: You have been given a prescription for pain control. This medication is a narcotic. It's best taken with food, as nausea can result if taken on an empty stomach. Don't operate machinery or drive within six hours of taking this medication. Do not combine this medicine with alcohol, or with any medication which can cause sedation (such as cold tablets or sleeping pills) unless you get permission from the physician. Narcotics tend to cause constipation. If possible, drink plenty of fluids and eat a diet high in fiber and fruits. Please be aware that prescription narcotics also have the potential for abuse. People become addicted to these medications because of the general sense of wellbeing that they induce. This feeling along with a significant reduction in tension, anxiety, and aggression provides a stimulating seductive quality to these drugs. Once your pain is under control, we encourage you to discard your unused narcotics. FOLLOW-UP CARE: If you have been referred to a physician for follow-up care, call the physician s office for an appointment as you were instructed or within the next two days. If you experience worsening or a significant change in your symptoms, notify the physician immediately or return to the Emergency Department at any time for re-evaluation. Prescriptions: Hydrocodone Bitartrate [Zohydro ER] 10 mg PO Q12H PRN #8 cap.er.12h PRN Reason: Ondansetron [Zofran Odt 4 mg Tablet] 1 - 2 tab PO Q4H PRN #15 tab.rapdis PRN Reason: For Nausea/Vomiting Forms: Elevated Blood Pressure Referrals: EDIN FELIZ MD [ACTIVE STAFF] - Follow up as needed
[2018-04-20 14:44] LABS: ABSOLUTE EOSINOPHILS # (AUTO) 0.1 10^3/uL (0.0-0.6); ABSOLUTE LYMPHOCYTES (AUTO) 0.6 10^3/uL (0.5-4.7); ABSOLUTE MONOCYTES (AUTO) 0.2 10^3/uL (0.1-1.4); ABSOLUTE NEUT (AUTO) 2.4 10^3/uL (1.7-8.2); BASOPHILS % (AUTO) 0.5 % (0-2); EOSINOPHILS % (AUTO) 3.7 % (0-6); HEMATOCRIT 25.4 % (36.0-47.0); HEMOGLOBIN 8.8 g/dL (12.0-15.5); LYMPHOCYTES % (AUTO) 16.7 % (13-45); MEAN CORPUSCULAR HEMOGLOBIN 32.6 pg (27.0-33.4); MEAN CORPUSCULAR HGB CONC 34.7 g/dL (32.0-36.0); MEAN CORPUSCULAR VOLUME 94 fl (80-97); RED CELL DISTRIBUTION WIDTH 15.2 % (11.5-14.0); SEGMENTED NEUTROPHILS % (AUTO) 73.1 % (42-78); TOTAL CELLS COUNTED % (AUTO) 100 %; WHITE BLOOD COUNT 3.3 10^3/uL (4.0-10.5)
[2018-04-20 14:59] LABS: APPEARANCE,URINE CLEAR; BILIRUBIN,URINE NEGATIVE (NEGATIVE); COLOR,URINE YELLOW; GLUCOSE, URINE NEGATIVE (NEGATIVE); KETONES,URINE NEGATIVE (NEGATIVE); LEUKOCYTE ESTERASE,URINE TRACE (NEGATIVE); NITRITE,URINE NEGATIVE (NEGATIVE); PROTEIN,URINE NEGATIVE (NEGATIVE); URINE SPECIFIC GRAVITY 1.012; UROBILINOGEN,URINE NEGATIVE mg/dL (<2.0)
[2018-04-20 15:00] LABS: ALANINE AMINOTRANSFERASE 34 U/L (9-52); ALBUMIN 3.3 g/dL (3.5-5.0); ALKALINE PHOSPHATASE 93 U/L (38-126); ANION GAP 15 (5-19); ASPARTATE AMINO TRANSFERASE 44 U/L (14-36); BILIRUBIN,DIRECT 0.8 mg/dL (0.0-0.4); BILIRUBIN,TOTAL 1.7 mg/dL (0.2-1.3); BLOOD UREA NITROGEN 60 mg/dL (7-20); CALCIUM 8.5 mg/dL (8.4-10.2); CARBON DIOXIDE 22 mmol/L (22-30); CHLORIDE 106 mmol/L (98-107); GLUCOSE 185 mg/dL (75-110); POTASSIUM 3.8 mmol/L (3.6-5.0); SODIUM 142.9 mmol/L (137-145); TOTAL PROTEIN 6.7 g/dL (6.3-8.2)
[2018-04-20] MEDS ORDERED: ONDANSETRON 4 MG TAB.RAPDIS PO ONE (15:10)
[2018-04-20 15:18] LABS: ANISOCYTOSIS SLIGHT; HYPOCHROMASIA SLIGHT; OVALOCYTES 2+; PLATELET COMMENT DECREASED; PLATELET COUNT 28 10^3/uL (150-450); POIKILOCYTOSIS 2+; POLYCHROMASIA SLIGHT; TEAR DROP CELLS SLIGHT
--- NOTE | 2018-04-20 15:35 | RADIOLOGY REPORT (SQ) ---
EXAM DESCRIPTION: CT ABD/PELVIS NO ORAL OR IV COMPLETED DATE/TIME: 04/20/2018 3:20 pm REASON FOR STUDY: nausea, vomiting, abdominal pain COMPARISON: 08/30/2016. TECHNIQUE: CT scan of the abdomen and pelvis performed without intravenous or oral contrast. Images reviewed with lung, soft tissue, and bone windows. Reconstructed coronal and sagittal MPR images revi ewed. All images stored on PACS. All CT scanners at this facility use dose modulation, iterative reconstruction, and/or weight based d osing when appropriate to reduce radiation dose to as low as reasonably achievable (ALARA). [facility]: Dose Right [facility]: CareDose [facility]: Dose Right [facility]: Teradose 4D [facility]: [employer] RADIATION DOSE: mGy. LIMITATIONS: None. FINDINGS: LOWER CHEST: No significant findings. No nodules or infiltrates. NON-CONTRASTED LIVER, SPLEEN, ADRENALS: Evaluation limited by lack of IV contrast. Heterogenous nodu lar contour of the liver. No focal lesions. Marked splenomegaly, measuring 23.5 cm. No identified significant masses. PANCREAS: No masses. No peripancreatic inflammatory changes. GALLBLADDER: Surgically absent. RIGHT KIDNEY AND URETER: No suspicious masses. Assessment limited by lack of IV contrast. No signif icant calcifications. Mild prominence of the collecting system and ureter. Difficult to evaluate t he ureter due to the presence of the large amount of ascites. There is a tiny 1 mm calculus along th e posterior wall of the bladder on the right side near the expected location of the ureteral vesicula r junction. LEFT KIDNEY AND URETER: No suspicious masses. Assessment limited by lack of IV contrast. No signifi cant calcifications. No hydronephrosis or hydroureter. AORTA AND RETROPERITONEUM: No aneurysm. No retroperitoneal masses or adenopathy. BOWEL AND PERITONEAL CAVITY: No obvious masses or inflammatory changes. Large amount of free fluid. APPENDIX: Normal. PELVIS, BLADDER, AND ABDOMINAL WALL:No abnormal masses. Diffuse edema in the subcutaneous tissues of the body. Large amount of free fluid. Bladder normal. BONES: No significant findings. OTHER: No other significant finding. IMPRESSION: 1. LARGE AMOUNT OF ASCITES. 2. MILD PROMINENCE OF THE COLLECTING SYSTEM OF THE RIGHT KIDNEY. THE RIGHT URETER IS DIFFICULT TO SUALIZE DUE TO THE LARGE AMOUNT OF ASCITES. THERE IS A TINY 1 MM CALCULUS IN THE POSTERIOR BLADDER A LONG THE RIGHT SIDE NEAR THE EXPECTED LOCATION OF THE URETERAL VESICULAR JUNCTION AND CANNOT EXCLUDE A POSSIBLE TINY CALCULUS AT THE UVJ. 3. HETEROGENOUS NODULAR CONTOUR OF THE LIVER CONSISTENT WITH CIRRHOSIS. MASSIVE SPLENOMEGALY, ALSO P RESENT ON PRIOR STUDIES. 4. EDEMA IN THE SUBCUTANEOUS TISSUES OF THE BODY. 5. NO OTHER SIGNIFICANT FINDINGS. COMMENT: Quality ID # [id number]: Final reports with documentation of one or more dose reduction techniques (e.g., Automated exposure control, adjustment of the mA and/or kV according to patient size, use of iterative reconstruction technique) TECHNICAL DOCUMENTATION: JOB ID: [id number] [employer]- All Rights Reserved Reading location - IP/workstation name: [email or web address]
[2018-04-20] MEDS ORDERED: HYDROCODONE/ACETAMINOPHEN 5-325 MG TABLET PO ONE (15:44)
[2018-04-20] MEDS ORDERED: HYDROCODONE BIT/HOMATROPINE 5-1.5 MG TABLET PO ONE (15:48)
[2018-04-20 16:18] VITALS: BP 122/78
== END 2018-04-20 16:05 | disposition home or self-care (01) ==
LOC: ER 13:20
DX: N20.1 Calculus of ureter (principal); R31.9 Hematuria, unspecified; K72.90 Hepatic failure, unspecified without coma; R18.8 Other ascites; E11.22 Type 2 diabetes mellitus with diabetic chronic kidney disease; I12.0 Hypertensive chronic kidney disease with stage 5 chronic kidney disease or end stage renal disease; N18.6 End stage renal disease; Z99.2 Dependence on renal dialysis; R30.0 Dysuria; R16.1 Splenomegaly, not elsewhere classified; R19.7 Diarrhea, unspecified; R11.10 Vomiting, unspecified
CPT/HCPCS: 99284; 36415; 85025; 80053; 81001; 74176; A9270 ×2; S0119

== ENCOUNTER 2018-05-01 08:50 | Day surgery (SDC) | payer MEDICARE, MEDICAID ==
[~2018-05-01 08:50] MED LIST changes: -ALBUMIN HUMAN 62.5 GM/250 ML RTUINJ IV ONE
[2018-05-01 10:07] LABS: INTERNATIONAL RATION (INR) 1.64; PROTHROMBIN TIME 20.2 SEC (11.4-15.4)
[2018-05-01 10:08] LABS: HEMATOCRIT 25.4 % (36.0-47.0); MEAN CORPUSCULAR HEMOGLOBIN 33.2 pg (27.0-33.4); MEAN CORPUSCULAR HGB CONC 35.4 g/dL (32.0-36.0); MEAN CORPUSCULAR VOLUME 94 fl (80-97); PARTIAL THROMBOPLASTIN TIME 37.1 SEC (23.5-35.8); RED BLOOD COUNT 2.71 10^6/uL (3.72-5.28); RED CELL DISTRIBUTION WIDTH 15.1 % (11.5-14.0); WHITE BLOOD COUNT 1.9 10^3/uL (4.0-10.5)
[2018-05-01 10:21] LABS: BLOOD UREA NITROGEN 61 mg/dL (7-20)
[2018-05-01 10:36] LABS: PLATELET COUNT 23 10^3/uL (150-450)
[2018-05-01] MEDS ORDERED: LIDOCAINE 1% INJ-PF (10 MG/ML) 30 ML SDV ONE (13:06)
[2018-05-01 15:08] VITALS: BP 111/59
--- NOTE | 2018-05-01 15:11 | RADIOLOGY REPORT (SQ) ---
EXAM DESCRIPTION: U/S ABD PARACENTESIS COMPLETED DATE/TIME: 05/01/2018 2:15 pm REASON FOR STUDY: ASCITES COMPARISON Multiple previous, most recently 04/18/2018 LIMITATIONS: None. PROCEDURE: After obtaining informed consent, the patient was brought to the ultrasound suite. The p rocedure was performed with the patient on a gurney. Ultrasound was used to identify a prominent poc ket of ascites in the right lower quadrant. An appropriate access site was selected. The patient wa s prepped and draped in usual sterile fashion. The access site was anesthetized with 6 mL 1% lidoca ine. A Uhuy-S-Uvhuxdsv needle was advanced into the fluid. After aspiration of fluid the needle, th e catheter was advanced off the needle into the fluid. A total of 8,000 mL of clear yellow fluid was removed. The patient tolerated the procedure well left the department in satisfactory condition. Patient received IV albumin. No fluid was sent for testing. IMPRESSION: Successful ultrasound-guided therapeutic paracentesis COMMENT: Patient medication list reviewed: Yes- Quality ID# [id number]:Eligible professional attests to doc umenting in the medical record they obtained, updated, or reviewed the patient's current medications. TECHNICAL DOCUMENTATION: JOB ID: [id number] [employer]- All Rights Reserved Reading location - IP/workstation name: [email or web address]
== END 2018-05-01 15:00 | disposition home or self-care (01) ==
LOC: RAD 08:50
PROVIDERS: ATTEND Internal Medicine Gastroenterology
DX: R18.8 Other ascites (principal); K21.9 Gastro-esophageal reflux disease without esophagitis; N18.6 End stage renal disease; K76.6 Portal hypertension; K74.60 Unspecified cirrhosis of liver; Z99.2 Dependence on renal dialysis
CPT/HCPCS: 86900; 86901; 36415; 36430; 84520; 82565; 85027; 85610; 85730; 49083; P9035; P9047; J3490

== ENCOUNTER 2018-05-15 08:54 | Day surgery (SDC) | payer MEDICARE, MEDICAID ==
[2018-05-15 09:36] LABS: HEMATOCRIT 27.1 % (36.0-47.0); HEMOGLOBIN 9.6 g/dL (12.0-15.5); MEAN CORPUSCULAR HEMOGLOBIN 32.8 pg (27.0-33.4); MEAN CORPUSCULAR HGB CONC 35.6 g/dL (32.0-36.0); MEAN CORPUSCULAR VOLUME 92 fl (80-97); RED BLOOD COUNT 2.94 10^6/uL (3.72-5.28); RED CELL DISTRIBUTION WIDTH 14.3 % (11.5-14.0); WHITE BLOOD COUNT 3.5 10^3/uL (4.0-10.5)
[2018-05-15 09:46] LABS: BLOOD UREA NITROGEN 70 mg/dL (7-20); INTERNATIONAL RATION (INR) 1.53; PROTHROMBIN TIME 19.2 SEC (11.4-15.4)
[2018-05-15 09:47] LABS: PARTIAL THROMBOPLASTIN TIME 36.8 SEC (23.5-35.8)
[2018-05-15] MEDS ORDERED: ALBUMIN HUMAN 62.5 GM/250 ML RTUINJ IV ONE (10:00)
[2018-05-15 10:06] LABS: PLATELET COUNT 28 10^3/uL (150-450)
[2018-05-15] MEDS ORDERED: ALBUMIN HUMAN 12.5 GM/50 ML RTUINJ IV SCH (10:15)
[2018-05-15] MEDS ORDERED: LIDOCAINE 1% INJ-PF (10 MG/ML) 30 ML SDV ONE (13:34)
--- NOTE | 2018-05-15 15:02 | RADIOLOGY REPORT (SQ) ---
EXAM DESCRIPTION: U/S ABD PARACENTESIS COMPLETED DATE/TIME: 05/15/2018 2:52 pm REASON FOR STUDY: ASCITES COMPARISON 05/01/2018 LIMITATIONS: None. PROCEDURE: After obtaining informed consent, the patient was brought to the ultrasound suite. The p rocedure was performed with the patient on a gurney. Ultrasound was used to identify a prominent poc ket of ascites in the right lower quadrant. An appropriate access site was selected. The patient wa s prepped and draped in usual sterile fashion. The access site was anesthetized with 6 mL 1% lidoca ine. A Eixs-S-Hwanmghj needle was advanced into the fluid. After aspiration of fluid the needle, th e catheter was advanced off the needle into the fluid. A total of 8,000 mL of clear yellow fluid was removed. The patient tolerated the procedure well left the department in satisfactory condition. Patient received platelets before the procedure, patient received IV albumin during the procedure IMPRESSION: Successful ultrasound-guided therapeutic only paracentesis COMMENT: Patient medication list reviewed: Yes- Quality ID# [id number]:Eligible professional attests to doc umenting in the medical record they obtained, updated, or reviewed the patient's current medications. TECHNICAL DOCUMENTATION: JOB ID: [id number] [employer]- All Rights Reserved Reading location - IP/workstation name: [email or web address]
[2018-05-15 15:45] VITALS: BP 110/71
== END 2018-05-15 15:40 | disposition home or self-care (01) ==
LOC: RAD 08:54
PROVIDERS: ATTEND Internal Medicine Gastroenterology
DX: R18.8 Other ascites (principal); K74.60 Unspecified cirrhosis of liver; K75.81 Nonalcoholic steatohepatitis (NASH); I12.9 Hypertensive chronic kidney disease with stage 1 through stage 4 chronic kidney disease, or unspecified chronic kidney disease; E11.22 Type 2 diabetes mellitus with diabetic chronic kidney disease; N18.9 Chronic kidney disease, unspecified
CPT/HCPCS: 86900; 86901; 36415; 36430; 84520; 82565; 84132; 85027; 85610; 85730; 49083; P9035; P9047; J3490

== ENCOUNTER 2018-05-30 09:19 | Day surgery (SDC) | payer MEDICARE, MEDICAID ==
[2018-05-30 10:23] LABS: HEMATOCRIT 22.7 % (36.0-47.0); MEAN CORPUSCULAR HEMOGLOBIN 32.2 pg (27.0-33.4); MEAN CORPUSCULAR HGB CONC 34.7 g/dL (32.0-36.0); MEAN CORPUSCULAR VOLUME 93 fl (80-97); RED BLOOD COUNT 2.45 10^6/uL (3.72-5.28); WHITE BLOOD COUNT 2.2 10^3/uL (4.0-10.5)
[2018-05-30 10:27] LABS: INTERNATIONAL RATION (INR) 1.54; PROTHROMBIN TIME 19.3 SEC (11.4-15.4)
[2018-05-30 10:28] LABS: PARTIAL THROMBOPLASTIN TIME 36.1 SEC (23.5-35.8)
[2018-05-30 10:40] LABS: BLOOD UREA NITROGEN 76 mg/dL (7-20)
[2018-05-30 11:30] LABS: HEMOGLOBIN 7.9 g/dL (12.0-15.5)
[2018-05-30 11:31] LABS: PLATELET COUNT 23 10^3/uL (150-450)
[2018-05-30] MEDS ORDERED: LIDOCAINE 1% INJ-PF (10 MG/ML) 30 ML SDV ONE (13:00)
[2018-05-30 14:46] VITALS: BP 108/52
--- NOTE | 2018-05-30 15:41 | RADIOLOGY REPORT (SQ) ---
EXAM DESCRIPTION: U/S ABD PARACENTESIS COMPLETED DATE/TIME: 05/30/2018 2:45 pm REASON FOR STUDY: ASCITES COMPARISON None. LIMITATIONS: None. PROCEDURE: After obtaining informed consent, the patient was brought to the ultrasound suite. The p rocedure was performed with the patient on a gurney. Ultrasound was used to identify a prominent poc ket of ascites in the right lower quadrant. An appropriate access site was selected. The patient wa s prepped and draped in usual sterile fashion. The access site was anesthetized with 10 mL 1% lidoc olaf. A Lcmp-U-Dkgvrmho needle was advanced into the fluid. After aspiration of fluid the needle, t he catheter was advanced off the needle into the fluid. A total of 8,000 mL of sarath colored fluid w as removed. The patient tolerated the procedure well left the department in satisfactory condition. IMPRESSION: Successful ultrasound-guided paracentesis COMMENT: Patient medication list reviewed: Yes- Quality ID# [id number]:Eligible professional attests to doc umenting in the medical record they obtained, updated, or reviewed the patient's current medications. TECHNICAL DOCUMENTATION: JOB ID: [id number] [employer]- All Rights Reserved Reading location - IP/workstation name: [email or web address]
== END 2018-05-30 14:50 | disposition home or self-care (01) ==
LOC: RAD 09:19
PROVIDERS: ATTEND Internal Medicine Gastroenterology
DX: R18.8 Other ascites (principal); K75.81 Nonalcoholic steatohepatitis (NASH); K74.60 Unspecified cirrhosis of liver; N18.9 Chronic kidney disease, unspecified; Z86.73 Personal history of transient ischemic attack (TIA), and cerebral infarction without residual deficits; Z79.01 Long term (current) use of anticoagulants; Z79.899 Other long term (current) drug therapy
CPT/HCPCS: 86900; 86901; 36415; 36430; 84520; 82565; 85027; 85610; 85730; 49083; P9035; P9047; J3490

== ENCOUNTER 2018-05-30 19:52 | Observation (INO) | payer MEDICARE, MEDICAID ==
[2018-05-30] MEDS ORDERED: NORMAL SALINE 1000 ML 1,000 ML IV ONE (20:19)
[2018-05-30 20:50] LABS: INTERNATIONAL RATION (INR) 1.55; PARTIAL THROMBOPLASTIN TIME 36.3 SEC (23.5-35.8); PROTHROMBIN TIME 19.3 SEC (11.4-15.4)
[2018-05-30 20:53] LABS: HEMATOCRIT 21.9 % (36.0-47.0); MEAN CORPUSCULAR HGB CONC 34.3 g/dL (32.0-36.0); MEAN CORPUSCULAR VOLUME 93 fl (80-97); RED BLOOD COUNT 2.35 10^6/uL (3.72-5.28); RED CELL DISTRIBUTION WIDTH 14.3 % (11.5-14.0); WHITE BLOOD COUNT 2.3 10^3/uL (4.0-10.5)
[2018-05-30 20:58] LABS: ALANINE AMINOTRANSFERASE 29 U/L (9-52); ALBUMIN 3.2 g/dL (3.5-5.0); ALKALINE PHOSPHATASE 88 U/L (38-126); ANION GAP 12 (5-19); ASPARTATE AMINO TRANSFERASE 34 U/L (14-36); BILIRUBIN,DIRECT 0.8 mg/dL (0.0-0.4); BILIRUBIN,TOTAL 1.8 mg/dL (0.2-1.3); BLOOD UREA NITROGEN 74 mg/dL (7-20); CALCIUM 8.4 mg/dL (8.4-10.2); CARBON DIOXIDE 24 mmol/L (22-30); CHLORIDE 106 mmol/L (98-107); CREATINE KINASE 84 U/L (30-135); GLUCOSE 111 mg/dL (75-110); POTASSIUM 3.7 mmol/L (3.6-5.0); SODIUM 142.4 mmol/L (137-145); TOTAL PROTEIN 6.3 g/dL (6.3-8.2)
[2018-05-30 20:59] LABS: ALCOHOL < 10 mg/dL (NONE DETECTED)
[2018-05-30 21:01] LABS: HEMOGLOBIN 7.5 g/dL (12.0-15.5)
[2018-05-30 21:02] LABS: PLATELET COUNT 29 10^3/uL (150-450)
[2018-05-30 21:09] LABS: TROPONIN I < 0.012 ng/mL
--- NOTE | 2018-05-30 21:13 | RADIOLOGY REPORT (SQ) ---
EXAM DESCRIPTION: CHEST SINGLE VIEW COMPLETED DATE/TIME: 05/30/2018 9:01 pm REASON FOR STUDY: altered mental status COMPARISON: 01/29/2018 EXAM PARAMETERS: NUMBER OF VIEWS: One view. TECHNIQUE: Single frontal radiographic view of the chest acquired. RADIATION DOSE: NA LIMITATIONS: None. FINDINGS: LUNGS AND PLEURA: No opacities, masses or pneumothorax. No pleural effusion. MEDIASTINUM AND HILAR STRUCTURES: No masses. Contour normal. HEART AND VASCULAR STRUCTURES: Heart normal in size. Normal vasculature. BONES: No acute findings. HARDWARE: None in the chest. OTHER: No other significant finding. IMPRESSION: NO ACUTE RADIOGRAPHIC FINDING IN THE CHEST. TECHNICAL DOCUMENTATION: JOB ID: [id number] [employer]- All Rights Reserved Reading location - IP/workstation name: [email or web address]
[2018-05-30 21:21] LABS: ABSOLUTE LYMPHOCYTES# (MANUAL) 0.5 10^3/uL (0.5-4.7); ABSOLUTE MONOCYTES # (MANUAL) 0.1 10^3/uL (0.1-1.4); ABSOLUTE NEUTROPHILS# (MANUAL) 1.6 10^3/uL (1.7-8.2); BASOPHILS % (MANUAL) 2 % (0-2); EOSINOPHILS % (MANUAL) 4 % (0-6); LYMPHOCYTES % (MANUAL) 22 % (13-45); MONOCYTES % (MANUAL) 4 % (3-13); SEGMENTED NEUTROPHILS % (MAN) 68 % (42-78); TOTAL CELLS COUNTED 50
[2018-05-30 21:23] LABS: ANISOCYTOSIS 1+; HYPOCHROMASIA 2+; PLATELET COMMENT DECREASED; PLATELET LARGE PRESENT
--- NOTE | 2018-05-30 21:33 | RADIOLOGY REPORT (SQ) ---
EXAM DESCRIPTION: CT HEAD WITHOUT COMPLETED DATE/TIME: 05/30/2018 9:18 pm REASON FOR STUDY: altered mental status COMPARISON: 04/18/2018 TECHNIQUE: Axial images acquired through the brain without intravenous contrast. Images reviewed wi th bone, brain and subdural windows. Additional sagittal and coronal reconstructions were generated. Images stored on PACS. All CT scanners at this facility use dose modulation, iterative reconstruction, and/or weight based d osing when appropriate to reduce radiation dose to as low as reasonably achievable (ALARA). [facility]: Dose Right [facility]: CareDose [facility]: Dose Right [facility]: Teradose 4D [facility]: Smart [employer] RADIATION DOSE: CT Rad equipment meets quality standard of care and radiation dose reduction techniq ues were employed. CTDIvol: 53.2 mGy. DLP: 937 mGy-cm. mGy. LIMITATIONS: None. FINDINGS: VENTRICLES: Normal size and contour. CEREBRUM: No masses. No hemorrhage. No midline shift. No evidence for acute infarction. Once agai n there is a small stable left frontal infarct. Normal pavon/white matter differentiation. No areas of low density in the white matter. CEREBELLUM: No masses. No hemorrhage. No alteration of density. No evidence for acute infarction. EXTRAAXIAL SPACES: No fluid collections. No masses. ORBITS AND GLOBE: No intra- or extraconal masses. Normal contour of globe without masses. CALVARIUM: No fracture. PARANASAL SINUSES: No fluid or mucosal thickening. SOFT TISSUES: No mass or hematoma. OTHER: No other significant finding. IMPRESSION: No acute intracranial imaging findings. Stable old left frontal infarct. EVIDENCE OF ACUTE STROKE: NO. COMMENT: Quality ID # [id number]: Final reports with documentation of one or more dose reduction techniques (e.g., Automated exposure control, adjustment of the mA and/or kV according to patient size, use of iterative reconstruction technique) TECHNICAL DOCUMENTATION: JOB ID: [id number] [employer]- All Rights Reserved Reading location - IP/workstation name: [email or web address]
[2018-05-30] MEDS ORDERED: NORMAL SALINE 250 ML IV PRN ×3 (21:46→23:54)
--- NOTE | 2018-05-30 22:01 | EKG REPORT ---
SEVERITY:- BORDERLINE ECG - SINUS RHYTHM BORDERLINE T ABNORMALITIES, INFERIOR LEADS : Confirmed by: Tima Leach 30-May-2018 22:00:32
--- NOTE | 2018-05-30 23:14 | ER Document Report ---
ED General - General Chief Complaint: Altered Mental Status Stated Complaint: ALTERED MENTAL STATUS Time Seen by Provider: 05/30/18 20:01 Mode of Arrival: Wheelchair Information source: Patient, Friend Cannot obtain history due to: Altered mental status TRAVEL OUTSIDE OF THE [place] IN LAST 30 DAYS: No - HPI Onset: Just prior to arrival Onset/Duration: Sudden Quality of pain: No pain Severity: Moderate Pain Level: 0 Associated symptoms: Weakness Exacerbated by: Denies Relieved by: Denies Similar symptoms previously: No Recently seen / treated by doctor: Yes - Related Data Allergies/Adverse Reactions: No Known Allergies Allergy (Verified 05/30/18 10:05) Past Medical History - Social History Smoking Status: Smoker,Current Status Unk Family History: Reviewed & Not Pertinent - Past Medical History Cardiac Medical History: Reports: Hx Hypercholesterolemia Denies: Hx Coronary Artery Disease, Hx Heart Attack, Hx Hypertension Pulmonary Medical History: Denies: Hx Asthma, Hx Bronchitis, Hx COPD, Hx Pneumonia, Hx Tuberculosis Neurological Medical History: Reports: Hx Cerebrovascular Accident - 2017. Denies: Hx Seizures Endocrine Medical History: Reports: Hx Diabetes Mellitus Type 2 Renal/ Medical History: Reports: Hx End Stage Renal Disease, Hx Kidney Stones - 2011, Hx Renal Insufficiency. Denies: Hx Peritoneal Dialysis GI Medical History: Reports: Hx Cirrhosis - Due to fatty liver disease, Hx Gastroesophageal Reflux Disease, Hx Liver Failure. Denies: Hx Hepatitis - C Musculoskeletal Medical History: Reports Hx Arthritis - BACK Psychiatric Medical History: Reports: Hx Anxiety, Hx Bipolar Disorder, Hx Depression - & anxiety Infectious Medical History: Denies: Hx Hepatitis - C Past Surgical History: Reports: Hx Cholecystectomy - 2011, Hx Hysterectomy - Immunizations Hx Diphtheria, Pertussis, Tetanus Vaccination: No Hx Pneumococcal Vaccination: 09/03/12 Review of Systems - Review of Systems -: Yes ROS unobtainable due to patient's medical condition Constitutional: denies: Fever Cardiovascular: No symptoms reported Respiratory: No symptoms reported Gastrointestinal: No symptoms reported Genitourinary: No symptoms reported Musculoskeletal: No symptoms reported Skin: No symptoms reported Hematologic/Lymphatic: No symptoms reported Neurological/Psychological: Confusion, Weakness -: Yes All other systems reviewed and negative Physical Exam - Vital signs Vitals: Resp Pulse Ox 22 H 100 05/30/18 20:09 05/30/18 20:09 - General General appearance: Alert In distress: None - HEENT Head: Normocephalic, Atraumatic Eyes: Normal Conjunctiva: Normal Cornea: Normal Pupils: PERRL - Respiratory Respiratory status: No respiratory distress Chest status: Nontender Breath sounds: Normal Chest palpation: Normal - Cardiovascular Rhythm: Regular Heart sounds: Normal auscultation Murmur: No - Abdominal Inspection: Normal Distension: No distension Bowel sounds: Normal Tenderness: Nontender Organomegaly: No organomegaly - Back Back: Normal, Nontender - Extremities General upper extremity: Normal inspection, Nontender, Normal color, Normal ROM , Normal temperature General lower extremity: Normal inspection, Nontender, Normal color, Normal ROM , Normal temperature, Normal weight bearing. No: Sandeep's sign - Neurological Neuro grossly intact: Yes Cognition: Confused Orientation: Disoriented to person Ruthy Coma Scale Eye Opening: Spontaneous Leburn Coma Scale Verbal: Confused Leburn Coma Scale Motor: Obeys Commands Leburn Coma Scale Total: 14 Speech: Normal Cranial nerves: Normal - Psychological Associated symptoms: Flat affect - Skin Skin Temperature: Warm Skin Moisture: Dry Skin Color: Normal Course - Vital Signs Vital signs: Temp Pulse Resp BP Pulse Ox 20 105/46 L 100 05/30/18 23:41 05/30/18 23:41 05/30/18 23:41 - Laboratory Result Diagrams: 05/30/18 20:00 05/30/18 20:00 Laboratory results interpreted by me: 05/30/18 05/30/18 05/30/18 20:00 20:00 20:00 WBC 2.3 L RBC 2.35 L Hgb 7.5 L Hct 21.9 L RDW 14.3 H Plt Count 29 L* Abs Neuts (Manual) 1.6 L PT 19.3 H APTT 36.3 H BUN 74 H Creatinine 5.47 H Est GFR ( Amer) 10 L Est GFR (Non-Af Amer) 8 L Glucose 111 H Magnesium 2.6 H Total Bilirubin 1.8 H Direct Bilirubin 0.8 H Ammonia Albumin 3.2 L Crossmatch 05/30/18 05/30/18 20:00 21:53 WBC RBC Hgb Hct RDW Plt Count Abs Neuts (Manual) PT APTT BUN Creatinine Est GFR ( Amer) Est GFR (Non-Af Amer) Glucose Magnesium Total Bilirubin Direct Bilirubin Ammonia 37.3 H Albumin Crossmatch See Detail - Transfer of Care Notes: 05/30/18 23:16 Patient CARE was discussed with the hospitalist on-call Dr. Moore. We will admit patient to the hospital for further evaluation and management. Discharge - Discharge Clinical Impression: Hepatorenal failure, ESRD (end stage renal disease), Thrombocytopenia Liver cirrhosis Qualifiers: Hepatic cirrhosis type: unspecified hepatic cirrhosis Ascites presence: with ascites Qualified Code(s): K74.60 - Unspecified cirrhosis of liver Anemia Qualifiers: Anemia type: unspecified type Qualified Code(s): D64.9 - Anemia, unspecified Altered mental status, unspecified Qualifiers: Altered mental status type: somnolence Qualified Code(s): R40.0 - Somnolence Condition: Stable Disposition: ADMITTED INPATIENT Admitting Provider: Hospitalist Unit Admitted: Telemetry
[2018-05-30] MEDS ORDERED: FUROSEMIDE 40 MG TABLET PO PRN (23:54)
[2018-05-30] MEDS ORDERED: ACETAMINOPHEN 325 MG TABLET PO PRN (23:56)
[2018-05-30] MEDS ORDERED: ONDANSETRON HCL INJ/PF 4 MG/2 ML SDV IV PRN (23:56)
[2018-05-30] MEDS ORDERED: IPRATROPIUM/ALBUTEROL 0.5-2.5 MG/3 ML AMPUL NEB PRN (23:56)
--- NOTE | 2018-05-31 00:15 | PDOC H&P ---
History of Present Illness Admission Date/PCP: 05/30/18 23:[address] interpreter: Dr Eliseo Hood Patient complains of: Altered mental status and drowsy History of Present Illness: HUMBERTO KAY is a 48 year old female with past medical history of liver cirrhosis, recurrent ascites, chronic kidney disease end-stage not currently on dialysis presents to the emergency room with complaint of altered mental status. Patient went to her official court interpreter today; she had a paracentesis done with removal of 8 L of peritoneal fluid followed by albumin transfusion. After patient went home patient was found to be sleepy and drowsy by family. No history of nausea vomiting or abdominal pain. She reports some chronic lower back pain. No history of fever or chills or chest pain or shortness of breath. No focal weakness or numbness or slurred speech or facial asymmetry. Patient denies urinary symptoms. Patient has chronic low blood pressure. On arrival to emergency room her vitals are stable with blood pressure 103/62. Patient had a CT head done which showed no acute process. Patient's laboratory workup showed a white count of 2.3 and hemoglobin of 7.5. Her baseline hemoglobin is around 9. Her chemistries showed creatinine of 5.4 which is around her baseline. Ammonia level is 37. Urine analysis is pending. Patient was referred to hospital service for admission. She is currently alert awake oriented 3. Past Medical History Cardiac Medical History: Reports: Hyperlipidema Denies: Coronary Artery Disease, Myocardial Infarction, Hypertension Pulmonary Medical History: Denies: Asthma, Bronchitis, Chronic Obstructive Pulmonary Disease (COPD), Pneumonia, Tuberculosis Neurological Medical History: Denies: Seizures Endocrine Medical History: Reports: Diabetes Mellitus Type 2 Renal/ Medical History: Reports: End Stage Renal Disease GI Medical History: Reports: Cirrhosis - Due to fatty liver disease, Gastroesophageal Reflux Disease Denies: Hepatitis - C Musculoskeltal Medical History: Reports: Arthritis - BACK Psychiatric Medical History: Reports: Bipolar Disorder, Depression - & anxiety Hematology: Denies: Anemia Past Surgical History Past Surgical History: Reports: Cholecystectomy - 2012, Hysterectomy Social History Information Source: Patient Smoking Status: Former Smoker Frequency of Alcohol Use: None Hx Recreational Drug Use: No Drugs: None Hx Prescription Drug Abuse: No Family History Family History: Reviewed & Not Pertinent Parental Family History Reviewed: No Children Family History Reviewed: No Sibling(s) Family History Reviewed.: No Medication/Allergy Home Medications: Furosemide [Lasix] 40 mg PO DAILY 11/10/17 Propranolol HCl [Inderal 20 mg Tablet] 1 tab PO DAILY 11/10/17 Sodium Bicarbonate 1 tab PO DAILY 11/10/17 Potassium Bicarbonate/Cit AC [Potassium 25 Meq Tab Eff] 1 tab PO QHS 12/12/17 Ondansetron [Zofran Odt 4 mg Tablet] 1 - 2 tab PO Q4H PRN #15 tab.rapdis Allergies/Adverse Reactions: No Known Allergies Allergy (Verified 05/30/18 10:05) Review of Systems All systems: reviewed and no additional remarkable complaints except as stated Physical Exam Vital Signs: Temp Pulse Resp BP Pulse Ox 20 105/46 L 100 05/30/18 23:41 05/30/18 23:41 05/30/18 23:41 General appearance: PRESENT: no acute distress, cooperative, disheveled, thin Head exam: PRESENT: atraumatic, normocephalic Eye exam: ABSENT: conjunctival injection, conjunctiva pink, conjunctiva pale, EOMI, nystagmus, periorbital swelling, PERRLA, scleral icterus, other Ear exam: ABSENT: bleeding, drainage, normal external ear exam, TM's normal bilaterally, other Mouth exam: PRESENT: dry mucosa, neck supple Neck exam: ABSENT: carotid bruit, JVD Respiratory exam: PRESENT: clear to auscultation bria. ABSENT: crackles, rhonchi , wheezes Cardiovascular exam: PRESENT: RRR, +S1, +S2 GI/Abdominal exam: PRESENT: ascites, distended, normal bowel sounds, soft. ABSENT: tenderness Rectal exam: PRESENT: deferred Gentrourinary exam: ABSENT: ecchymosis, erythema, lacerations, lesions, scrotal swelling, testicular tenderness, urethral discharge, indwelling catheter, other Extremities exam: ABSENT: calf tenderness, clubbing, full ROM, joint swelling, pedal edema, tenderness, +1 edema, +2 edema, other Musculoskeletal exam: PRESENT: ambulatory Neurological exam: PRESENT: alert, altered, awake, oriented to person, oriented to place, oriented to time, oriented to situation Psychiatric exam: ABSENT: homicidal ideation, suicidal ideation Skin exam: ABSENT: rash Results Laboratory Results: All lab results reviewed. Impressions: Chest X-Ray 05/30/18 20:24 IMPRESSION: NO ACUTE RADIOGRAPHIC FINDING IN THE CHEST. Head CT 05/30/18 20:25 IMPRESSION: No acute intracranial imaging findings. Stable old left frontal infarct. EVIDENCE OF ACUTE STROKE: NO. Status: Image reviewed by me Assessment & Plan - Diagnosis (1) Altered mental status, unspecified Qualifiers: Altered mental status type: somnolence Qualified Code(s): R40.0 - Somnolence Is this a current diagnosis for this admission?: Yes Plan: Most likely secondary to elevated ammonia level along with volume depletion due to recent paracentesis. Patient's mental status has improved in the emergency room. CT head is negative. No focal deficit. Urine analysis pending. No evidence of infection yet. We will continue monitor mental status. Will admit patient under observation status. We will follow up urine analysis. Will continue lactulose and recheck ammonia level. (2) Anemia Qualifiers: Anemia type: unspecified type Qualified Code(s): D64.9 - Anemia, unspecified Is this a current diagnosis for this admission?: Yes Plan: Patient has acute on chronic anemia. Unknown etiology however likely secondary to anemia of chronic disease. Will check stool for occult blood. We will order 1 unit of PRBC. Recheck CBC in morning. (3) ESRD (end stage renal disease) Is this a current diagnosis for this admission?: No Plan: Not currently on dialysis. Creatinine is currently at baseline. (4) Liver cirrhosis Qualifiers: Hepatic cirrhosis type: unspecified hepatic cirrhosis Ascites presence: with ascites Qualified Code(s): K74.60 - Unspecified cirrhosis of liver; R18.8 - Other ascites; R18.8 - Other ascites Is this a current diagnosis for this admission?: No Plan: Patient with liver cirrhosis and recurrent ascites. Currently status post paracentesis today followed by albumin transfusion. Will resume current home medication. (5) Thrombocytopenia Plan: As per official court interpreter will give platelet transfusion. No evidence of bleeding. - Time Time Spent: 30 to 50 Minutes - Inpatient Certification Based on my medical assessment, after consideration of the patient's comorbidities, presenting symptoms, or acuity I expect that the services needed warrant INPATIENT care.: No I certify that my determination is in accordance with my understanding of Medicare's requirements for reasonable and necessary INPATIENT services [42 CFR 412.3e].: No
[2018-05-31 00:20] LABS: APPEARANCE,URINE SLIGHTLY-CLOUDY; BILIRUBIN,URINE NEGATIVE (NEGATIVE); COLOR,URINE YELLOW; GLUCOSE, URINE NEGATIVE (NEGATIVE); KETONES,URINE NEGATIVE (NEGATIVE); LEUKOCYTE ESTERASE,URINE TRACE (NEGATIVE); NITRITE,URINE NEGATIVE (NEGATIVE); PROTEIN,URINE NEGATIVE (NEGATIVE); URINE SPECIFIC GRAVITY 1.011; UROBILINOGEN,URINE NEGATIVE mg/dL (<2.0)
[2018-05-31 00:29] LABS: URINE AMPHETAMINES SCREEN NEGATIVE; URINE BARBITURATES SCREEN NEGATIVE; URINE BENZODIAZEPINES SCREEN NEGATIVE; URINE COCAINE SCREEN NEGATIVE; URINE MARIJUANA (THC) SCREEN NEGATIVE; URINE METHADONE SCREEN NEGATIVE; URINE PHENCYCLIDINE SCREEN NEGATIVE
[2018-05-31] MEDS ORDERED: ONDANSETRON HCL INJ/PF 4 MG/2 ML SDV ONE (01:40)
[2018-05-31] MEDS ORDERED: MORPHINE SULFATE 10 MG/ML INJ IV ONE (03:05)
[2018-05-31] MEDS ORDERED: MORPHINE SULFATE 10 MG/ML INJ ONE (03:09)
[2018-05-31] MEDS ORDERED: PROMETHAZINE HCL INJ 25 MG/1 ML VIAL IV ONE (04:02)
[2018-05-31] MEDS ORDERED: PROMETHAZINE HCL INJ 25 MG/1 ML VIAL ONE (04:06)
[2018-05-31 04:32] LABS: HEMATOCRIT 23.3 % (36.0-47.0); MEAN CORPUSCULAR HEMOGLOBIN 31.9 pg (27.0-33.4); MEAN CORPUSCULAR HGB CONC 34.2 g/dL (32.0-36.0); MEAN CORPUSCULAR VOLUME 93 fl (80-97); RED CELL DISTRIBUTION WIDTH 14.1 % (11.5-14.0); WHITE BLOOD COUNT 2.9 10^3/uL (4.0-10.5)
[2018-05-31 04:38] LABS: ANION GAP 16 (5-19); BLOOD UREA NITROGEN 71 mg/dL (7-20); CALCIUM 8.5 mg/dL (8.4-10.2); CARBON DIOXIDE 21 mmol/L (22-30); CHLORIDE 107 mmol/L (98-107); GLUCOSE 115 mg/dL (75-110); POTASSIUM 3.6 mmol/L (3.6-5.0); SODIUM 144.1 mmol/L (137-145)
[2018-05-31 05:12] LABS: PLATELET COUNT 43 10^3/uL (150-450)
[2018-05-31] MEDS: LACTULOSE SYRUP 20 GM/30 ML UDCUP PO SCH ×2 (06:39→14:06)
[2018-05-31] MEDS ORDERED: PROPRANOLOL HCL 20 MG TABLET PO SCH (10:00)
[2018-05-31] MEDS ORDERED: SODIUM BICARBONATE 650 MG TABLET PO SCH (10:00)
[2018-05-31] MEDS ORDERED: FUROSEMIDE 40 MG TABLET PO SCH (10:00)
[2018-05-31 16:05] VITALS: BP 93/49
--- NOTE | 2018-05-31 19:04 | PDOC DISCHARGE SUMMARY ---
General - Admit/Disc Date/PCP Admission Date/Primary Care Provider: 05/30/18 23:24 Discharge Date: 05/31/18 - Discharge Diagnosis (1) Altered mental status, unspecified Is this a current diagnosis for this admission?: Yes (2) Volume depletion Is this a current diagnosis for this admission?: Yes - Additional Information Resuscitation Status: Full Code Discharge Diet: Cardiac Discharge Activity: Activity As Tolerated Prescriptions: Furosemide [Lasix 40 mg Tablet] 40 mg PO BID 30 Days #60 tablet Spironolactone 50 mg PO DAILY 30 Days #30 tablet Home Medications: Fluoxetine HCl [Prozac 20 mg Capsule] 20 mg PO QAM 05/31/18 Furosemide [Lasix 40 mg Tablet] 40 mg PO BID 30 Days #60 tablet 05/31/18 Lactulose [Cephulac Syrup 20 gm/30 ml Udcup] 20 gm PO Q8 udc 05/31/18 Propranolol HCl [Inderal 20 mg Tablet] 20 mg PO DAILY tablet 05/31/18 Spironolactone 50 mg PO DAILY 30 Days #30 tablet 05/31/18 Trazodone HCl [Desyrel 50 mg Tablet] 50 mg PO QHS 05/31/18 History of Present Illness History of Present Illness: HUMBERTO KAY is a 48 year old female with past medical history of liver cirrhosis, recurrent ascites, chronic kidney disease end-stage not currently on dialysis presents to the emergency room with complaint of altered mental status. Patient was apparently well. Patient went to her general engineer yesterday and she had a paracentesis done with removal of 8 L of peritoneal fluid followed by albumin transfusion. On the way back to her home after the procedure, she felt dizzy. When she got home, patient was found to be sleepy and drowsy by family. No history of nausea vomiting or abdominal pain. She reports some chronic lower back pain. No history of fever or chills or chest pain or shortness of breath. No focal weakness or numbness or slurred speech or facial asymmetry. Patient denies urinary symptoms. Patient has chronic low blood pressure. No hematemesis or melena. On arrival to emergency room her vitals are stable with blood pressure 103/62. Patient had a CT head done which showed no acute process. Patient's laboratory workup showed a white count of 2.3 and hemoglobin of 7.5. Her baseline hemoglobin is around 9. Her chemistries showed creatinine of 5.4 which is around her baseline. Ammonia level is 37. Urine analysis is pending. Patient was referred to hospital service for admission. She was alert awake oriented 3 upon admission. Hospital Course Hospital Course: Patient was given IV fluids in the ER. She was already awake alert and oriented 3 upon assessment of admitting physician. It appears that he confusion and dizziness was likely related to volume depletion after a large volume paracentesis. She did state that they were a week delayed for for her scheduled paracentesis. She did have thrombocytopenia and anemia. Both of which are chronic. Her previous platelet counts are running in the 20s. She did get 2 units of platelet concentrates and a unit of packed RBC. She did not have any clinical sign of bleeding. Patient remained awake alert oriented 3 throughout the day. She denies any acute complaints. She will be discharge and will follow up with her PCP. She appears to be on 80 mg of Lasix twice daily. She has chronic low normal blood pressures. Diuretics were readjusted to 40 mg twice daily and spironolactone 50 mg daily. Physical Exam Vital Signs: Temp Pulse Resp BP Pulse Ox 98.5 F 64 14 93/49 L 100 05/31/18 16:12 05/31/18 16:12 05/31/18 16:12 05/31/18 16:12 05/31/18 16:12 Intake & Output 05/30/18 05/31/18 06/01/18 06:59 06:59 06:59 Intake Total 1417 720 Output Total 500 Balance 1417 220 Weight 169 lb 8.568 oz General appearance: PRESENT: no acute distress, well-developed, well-nourished Head exam: PRESENT: atraumatic, normocephalic Eye exam: PRESENT: conjunctiva pink Neck exam: ABSENT: carotid bruit, JVD, lymphadenopathy, thyromegaly Respiratory exam: PRESENT: clear to auscultation bria. ABSENT: rales, rhonchi, wheezes Cardiovascular exam: PRESENT: RRR. ABSENT: diastolic murmur, rubs, systolic murmur Pulses: PRESENT: normal dorsalis pedis pul Vascular exam: PRESENT: normal capillary refill GI/Abdominal exam: PRESENT: ascites, distended Rectal exam: PRESENT: deferred Extremities exam: PRESENT: full ROM Neurological exam: PRESENT: alert, awake, oriented to person, oriented to place , oriented to time, oriented to situation, CN II-XII grossly intact. ABSENT: motor sensory deficit Psychiatric exam: PRESENT: appropriate affect, normal mood. ABSENT: homicidal ideation, suicidal ideation Results Laboratory Results: 05/31/18 04:10 05/31/18 04:10 05/30/18 05/31/18 05/31/18 23:36 04:10 04:10 WBC 2.9 L RBC 2.50 L Hgb 8.0 L Hct 23.3 L MCV 93 MCH 31.9 MCHC 34.2 RDW 14.1 H Plt Count 43 L Sodium 144.1 Potassium 3.6 Chloride 107 Carbon Dioxide 21 L Anion Gap 16 BUN 71 H Creatinine 4.96 H Est GFR ( Amer) 11 L Est GFR (Non-Af Amer) 9 L Glucose 115 H Calcium 8.5 Urine Color YELLOW Urine Appearance SLIGHTLY-CLOUDY Urine pH 5.0 Ur Specific [place] 1.011 Urine Protein NEGATIVE Urine Glucose (UA) NEGATIVE Urine Ketones NEGATIVE Urine Blood NEGATIVE Urine Nitrite NEGATIVE Ur Leukocyte Esterase TRACE H Urine WBC (Auto) 7 Urine RBC (Auto) 1 Impressions: Chest X-Ray 05/30/18 20:24 IMPRESSION: NO ACUTE RADIOGRAPHIC FINDING IN THE CHEST. Head CT 05/30/18 20:25 IMPRESSION: No acute intracranial imaging findings. Stable old left frontal infarct. EVIDENCE OF ACUTE STROKE: NO. Qualifiers - * PATIENT BEING DISCHARGED WITH ANY OF THE FOLLOWING DIAGNOSIS: No
== END 2018-05-31 17:00 | disposition home or self-care (01) ==
LOC: ER 19:52 → INTOOBSV 23:24 → EH 23:24 → 4W 05-31 11:51
PROVIDERS: ADMIT Internal Medicine; ATTEND Internal Medicine
PROC: 30233R1 Transfusion of Nonautologous Platelets into Peripheral Vein, Percutaneous Approach (ICD-10-PCS; principal; 2018-05-31)
PROC: 30233N1 Transfusion of Nonautologous Red Blood Cells into Peripheral Vein, Percutaneous Approach (ICD-10-PCS; 2018-05-31)
DX: R40.0 Somnolence (principal); E86.9 Volume depletion, unspecified; E11.22 Type 2 diabetes mellitus with diabetic chronic kidney disease; I95.89 Other hypotension; N18.6 End stage renal disease; D69.6 Thrombocytopenia, unspecified; D64.89 Other specified anemias; K76.0 Fatty (change of) liver, not elsewhere classified; K74.60 Unspecified cirrhosis of liver; R18.8 Other ascites; G89.29 Other chronic pain; M54.5 Low back pain; Z79.899 Other long term (current) drug therapy; Z90.49 Acquired absence of other specified parts of digestive tract; Z90.710 Acquired absence of both cervix and uterus; Z87.891 Personal history of nicotine dependence; Z86.73 Personal history of transient ischemic attack (TIA), and cerebral infarction without residual deficits; Z98.890 Other specified postprocedural states
CPT/HCPCS: 93005; 99285; 96360; 96361; 86900; 86901; 36415 ×2; 82553; 36430; 86850; 80307 ×2; 82140; 82550; 83735; 85025; 85027; 85610; 85730; 80048; 80053; 81001; 84484; 86920; 71045; 70450; 93010; G0378 ×2; P9016; P9035; A9270 ×3; J2270; J2550; J3490; J2405; J7030; 49083; 82565; 84520; P9047

== ENCOUNTER 2018-06-13 08:51 | Day surgery (SDC) | payer MEDICARE, MEDICAID ==
[2018-06-13 09:46] LABS: HEMATOCRIT 25.3 % (36.0-47.0); HEMOGLOBIN 8.7 g/dL (12.0-15.5); INTERNATIONAL RATION (INR) 1.52; MEAN CORPUSCULAR HEMOGLOBIN 31.9 pg (27.0-33.4); MEAN CORPUSCULAR HGB CONC 34.6 g/dL (32.0-36.0); MEAN CORPUSCULAR VOLUME 92 fl (80-97); RED BLOOD COUNT 2.74 10^6/uL (3.72-5.28); RED CELL DISTRIBUTION WIDTH 14.8 % (11.5-14.0); WHITE BLOOD COUNT 3.1 10^3/uL (4.0-10.5)
[2018-06-13 09:47] LABS: PARTIAL THROMBOPLASTIN TIME 35.9 SEC (23.5-35.8)
[2018-06-13 09:54] LABS: BLOOD UREA NITROGEN 83 mg/dL (7-20)
[2018-06-13 10:23] LABS: PLATELET COUNT 28 10^3/uL (150-450)
[2018-06-13] MEDS ORDERED: LIDOCAINE 1% INJ-PF (10 MG/ML) 30 ML SDV ONE (12:56)
[2018-06-13 15:43] VITALS: BP 97/54
--- NOTE | 2018-06-13 16:10 | RADIOLOGY REPORT (SQ) ---
EXAM DESCRIPTION: U/S ABD PARACENTESIS COMPLETED DATE/TIME: 06/13/2018 2:41 pm REASON FOR STUDY: ASCITES COMPARISON Multiple previous paracentesis LIMITATIONS: None. PROCEDURE: After obtaining informed consent, the patient was brought to the ultrasound suite. The p rocedure was performed with the patient on a gurney. Ultrasound was used to identify a prominent poc ket of ascites in the right lower quadrant. An appropriate access site was selected. The patient wa s prepped and draped in usual sterile fashion. The access site was anesthetized with 3.5 mL 1% lido austen. A [id number] needle was advanced into the fluid. After aspiration of fluid the needle, the catheter was advanced off the needle into the fluid. A total of 8,000 mL of serosanguineous flui d was removed. The patient tolerated the procedure well left the department in satisfactory condition . No testing on the peritoneal fluid. IMPRESSION: Successful ultrasound-guided therapeutic only paracentesis COMMENT: Patient medication list reviewed: Yes- Quality ID# [id number]:Eligible professional attests to doc umenting in the medical record they obtained, updated, or reviewed the patient's current medications. TECHNICAL DOCUMENTATION: JOB ID: [id number] [employer]- All Rights Reserved Reading location - IP/workstation name: [email or web address]
== END 2018-06-13 15:40 | disposition home or self-care (01) ==
LOC: RAD 08:51
PROVIDERS: ATTEND Internal Medicine Gastroenterology
DX: R18.8 Other ascites (principal); K75.81 Nonalcoholic steatohepatitis (NASH); K74.69 Other cirrhosis of liver; E11.9 Type 2 diabetes mellitus without complications; I10 Essential (primary) hypertension; D69.6 Thrombocytopenia, unspecified; N19 Unspecified kidney failure; G93.41 Metabolic encephalopathy; E66.09 Other obesity due to excess calories; K21.9 Gastro-esophageal reflux disease without esophagitis; Z79.899 Other long term (current) drug therapy; Z79.4 Long term (current) use of insulin; Z86.73 Personal history of transient ischemic attack (TIA), and cerebral infarction without residual deficits; Z68.34 Body mass index [BMI] 34.0-34.9, adult
CPT/HCPCS: 86900; 86901; 36415; 36430; 84520; 82565; 85027; 85610; 85730; 49083; P9035; P9047; J3490

== ENCOUNTER 2018-06-21 14:14 | Emergency (ER) | payer MEDICARE, MEDICAID ==
[2018-06-21 14:22] VITALS: BP 118/66
--- NOTE | 2018-06-21 16:00 | ER Document Report ---
ED General - General Chief Complaint: Abdominal Pain Stated Complaint: ABDOMINAL/BACK PAIN Time Seen by Provider: 06/21/18 14:42 Mode of Arrival: Ambulatory Information source: Patient Notes: This is a 48-year-old female with a history of hep C, liver failure, chronic ascites treated with serial paracentesis, who last had a paracentesis 1 week ago that presents to the emergency room with increased abdominal distention. She denies fever, shortness of breath, abdominal pain. Labs reveal that she has normally a platelet count in the 25,000 range. TRAVEL OUTSIDE OF THE [place] IN LAST 30 DAYS: No - HPI Onset: Last week Onset/Duration: Gradual Quality of pain: No pain Severity: None Pain Level: Denies Associated symptoms: denies: Chills, Fever, Shortness of breath Exacerbated by: Denies Relieved by: Denies Similar symptoms previously: Yes Recently seen / treated by doctor: Yes - Related Data Allergies/Adverse Reactions: No Known Allergies Allergy (Verified 05/30/18 10:05) Past Medical History - General Information source: Patient - Social History Smoking Status: Former Smoker Cigarette use (# per day): No Chew tobacco use (# tins/day): No Frequency of alcohol use: None Drug Abuse: None Lives with: Spouse/Significant other Family History: Reviewed & Not Pertinent Patient has suicidal ideation: No Patient has homicidal ideation: No - Past Medical History Cardiac Medical History: Reports: Hx Hypercholesterolemia Denies: Hx Coronary Artery Disease, Hx Heart Attack, Hx Hypertension Pulmonary Medical History: Denies: Hx Asthma, Hx Bronchitis, Hx COPD, Hx Pneumonia, Hx Tuberculosis Neurological Medical History: Reports: Hx Cerebrovascular Accident - 2017. Denies: Hx Seizures Endocrine Medical History: Reports: Hx Diabetes Mellitus Type 2 Renal/ Medical History: Reports: Hx End Stage Renal Disease, Hx Kidney Stones - 2011, Hx Renal Insufficiency. Denies: Hx Peritoneal Dialysis GI Medical History: Reports: Hx Cirrhosis - Due to fatty liver disease, Hx Gastroesophageal Reflux Disease, Hx Liver Failure. Denies: Hx Hepatitis - C Musculoskeletal Medical History: Reports Hx Arthritis - BACK Psychiatric Medical History: Reports: Hx Anxiety, Hx Bipolar Disorder, Hx Depression - stress related Infectious Medical History: Denies: Hx Hepatitis - C Past Surgical History: Reports: Hx Cholecystectomy - 2011, Hx Hysterectomy - Immunizations Hx Diphtheria, Pertussis, Tetanus Vaccination: No Hx Pneumococcal Vaccination: 09/03/12 Review of Systems - Review of Systems Constitutional: denies: Chills, Fever EENT: No symptoms reported Cardiovascular: No symptoms reported Respiratory: No symptoms reported Gastrointestinal: See HPI Genitourinary: No symptoms reported Female Genitourinary: No symptoms reported Musculoskeletal: No symptoms reported Skin: No symptoms reported Hematologic/Lymphatic: No symptoms reported Neurological/Psychological: No symptoms reported Physical Exam - Vital signs Vitals: Temp Pulse Resp BP Pulse Ox 97.7 F 82 20 118/66 100 06/21/18 14:21 06/21/18 14:21 06/21/18 14:21 06/21/18 14:21 06/21/18 14:21 Notes: Physical exam: GENERAL: 48-year-old female, alert and oriented 3, no acute distress. HEAD: Atraumatic, normocephalic. EYES: Pupils equal round and reactive to light, extraocular movements intact, conjunctiva are normal. ENT: Oropharynx clear. Moist mucous membranes. NECK: Normal range of motion, supple without obvious mass or JVD. LUNGS: Breath sounds clear to auscultation bilaterally and equal. No wheezes rales or rhonchi. HEART: Regular rate and rhythm without murmurs, rubs or gallops. ABDOMEN: Soft, normoactive bowel sounds. Distended with obvious ascites, no tenderness to palpation. No guarding, no rebound. She has previous sites on the abdominal wall were paracentesis have been performed. These are healing and there is no evidence of infection. EXTREMITIES: Normal range of motion, no pitting or edema. No clubbing or cyanosis. NEUROLOGICAL: Cranial nerves II through XII grossly intact. No asterixis. Normal speech, moving all extremities. PSYCH: Normal mood, normal affect. SKIN: Warm, Dry, normal turgor, no rashes or lesions noted. Course - Re-evaluation Re-evalutation: 06/21/18 15:59 Patient's oxygenation is very good. She is breathing comfortably. There is no indication for emergent paracentesis given her stable pulmonary function, nontender abdomen and there is no suspicion for SBP. I discussed case with radiology. Patient has a fair amount of ascites which is reaccumulated. There is no evidence of SBP. She has no abdominal pain at all. Her vital signs are stable. She has had no fever. The procedural PA did [facility] There are standing orders for labs as well as platelets. 06/21/18 20:02 - Vital Signs Vital signs: Temp Pulse Resp BP Pulse Ox 97.7 F 82 20 118/66 100 06/21/18 14:21 06/21/18 14:21 06/21/18 14:21 06/21/18 14:21 06/21/18 14:21 Discharge - Discharge Clinical Impression: Ascites Condition: Stable Disposition: HOME, SELF-CARE Additional Instructions: As we discussed, they will be preparing to do the procedure tomorrow. You will receive platelets prior to the procedure. Go to the outpatient radiology suite (where you have been before for this procedure) at 9 AM tomorrow. Follow-up with Dr. Matthews your GI doctor. Follow-up with your primary care doctor as planned. Referrals: NGA BUCK MD [Primary Care Provider] - Follow up as needed
== END 2018-06-21 16:08 | disposition home or self-care (01) ==
LOC: ER 14:14
DX: R18.8 Other ascites (principal); Z98.890 Other specified postprocedural states; E11.9 Type 2 diabetes mellitus without complications; Z86.19 Personal history of other infectious and parasitic diseases; Z87.891 Personal history of nicotine dependence
CPT/HCPCS: 99284

== ENCOUNTER 2018-06-22 08:48 | Day surgery (SDC) | payer MEDICARE, MEDICAID ==
[2018-06-22 10:06] LABS: HEMATOCRIT 24.6 % (36.0-47.0); HEMOGLOBIN 8.6 g/dL (12.0-15.5); MEAN CORPUSCULAR HEMOGLOBIN 32.4 pg (27.0-33.4); MEAN CORPUSCULAR HGB CONC 34.8 g/dL (32.0-36.0); MEAN CORPUSCULAR VOLUME 93 fl (80-97); RED BLOOD COUNT 2.64 10^6/uL (3.72-5.28); RED CELL DISTRIBUTION WIDTH 14.5 % (11.5-14.0); WHITE BLOOD COUNT 4.1 10^3/uL (4.0-10.5)
[2018-06-22 10:11] LABS: INTERNATIONAL RATION (INR) 1.42; PROTHROMBIN TIME 18.1 SEC (11.4-15.4)
[2018-06-22 10:24] LABS: PLATELET COUNT 27 10^3/uL (150-450)
[2018-06-22 10:26] LABS: BLOOD UREA NITROGEN 79 mg/dL (7-20)
--- NOTE | 2018-06-22 14:41 | RADIOLOGY REPORT (SQ) ---
EXAM DESCRIPTION: U/S ABD PARACENTESIS COMPLETED DATE/TIME: 06/22/2018 2:23 pm REASON FOR STUDY: ASCITES COMPARISON None. LIMITATIONS: None. PROCEDURE: After obtaining informed consent, the patient was brought to the ultrasound suite. The p rocedure was performed with the patient on a gurney. Ultrasound was used to identify a prominent poc ket of ascites in the right lower quadrant. An appropriate access site was selected. The patient wa s prepped and draped in usual sterile fashion. The access site was anesthetized with 3 mL 1% lidoca ine. A Tbhb-W-Qfapynfx needle was advanced into the fluid. After aspiration of fluid the needle, th e catheter was advanced off the needle into the fluid. A total of 6,000 mL of sarath fluid was remove d. The patient tolerated the procedure well left the department in satisfactory condition. IMPRESSION: Successful ultrasound-guided paracentesis COMMENT: Patient medication list reviewed: Yes- Quality ID# [id number]:Eligible professional attests to doc umenting in the medical record they obtained, updated, or reviewed the patient's current medications. TECHNICAL DOCUMENTATION: JOB ID: [id number] [employer]- All Rights Reserved Reading location - IP/workstation name: [email or web address]
[2018-06-22 16:28] VITALS: BP 112/66
== END 2018-06-22 16:15 | disposition home or self-care (01) ==
LOC: RAD 08:48
PROVIDERS: ATTEND Internal Medicine Gastroenterology
DX: R18.8 Other ascites (principal); E78.00 Pure hypercholesterolemia, unspecified; Z79.01 Long term (current) use of anticoagulants; Z87.891 Personal history of nicotine dependence
CPT/HCPCS: 86900; 86901; 36415; 36430; 84520; 82565; 85027; 85610; 85730; 49083; P9035; P9047

== ENCOUNTER 2018-07-04 08:54 | Day surgery (SDC) | payer MEDICARE, MEDICAID ==
[2018-07-04 09:22] LABS: INTERNATIONAL RATION (INR) 1.54; PROTHROMBIN TIME 19.2 SEC (11.4-15.4)
[2018-07-04 09:23] LABS: PARTIAL THROMBOPLASTIN TIME 36.3 SEC (23.5-35.8)
[2018-07-04 09:30] LABS: HEMATOCRIT 24.8 % (36.0-47.0); HEMOGLOBIN 8.8 g/dL (12.0-15.5); MEAN CORPUSCULAR HEMOGLOBIN 32.8 pg (27.0-33.4); MEAN CORPUSCULAR HGB CONC 35.3 g/dL (32.0-36.0); MEAN CORPUSCULAR VOLUME 93 fl (80-97); RED BLOOD COUNT 2.67 10^6/uL (3.72-5.28); RED CELL DISTRIBUTION WIDTH 15.1 % (11.5-14.0)
[2018-07-04 09:36] LABS: BLOOD UREA NITROGEN 89 mg/dL (7-20)
[2018-07-04 10:18] LABS: PLATELET COUNT 31 10^3/uL (150-450)
--- NOTE | 2018-07-04 14:42 | RADIOLOGY REPORT (SQ) ---
EXAM DESCRIPTION: U/S ABD PARACENTESIS COMPLETED DATE/TIME: 07/04/2018 2:34 pm REASON FOR STUDY: ASCITES COMPARISON None. LIMITATIONS: None. PROCEDURE: After obtaining informed consent, the patient was brought to the ultrasound suite. The p rocedure was performed with the patient on a gurney. Ultrasound was used to identify a prominent poc ket of ascites in the right lower quadrant. An appropriate access site was selected. The patient wa s prepped and draped in usual sterile fashion. The access site was anesthetized with 3 mL 1% lidoca ine. A Nueq-Q-Iubqvntl needle was advanced into the fluid. After aspiration of fluid the needle, th e catheter was advanced off the needle into the fluid. A total of 8,000 mL of serosanguineous fluid was removed. The patient tolerated the procedure well left the department in satisfactory condition. IMPRESSION: Successful ultrasound-guided paracentesis COMMENT: Patient medication list reviewed: Yes- Quality ID# [id number]:Eligible professional attests to doc umenting in the medical record they obtained, updated, or reviewed the patient's current medications. TECHNICAL DOCUMENTATION: JOB ID: [id number] [employer]- All Rights Reserved Reading location - IP/workstation name: [email or web address]
[2018-07-04 15:33] VITALS: BP 132/79
== END 2018-07-04 15:15 | disposition home or self-care (01) ==
LOC: RAD 08:54
PROVIDERS: ATTEND Internal Medicine Gastroenterology
DX: R18.8 Other ascites (principal); K74.60 Unspecified cirrhosis of liver; Z79.01 Long term (current) use of anticoagulants
CPT/HCPCS: 86900; 86901; 36415; 36430; 86850; 84520; 82565; 85027; 85610; 85730; 49083; P9035; P9047

== ENCOUNTER 2018-07-19 07:05 | Day surgery (SDC) | payer MEDICARE, MEDICAID ==
[2018-07-19 08:03] LABS: HEMATOCRIT 22.6 % (36.0-47.0); MEAN CORPUSCULAR HGB CONC 34.5 g/dL (32.0-36.0); MEAN CORPUSCULAR VOLUME 93 fl (80-97); RED BLOOD COUNT 2.44 10^6/uL (3.72-5.28); RED CELL DISTRIBUTION WIDTH 14.3 % (11.5-14.0); WHITE BLOOD COUNT 2.6 10^3/uL (4.0-10.5)
[2018-07-19 08:07] LABS: INTERNATIONAL RATION (INR) 1.54; PROTHROMBIN TIME 19.2 SEC (11.4-15.4)
[2018-07-19 08:08] LABS: BLOOD UREA NITROGEN 94 mg/dL (7-20); PARTIAL THROMBOPLASTIN TIME 37.4 SEC (23.5-35.8)
[2018-07-19 08:43] LABS: HEMOGLOBIN 7.8 g/dL (12.0-15.5)
[2018-07-19 08:45] LABS: PLATELET COUNT 24 10^3/uL (150-450)
[2018-07-19] MEDS: ALBUMIN HUMAN 12.5 GM/50 ML RTUINJ IV PRN ×2 (11:13→11:32)
[2018-07-19 14:12] VITALS: BP 92/51
--- NOTE | 2018-07-19 14:12 | RADIOLOGY REPORT (SQ) ---
EXAM DESCRIPTION: U/S ABD PARACENTESIS COMPLETED DATE/TIME: 07/19/2018 1:50 pm REASON FOR STUDY: ASCITES COMPARISON Multiple previous LIMITATIONS: None. PROCEDURE: After obtaining informed consent, the patient was brought to the ultrasound suite. The p rocedure was performed with the patient on a gurney. Ultrasound was used to identify a prominent poc ket of ascites in the right lower quadrant. An appropriate access site was selected. The patient wa s prepped and draped in usual sterile fashion. The access site was anesthetized with 6 mL 1% lidoca ine. A Wwyf-X-Vfxtasem needle was advanced into the fluid. After aspiration of fluid the needle, th e catheter was advanced off the needle into the fluid. A total of 8,000 mL of clear yellow fluid was removed. The patient tolerated the procedure well left the department in satisfactory condition. [place] barnard was used to seal the abdominal wall puncture site. Patient received IV albumin after the procedure was over Therapeutic only, no labs were ordered on ascites fluid IMPRESSION: Successful ultrasound-guided therapeutic paracentesis COMMENT: Patient medication list reviewed: Yes- Quality ID# [id number]:Eligible professional attests to doc umenting in the medical record they obtained, updated, or reviewed the patient's current medications. TECHNICAL DOCUMENTATION: JOB ID: [id number] [employer]- All Rights Reserved Reading location - IP/workstation name: [email or web address]
== END 2018-07-19 14:05 | disposition home or self-care (01) ==
LOC: RAD 07:05
PROVIDERS: ATTEND Internal Medicine Gastroenterology
DX: K70.31 Alcoholic cirrhosis of liver with ascites (principal); K75.81 Nonalcoholic steatohepatitis (NASH); E11.9 Type 2 diabetes mellitus without complications; I10 Essential (primary) hypertension; D69.6 Thrombocytopenia, unspecified
CPT/HCPCS: 86900; 86901; 36415; 36430; 84520; 82565; 85027; 85610; 85730; 49083; P9035; P9047

== ENCOUNTER 2018-07-24 00:21 | Emergency (ER) | payer MEDICARE, MEDICAID ==
[2018-07-24] MEDS ORDERED: RINGERS SOLUTION,LACTATED 1,000 ML IV PRN (00:32)
--- NOTE | 2018-07-24 00:52 | ER Document Report ---
ED General <YONNYROSITA - Last Filed: 07/24/18 01:18> - General TRAVEL OUTSIDE OF THE [place] IN LAST 30 DAYS: No <KERON URIBE - Last Filed: 07/24/18 03:11> - General Chief Complaint: Probable Seizure Stated Complaint: POSSIBLE SEIZURE Time Seen by Provider: 07/24/18 00:30 - HPI Notes: Patient is a 48-year-old female with a history of liver cirrhosis, recurrent ascites, prev CVA, chronic kidney disease end-stage not currently on dialysis who presents to the ED by EMS for concern of abd pain and muscle twitching of the face/rt arm. EMS gave the patient 2.5 mg of Versed on 2 occasions for her twitching as she had twitching in her right arm and right face. They state that they were able to eliminate the twitching in the arm, but the face recurred. Patient states that she has had twitching in the past. Patient acknowledges that she is primarily here because of her abdominal pain. No drug allergies. Patient has had a previous CVA on the left side of her brain resulting in chronic weakness to her right arm and speech issues. Denies any headache, fever, head injury, neck pain, changes in vision/mentation/hearing, URI, sore throat, chest pain, palpitations, syncope, cough, shortness of breath , wheeze, dyspnea, nausea/vomiting/diarrhea, urinary retention, dysuria, hematuria, loss of control of bowel or bladder, numbness/tingling, or rash. ( KERON URIBE) - Related Data Allergies/Adverse Reactions: No Known Allergies Allergy (Verified 07/19/18 07:41) Past Medical History - Social History Smoking Status: Unknown if Ever Smoked Family History: Reviewed & Not Pertinent - Past Medical History Cardiac Medical History: Reports: Hx Hypercholesterolemia Denies: Hx Coronary Artery Disease, Hx Heart Attack, Hx Hypertension Pulmonary Medical History: Denies: Hx Asthma, Hx Bronchitis, Hx COPD, Hx Pneumonia, Hx Tuberculosis Neurological Medical History: Reports: Hx Cerebrovascular Accident - Pt states no deficits. Denies: Hx Seizures Endocrine Medical History: Reports: Hx Diabetes Mellitus Type 2 Renal/ Medical History: Reports: Hx End Stage Renal Disease, Hx Kidney Stones - 2012, Hx Renal Insufficiency. Denies: Hx Peritoneal Dialysis GI Medical History: Reports: Hx Cirrhosis - Due to fatty liver disease, Hx Gastroesophageal Reflux Disease, Hx Liver Failure. Denies: Hx Hepatitis - C Musculoskeletal Medical History: Reports Hx Arthritis - BACK Psychiatric Medical History: Reports: Hx Anxiety, Hx Bipolar Disorder, Hx Depression - stress related Infectious Medical History: Denies: Hx Hepatitis - C Past Surgical History: Reports: Hx Cholecystectomy - 2012, Hx Hysterectomy - Immunizations Hx Diphtheria, Pertussis, Tetanus Vaccination: Yes Hx Pneumococcal Vaccination: 09/03/12 <KERON URIBE - Last Filed: 07/24/18 03:11> Review of Systems - Review of Systems -: Yes All other systems reviewed and negative <KERON URIBE - Last Filed: 07/24/18 03:11> Physical Exam <ROSITA ANGEL - Last Filed: 07/24/18 01:18> <KERON URIBE - Last Filed: 07/24/18 03:11> - Vital signs Vitals: Resp Pulse Ox 21 H 98 07/24/18 00:31 07/24/18 00:31 - Notes Notes: PHYSICAL EXAMINATION: GENERAL: in no acute distress. HEAD: Atraumatic, normocephalic. Non-tender. EYES: Pupils equal round and reactive to light, extraocular movements intact, mild jaundice, conjunctiva are normal. No nystagmus. ENT: EAC clear b/l. TM's intact b/l without erythema, fluid, or perforation. Nares patent and without discharge. oropharynx clear without exudates. No tonsilar hypertrophy or erythema. Moist mucous membranes. NECK: Normal range of motion, supple without lymphadenopathy. No rigidity/ meningismus. No midline tenderness. LUNGS: Breath sounds clear to auscultation bilaterally and equal. No wheezes rales or rhonchi. HEART: Regular rate and rhythm without murmurs, rubs, gallops. ABDOMEN: Soft, ascites noted. No guarding, no rebound. Normal bowel sounds present. No CVA tenderness bilaterally. + mild generalized tenderness. Musculoskeletal: Rt arm: weakness associated 3+/5. N/v intact distal. Ext's otherwise b/l: FROM to passive/active. Strength 5+/5. No deficits noted. No bony tenderness of extremities. Extremities: No cyanosis, clubbing, or edema b/l. Peripheral pulses 2+. Capillary refill less than 2 seconds. NEUROLOGICAL: GCS 15. Cranial nerves grossly intact, but small droop right side. + twitching rt side of face. slurring speech. Reflexes 2+ b/l. PRASANTH's negative. Pt unable to lift rt arm to test drift but does have some resistance against gravity. Pt notes rt side weakness and speech normal for her. PSYCH: Normal mood, normal affect. SKIN: Warm, Dry, normal turgor, no rashes or lesions noted. mild jaundice ( KERON URIBE) Course - Laboratory Result Diagrams: 07/24/18 00:46 07/24/18 00:46 <ROSITA ANGEL - Last Filed: 07/24/18 01:18> - Laboratory Result Diagrams: 07/24/18 00:46 07/24/18 00:46 <KERON URIBE - Last Filed: 07/24/18 03:11> - Re-evaluation Re-evalutation: 07/24/18 01:18 Physician speech language pathology assistant, Keron Uribe, may come evaluate the patient. Patient presents with unknown complaint. Paramedics when they arrived noticed she was having some right-sided facial twitching and therefore they are given her Versed thinking this could be a seizure. She did not have any convulsions anywhere else. Patient first arrived she was under the influence of Versed and therefore they cannot get a good history. They sent her straight to CT scan. CT scan shows her old stroke and calcification which is unchanged comparison to her previous CT scan upon my review. Into the room to reevaluate the patient she is now able to talk and tell me some history. She said she has intermittent abdominal pain due to her liver failure and at times that pain exacerbates. As well she apparently called the ambulance today per her report. She does have intermittent twitching of her face but this is very intermittent and she says this is a recurring problem that she has had for a while. She also has right-sided arm weakness which is related to her old stroke and is not new. Left upper extremity has no weakness. Is able lift both lower extremities off the bed and hold them against gravity without difficulty. She denies recent fevers. She has not septic or toxic appearing. Her current vital signs are normal. At this time will obtain baseline blood work and treat her pain and reassess. (ROSITA ANGEL) 07/24/18 00:57 Labs and imaging ordered. Reviewed with Dr. Angel who will eval the patient as well. 07/24/18 01:10 Dr. Angel evaluated the patient and does not believe this to be seizures nor an acute stroke she has previous left-sided CVA on CT scan and chronic right- sided deficit. We will continue workup as planned otherwise to further evaluate. He does not suspect peritonitis at this time. 07/24/18 02:10 Patient is an afebrile, well-hydrated 48-year-old female who presents to the ED chronic abdominal pain. Vitals are acceptable without any significant tachycardia, tachypnea, hypoxia, or hypotension. HR currently 83 on monitor. PE is otherwise unremarkable. CT scan was unremarkable for any acute pathology. CBC, CMP, magnesium, coags, urinalysis, urine drug screen, EKG were acceptable at this time and were all similar to baseline. Fentanyl was given IV for pain medication. Patient is nontoxic-appearing and is tolerating p.o. without any difficulties. I did review the labs and imaging with the patient and reassured her at this time. Patient states that she is feeling "okay" and would like to go home. No further labs or imaging warranted at this time based on H&P. I did review the case again with Dr. Angel who is in agreement with disposition and plan. Low suspicion/risk for acute appendicitis, bowel obstruction, acute cholecystitis, acute cholangitis, perforated diverticulitis, incarcerated hernia, pancreatitis, perforated ulcer, peritonitis, sepsis, or other systemic emergent condition at this time. Patient is aware that her condition can change from initial presentation and she needs to monitor symptoms closely and seek medical attention if any acute changes. Conservative measures otherwise for symptoms. Recheck with your PCM this week. Return to the ED with any worsening/concerning symptoms otherwise as reviewed in discharge. Patient is in agreement. (KERON URIBE) - Vital Signs Vital signs: Temp Pulse Resp BP Pulse Ox 20 100/52 L 100 07/24/18 02:09 07/24/18 02:09 07/24/18 02:09 - Laboratory Laboratory results interpreted by me: 07/24/18 07/24/18 07/24/18 00:46 00:46 00:46 WBC 2.9 L RBC 2.40 L Hgb 7.7 L Hct 22.1 L RDW 14.3 H Plt Count 20 L* Absolute Lymphocytes 0.4 L PT 19.1 H Potassium 3.4 L Chloride 110 H Carbon Dioxide 16 L BUN 88 H Creatinine 6.05 H Est GFR ( Amer) 9 L Est GFR (Non-Af Amer) 7 L Glucose 158 H Calcium 8.0 L Total Bilirubin 1.4 H Direct Bilirubin 0.7 H Total Protein 5.5 L Albumin 2.6 L Urine Blood 07/24/18 01:18 WBC RBC Hgb Hct RDW Plt Count Absolute Lymphocytes PT Potassium Chloride Carbon Dioxide BUN Creatinine Est GFR ( Amer) Est GFR (Non-Af Amer) Glucose Calcium Total Bilirubin Direct Bilirubin Total Protein Albumin Urine Blood LARGE H Discharge <ROSITA ANGEL - Last Filed: 07/24/18 01:18> <KERON URIBE - Last Filed: 07/24/18 03:11> - Discharge Clinical Impression: Hepatorenal failure Ascites Qualifiers: Ascites type: other type Qualified Code(s): R18.8 - Other ascites Anemia Qualifiers: Anemia type: unspecified type Qualified Code(s): D64.9 - Anemia, unspecified Abdominal pain Qualifiers: Abdominal location: generalized Qualified Code(s): R10.84 - Generalized abdominal pain Condition: Stable Disposition: HOME, SELF-CARE Instructions: Abdominal Pain ([facility]) Additional Instructions: Maintain adequate fluid and food intake Healthy diet Monitor for any worsening symptoms Make sure you are staying hydrated enough to urinate and have normal BM's Recheck with your PCM in 2-3 days Consider consult with Gastroenterology for ongoing/worsening symptoms Return to the ED with any worsening symptoms and/or development of fever, headache, chest pain, palpitations, syncope, shortness of breath, trouble breathing, abdominal pain, n/v/d, blood in stool/urine, weakness, or other worsening symptoms that are concerning to you. Referrals: NGA BUCK MD [Primary Care Provider] - 07/26/18
[2018-07-24 01:20] LABS: ALANINE AMINOTRANSFERASE 27 U/L (9-52); ALBUMIN 2.6 g/dL (3.5-5.0); ALKALINE PHOSPHATASE 86 U/L (38-126); ANION GAP 13 (5-19); ASPARTATE AMINO TRANSFERASE 26 U/L (14-36); BILIRUBIN,DIRECT 0.7 mg/dL (0.0-0.4); BILIRUBIN,TOTAL 1.4 mg/dL (0.2-1.3); BLOOD UREA NITROGEN 88 mg/dL (7-20); CARBON DIOXIDE 16 mmol/L (22-30); CHLORIDE 110 mmol/L (98-107); GLUCOSE 158 mg/dL (75-110); INTERNATIONAL RATION (INR) 1.53; POTASSIUM 3.4 mmol/L (3.6-5.0); PROTHROMBIN TIME 19.1 SEC (11.4-15.4); SODIUM 138.8 mmol/L (137-145); TOTAL PROTEIN 5.5 g/dL (6.3-8.2)
[2018-07-24 01:21] LABS: PARTIAL THROMBOPLASTIN TIME 35.1 SEC (23.5-35.8)
[2018-07-24 01:27] LABS: ABSOLUTE EOSINOPHILS # (AUTO) 0.1 10^3/uL (0.0-0.6); ABSOLUTE LYMPHOCYTES (AUTO) 0.4 10^3/uL (0.5-4.7); ABSOLUTE MONOCYTES (AUTO) 0.2 10^3/uL (0.1-1.4); ABSOLUTE NEUT (AUTO) 2.2 10^3/uL (1.7-8.2); BASOPHILS % (AUTO) 0.8 % (0-2); EOSINOPHILS % (AUTO) 4.8 % (0-6); HEMATOCRIT 22.1 % (36.0-47.0); LYMPHOCYTES % (AUTO) 13.7 % (13-45); MEAN CORPUSCULAR HEMOGLOBIN 32.3 pg (27.0-33.4); MEAN CORPUSCULAR VOLUME 92 fl (80-97); MONOCYTES % (AUTO) 6.5 % (3-13); RED CELL DISTRIBUTION WIDTH 14.3 % (11.5-14.0); SEGMENTED NEUTROPHILS % (AUTO) 74.2 % (42-78); TOTAL CELLS COUNTED % (AUTO) 100 %; WHITE BLOOD COUNT 2.9 10^3/uL (4.0-10.5)
--- NOTE | 2018-07-24 01:37 | RADIOLOGY REPORT (SQ) ---
EXAM DESCRIPTION: CT HEAD WITHOUT IV CONTRAST COMPLETED DATE/TME: 07/24/2018 00:43 CLINICAL HISTORY: 48 years Female, rt facial twitch, rt arm weakness, slurring COMPARISON: 8.1.18. TECHNIQUE: No contrast. Coronal and sagittal reformat. This exam was performed according to our departmental dose-optimization program, which includes automated exposure control, adjustment of the mA and/or kV according to patient size and/or use of iterative reconstruction technique. FINDINGS: Curvilinear high attenuation associated with the left precentral gyrus or sulcus, image 24 series 2, similar appearance previously; differential diagnosis includes small subarachnoid hemorrhage, chronic microcalcification, or small linear parenchymal hemorrhage. No mass, mass effect, or midline shift. Atherosclerosis. Brain and extra-axial structures appear otherwise intact. IMPRESSION: Curvilinear high attenuation associated with the left precentral gyrus or sulcus, image 24 series 2, similar appearance previously; differential diagnosis includes small subarachnoid hemorrhage, chronic microcalcification, or small linear parenchymal hemorrhage.
[2018-07-24 01:40] LABS: HEMOGLOBIN 7.7 g/dL (12.0-15.5); PLATELET COUNT 20 10^3/uL (150-450)
[2018-07-24 01:43] LABS: APPEARANCE,URINE SLIGHTLY-CLOUDY; BILIRUBIN,URINE NEGATIVE (NEGATIVE); COLOR,URINE YELLOW; GLUCOSE, URINE NEGATIVE (NEGATIVE); KETONES,URINE NEGATIVE (NEGATIVE); LEUKOCYTE ESTERASE,URINE NEGATIVE (NEGATIVE); NITRITE,URINE NEGATIVE (NEGATIVE); PROTEIN,URINE NEGATIVE (NEGATIVE); URINE SPECIFIC GRAVITY 1.013; UROBILINOGEN,URINE NEGATIVE mg/dL (<2.0)
[2018-07-24 01:54] LABS: URINE AMPHETAMINES SCREEN NEGATIVE; URINE BARBITURATES SCREEN NEGATIVE; URINE BENZODIAZEPINES SCREEN UNCONFIRMED POSITIVE; URINE COCAINE SCREEN NEGATIVE; URINE MARIJUANA (THC) SCREEN NEGATIVE; URINE METHADONE SCREEN NEGATIVE; URINE PHENCYCLIDINE SCREEN NEGATIVE
[2018-07-24] MEDS ORDERED: FENTANYL CITRATE INJ/PF 100 MCG/2 ML AMPUL IV ONE (02:10)
[2018-07-24 03:49] VITALS: BP 101/60
--- NOTE | 2018-07-24 17:02 | EKG REPORT ---
SEVERITY:- BORDERLINE ECG - SINUS RHYTHM BORDERLINE T ABNORMALITIES, INFERIOR LEADS : Confirmed by: Evelyn Mauricio MD 24-Jul-2018 17:01:23
== END 2018-07-24 03:49 | disposition home or self-care (01) ==
LOC: ER 00:21
DX: K76.7 Hepatorenal syndrome (principal); R18.8 Other ascites; E11.22 Type 2 diabetes mellitus with diabetic chronic kidney disease; N18.6 End stage renal disease; D63.1 Anemia in chronic kidney disease; R10.84 Generalized abdominal pain; R25.3 Fasciculation; I69.331 Monoplegia of upper limb following cerebral infarction affecting right dominant side; I69.328 Other speech and language deficits following cerebral infarction; Z90.49 Acquired absence of other specified parts of digestive tract
CPT/HCPCS: 93005; 99285; 51702; 96374; 36415; 87086; 83735; 85025; 85610; 85730; 80053; 81001; 80307; 70450; 93010; J3010

== ENCOUNTER 2018-07-31 08:51 | Day surgery (SDC) | payer MEDICARE, MEDICAID ==
[2018-07-31 10:01] LABS: HEMATOCRIT 22.8 % (36.0-47.0); INTERNATIONAL RATION (INR) 1.58; MEAN CORPUSCULAR HEMOGLOBIN 31.6 pg (27.0-33.4); MEAN CORPUSCULAR HGB CONC 34.2 g/dL (32.0-36.0); MEAN CORPUSCULAR VOLUME 92 fl (80-97); PROTHROMBIN TIME 19.6 SEC (11.4-15.4); RED BLOOD COUNT 2.47 10^6/uL (3.72-5.28); WHITE BLOOD COUNT 2.8 10^3/uL (4.0-10.5)
[2018-07-31 10:02] LABS: PARTIAL THROMBOPLASTIN TIME 35.1 SEC (23.5-35.8)
[2018-07-31 10:24] LABS: HEMOGLOBIN 7.8 g/dL (12.0-15.5)
[2018-07-31 10:25] LABS: PLATELET COUNT 26 10^3/uL (150-450)
[2018-07-31 10:30] LABS: BLOOD UREA NITROGEN 90 mg/dL (7-20)
[2018-07-31] MEDS ORDERED: ALBUMIN HUMAN 62.5 GM/250 ML RTUINJ IV PRN (11:38)
[2018-07-31] MEDS ORDERED: LIDOCAINE 1% INJ-PF (10 MG/ML) 30 ML SDV ONE (12:58)
[2018-07-31 14:47] VITALS: BP 104/76
--- NOTE | 2018-07-31 14:59 | RADIOLOGY REPORT (SQ) ---
EXAM DESCRIPTION: U/S ABD PARACENTESIS COMPLETED DATE/TIME: 07/31/2018 2:11 pm REASON FOR STUDY: ASCITES COMPARISON 07/19/2018 LIMITATIONS: None. PROCEDURE: After obtaining informed consent, the patient was brought to the ultrasound suite. The p rocedure was performed with the patient on a gurney. Ultrasound was used to identify a prominent poc ket of ascites in the LEFT LOWER QUADRANT. An appropriate access site was selected. The patient was prepped and draped in usual sterile fashion. The access site was anesthetized with 6 mL 1% lidocai ne. A Rgsm-A-Xoscvsyp needle was advanced into the fluid. After aspiration of fluid the needle, the catheter was advanced off the needle into the fluid. A total of 8,000 mL of clear sarath colored flu id was removed. The patient tolerated the procedure well left the department in satisfactory conditio n. No specimen was sent for testing. IMPRESSION: Successful ultrasound-guided therapeutic paracentesis COMMENT: Patient medication list reviewed: Yes- Quality ID# [id number]:Eligible professional attests to doc umenting in the medical record they obtained, updated, or reviewed the patient's current medications. TECHNICAL DOCUMENTATION: JOB ID: [id number] [employer]- All Rights Reserved Reading location - IP/workstation name: [email or web address]
== END 2018-07-31 14:50 | disposition home or self-care (01) ==
LOC: RAD 08:51
PROVIDERS: ATTEND Internal Medicine Gastroenterology
DX: I10 Essential (primary) hypertension (principal); D69.6 Thrombocytopenia, unspecified; K75.81 Nonalcoholic steatohepatitis (NASH); K70.31 Alcoholic cirrhosis of liver with ascites; E11.9 Type 2 diabetes mellitus without complications
CPT/HCPCS: 86900; 86901; 36415; 36430; 86850; 84520; 82565; 85027; 85610; 85730; 49083; P9035; P9047; J3490

== ENCOUNTER 2018-08-15 08:51 | Day surgery (SDC) | payer MEDICARE, MEDICAID ==
[2018-08-15 09:45] LABS: HEMATOCRIT 19.7 % (36.0-47.0); MEAN CORPUSCULAR HEMOGLOBIN 31.3 pg (27.0-33.4); MEAN CORPUSCULAR HGB CONC 34.1 g/dL (32.0-36.0); MEAN CORPUSCULAR VOLUME 92 fl (80-97); RED BLOOD COUNT 2.14 10^6/uL (3.72-5.28); RED CELL DISTRIBUTION WIDTH 13.7 % (11.5-14.0); WHITE BLOOD COUNT 2.6 10^3/uL (4.0-10.5)
[2018-08-15 09:51] LABS: INTERNATIONAL RATION (INR) 1.53; PROTHROMBIN TIME 19.1 SEC (11.4-15.4)
[2018-08-15 09:52] LABS: PARTIAL THROMBOPLASTIN TIME 36.5 SEC (23.5-35.8)
[2018-08-15 10:04] LABS: BLOOD UREA NITROGEN 83 mg/dL (7-20)
[2018-08-15 10:27] LABS: HEMOGLOBIN 6.7 g/dL (12.0-15.5); PLATELET COUNT 19 10^3/uL (150-450)
--- NOTE | 2018-08-15 16:01 | RADIOLOGY REPORT (SQ) ---
EXAM DESCRIPTION: U/S ABD PARACENTESIS COMPLETED DATE/TIME: 08/15/2018 3:46 pm REASON FOR STUDY: ASCITES R18.8 OTHER ASCITES Z79.01 HALF-WAY (CURRENT) USE OF ANTICOAGULANTS COMPARISON: None. LIMITATIONS: None. PROCEDURE: Procedure, risks, benefit, and alternative explained to patient who then gave written con sent. The right lower abdominal wall marked using ultrasound guidance. A time-out was called for co rrect marking verification. Abdomen prepped and draped using sterile technique. Local anesthesia ach ieved using 3.0 ml of 1% lidocaine injection. A 6fr Fozp-Q-[id number] set was introduced into the melly toneal cavity. Fluid was drained. The catheter was removed and entry site was covered with sterile bandage. No immediate complications noted. Images acquired during the procedure were stored on PACS. FINDINGS: ENTRY SITE: Right lower quadrant FLUID VOLUME: 8,000 CC FLUID ANALYSIS: Serosanguineous OTHER: Therapeutic only. IMPRESSION: SUCCESSFUL ULTRASOUND GUIDED PARACENTESIS. COMMENT: Patient medication list reviewed:Yes- Quality ID# [id number]:Eligible professional attests to docu menting in the medical record they obtained, updated, or reviewed the patient's current medications. TECHNICAL DOCUMENTATION: JOB ID: [id number] [employer]- All Rights Reserved Reading location - IP/workstation name: [facility]
[2018-08-15 16:45] VITALS: BP 116/65
== END 2018-08-15 16:41 | disposition home or self-care (01) ==
LOC: RAD 08:51
PROVIDERS: ATTEND Internal Medicine Gastroenterology
DX: R18.8 Other ascites (principal); K75.81 Nonalcoholic steatohepatitis (NASH); D69.6 Thrombocytopenia, unspecified; E11.9 Type 2 diabetes mellitus without complications; I10 Essential (primary) hypertension; Z79.01 Long term (current) use of anticoagulants
CPT/HCPCS: 86900; 86901; 36415; 36430; 86850; 84520; 82565; 85027; 85610; 85730; 86920; 49083; P9016; P9035; P9047

== ENCOUNTER → 2018-08-16 | Outpatient (CLI) | payer MEDICARE, MEDICAID ==
[2018-08-16 10:03] LABS: HEMATOCRIT 23.4 % (36.0-47.0); HEMOGLOBIN 8.1 g/dL (12.0-15.5); MEAN CORPUSCULAR HEMOGLOBIN 31.4 pg (27.0-33.4); MEAN CORPUSCULAR HGB CONC 34.7 g/dL (32.0-36.0); MEAN CORPUSCULAR VOLUME 91 fl (80-97); RED BLOOD COUNT 2.58 10^6/uL (3.72-5.28); RED CELL DISTRIBUTION WIDTH 14.8 % (11.5-14.0); WHITE BLOOD COUNT 2.9 10^3/uL (4.0-10.5)
[2018-08-16 10:09] LABS: APPEARANCE,URINE CLEAR; BILIRUBIN,URINE NEGATIVE (NEGATIVE); COLOR,URINE YELLOW; GLUCOSE, URINE NEGATIVE (NEGATIVE); KETONES,URINE NEGATIVE (NEGATIVE); LEUKOCYTE ESTERASE,URINE NEGATIVE (NEGATIVE); NITRITE,URINE NEGATIVE (NEGATIVE); PROTEIN,URINE NEGATIVE (NEGATIVE); URINE SPECIFIC GRAVITY 1.012; UROBILINOGEN,URINE NEGATIVE mg/dL (<2.0)
[2018-08-16 10:15] LABS: ANION GAP 14 (5-19); BLOOD UREA NITROGEN 78 mg/dL (7-20); CALCIUM 8.3 mg/dL (8.4-10.2); CARBON DIOXIDE 14 mmol/L (22-30); CHLORIDE 111 mmol/L (98-107); GLUCOSE 151 mg/dL (75-110); PHOSPHORUS 5.9 mg/dL (2.5-4.5); POTASSIUM 4.9 mmol/L (3.6-5.0); SODIUM 138.9 mmol/L (137-145)
[2018-08-16 10:41] LABS: PLATELET COUNT 26 10^3/uL (150-450)
== END ==
LOC: OD 09:17
PROVIDERS: ATTEND Internal Medicine Nephrology
DX: E11.22 Type 2 diabetes mellitus with diabetic chronic kidney disease (principal); I12.9 Hypertensive chronic kidney disease with stage 1 through stage 4 chronic kidney disease, or unspecified chronic kidney disease; N18.5 Chronic kidney disease, stage 5; R60.9 Edema, unspecified
CPT/HCPCS: 36415; 80048; 81001; 83970; 84100; 85027

== ENCOUNTER 2018-08-22 17:31 | Emergency (ER) | payer MEDICARE, MEDICAID ==
[2018-08-22] MEDS ORDERED: METOCLOPRAMIDE HCL INJ/PF 10 MG/2 ML SDV IV ONE (19:12)
--- NOTE | 2018-08-22 19:13 | ER Document Report ---
ED Medical Screen (RME) - General Chief Complaint: Abdominal Pain Stated Complaint: ABDOMINAL PAIN, DIARRHEA Time Seen by Provider: 08/22/18 19:01 TRAVEL OUTSIDE OF THE [place] IN LAST 30 DAYS: No - HPI Notes: 08/22/18 19:13 History of liver failure paracentesis every 2 weeks coming in for nausea vomiting diarrhea - Related Data Allergies/Adverse Reactions: No Known Allergies Allergy (Verified 08/22/18 17:32) Past Medical History - Social History Chew tobacco use (# tins/day): No Frequency of alcohol use: None Drug Abuse: None - Past Medical History Cardiac Medical History: Reports: Hx Hypercholesterolemia Denies: Hx Coronary Artery Disease, Hx Heart Attack, Hx Hypertension Pulmonary Medical History: Denies: Hx Asthma, Hx Bronchitis, Hx COPD, Hx Pneumonia, Hx Tuberculosis Neurological Medical History: Reports: Hx Cerebrovascular Accident - Pt states no deficits. Denies: Hx Seizures Endocrine Medical History: Reports: Hx Diabetes Mellitus Type 2 Renal/ Medical History: Reports: Hx End Stage Renal Disease, Hx Kidney Stones - 2011, Hx Renal Insufficiency. Denies: Hx Peritoneal Dialysis GI Medical History: Reports: Hx Cirrhosis - Due to fatty liver disease, Hx Gastroesophageal Reflux Disease, Hx Liver Failure. Denies: Hx Hepatitis - C Musculoskeltal Medical History: Reports Hx Arthritis - back Psychiatric Medical History: Reports: Hx Anxiety, Hx Bipolar Disorder, Hx Depression - stress related Infectious Medical History: Denies: Hx Hepatitis - C Past Surgical History: Reports: Hx Cholecystectomy - 2011, Hx Hysterectomy - Immunizations Hx Diphtheria, Pertussis, Tetanus Vaccination: Yes History of Influenza Vaccine for 07/2017 - 12/2017 Season: Yes Influenza Administration Date for 07/2017 - 12/2017 Season: 07/30/17 Review of Systems - Review of Systems Gastrointestinal: Diarrhea, Nausea, Vomiting Physical Exam - Vital signs Vitals: Temp Pulse Resp BP Pulse Ox 98.6 F 101 H 20 128/60 H 100 08/22/18 18:07 08/22/18 18:07 08/22/18 18:07 08/22/18 18:07 08/22/18 18:07 Course - Vital Signs Vital signs: Temp Pulse Resp BP Pulse Ox 98.6 F 101 H 20 128/60 H 100 08/22/18 18:07 08/22/18 18:07 08/22/18 18:07 08/22/18 18:07 08/22/18 18:07 Doctor's Discharge - Discharge Referrals: Tono PORRAS MD [Primary Care Provider] - Follow up as needed
[2018-08-22 19:43] LABS: ABSOLUTE BASOPHILS # (AUTO) 0.1 10^3/uL (0.0-0.2); ABSOLUTE EOSINOPHILS # (AUTO) 0.4 10^3/uL (0.0-0.6); ABSOLUTE LYMPHOCYTES (AUTO) 1.2 10^3/uL (0.5-4.7); ABSOLUTE MONOCYTES (AUTO) 0.4 10^3/uL (0.1-1.4); ABSOLUTE NEUT (AUTO) 5.7 10^3/uL (1.7-8.2); EOSINOPHILS % (AUTO) 5.4 % (0-6); HEMATOCRIT 28.7 % (36.0-47.0); HEMOGLOBIN 9.8 g/dL (12.0-15.5); LYMPHOCYTES % (AUTO) 14.9 % (13-45); MEAN CORPUSCULAR HEMOGLOBIN 31.4 pg (27.0-33.4); MEAN CORPUSCULAR HGB CONC 34.2 g/dL (32.0-36.0); MEAN CORPUSCULAR VOLUME 92 fl (80-97); MONOCYTES % (AUTO) 5.4 % (3-13); RED BLOOD COUNT 3.12 10^6/uL (3.72-5.28); RED CELL DISTRIBUTION WIDTH 15.5 % (11.5-14.0); SEGMENTED NEUTROPHILS % (AUTO) 73.3 % (42-78); TOTAL CELLS COUNTED % (AUTO) 100 %; WHITE BLOOD COUNT 7.8 10^3/uL (4.0-10.5)
[2018-08-22 19:45] LABS: PLATELET COUNT 54 10^3/uL (150-450)
[2018-08-22 19:48] LABS: INTERNATIONAL RATION (INR) 1.39; PROTHROMBIN TIME 17.8 SEC (11.4-15.4)
[2018-08-22 19:49] LABS: APPEARANCE,URINE SLIGHTLY-CLOUDY; BILIRUBIN,URINE NEGATIVE (NEGATIVE); COLOR,URINE YELLOW; GLUCOSE, URINE NEGATIVE (NEGATIVE); KETONES,URINE NEGATIVE (NEGATIVE); LEUKOCYTE ESTERASE,URINE TRACE (NEGATIVE); NITRITE,URINE NEGATIVE (NEGATIVE); PARTIAL THROMBOPLASTIN TIME 35.4 SEC (23.5-35.8); PROTEIN,URINE NEGATIVE (NEGATIVE); URINE SPECIFIC GRAVITY 1.013; UROBILINOGEN,URINE NEGATIVE mg/dL (<2.0)
[2018-08-22 20:06] LABS: ALANINE AMINOTRANSFERASE 21 U/L (9-52); ALBUMIN 3.4 g/dL (3.5-5.0); ALKALINE PHOSPHATASE 95 U/L (38-126); ANION GAP 15 (5-19); ASPARTATE AMINO TRANSFERASE 39 U/L (14-36); BILIRUBIN,DIRECT 0.8 mg/dL (0.0-0.4); BILIRUBIN,TOTAL 2.1 mg/dL (0.2-1.3); BLOOD UREA NITROGEN 88 mg/dL (7-20); CALCIUM 9.1 mg/dL (8.4-10.2); CARBON DIOXIDE 15 mmol/L (22-30); CHLORIDE 110 mmol/L (98-107); GLUCOSE 137 mg/dL (75-110); LIPASE 181.4 U/L (23-300); POTASSIUM 4.8 mmol/L (3.6-5.0); SODIUM 139.8 mmol/L (137-145); TOTAL PROTEIN 7.1 g/dL (6.3-8.2)
[2018-08-22] MEDS ORDERED: NORMAL SALINE 1000 ML 1,000 ML IV ONE (21:13)
--- NOTE | 2018-08-22 21:14 | ER Document Report ---
ED GI/ - General Chief Complaint: Abdominal Pain Stated Complaint: ABDOMINAL PAIN, DIARRHEA Time Seen by Provider: 08/22/18 19:01 Mode of Arrival: Ambulatory Information source: Patient Notes: Patient is a 48-year-old female who presents with chief complaint of nausea, vomiting and diarrhea. Patient reports that her symptoms started yesterday. Patient reports several family members with similar symptoms. Patient reports history of liver failure, states she gets paracentesis done every 2 weeks, last one was done 1 week ago. Patient reports intermittent abdominal cramping, denies any blood in the vomit or stool, denies any fever. TRAVEL OUTSIDE OF THE [place] IN LAST 30 DAYS: No - Related Data Allergies/Adverse Reactions: No Known Allergies Allergy (Verified 08/22/18 17:32) Past Medical History - General Information source: Patient - Social History Smoking Status: Never Smoker Chew tobacco use (# tins/day): No Frequency of alcohol use: None Drug Abuse: None Family History: Reviewed & Not Pertinent Patient has suicidal ideation: No Patient has homicidal ideation: No - Past Medical History Cardiac Medical History: Reports: Hx Hypercholesterolemia Denies: Hx Coronary Artery Disease, Hx Heart Attack, Hx Hypertension Pulmonary Medical History: Denies: Hx Asthma, Hx Bronchitis, Hx COPD, Hx Pneumonia, Hx Tuberculosis Neurological Medical History: Reports: Hx Cerebrovascular Accident - Pt states no deficits. Denies: Hx Seizures Endocrine Medical History: Reports: Hx Diabetes Mellitus Type 2 Renal/ Medical History: Reports: Hx End Stage Renal Disease, Hx Kidney Stones - 2011, Hx Renal Insufficiency. Denies: Hx Peritoneal Dialysis GI Medical History: Reports: Hx Cirrhosis - Due to fatty liver disease, Hx Gastroesophageal Reflux Disease, Hx Liver Failure. Denies: Hx Hepatitis - C Musculoskeletal Medical History: Reports Hx Arthritis - back Psychiatric Medical History: Reports: Hx Anxiety, Hx Bipolar Disorder, Hx Depression - stress related Infectious Medical History: Denies: Hx Hepatitis - C Past Surgical History: Reports: Hx Cholecystectomy - 2011, Hx Hysterectomy - Immunizations Hx Diphtheria, Pertussis, Tetanus Vaccination: Yes Hx Pneumococcal Vaccination: 09/03/12 Review of Systems - Review of Systems Gastrointestinal: Abdominal pain, Diarrhea, Nausea, Vomiting -: Yes All other systems reviewed and negative Physical Exam - Vital signs Vitals: Temp Pulse Resp BP Pulse Ox 98.6 F 101 H 20 128/60 H 100 08/22/18 18:07 08/22/18 18:07 10/24/18 18:07 08/22/18 18:07 08/22/18 18:07 - Notes Notes: PHYSICAL EXAMINATION: GENERAL: Well-appearing, well-nourished and in mild distress. HEAD: Atraumatic, normocephalic. EYES: Pupils equal round and reactive to light, extraocular movements intact, conjunctiva are normal. ENT: Nares patent, oropharynx clear without exudates. Moist mucous membranes. NECK: Normal range of motion, supple without lymphadenopathy LUNGS: Breath sounds clear to auscultation bilaterally and equal. No wheezes rales or rhonchi. HEART: Regular rate and rhythm without murmurs ABDOMEN: Soft, nontender, distended abdomen. No guarding, no rebound. No masses appreciated. Female : deferred Musculoskeletal: Normal range of motion, no pitting or edema. No cyanosis. NEUROLOGICAL: Cranial nerves grossly intact. Normal speech, normal gait. Normal sensory, motor exams PSYCH: Normal mood, normal affect. SKIN: Warm, Dry, normal turgor, no rashes or lesions noted. Course - Re-evaluation Re-evalutation: Patient's lab work is unchanged from her baseline labs drawn at recently. Patient reports significant improvement of her symptoms after administration of IV Reglan. Patient has had no episodes of diarrhea while in the emergency department. Patient given 1 L of IV fluids. Patient also given 4 mg of morphine IV. After a several hour monitoring. Patient reports that she is feeling well enough to go home. Patient will be discharged home with Phenergan and instructed to follow-up with her primary care provider. Patient is agreeable to this plan patient given ED return precautions as outlined on her discharge papers. - Vital Signs Vital signs: Temp Pulse Resp BP Pulse Ox 98.6 F 101 H 20 128/60 H 100 08/22/18 18:07 08/22/18 18:07 08/22/18 18:07 08/22/18 18:07 08/22/18 18:07 - Laboratory Result Diagrams: 08/22/18 19:29 08/22/18 19:29 Laboratory results interpreted by me: 08/22/18 08/22/18 08/22/18 19:29 19:29 19:29 RBC 3.12 L Hgb 9.8 L Hct 28.7 L RDW 15.5 H Plt Count 54 L PT 17.8 H Chloride 110 H Carbon Dioxide 15 L BUN 88 H Creatinine 6.66 H Est GFR ( Amer) 8 L Est GFR (Non-Af Amer) 7 L Glucose 137 H Total Bilirubin 2.1 H Direct Bilirubin 0.8 H AST 39 H Albumin 3.4 L Ur Leukocyte Esterase 08/22/18 19:29 RBC Hgb Hct RDW Plt Count PT Chloride Carbon Dioxide BUN Creatinine Est GFR ( Amer) Est GFR (Non-Af Amer) Glucose Total Bilirubin Direct Bilirubin AST Albumin Ur Leukocyte Esterase TRACE H Discharge - Discharge Clinical Impression: Nausea Abdominal pain Qualifiers: Abdominal location: unspecified location Qualified Code(s): R10.9 - Unspecified abdominal pain Diarrhea Qualifiers: Diarrhea type: unspecified type Qualified Code(s): R19.7 - Diarrhea, unspecified Condition: Stable Disposition: HOME, SELF-CARE Additional Instructions: Abdominal Pain There are many causes of abdominal pain. Pain can mean a serious problem requiring surgery (such as appendicitis). It can also be an innocent problem that goes away on its own (such as a viral infection). Often, time must pass to determine the cause of pain. The physician does not feel that hospitalization is necessary, at present. Things may change within the next 24 hours. Call the doctor or come back for re- examination if any problems occur, such as: (1) Pain that becomes more severe, steady, or becomes concentrated in one specific area. Also, pain that is more severe with movement or coughing. (2) Vomiting that persists or becomes more frequent. (3) Blood in the vomitus, urine, or bowel movements. Blood in the stool may have a tarry or black appearance. (4) Shaking chills or fever greater than 100 degrees F. (5) The abdomen becomes more distended or swollen. (6) Bowel movements cease. (7) Failure to improve as expected. Please use nausea medications as directed. Follow-up with your primary care provider. Return to the emergency department if you develop any of the above warning signs. Prescriptions: Promethazine HCl [Phenergan 25 mg Tablet] 1 - 2 tab PO Q6H PRN #15 tablet PRN Reason: Referrals: Tono PORRAS MD [ACTIVE STAFF] - Follow up as needed
[2018-08-22] MEDS ORDERED: MORPHINE SULFATE 10 MG/ML INJ IV ONE (22:14)
[2018-08-22] MEDS ORDERED: PROMETHAZINE HCL 25 MG SUPP (4 SUPP/ER DISP) PR ONE (23:04)
[2018-08-22 23:33] VITALS: BP 130/58
== END 2018-08-22 23:33 | disposition home or self-care (01) ==
LOC: ER 17:31
DX: R10.9 Unspecified abdominal pain (principal); R11.2 Nausea with vomiting, unspecified; R19.7 Diarrhea, unspecified; E11.9 Type 2 diabetes mellitus without complications
CPT/HCPCS: 99284; 96361; 96374; 96375; 36415; 83690; 85025; 85610; 85730; 80053; 81001; A9270; J2765; J2270; J7030; J3490

== ENCOUNTER 2018-08-23 08:00 | Emergency (ER) | payer MEDICARE, MEDICAID ==
[2018-08-23] MEDS ORDERED: NORMAL SALINE 500 ML IV ONE (08:53)
--- NOTE | 2018-08-23 08:53 | ER Document Report ---
ED GI/ - General Chief Complaint: Abdominal Pain Stated Complaint: NAUSEA/ABDOMINAL PAIN Time Seen by Provider: 08/23/18 08:22 Mode of Arrival: Ambulatory Information source: Patient Notes: Patient presents with a 5-day history of left-sided abdominal pain with nausea vomiting and diarrhea. Patient states she is vomited x2 today and had diarrhea x4 episodes. Patient states that she does have cirrhosis and gets paracentesis every 2 weeks. Patient's last paracentesis was 1 week ago. Patient denies any fever or urinary symptoms. Patient does states she has chronic kidney disease but is not a dialysis patient. TRAVEL OUTSIDE OF THE [place] IN LAST 30 DAYS: No - HPI Patient complains to provider of: Abdominal pain, Diarrhea, Vomiting Onset: Other - 5 days Timing/Duration: Gradual Quality of pain: Achy Pain Level: 3 Location: Other - Left lateral side Vaginal bleeding (Compared to normal period): None Associated symptoms: Diarrhea, Nausea, Vomiting. denies: Chest pain, Dysuria, Fever, Shortness of breath, Urinary hesitancy, Urinary frequency, Urinary retention Exacerbated by: Denies Relieved by: Denies Similar symptoms previously: Yes Recently seen / treated by doctor: Yes - Related Data Allergies/Adverse Reactions: No Known Allergies Allergy (Verified 08/23/18 08:04) Past Medical History - General Information source: Patient - Social History Smoking Status: Never Smoker Frequency of alcohol use: None Drug Abuse: None Occupation: None Lives with: Spouse/Significant other Family History: Reviewed & Not Pertinent Patient has suicidal ideation: No Patient has homicidal ideation: No - Past Medical History Cardiac Medical History: Reports: Hx Hypercholesterolemia Denies: Hx Coronary Artery Disease, Hx Heart Attack, Hx Hypertension Pulmonary Medical History: Denies: Hx Asthma, Hx Bronchitis, Hx COPD, Hx Pneumonia, Hx Tuberculosis Neurological Medical History: Reports: Hx Cerebrovascular Accident - Pt states no deficits. Denies: Hx Seizures Endocrine Medical History: Reports: Hx Diabetes Mellitus Type 2 Renal/ Medical History: Reports: Hx End Stage Renal Disease, Hx Kidney Stones - 2011, Hx Renal Insufficiency. Denies: Hx Peritoneal Dialysis GI Medical History: Reports: Hx Cirrhosis - Due to fatty liver disease, Hx Gastroesophageal Reflux Disease, Hx Liver Failure. Denies: Hx Hepatitis - C Musculoskeletal Medical History: Reports Hx Arthritis - back Psychiatric Medical History: Reports: Hx Anxiety, Hx Bipolar Disorder, Hx Depression - stress related Infectious Medical History: Denies: Hx Hepatitis - C Past Surgical History: Reports: Hx Cholecystectomy - 2012, Hx Hysterectomy, Other - Biweekly paracentesis - Immunizations Hx Diphtheria, Pertussis, Tetanus Vaccination: Yes Hx Pneumococcal Vaccination: 09/03/12 Review of Systems - Review of Systems Constitutional: No symptoms reported. denies: Fever, Recent illness EENT: No symptoms reported Cardiovascular: No symptoms reported. denies: Chest pain, Dizziness Respiratory: No symptoms reported. denies: Cough, Short of breath Gastrointestinal: Abdominal pain, Diarrhea, Nausea, Vomiting Genitourinary: No symptoms reported. denies: Dysuria, Flank pain Female Genitourinary: No symptoms reported Musculoskeletal: No symptoms reported. denies: Back pain Skin: No symptoms reported Hematologic/Lymphatic: No symptoms reported Neurological/Psychological: No symptoms reported Physical Exam - Vital signs Vitals: Temp Pulse Resp BP Pulse Ox 98.3 F 109 H 19 117/49 L 100 08/23/18 08:03 08/23/18 08:03 08/23/18 08:03 08/23/18 08:03 08/23/18 08:03 - General General appearance: Alert In distress: None - HEENT Head: Normocephalic, Atraumatic Eyes: Normal Conjunctiva: Normal. No: Icteric Nasal: Normal Mouth/Lips: Normal Neck: Normal, Supple. No: Lymphadenopathy - Respiratory Respiratory status: No respiratory distress Chest status: Nontender Breath sounds: Normal. No: Rales, Rhonchi, Stridor, Wheezing Chest palpation: Normal - Cardiovascular Rhythm: Tachycardia Heart sounds: S1 appreciated, S2 appreciated - Abdominal Inspection: Caput medussa Distension: Distended Bowel sounds: Normal Tenderness: Tender - Left lateral side tenderness - Back Back: Normal, Nontender. No: CVA tenderness - Extremities General upper extremity: Normal inspection, Normal ROM General lower extremity: Normal inspection, Normal ROM. No: Edema - Neurological Neuro grossly intact: Yes Cognition: Normal [place] Coma Scale Eye Opening: Spontaneous [place] Coma Scale Verbal: Oriented Ruthy Coma Scale Motor: Obeys Commands [place] Coma Scale Total: 15 - Psychological Associated symptoms: Normal affect, Normal mood - Skin Skin Temperature: Warm Skin Moisture: Dry Skin Color: Normal Course - Re-evaluation Re-evalutation: 08/23/18 10:00 Dr. Silva took a phone call from radiologist who recommends giving patient platelets and having patient over for paracentesis. 08/23/18 14:00 Patient to ultrasound for paracentesis at this time. 08/23/18 15:16 Patient returned to room from ultrasound after having her paracentesis performed. Patient states that abdominal pain is improved although still present. She complains of persistent diarrhea and is requesting some Imodium. 08/23/18 16:[address] Silva who agrees with discharge plan of care at this time. Patient does have a history of chronic kidney disease stage V and is followed by a security specialist. Patient's renal function test is at her baseline. Recommends follow-up with her GI doctor. Patient's abdomen is soft. No guarding at this time. Patient with stable vital signs. Pt tolerating oral fluids without emesis. 08/23/18 20:15 - Vital Signs Vital signs: Temp Pulse Resp BP Pulse Ox 98.1 F 99 18 112/63 100 08/23/18 17:00 08/23/18 17:00 08/23/18 17:00 08/23/18 17:00 08/23/18 17:00 - Laboratory Result Diagrams: 08/23/18 09:10 08/23/18 09:10 Laboratory results interpreted by me: 08/23/18 08/23/18 08/23/18 09:10 09:10 09:25 RBC 2.97 L Hgb 9.3 L Hct 27.4 L RDW 15.7 H Plt Count 70 L Seg Neutrophils % 83.0 H Lymphocytes % 7.6 L Absolute Neutrophils 8.3 H Chloride 112 H Carbon Dioxide 14 L BUN 86 H Creatinine 6.52 H Est GFR ( Amer) 8 L Est GFR (Non-Af Amer) 7 L Glucose 155 H Total Bilirubin 2.6 H Direct Bilirubin 1.1 H Albumin 3.2 L Ur Leukocyte Esterase TRACE H Labs- Entire Visit 08/23/18 08/23/18 08/23/18 09:10 09:10 09:10 WBC 10.0 RBC 2.97 L Hgb 9.3 L Hct 27.4 L MCV 92 MCH 31.2 MCHC 33.9 RDW 15.7 H Plt Count 70 L Seg Neutrophils % 83.0 H Lymphocytes % 7.6 L Monocytes % 6.7 Eosinophils % 2.2 Basophils % 0.5 Absolute Neutrophils 8.3 H Absolute Lymphocytes 0.8 Absolute Monocytes 0.7 Absolute Eosinophils 0.2 Absolute Basophils 0.1 Toxic Granulation SLIGHT Platelet Comment DECREASED Poikilocytosis 2+ Tear Drop Cells SLIGHT Ovalocytes 2+ Sodium 139.6 Potassium 4.6 Chloride 112 H Carbon Dioxide 14 L Anion Gap 14 BUN 86 H Creatinine 6.52 H Est GFR ( Amer) 8 L Est GFR (Non-Af Amer) 7 L Glucose 155 H Lactic Acid 1.7 Calcium 8.8 Magnesium 2.1 Total Bilirubin 2.6 H Direct Bilirubin 1.1 H Neonat Total Bilirubin Not Reportable Neonat Direct Bilirubin Not Reportable Neonat Indirect Bili Not Reportable AST 29 ALT 22 Alkaline Phosphatase 91 Ammonia Total Protein 6.7 Albumin 3.2 L Lipase 110.4 Urine Color Urine Appearance Urine pH Ur Specific [place] Urine Protein Urine Glucose (UA) Urine Ketones Urine Blood Urine Nitrite Urine Bilirubin Urine Urobilinogen Ur Leukocyte Esterase Urine WBC (Auto) Urine RBC (Auto) Urine Bacteria (Auto) Squamous Epi Cells Auto Urine Mucus (Auto) Urine Ascorbic Acid Blood Type Antibody Screen 08/23/18 08/23/18 08/23/18 09:25 10:23 10:23 WBC RBC Hgb Hct MCV MCH MCHC RDW Plt Count Seg Neutrophils % Lymphocytes % Monocytes % Eosinophils % Basophils % Absolute Neutrophils Absolute Lymphocytes Absolute Monocytes Absolute Eosinophils Absolute Basophils Toxic Granulation Platelet Comment Poikilocytosis Tear Drop Cells Ovalocytes Sodium Potassium Chloride Carbon Dioxide Anion Gap BUN Creatinine Est GFR ( Amer) Est GFR (Non-Af Amer) Glucose Lactic Acid Calcium Magnesium Total Bilirubin Direct Bilirubin Neonat Total Bilirubin Neonat Direct Bilirubin Neonat Indirect Bili AST ALT Alkaline Phosphatase Ammonia 29.2 Total Protein Albumin Lipase Urine Color YELLOW Urine Appearance SLIGHTLY-CLOUDY Urine pH 5.0 Ur Specific [place] 1.013 Urine Protein NEGATIVE Urine Glucose (UA) NEGATIVE Urine Ketones NEGATIVE Urine Blood NEGATIVE Urine Nitrite NEGATIVE Urine Bilirubin NEGATIVE Urine Urobilinogen NEGATIVE Ur Leukocyte Esterase TRACE H Urine WBC (Auto) 4 Urine RBC (Auto) 1 Urine Bacteria (Auto) TRACE Squamous Epi Cells Auto 1 Urine Mucus (Auto) RARE Urine Ascorbic Acid NEGATIVE Blood Type O POSITIVE Antibody Screen NEGATIVE - Diagnostic Test Radiology reviewed: Reports reviewed Discharge - Discharge Clinical Impression: Nausea, Thrombocytopenia, ESRD (end stage renal disease) Diarrhea Qualifiers: Diarrhea type: unspecified type Qualified Code(s): R19.7 - Diarrhea, unspecified Ascites Qualifiers: Ascites type: other type Qualified Code(s): R18.8 - Other ascites Condition: Stable Disposition: HOME, SELF-CARE Instructions: Abdominal Pain ([facility]), Diarrhea, Nonspecific ([facility]) Additional Instructions: Return immediately for any new or worsening symptoms Followup with your primary care provider, call tomorrow to make a followup appointment Follow-up with your security specialist for further evaluation of your chronic renal failure Follow-up with Dr. Feliz regarding your ascites as well as your diarrhea symptoms. Referrals: CARRIE MARQUEZ MD [Primary Care Provider] - Follow up as needed EDIN FELIZ MD [ACTIVE STAFF] - Follow up tomorrow Tono PORRAS MD [ACTIVE STAFF] - Follow up in 3-5 days
[2018-08-23 09:44] LABS: ABSOLUTE BASOPHILS # (AUTO) 0.1 10^3/uL (0.0-0.2); ABSOLUTE EOSINOPHILS # (AUTO) 0.2 10^3/uL (0.0-0.6); ABSOLUTE LYMPHOCYTES (AUTO) 0.8 10^3/uL (0.5-4.7); ABSOLUTE MONOCYTES (AUTO) 0.7 10^3/uL (0.1-1.4); ABSOLUTE NEUT (AUTO) 8.3 10^3/uL (1.7-8.2); BASOPHILS % (AUTO) 0.5 % (0-2); EOSINOPHILS % (AUTO) 2.2 % (0-6); HEMATOCRIT 27.4 % (36.0-47.0); HEMOGLOBIN 9.3 g/dL (12.0-15.5); LYMPHOCYTES % (AUTO) 7.6 % (13-45); MEAN CORPUSCULAR HEMOGLOBIN 31.2 pg (27.0-33.4); MEAN CORPUSCULAR HGB CONC 33.9 g/dL (32.0-36.0); MEAN CORPUSCULAR VOLUME 92 fl (80-97); MONOCYTES % (AUTO) 6.7 % (3-13); RED BLOOD COUNT 2.97 10^6/uL (3.72-5.28); RED CELL DISTRIBUTION WIDTH 15.7 % (11.5-14.0); TOTAL CELLS COUNTED % (AUTO) 100 %
[2018-08-23 09:50] LABS: ALANINE AMINOTRANSFERASE 22 U/L (9-52); ALBUMIN 3.2 g/dL (3.5-5.0); ALKALINE PHOSPHATASE 91 U/L (38-126); ANION GAP 14 (5-19); ASPARTATE AMINO TRANSFERASE 29 U/L (14-36); BILIRUBIN,DIRECT 1.1 mg/dL (0.0-0.4); BILIRUBIN,TOTAL 2.6 mg/dL (0.2-1.3); BLOOD UREA NITROGEN 86 mg/dL (7-20); CALCIUM 8.8 mg/dL (8.4-10.2); CARBON DIOXIDE 14 mmol/L (22-30); CHLORIDE 112 mmol/L (98-107); GLUCOSE 155 mg/dL (75-110); LIPASE 110.4 U/L (23-300); POTASSIUM 4.6 mmol/L (3.6-5.0); SODIUM 139.6 mmol/L (137-145); TOTAL PROTEIN 6.7 g/dL (6.3-8.2)
[2018-08-23 09:54] LABS: APPEARANCE,URINE SLIGHTLY-CLOUDY; BILIRUBIN,URINE NEGATIVE (NEGATIVE); COLOR,URINE YELLOW; GLUCOSE, URINE NEGATIVE (NEGATIVE); KETONES,URINE NEGATIVE (NEGATIVE); LEUKOCYTE ESTERASE,URINE TRACE (NEGATIVE); NITRITE,URINE NEGATIVE (NEGATIVE); PROTEIN,URINE NEGATIVE (NEGATIVE); URINE SPECIFIC GRAVITY 1.013; UROBILINOGEN,URINE NEGATIVE mg/dL (<2.0)
[2018-08-23] MEDS ORDERED: NORMAL SALINE 250 ML IV PRN (10:00)
--- NOTE | 2018-08-23 10:05 | RADIOLOGY REPORT (SQ) ---
EXAM DESCRIPTION: ACUTE ABDOMEN SERIES COMPLETED DATE/TIME: 08/23/2018 9:41 am REASON FOR STUDY: left lat side pain COMPARISON: CT abdomen pelvis 04/20/2018 Paracentesis 07/19/2018, 08/15/2018 NUMBER OF VIEWS: Three views. TECHNIQUE: Frontal chest, supine abdomen and upright abdomen radiographic images acquired. LIMITATIONS: None. FINDINGS: CHEST: Lungs clear of infiltrates. No acute infiltrates. No pleural effusion. No pneumo thorax. FREE AIR: None. No abnormal gas collections. BOWEL GAS PATTERN: Air-filled nonobstructed colon small bowel and stomach. Hazy density over the abd omen worrisome for large amount of ascites CALCIFICATIONS: No suspicious calcifications. HARDWARE: Clips right upper quadrant post cholecystectomy SOFT TISSUES: Splenomegaly, 18 cm BONES: No acute fracture. No worrisome bone lesions. OTHER: No other significant finding. IMPRESSION: Nonobstructive bowel gas pattern No acute infiltrates Probable ascites with hazy increased density over the abdomen COMMENT: Report called to Dr Silva TECHNICAL DOCUMENTATION: JOB ID: [id number] [employer]- All Rights Reserved Reading location - IP/workstation name: [email or web address]
[2018-08-23 10:40] LABS: PLATELET COUNT 70 10^3/uL (150-450)
[2018-08-23 10:41] LABS: OVALOCYTES 2+; PLATELET COMMENT DECREASED; POIKILOCYTOSIS 2+; TEAR DROP CELLS SLIGHT; TOXIC GRANULATION SLIGHT
[2018-08-23] MEDS ORDERED: LOPERAMIDE HCL 2 MG CAPSULE PO ONE (15:15)
--- NOTE | 2018-08-23 15:27 | RADIOLOGY REPORT (SQ) ---
EXAM DESCRIPTION: U/S ABD PARACENTESIS COMPLETED DATE/TIME: 08/23/2018 3:17 pm REASON FOR STUDY: Cirrhosis COMPARISON Multiple previous, most recently 08/15/2018 LIMITATIONS: None. PROCEDURE: After obtaining informed consent, the patient was brought to the ultrasound suite. The p rocedure was performed with the patient on a gurney. Ultrasound was used to identify a prominent poc ket of ascites in the left lower quadrant. An appropriate access site was selected. The patient was prepped and draped in usual sterile fashion. The access site was anesthetized with 6 mL 1% lidocai ne. A Spax-P-Hrgkxubt needle was advanced into the fluid. After aspiration of fluid the needle, the catheter was advanced off the needle into the fluid. A total of 7,000 mL of clear sarath fluid was r emoved. The patient tolerated the procedure well left the department in satisfactory condition. Because the patient was experiencing abdominal pain prior to the paracentesis, specimens of ascites w ere sent to the lab for Gram stain culture and sensitivity. IMPRESSION: Successful ultrasound-guided paracentesis Specimen of fluid sent for culture COMMENT: Patient medication list reviewed: Yes- Quality ID# [id number]:Eligible professional attests to doc umenting in the medical record they obtained, updated, or reviewed the patient's current medications. TECHNICAL DOCUMENTATION: JOB ID: [id number] [employer]- All Rights Reserved Reading location - IP/workstation name: [email or web address]
[2018-08-23 17:23] VITALS: BP 112/63
== END 2018-08-23 17:00 | disposition home or self-care (01) ==
LOC: ER 08:00
PROC: 0W9G3ZZ Drainage of Peritoneal Cavity, Percutaneous Approach (ICD-10-PCS; principal; 2018-08-23)
DX: R18.8 Other ascites (principal); R10.9 Unspecified abdominal pain; D69.6 Thrombocytopenia, unspecified; R11.2 Nausea with vomiting, unspecified; R40.2412 Glasgow coma scale score 13-15, at arrival to emergency department; R19.7 Diarrhea, unspecified; I12.0 Hypertensive chronic kidney disease with stage 5 chronic kidney disease or end stage renal disease; N18.6 End stage renal disease; E78.00 Pure hypercholesterolemia, unspecified; Z86.73 Personal history of transient ischemic attack (TIA), and cerebral infarction without residual deficits; Z87.442 Personal history of urinary calculi; K74.60 Unspecified cirrhosis of liver; K21.9 Gastro-esophageal reflux disease without esophagitis; M19.90 Unspecified osteoarthritis, unspecified site; F41.9 Anxiety disorder, unspecified; F31.9 Bipolar disorder, unspecified
CPT/HCPCS: 99285; 86900; 86901; 36415; 87045; 87205; 87070; 36430; 86850; 82140; 83605; 83690; 83735; 85025; 87075; 80053; 81001; 87493; 74022; 49083 ×2; P9035; A9270

== ENCOUNTER 2018-09-05 08:50 | Day surgery (SDC) | payer MEDICARE, MEDICAID ==
[2018-09-05 09:42] LABS: INTERNATIONAL RATION (INR) 1.57; PROTHROMBIN TIME 19.5 SEC (11.4-15.4)
[2018-09-05 09:43] LABS: PARTIAL THROMBOPLASTIN TIME 36.4 SEC (23.5-35.8)
[2018-09-05 09:51] LABS: HEMATOCRIT 24.6 % (36.0-47.0); HEMOGLOBIN 8.5 g/dL (12.0-15.5); MEAN CORPUSCULAR HEMOGLOBIN 31.8 pg (27.0-33.4); MEAN CORPUSCULAR HGB CONC 34.7 g/dL (32.0-36.0); MEAN CORPUSCULAR VOLUME 92 fl (80-97); RED BLOOD COUNT 2.68 10^6/uL (3.72-5.28); RED CELL DISTRIBUTION WIDTH 15.6 % (11.5-14.0); WHITE BLOOD COUNT 5.1 10^3/uL (4.0-10.5)
[2018-09-05] MEDS ORDERED: ONDANSETRON HCL INJ/PF 4 MG/2 ML SDV ONE (09:52)
[2018-09-05 09:55] LABS: BLOOD UREA NITROGEN 88 mg/dL (7-20)
[2018-09-05 10:15] LABS: PLATELET COUNT 27 10^3/uL (150-450)
--- NOTE | 2018-09-05 14:33 | RADIOLOGY REPORT (SQ) ---
EXAM DESCRIPTION: U/S ABD PARACENTESIS COMPLETED DATE/TIME: 09/05/2018 2:21 pm REASON FOR STUDY: ASCITES COMPARISON 08/23/2018, 08/15/2018, 07/31/2018 LIMITATIONS: None. PROCEDURE: After obtaining informed consent, the patient was brought to the ultrasound suite. The p rocedure was performed with the patient on a gurney. Ultrasound was used to identify a prominent poc ket of ascites in the right lower quadrant. An appropriate access site was selected. The patient wa s prepped and draped in usual sterile fashion. The access site was anesthetized with 6 mL 1% lidoca ine. A [id number] needle was advanced into the fluid. After aspiration of fluid the needle, th e catheter was advanced off the needle into the fluid. A total of 8,000 mL of clear yellow fluid was removed. The patient tolerated the procedure well left the department in satisfactory condition. Fluid was sent for testing as per Dr. Hood IMPRESSION: Successful ultrasound-guided diagnostic and therapeutic paracentesis COMMENT: Patient medication list reviewed: Yes- Quality ID# [id number]:Eligible professional attests to doc umenting in the medical record they obtained, updated, or reviewed the patient's current medications. TECHNICAL DOCUMENTATION: JOB ID: [id number] [employer]- All Rights Reserved Reading location - IP/workstation name: [email or web address]
[2018-09-05 15:10] VITALS: BP 104/52
[2018-09-05 15:47] LABS: FLUID COLOR STRAW; FLUID SOURCE ABDOMEN; FLUID TYPE PERITONEAL
[2018-09-05 15:48] LABS: FLUID APPEARANCE SLIGHTLY HAZY; FLUID VISCOSITY LIQUID
== END 2018-09-05 15:00 | disposition home or self-care (01) ==
LOC: RAD 08:50
PROVIDERS: ATTEND Internal Medicine Gastroenterology
DX: R18.8 Other ascites (principal); D64.9 Anemia, unspecified; Z79.01 Long term (current) use of anticoagulants; E78.00 Pure hypercholesterolemia, unspecified; N18.6 End stage renal disease; D69.6 Thrombocytopenia, unspecified; I25.10 Atherosclerotic heart disease of native coronary artery without angina pectoris; B19.20 Unspecified viral hepatitis C without hepatic coma
CPT/HCPCS: 86900; 86901; 36415; 87205; 87070; 36430; 84520; 82565; 85027; 85610; 85730; 89050; 87075; 49083; P9035; P9047; J2405

== ENCOUNTER 2018-09-06 06:03 | Inpatient (IN) | payer MEDICARE, MEDICAID ==
[2018-09-06 06:32] LABS: HEMATOCRIT 21.5 % (36.0-47.0); MEAN CORPUSCULAR HEMOGLOBIN 31.6 pg (27.0-33.4); MEAN CORPUSCULAR HGB CONC 34.5 g/dL (32.0-36.0); MEAN CORPUSCULAR VOLUME 92 fl (80-97); RED BLOOD COUNT 2.34 10^6/uL (3.72-5.28); RED CELL DISTRIBUTION WIDTH 15.8 % (11.5-14.0); WHITE BLOOD COUNT 4.3 10^3/uL (4.0-10.5)
[2018-09-06 06:41] LABS: ALANINE AMINOTRANSFERASE 28 U/L (9-52); ALBUMIN 3.2 g/dL (3.5-5.0); ALKALINE PHOSPHATASE 106 U/L (38-126); ANION GAP 18 (5-19); ASPARTATE AMINO TRANSFERASE 28 U/L (14-36); BILIRUBIN,DIRECT 0.6 mg/dL (0.0-0.4); BILIRUBIN,TOTAL 1.2 mg/dL (0.2-1.3); BLOOD UREA NITROGEN 93 mg/dL (7-20); CARBON DIOXIDE 13 mmol/L (22-30); CHLORIDE 109 mmol/L (98-107); CREATINE KINASE 48 U/L (30-135); GLUCOSE 131 mg/dL (75-110); SODIUM 139.5 mmol/L (137-145); TOTAL PROTEIN 5.9 g/dL (6.3-8.2)
[2018-09-06 06:49] LABS: POTASSIUM 6.3 mmol/L (3.6-5.0)
[2018-09-06 06:51] LABS: INTERNATIONAL RATION (INR) 1.84; PARTIAL THROMBOPLASTIN TIME 37.3 SEC (23.5-35.8)
[2018-09-06 06:53] LABS: CREATINE KINASE MB 2.92 ng/mL (<4.55); TROPONIN I < 0.012 ng/mL
[2018-09-06 06:55] LABS: PROTHROMBIN TIME 22.1 SEC (11.4-15.4)
[2018-09-06 06:56] LABS: ABSOLUTE LYMPHOCYTES# (MANUAL) 0.6 10^3/uL (0.5-4.7); ABSOLUTE MONOCYTES # (MANUAL) 0.2 10^3/uL (0.1-1.4); ABSOLUTE NEUTROPHILS# (MANUAL) 3.3 10^3/uL (1.7-8.2); BAND NEUTROPHILS % (MANUAL) 3 % (3-5); BASOPHILS % (MANUAL) 0 % (0-2); EOSINOPHILS % (MANUAL) 5 % (0-6); LYMPHOCYTES % (MANUAL) 13 % (13-45); MONOCYTES % (MANUAL) 5 % (3-13); SEGMENTED NEUTROPHILS % (MAN) 74 % (42-78); TOTAL CELLS COUNTED 100
[2018-09-06 07:03] LABS: ANISOCYTOSIS SLIGHT; BURR CELLS SLIGHT; OVALOCYTES 1+; PLATELET COMMENT DECREASED; POIKILOCYTOSIS 1+; SCHISTOCYTES SLIGHT; TARGET CELLS SLIGHT
--- NOTE | 2018-09-06 07:03 | RADIOLOGY REPORT (SQ) ---
EXAM DESCRIPTION: XR CHEST 1 VIEW COMPLETED DATE/TME: 09/06/2018 06:16 CLINICAL HISTORY: 48 years Female, AMS COMPARISON: 8.1.18 NUMBER OF VIEWS/TECHNIQUE: 1/AP FINDINGS: Clear lungs of adequate volume, and normal cardiac silhouette. Right PICC line appears adequate. No pneumothorax. Stable bony thorax. IMPRESSION: No acute cardiopulmonary findings.
--- NOTE | 2018-09-06 07:04 | ER Document Report ---
ED General - General Chief Complaint: Altered Mental Status Stated Complaint: ALTERED MENTAL STATUS Time Seen by Provider: 09/06/18 06:20 Mode of Arrival: Medic Information source: Emergency Med Personnel Cannot obtain history due to: Altered mental status Notes: 48-year-old female with liver failure, type 2 diabetes, bipolar disorder, previous CVA presents via EMS after reportedly her son found her altered this morning. EMS reports last known well was yesterday. EMS reported that the patient's son lives with the patient found her confused this morning and then reports that the patient fell. According to EMS the son reported that the patient did not hit her head she had no loss of consciousness. Unclear what the patient's baseline mental status is. TRAVEL OUTSIDE OF THE [place] IN LAST 30 DAYS: No - Related Data Allergies/Adverse Reactions: No Known Allergies Allergy (Verified 08/23/18 08:04) Past Medical History - General Information source: Emergency Med Personnel, [facility], [facility] Records Cannot obtain history due to: Altered mental status - Social History Smoking Status: Unknown if Ever Smoked Family History: Reviewed & Not Pertinent Patient has suicidal ideation: No Patient has homicidal ideation: No - Past Medical History Cardiac Medical History: Reports: Hx Hypercholesterolemia, Hx Hypertension Denies: Hx Coronary Artery Disease, Hx Heart Attack Pulmonary Medical History: Denies: Hx Asthma, Hx Bronchitis, Hx COPD, Hx Pneumonia, Hx Tuberculosis Neurological Medical History: Reports: Hx Cerebrovascular Accident - Pt states no deficits. Denies: Hx Seizures Endocrine Medical History: Reports: Hx Diabetes Mellitus Type 2 Renal/ Medical History: Reports: Hx End Stage Renal Disease, Hx Kidney Stones - 2011, Hx Renal Insufficiency. Denies: Hx Peritoneal Dialysis GI Medical History: Reports: Hx Cirrhosis - Due to fatty liver disease, Hx Gastroesophageal Reflux Disease, Hx Liver Failure. Denies: Hx Hepatitis - C Musculoskeletal Medical History: Reports Hx Arthritis - back Psychiatric Medical History: Reports: Hx Anxiety, Hx Bipolar Disorder, Hx Depression - stress related Infectious Medical History: Denies: Hx Hepatitis - C Past Surgical History: Reports: Hx Cholecystectomy - 2011, Hx Hysterectomy, Other - Biweekly paracentesis - Immunizations Hx Diphtheria, Pertussis, Tetanus Vaccination: Yes Hx Pneumococcal Vaccination: 09/03/12 Review of Systems - Review of Systems -: Yes ROS unobtainable due to patient's medical condition Physical Exam - Vital signs Vitals: BP 122/57 L 09/06/18 06:09 - Notes Notes: PHYSICAL EXAMINATION: GENERAL: Well-appearing, well-nourished and in no acute distress. C collar in place. On backboard. GCS 12 HEAD: Atraumatic, normocephalic. EYES: Pupils equal round and reactive to light, extraocular movements intact, sclera anicteric, conjunctiva are normal. ENT: Nares patent, oropharynx clear without exudates. Moist mucous membranes. No hemanotympanum . No blood in nares. No dental fracture NECK: Normal range of motion, supple without lymphadenopathy. Trachea midline LUNGS: Breath sounds clear to auscultation bilaterally and equal. No wheezes rales or rhonchi. HEART: Regular rate and rhythm without murmurs. Pulses intact all throughout. ABDOMEN: Soft, nontender, nondistended abdomen. No guarding, no rebound. No masses appreciated. Musculoskeletal: Normal range of motion, no pitting or edema. No cyanosis. Hip non tender, stable. NEUROLOGICAL: Confused speech. Does not follow commands. PSYCH: Nonverbal SKIN: Warm, No active bleeding Course - Re-evaluation Re-evalutation: Laboratory 09/06/18 09/06/18 09/06/18 05:43 05:43 05:43 WBC 4.3 RBC 2.34 L Hgb 7.4 L Hct 21.5 L MCV 92 MCH 31.6 MCHC 34.5 RDW 15.8 H Plt Count 28 L* Total Counted 100 Seg Neutrophils % Not Reportable Seg Neuts % (Manual) 74 Band Neutrophils % 3 Lymphocytes % Not Reportable Lymphocytes % (Manual) 13 Monocytes % Not Reportable Monocytes % (Manual) 5 Eosinophils % Not Reportable Eosinophils % (Manual) 5 Basophils % Not Reportable Basophils % (Manual) 0 Absolute Neutrophils Not Reportable Abs Neuts (Manual) 3.3 Absolute Lymphocytes Not Reportable Abs Lymphs (Manual) 0.6 Absolute Monocytes Not Reportable Abs Monocytes (Manual) 0.2 Absolute Eosinophils Not Reportable Absolute Eos (Manual) 0.2 Absolute Basophils Not Reportable Abs Basophils (Manual) 0.0 Platelet Comment DECREASED Poikilocytosis 1+ Anisocytosis SLIGHT Target Cells SLIGHT Ovalocytes 1+ Rolando Cells SLIGHT Schistocytes SLIGHT PT INR APTT Sodium 139.5 Potassium 6.3 H* Chloride 109 H Carbon Dioxide 13 L Anion Gap 18 BUN 93 H Creatinine 7.09 H Est GFR ( Amer) 7 L Est GFR (Non-Af Amer) 6 L Glucose 131 H POC Glucose Lactic Acid Calcium 9.0 Total Bilirubin 1.2 Direct Bilirubin 0.6 H Neonat Total Bilirubin Not Reportable Neonat Direct Bilirubin Not Reportable Neonat Indirect Bili Not Reportable AST 28 ALT 28 Alkaline Phosphatase 106 Ammonia Creatine Kinase 48 CK-MB (CK-2) 2.92 Troponin I < 0.012 Total Protein 5.9 L Albumin 3.2 L Urine Color Urine Appearance Urine pH Ur Specific [place] Urine Protein Urine Glucose (UA) Urine Ketones Urine Blood Urine Nitrite Urine Bilirubin Urine Urobilinogen Ur Leukocyte Esterase Urine WBC (Auto) Urine RBC (Auto) Squamous Epi Cells Auto Amorphous Sediment Auto Urine Mucus (Auto) Urine Ascorbic Acid Blood Type 09/06/18 09/06/18 09/06/18 06:31 06:31 06:50 WBC RBC Hgb Hct MCV MCH MCHC RDW Plt Count Total Counted Seg Neutrophils % Seg Neuts % (Manual) Band Neutrophils % Lymphocytes % Lymphocytes % (Manual) Monocytes % Monocytes % (Manual) Eosinophils % Eosinophils % (Manual) Basophils % Basophils % (Manual) Absolute Neutrophils Abs Neuts (Manual) Absolute Lymphocytes Abs Lymphs (Manual) Absolute Monocytes Abs Monocytes (Manual) Absolute Eosinophils Absolute Eos (Manual) Absolute Basophils Abs Basophils (Manual) Platelet Comment Poikilocytosis Anisocytosis Target Cells Ovalocytes Rolando Cells Schistocytes PT 22.1 H INR 1.84 APTT 37.3 H Sodium Potassium Chloride Carbon Dioxide Anion Gap BUN Creatinine Est GFR ( Amer) Est GFR (Non-Af Amer) Glucose POC Glucose 140 H Lactic Acid Calcium Total Bilirubin Direct Bilirubin Neonat Total Bilirubin Neonat Direct Bilirubin Neonat Indirect Bili AST ALT Alkaline Phosphatase Ammonia 112.8 H Creatine Kinase CK-MB (CK-2) Troponin I Total Protein Albumin Urine Color Urine Appearance Urine pH Ur Specific [place] Urine Protein Urine Glucose (UA) Urine Ketones Urine Blood Urine Nitrite Urine Bilirubin Urine Urobilinogen Ur Leukocyte Esterase Urine WBC (Auto) Urine RBC (Auto) Squamous Epi Cells Auto Amorphous Sediment Auto Urine Mucus (Auto) Urine Ascorbic Acid Blood Type 09/06/18 09/06/18 09/06/18 07:45 07:45 08:05 WBC RBC Hgb Hct MCV MCH MCHC RDW Plt Count Total Counted Seg Neutrophils % Seg Neuts % (Manual) Band Neutrophils % Lymphocytes % Lymphocytes % (Manual) Monocytes % Monocytes % (Manual) Eosinophils % Eosinophils % (Manual) Basophils % Basophils % (Manual) Absolute Neutrophils Abs Neuts (Manual) Absolute Lymphocytes Abs Lymphs (Manual) Absolute Monocytes Abs Monocytes (Manual) Absolute Eosinophils Absolute Eos (Manual) Absolute Basophils Abs Basophils (Manual) Platelet Comment Poikilocytosis Anisocytosis Target Cells Ovalocytes Rolando Cells Schistocytes PT INR APTT Sodium Potassium Chloride Carbon Dioxide Anion Gap BUN Creatinine Est GFR ( Amer) Est GFR (Non-Af Amer) Glucose POC Glucose Lactic Acid 1.5 Calcium Total Bilirubin Direct Bilirubin Neonat Total Bilirubin Neonat Direct Bilirubin Neonat Indirect Bili AST ALT Alkaline Phosphatase Ammonia Creatine Kinase CK-MB (CK-2) Troponin I Total Protein Albumin Urine Color YELLOW Urine Appearance SLIGHTLY-CLOUDY Urine pH 5.0 Ur Specific [place] 1.014 Urine Protein 30 H Urine Glucose (UA) NEGATIVE Urine Ketones NEGATIVE Urine Blood SMALL H Urine Nitrite NEGATIVE Urine Bilirubin NEGATIVE Urine Urobilinogen NEGATIVE Ur Leukocyte Esterase NEGATIVE Urine WBC (Auto) 3 Urine RBC (Auto) 2 Squamous Epi Cells Auto 1 Amorphous Sediment Auto TRACE Urine Mucus (Auto) RARE Urine Ascorbic Acid NEGATIVE Blood Type O POSITIVE 09/06/18 09/06/18 09/06/18 16:00 18:02 18:30 WBC 3.3 L RBC 2.03 L Hgb 6.4 L Hct 18.6 L MCV 92 MCH 31.4 MCHC 34.3 RDW 15.8 H Plt Count 28 L* Total Counted Seg Neutrophils % 71.5 Seg Neuts % (Manual) Band Neutrophils % Lymphocytes % 20.0 Lymphocytes % (Manual) Monocytes % 4.4 Monocytes % (Manual) Eosinophils % 3.5 Eosinophils % (Manual) Basophils % 0.6 Basophils % (Manual) Absolute Neutrophils 2.4 Abs Neuts (Manual) Absolute Lymphocytes 0.7 Abs Lymphs (Manual) Absolute Monocytes 0.1 Abs Monocytes (Manual) Absolute Eosinophils 0.1 Absolute Eos (Manual) Absolute Basophils 0.0 Abs Basophils (Manual) Platelet Comment Poikilocytosis Anisocytosis Target Cells Ovalocytes Rolando Cells Schistocytes PT INR APTT Sodium 140.9 Potassium 5.9 H Chloride 111 H Carbon Dioxide 14 L Anion Gap 16 BUN 92 H Creatinine 6.91 H Est GFR ( Amer) 8 L Est GFR (Non-Af Amer) 6 L Glucose 98 POC Glucose 88 Lactic Acid Calcium 8.9 Total Bilirubin 1.1 Direct Bilirubin 0.5 H Neonat Total Bilirubin Not Reportable Neonat Direct Bilirubin Not Reportable Neonat Indirect Bili Not Reportable AST 26 ALT 26 Alkaline Phosphatase 81 Ammonia Creatine Kinase CK-MB (CK-2) Troponin I Total Protein 5.4 L Albumin 2.8 L Urine Color Urine Appearance Urine pH Ur Specific [place] Urine Protein Urine Glucose (UA) Urine Ketones Urine Blood Urine Nitrite Urine Bilirubin Urine Urobilinogen Ur Leukocyte Esterase Urine WBC (Auto) Urine RBC (Auto) Squamous Epi Cells Auto Amorphous Sediment Auto Urine Mucus (Auto) Urine Ascorbic Acid Blood Type 09/06/18 18:30 WBC RBC Hgb Hct MCV MCH MCHC RDW Plt Count Total Counted Seg Neutrophils % Seg Neuts % (Manual) Band Neutrophils % Lymphocytes % Lymphocytes % (Manual) Monocytes % Monocytes % (Manual) Eosinophils % Eosinophils % (Manual) Basophils % Basophils % (Manual) Absolute Neutrophils Abs Neuts (Manual) Absolute Lymphocytes Abs Lymphs (Manual) Absolute Monocytes Abs Monocytes (Manual) Absolute Eosinophils Absolute Eos (Manual) Absolute Basophils Abs Basophils (Manual) Platelet Comment Poikilocytosis Anisocytosis Target Cells Ovalocytes [place] Cells Schistocytes PT INR APTT Sodium 140.4 Potassium 5.8 H Chloride 111 H Carbon Dioxide 13 L Anion Gap 16 BUN 88 H Creatinine 6.76 H Est GFR ( Amer) 8 L Est GFR (Non-Af Amer) 6 L Glucose 88 POC Glucose Lactic Acid Calcium 9.0 Total Bilirubin Direct Bilirubin Neonat Total Bilirubin Neonat Direct Bilirubin Neonat Indirect Bili AST ALT Alkaline Phosphatase Ammonia Creatine Kinase CK-MB (CK-2) Troponin I Total Protein Albumin Urine Color Urine Appearance Urine pH Ur Specific [place] Urine Protein Urine Glucose (UA) Urine Ketones Urine Blood Urine Nitrite Urine Bilirubin Urine Urobilinogen Ur Leukocyte Esterase Urine WBC (Auto) Urine RBC (Auto) Squamous Epi Cells Auto Amorphous Sediment Auto Urine Mucus (Auto) Urine Ascorbic Acid Blood Type 48-year-old female with liver failure, renal failure presents via EMS with altered mental status. Last known well was yesterday. Vital signs reviewed and within normal limits upon arrival. Patient is unable to provide any history. Nursing was able to contact the patient's son who states that the patient was last known normal last night. She did undergo a paracentesis which removed 8 L of fluid yesterday. Patient also did receive a platelet transfusion yesterday. Vital signs reviewed and within normal limits upon arrival. Patient is alert but not verbally responsive. CBC is without leukocytosis but does show a stable anemia. Significant thrombocytopenia. CMP is consistent with renal failure. Patient initially found to have a potassium of 6.3 for which insulin and dextrose was given. EKG did not show peaked T waves, prolonged QRS or ND depression. 09/06/18 07:46 Attempted to call the patient's next of kin Carlyle Deras and was unable to reach him or leave a message because his mailbox is not currently set up. 09/06/18 09:[address] Venita grubbs the patient's primary care physician who provides us the information that the patient is in liver and renal failure and not a candidate for transplant or dialysis reportedly secondary to the cause of the patient's liver and renal failure. She was recently admitted to [facility] for sepsis secondary to SBP and at that point made a DNR. Patient currently has a PICC line in and according to her primary care physician has been receiving ceftriaxone. She also received a dose of ceftriaxone during her ED course. We did call back the son who now answers to confirm that the patient is DNR and he states "I have no idea". PCP states they do have documentation. The plan per primary care physician after patient' s recent admission was to transition the patient from palliative care to hospice. I did call the patient's press operator helper Dr. Craven for further recommendations and to see if he is willing to consult on the patient while she is admitted to the hospital. Patient's press operator helper was made aware the patient admission status and does agree to consult on the patient. Lactulose ordered. I did speak to the hospitalist who will accept the patient to the [facility] 09/06/18 20:02 09/06/18 20:03 09/06/18 20:09 - Vital Signs Vital signs: Temp Pulse Resp BP Pulse Ox 97.9 F 96 20 104/51 L 100 09/06/18 19:48 09/06/18 19:48 09/06/18 19:48 09/06/18 19:48 09/06/18 19:48 - Laboratory Result Diagrams: 09/06/18 18:30 09/06/18 18:30 Laboratory results interpreted by me: 09/06/18 09/06/18 09/06/18 05:43 05:43 06:31 RBC 2.34 L Hgb 7.4 L Hct 21.5 L RDW 15.8 H Plt Count 28 L* PT 22.1 H APTT 37.3 H Potassium 6.3 H* Chloride 109 H Carbon Dioxide 13 L BUN 93 H Creatinine 7.09 H Est GFR ( Amer) 7 L Est GFR (Non-Af Amer) 6 L Glucose 131 H POC Glucose Direct Bilirubin 0.6 H Ammonia Total Protein 5.9 L Albumin 3.2 L Urine Protein Urine Blood 09/06/18 09/06/18 09/06/18 06:31 06:50 07:45 RBC Hgb Hct RDW Plt Count PT APTT Potassium Chloride Carbon Dioxide BUN Creatinine Est GFR ( Amer) Est GFR (Non-Af Amer) Glucose POC Glucose 140 H Direct Bilirubin Ammonia 112.8 H Total Protein Albumin Urine Protein 30 H Urine Blood SMALL H - Diagnostic Test Radiology reviewed: Image reviewed, Reports reviewed Critical Care Note - Critical Care Note Total time excluding time spent on procedures (mins): 35 - Minutes of critical care time spent in direct contact evaluating and reevaluating the patient, treating symptoms, reviewing labs and studies and speaking with family and consultants excluding any procedures Discharge - Discharge Clinical Impression: Increased ammonia level, Hepatorenal failure, ESRD (end stage renal disease), Thrombocytopenia, Acute encephalopathy, Hyperkalemia Liver cirrhosis Qualifiers: Hepatic cirrhosis type: unspecified hepatic cirrhosis Ascites presence: with ascites Qualified Code(s): K74.60 - Unspecified cirrhosis of liver Ascites Qualifiers: Ascites type: other type Qualified Code(s): R18.8 - Other ascites Altered mental status, unspecified Qualifiers: Altered mental status type: unspecified Qualified Code(s): R41.82 - Altered mental status, unspecified Anemia Qualifiers: Anemia type: unspecified type Qualified Code(s): D64.9 - Anemia, unspecified Condition: Critical Disposition: ADMITTED INPATIENT Admitting Provider: Hospitalist Unit Admitted: [facility]
[2018-09-06 07:06] LABS: HEMOGLOBIN 7.4 g/dL (12.0-15.5); PLATELET COUNT 28 10^3/uL (150-450)
--- NOTE | 2018-09-06 07:06 | RADIOLOGY REPORT (SQ) ---
EXAM DESCRIPTION: CT HEAD WITHOUT IV CONTRAST COMPLETED DATE/TME: 09/06/2018 06:16 CLINICAL HISTORY: 48 years Female, AMS COMPARISON: None. TECHNIQUE: No contrast. Coronal and sagittal reformat. This exam was performed according to our departmental dose-optimization program, which includes automated exposure control, adjustment of the mA and/or kV according to patient size and/or use of iterative reconstruction technique. FINDINGS: Small curvilinear high attenuation of the left precentral sulcus and minimal subcortical encephalomalacia of the left frontoparietal white matter, stable. No infarct. No mass, mass effect, or midline shift. White matter microangiopathy, parenchymal volume loss, and atherosclerosis. Brain and extra-axial structures appear otherwise intact. IMPRESSION: No significant change.
[2018-09-06] MEDS ORDERED: LACTULOSE SYRUP 20 GM/30 ML UDCUP PO ONE (07:40)
[2018-09-06] MEDS ORDERED: INSULIN REG, HUMAN 100 UNIT/ML 3 ML VIAL (PYX) IV ONE (07:44)
[2018-09-06] MEDS ORDERED: DEXTROSE 50%-WATER 25 GM/50 ML DISP.SYRIN IV ONE (07:45)
[2018-09-06] MEDS ORDERED: NORMAL SALINE 1000 ML 1,000 ML IV ONE (07:47)
[2018-09-06] MEDS ORDERED: CEFTRIAXONE 1 GM/D5W RTU 1 GM/50 ML RTUPB IV ONE (07:50)
[2018-09-06] MEDS ORDERED: RINGERS SOLUTION,LACTATED 1,000 ML IV ONE (07:51)
[2018-09-06 09:05] LABS: AMORPHOUS SEDIMENT,URINE TRACE /HPF; APPEARANCE,URINE SLIGHTLY-CLOUDY; BILIRUBIN,URINE NEGATIVE (NEGATIVE); COLOR,URINE YELLOW; GLUCOSE, URINE NEGATIVE (NEGATIVE); KETONES,URINE NEGATIVE (NEGATIVE); LEUKOCYTE ESTERASE,URINE NEGATIVE (NEGATIVE); NITRITE,URINE NEGATIVE (NEGATIVE); PROTEIN,URINE 30 mg/dL (NEGATIVE); URINE SPECIFIC GRAVITY 1.014; UROBILINOGEN,URINE NEGATIVE mg/dL (<2.0)
--- NOTE | 2018-09-06 09:15 | RADIOLOGY REPORT (SQ) ---
EXAM DESCRIPTION: CT ABD/PELVIS NO ORAL OR IV COMPLETED DATE/TIME: 09/06/2018 8:22 am REASON FOR STUDY: ams COMPARISON: 07/28/2012, 08/30/2016, 04/20/2018 CT abdomen pelvis TECHNIQUE: CT scan of the abdomen and pelvis performed without intravenous or oral contrast. Images reviewed with lung, soft tissue, and bone windows. Reconstructed coronal and sagittal MPR images revi ewed. All images stored on PACS. All CT scanners at this facility use dose modulation, iterative reconstruction, and/or weight based d osing when appropriate to reduce radiation dose to as low as reasonably achievable (ALARA). [facility]: Dose Right [facility]: CareDose [facility]: Dose Right [facility]: Teradose 4D [facility]: [employer] RADIATION DOSE: CT Rad equipment meets quality standard of care and radiation dose reduction techniq ues were employed. CTDIvol: 17.8 mGy. DLP: 1129 mGy-cm.mGy. LIMITATIONS: No oral or IV contrast FINDINGS: LOWER CHEST: No significant findings. No nodules or infiltrates. NON-CONTRASTED LIVER, SPLEEN, ADRENALS: Liver is small, with nodular contour from cirrhosis. Spleen is 20 cm in greatest length, stable. Adrenal glands grossly unremarkable. PANCREAS: No masses. No peripancreatic inflammatory changes. GALLBLADDER: Surgically absent RIGHT KIDNEY AND URETER: No suspicious masses. Assessment limited by lack of IV contrast. No signif icant calcifications. No hydronephrosis or hydroureter. LEFT KIDNEY AND URETER: No suspicious masses. Assessment limited by lack of IV contrast. No signifi cant calcifications. No hydronephrosis or hydroureter. AORTA AND RETROPERITONEUM: No aneurysm. No retroperitoneal masses or adenopathy. BOWEL AND PERITONEAL CAVITY: No CT evidence of bowel obstruction. Moderate ascites persists, despite 8 L volume paracentesis yesterday APPENDIX: Not identified PELVIS, BLADDER, AND ABDOMINAL WALL:Moderate free pelvic fluid. Post hysterectomy. Normal size ovar ies. Bladder decompressed BONES: No significant findings. OTHER: Results discussed with Dr. Swartz IMPRESSION: Persistent ascites. Portal hypertension splenomegaly cirrhosis similar compared to previous studies COMMENT: Quality ID # [id number]: Final reports with documentation of one or more dose reduction techniques (e.g., Automated exposure control, adjustment of the mA and/or kV according to patient size, use of iterative reconstruction technique) TECHNICAL DOCUMENTATION: JOB ID: [id number] [employer]- All Rights Reserved Reading location - IP/workstation name: [email or web address]
[2018-09-06] MEDS ORDERED: NORMAL SALINE 250 ML IV PRN ×2 (11:09)
[2018-09-06] MEDS ORDERED: DEXTROSE 50%-WATER 25 GM/50 ML DISP.SYRIN IV PRN ×2 (11:16)
[2018-09-06] MEDS ORDERED: DEXTROSE 40% GEL 15 GM TUBE PO PRN ×2 (11:16)
[2018-09-06] MEDS ORDERED: GLUCAGON,HUMAN RECOMB 1 MG INJ IM PRN (11:16)
[2018-09-06] MEDS ORDERED: INSULIN LISPRO 100 UNIT/ML 3 ML VIAL SUBCUT PRN (11:16)
[2018-09-06] MEDS ORDERED: LACTULOSE SYRUP 20 GM/30 ML UDCUP PR ONE ×2 (11:30→16:30)
--- NOTE | 2018-09-06 12:28 | PDOC H&P ---
History of Present Illness Admission Date/PCP: 09/06/18 10:58 CARRIE MARQUEZ MD Patient complains of: confusion History of Present Illness: BHAVANI TIMMONS is a 48 year old female with past medical history of end stage liver disease, chronic recurrent ascites with large volume paracentesis, end stage renal disease not currently on dialysis who was brought in due to confusion. Patient reportedly had another paracentesis yesterday and 8L were taken off at 5 pm. Around 2:30 pm this morning, patient woke up, vomited once with non-bloody , non-bilious emesis and was noted to be agitated and combative on her boyfriend. Patient has reportedly been evaluated a few months ago at [facility] for a liver transplant and was deemed to be a candidate for OLT and was recommended to be referred for hospice. She was recently discharged from [facility] for bacteremia with Streptococcus salivarius from SBP and was sent home on a PICC line for IV antibiotics. Discussed with [facility] ID who saw the patient and says her last dose of Rocephin is tomorrow 09/07/18. In the ER, she was noted to be lethargic and confused. Her ammonia level was also elevated. Head CT was unremarkable. Upon encounter, patient was more awake but is only oriented to self. She is able to say her name but answers "Bhavani Timmons" to all other questions. She nods yes when asked if she has some abdominal discomfort but denies chest pain or SOB. She does have prior episodes and was also admitted before for confusion after large volume paracentesis. Past Medical History Cardiac Medical History: Reports: Hyperlipidema, Hypertension Denies: Coronary Artery Disease, Myocardial Infarction Pulmonary Medical History: Denies: Asthma, Bronchitis, Chronic Obstructive Pulmonary Disease (COPD), Pneumonia, Tuberculosis Neurological Medical History: Denies: Seizures Endocrine Medical History: Reports: Diabetes Mellitus Type 2 Renal/ Medical History: Reports: End Stage Renal Disease GI Medical History: Reports: Cirrhosis - Due to fatty liver disease, Gastroesophageal Reflux Disease Denies: Hepatitis - C Musculoskeltal Medical History: Reports: Arthritis - back Psychiatric Medical History: Reports: Bipolar Disorder, Depression - stress related Hematology: Reports: Anemia - Hx of 2017 Past Surgical History Past Surgical History: Reports: Cholecystectomy - 2012, Hysterectomy, Other - Biweekly paracentesis Social History Smoking Status: Unknown if Ever Smoked Frequency of Alcohol Use: None Hx Recreational Drug Use: No Drugs: None Hx Prescription Drug Abuse: No Family History Family History: Reviewed & Not Pertinent Parental Family History Reviewed: No - altered mentation Children Family History Reviewed: No Sibling(s) Family History Reviewed.: No Medication/Allergy Home Medications: Furosemide [Lasix 40 mg Tablet] 40 mg PO BID 09/06/18 Lactulose [Constulose 10 gm/15 mL Oral Solution] 30 ml PO BID 09/06/18 Omeprazole 20 mg PO DAILY 09/06/18 Oxycodone HCl [Oxy-Ir 5 mg Tablet] 5 mg PO DAILYP PRN 09/06/18 Potassium Chloride [Klor-Con 10 Meq Capsule ER] 10 meq PO DAILY 09/06/18 Sodium Bicarbonate [Sodium Bicarbonate 650 mg Tablet] 650 mg PO DAILY 09/06/18 Allergies/Adverse Reactions: No Known Allergies Allergy (Verified 08/23/18 08:04) Review of Systems ROS unobtainable: Due to mental status Physical Exam Vital Signs: Temp Pulse Resp BP Pulse Ox 23 H 106/67 98 09/06/18 09:01 09/06/18 09:01 09/06/18 09:01 General appearance: PRESENT: no acute distress, disheveled Head exam: PRESENT: atraumatic, normocephalic Eye exam: PRESENT: conjunctiva pale, EOMI, PERRLA. ABSENT: scleral icterus Ear exam: PRESENT: normal external ear exam Mouth exam: PRESENT: dry mucosa Neck exam: ABSENT: carotid bruit, JVD, lymphadenopathy, thyromegaly Respiratory exam: PRESENT: clear to auscultation bria. ABSENT: rales, rhonchi, wheezes Cardiovascular exam: PRESENT: RRR. ABSENT: diastolic murmur, rubs, systolic murmur Pulses: PRESENT: normal dorsalis pedis pul GI/Abdominal exam: PRESENT: ascites, normal bowel sounds, organolmegaly, soft. ABSENT: distended, guarding, mass, rebound, tenderness Rectal exam: PRESENT: deferred Extremities exam: PRESENT: other - note of a superficial laceration on the right arm Neurological exam: PRESENT: awake, oriented to person Results Impressions: Chest X-Ray 09/06/18 06:16 IMPRESSION: No acute cardiopulmonary findings. Head CT 09/06/18 06:16 IMPRESSION: No significant change. Abdomen/Pelvis CT 09/06/18 07:49 IMPRESSION: Persistent ascites. Portal hypertension splenomegaly cirrhosis similar compared to previous studies Assessment & Plan - Diagnosis (1) Acute encephalopathy Is this a current diagnosis for this admission?: Yes Plan: Appears to be slightly improving. Possibly secondary to volume depletion after large volume paracentesis vs hepatic encephalopathy. Patient's blood pressures were initially low normal in the 90s systolic and have improved to the 110s systolic after a fluid bolus. Will give patient albumin. She does have elevated ammonia. Switch oral to rectal lactulose. (2) Acute on chronic renal failure Qualifiers: Acute renal failure type: unspecified Chronic kidney disease stage: stage 4 (severe) Qualified Code(s): N17.9 - Acute kidney failure, unspecified; N18.4 - Chronic kidney disease, stage 4 (severe); N18.4 - Chronic kidney disease , stage 4 (severe); N18.4 - Chronic kidney disease, stage 4 (severe); N18.4 - Chronic kidney disease, stage 4 (severe) Is this a current diagnosis for this admission?: Yes Plan: On chart review, patient was on hemodialysis some time in the past but was taken off it due to her chronic severe thrombocytopenia. (3) Hyperkalemia Is this a current diagnosis for this admission?: Yes Plan: Potassium is elevated at 6.3 likely secondary to ESRD. No EKG changes. She has been given insulin, glucose and calcium regimen in the ER. Will recheck another BMP this afternoon. (4) Thrombocytopenia Is this a current diagnosis for this admission?: Yes Plan: She has chronic thrombocytopenia related to her end stage liver disease. Platelet is 28,000 today. She has a small laceration on the right arm which appears to have dried blood. Will give a unit of platelet. (5) Chronic anemia Is this a current diagnosis for this admission?: Yes Plan: Hemoglobin is close to her baseline. Will continue to monitor. Will transfuse as necessary if Hb falls below 7. - Time Time Spent: 30 to 50 Minutes
--- NOTE | 2018-09-06 12:57 | EKG REPORT ---
SEVERITY:- ABNORMAL ECG - SINUS RHYTHM LOW VOLTAGE IN FRONTAL LEADS NONSPECIFIC ST-T CHANGES- INFERIOR LEADS : Confirmed by: Jesús Ly MD 06-Sep-2018 12:57:17
[2018-09-06] MEDS: ALBUMIN HUMAN 12.5 GM/50 ML RTUINJ IV SCH ×2 (13:59→15:15)
[2018-09-06] MEDS ORDERED: ALBUMIN HUMAN 12.5 GM/50 ML RTUINJ IV ONE (17:00)
[2018-09-06 17:05] LABS: ALANINE AMINOTRANSFERASE 26 U/L (9-52); ALBUMIN 2.8 g/dL (3.5-5.0); ALKALINE PHOSPHATASE 81 U/L (38-126); ANION GAP 16 (5-19); ASPARTATE AMINO TRANSFERASE 26 U/L (14-36); BILIRUBIN,DIRECT 0.5 mg/dL (0.0-0.4); BILIRUBIN,TOTAL 1.1 mg/dL (0.2-1.3); BLOOD UREA NITROGEN 92 mg/dL (7-20); CALCIUM 8.9 mg/dL (8.4-10.2); CARBON DIOXIDE 14 mmol/L (22-30); CHLORIDE 111 mmol/L (98-107); GLUCOSE 98 mg/dL (75-110); POTASSIUM 5.9 mmol/L (3.6-5.0); SODIUM 140.9 mmol/L (137-145); TOTAL PROTEIN 5.4 g/dL (6.3-8.2)
[2018-09-06] MEDS ORDERED: MORPHINE SULFATE 10 MG/ML INJ IV PRN (18:20)
[2018-09-06] MEDS ORDERED: LORAZEPAM INJ 2 MG/1 ML VIAL IV PRN (18:21)
--- NOTE | 2018-09-06 18:26 | Progress Note ---
Provider Note Provider Note: Discussed code status and plans of care on bedside with patient and sister ( surrogate decision maker). Patient's mother in [place] was also updated over phone. Patient did have improvement in mentation. She was able to say her name and birthdate and recognized her sister. Patient did verbalize she is a DR/DNI and she has made this transition when she was admitted recently at [facility]. She says she also wants to be on hospice care. Sister also verbalized that she prefers her sister to be placed on hospice and if she develops any respiratory distress or significant pain, be transitioned to comfort measures. Patient did verbalize she just wants to be comfortable if she develops pain, SOB or acute distress.
[2018-09-06 18:50] LABS: ABSOLUTE EOSINOPHILS # (AUTO) 0.1 10^3/uL (0.0-0.6); ABSOLUTE LYMPHOCYTES (AUTO) 0.7 10^3/uL (0.5-4.7); ABSOLUTE MONOCYTES (AUTO) 0.1 10^3/uL (0.1-1.4); ABSOLUTE NEUT (AUTO) 2.4 10^3/uL (1.7-8.2); BASOPHILS % (AUTO) 0.6 % (0-2); EOSINOPHILS % (AUTO) 3.5 % (0-6); HEMATOCRIT 18.6 % (36.0-47.0); MEAN CORPUSCULAR HEMOGLOBIN 31.4 pg (27.0-33.4); MEAN CORPUSCULAR HGB CONC 34.3 g/dL (32.0-36.0); MEAN CORPUSCULAR VOLUME 92 fl (80-97); MONOCYTES % (AUTO) 4.4 % (3-13); RED BLOOD COUNT 2.03 10^6/uL (3.72-5.28); RED CELL DISTRIBUTION WIDTH 15.8 % (11.5-14.0); SEGMENTED NEUTROPHILS % (AUTO) 71.5 % (42-78); TOTAL CELLS COUNTED % (AUTO) 100 %; WHITE BLOOD COUNT 3.3 10^3/uL (4.0-10.5)
[2018-09-06 19:00] LABS: PLATELET COUNT 28 10^3/uL (150-450)
[2018-09-06 19:01] LABS: ANION GAP 16 (5-19); BLOOD UREA NITROGEN 88 mg/dL (7-20); CARBON DIOXIDE 13 mmol/L (22-30); CHLORIDE 111 mmol/L (98-107); GLUCOSE 88 mg/dL (75-110); HEMOGLOBIN 6.4 g/dL (12.0-15.5); POTASSIUM 5.8 mmol/L (3.6-5.0); SODIUM 140.4 mmol/L (137-145)
--- NOTE | 2018-09-06 20:06 | PDOC CONSULTATION ---
History of Present Illness Admission Date/PCP: 09/06/18 10:58 CARRIE MARQUEZ MD History of Present Illness: HUMBERTO KAY is a 48 year old female Patient who was admitted early on today with change in mental status. She was found by her family to be confused and unresponsive. By the time I saw her she was awake and did recognize me but remains somewhat confused. Since admission she has received a bottle of IV albumin and some IV fluids. She has not received any lactulose. She is a DNR and has decided on comfort measures . She was in the hospital yesterday for paracenteses when 8 L of fluid was removed. She has been getting paracenteses every 1-2 weeks in addition to IV albumin. She was admitted to [facility] within the last week and was discharged about 4 days ago. When she came for paracentesis yesterday patient said she did not receive any paracenteses in [place]. Admission blood pressure was 122/55 with a hemoglobin of 7.4, creatinine of 7 and potassium of 4.3. Her platelet count remain low at 28. Past Medical History Cardiac Medical History: Reports: Hyperlipidema, Hypertension Denies: Coronary Artery Disease, Myocardial Infarction Pulmonary Medical History: Denies: Asthma, Bronchitis, Chronic Obstructive Pulmonary Disease (COPD), Pneumonia, Tuberculosis Neurological Medical History: Denies: Seizures Endocrine Medical History: Reports: Diabetes Mellitus Type 2 Renal/ Medical History: Reports: End Stage Renal Disease GI Medical History: Reports: Cirrhosis - Due to fatty liver disease, Gastroesophageal Reflux Disease Denies: Hepatitis - C Musculoskeltal Medical History: Reports: Arthritis - back Psychiatric Medical History: Reports: Bipolar Disorder, Depression - stress related Hematology: Reports: Anemia - Hx of 2017 Past Surgical History Past Surgical History: Reports: Cholecystectomy - 2011, Hysterectomy, Other - Biweekly paracentesis Social History Smoking Status: Current Every Day Smoker Frequency of Alcohol Use: None Hx Recreational Drug Use: No Drugs: None Hx Prescription Drug Abuse: No Family History Family History: Reviewed & Not Pertinent Parental Family History Reviewed: No Children Family History Reviewed: NA Sibling(s) Family History Reviewed.: NA Medication/Allergy Home Medications: Furosemide [Lasix 40 mg Tablet] 40 mg PO BID 09/06/18 Lactulose [Constulose 10 gm/15 mL Oral Solution] 30 ml PO BID 09/06/18 Omeprazole 20 mg PO DAILY 09/06/18 Oxycodone HCl [Oxy-Ir 5 mg Tablet] 5 mg PO DAILYP PRN 09/06/18 Potassium Chloride [Klor-Con 10 Meq Capsule ER] 10 meq PO DAILY 09/06/18 Sodium Bicarbonate [Sodium Bicarbonate 650 mg Tablet] 650 mg PO DAILY 09/06/18 Allergies/Adverse Reactions: No Known Allergies Allergy (Verified 08/23/18 08:04) Review of Systems All systems: reviewed and no additional remarkable complaints except as stated Physical Exam Vital Signs: Temp Pulse Resp BP Pulse Ox 97.9 F 96 20 104/51 L 100 09/06/18 19:48 09/06/18 19:48 09/06/18 19:48 09/06/18 19:48 09/06/18 19:48 Intake & Output 09/05/18 09/06/18 09/07/18 06:59 06:59 06:59 Intake Total 341 Balance 341 Exam: General: Patient is alert and responds to questions. HEENT: She is pale and slightly jaundice. PERRLA. Oropharynx normal Respiratory: No chest deformity. No respiratory distress. Chest wall palpitation was unremarkable. Breath sounds were normal Cardiovascular: Heart sounds 1 and 2 normal with no murmurs. Abdominal: Abdomen is distended with ascites. There is no tenderness Extremities: Mild bilateral edema with multiple bruises Neurological: Not fully examined. Normal speech Results Laboratory Results: 09/06/18 18:30 09/06/18 18:30 09/06/18 09/06/18 09/06/18 16:00 18:30 18:30 WBC 3.3 L RBC 2.03 L Hgb 6.4 L Hct 18.6 L MCV 92 MCH 31.4 MCHC 34.3 RDW 15.8 H Plt Count 28 L* Seg Neutrophils % 71.5 Lymphocytes % 20.0 Monocytes % 4.4 Eosinophils % 3.5 Basophils % 0.6 Absolute Neutrophils 2.4 Absolute Lymphocytes 0.7 Absolute Monocytes 0.1 Absolute Eosinophils 0.1 Absolute Basophils 0.0 Sodium 140.9 140.4 Potassium 5.9 H 5.8 H Chloride 111 H 111 H Carbon Dioxide 14 L 13 L Anion Gap 16 16 BUN 92 H 88 H Creatinine 6.91 H 6.76 H Est GFR ( Amer) 8 L 8 L Est GFR (Non-Af Amer) 6 L 6 L Glucose 98 88 Calcium 8.9 9.0 Total Bilirubin 1.1 AST 26 ALT 26 Alkaline Phosphatase 81 Total Protein 5.4 L Albumin 2.8 L Impressions: Chest X-Ray 09/06/18 06:16 IMPRESSION: No acute cardiopulmonary findings. Head CT 09/06/18 06:16 IMPRESSION: No significant change. Abdomen/Pelvis CT 09/06/18 07:49 IMPRESSION: Persistent ascites. Portal hypertension splenomegaly cirrhosis similar compared to previous studies Assessment & Plan - Diagnosis (1) Acute encephalopathy Is this a current diagnosis for this admission?: Yes Plan: She has hepatic encephalopathy which may be related to her paracenteses from yesterday and volume depletion. She always receives IV albumin with every paracentesis. Infection is also a possibility and she is on antibiotics currently. Her mental status has improved since admission even though she has not received lactulose. I will start her on p.o. lactulose and continue with this upon discharge. IV albumin may also be given though her blood pressure has been stable. She is comfort measures at this time and would likely be discharged tomorrow. (2) Ascites Qualifiers: Ascites type: other type Qualified Code(s): R18.8 - Other ascites Is this a current diagnosis for this admission?: Yes (3) ESRD (end stage renal disease) Is this a current diagnosis for this admission?: Yes (4) Increased ammonia level Is this a current diagnosis for this admission?: Yes (5) Liver cirrhosis Qualifiers: Hepatic cirrhosis type: unspecified hepatic cirrhosis Ascites presence: with ascites Qualified Code(s): K74.60 - Unspecified cirrhosis of liver; R18.8 - Other ascites; R18.8 - Other ascites Is this a current diagnosis for this admission?: Yes (6) Thrombocytopenia Is this a current diagnosis for this admission?: Yes Plan: Her platelet has been below 40 for over a year. I will only suggests platelet transfusion if there is evidence of active bleeding
[2018-09-06] MEDS: LACTULOSE SYRUP 20 GM/30 ML UDCUP PO SCH (21:22)
[2018-09-06] MEDS: MORPHINE SULFATE 10 MG/ML INJ IV PRN (21:26)
[2018-09-06] MEDS: LORAZEPAM INJ 2 MG/1 ML VIAL IV PRN (22:40)
[2018-09-07] MEDS: MORPHINE SULFATE 10 MG/ML INJ IV PRN ×8 (00:33→19:33)
[2018-09-07] MEDS: LORAZEPAM INJ 2 MG/1 ML VIAL IV PRN ×6 (02:20→22:18)
[2018-09-07] MEDS ORDERED: CEFTRIAXONE 1 GM/D5W RTU 1 GM/50 ML RTUPB IV SCH (10:00)
[2018-09-07] MEDS ORDERED: CEFTRIAXONE 2 GM/D5W RTU 2 GM/50 ML RTUPB IV SCH (10:00)
[2018-09-07] MEDS ORDERED: CEFTRIAXONE SODIUM 1,000 MG in DEXTROSE 5%-WATER 50 ML IV SCH (10:00)
[2018-09-07] MEDS: LACTULOSE SYRUP 20 GM/30 ML UDCUP PO SCH ×4 (11:17→21:19)
[2018-09-07] MEDS: CEFTRIAXONE SODIUM 2,000 MG in DEXTROSE 5%-WATER 100 ML IV SCH (11:18)
[2018-09-07] MEDS: DIPHENHYDRAMINE HCL 50 MG/ML VIAL INJ PRN ×2 (16:27→22:18)
--- NOTE | 2018-09-07 18:31 | PDOC DISCHARGE SUMMARY ---
General - Admit/Disc Date/PCP Admission Date/Primary Care Provider: 09/06/18 10:58 CARRIE MARQUEZ MD Discharge Date: 09/07/18 - Discharge Diagnosis (1) Acute encephalopathy Is this a current diagnosis for this admission?: Yes (2) Acute on chronic renal failure Is this a current diagnosis for this admission?: Yes (3) Hyperkalemia Is this a current diagnosis for this admission?: Yes (4) Thrombocytopenia Is this a current diagnosis for this admission?: Yes (5) Chronic anemia Is this a current diagnosis for this admission?: Yes - Additional Information Home Medications: Furosemide [Lasix 40 mg Tablet] 40 mg PO BID 09/06/18 Lactulose [Constulose 10 gm/15 mL Oral Solution] 30 ml PO BID 09/06/18 Omeprazole 20 mg PO DAILY 09/06/18 Oxycodone HCl [Oxy-Ir 5 mg Tablet] 5 mg PO DAILYP PRN 09/06/18 Potassium Chloride [Klor-Con 10 Meq Capsule ER] 10 meq PO DAILY 09/06/18 Sodium Bicarbonate [Sodium Bicarbonate 650 mg Tablet] 650 mg PO DAILY 09/06/18 History of Present Illness History of Present Illness: HUMBERTO TIMMONS is a 48 year old female with past medical history of end stage liver disease, chronic recurrent ascites with large volume paracentesis, end stage renal disease not currently on dialysis who was brought in due to confusion. Patient reportedly had another paracentesis yesterday and 8L were taken off at 5 pm. Around 2:30 pm this morning, patient woke up, vomited once with non-bloody , non-bilious emesis and was noted to be agitated and combative on her boyfriend. Patient has reportedly been evaluated a few months ago at [facility] for a liver transplant and was deemed to be a candidate for OLT and was recommended to be referred for hospice. She was recently discharged from [facility] for bacteremia with Streptococcus salivarius from SBP and was sent home on a PICC line for IV antibiotics. Discussed with Jose LAKHANI who saw the patient and says her last dose of Rocephin is tomorrow 09/07/18. In the ER, she was noted to be lethargic and confused. Her ammonia level was also elevated. Head CT was unremarkable. Upon encounter, patient was more awake but is only oriented to self. She is able to say her name but answers "Humberto Timmons" to all other questions. She nods yes when asked if she has some abdominal discomfort but denies chest pain or SOB. She does have prior episodes and was also admitted before for confusion after large volume paracentesis. Hospital Course Hospital Course: HUMBERTO TIMMONS is a 48 year old female with past medical history of end stage liver disease, chronic recurrent ascites with large volume paracentesis, end stage renal disease not currently on dialysis who was brought in due to confusion. Patient reportedly had another paracentesis yesterday and 8L were taken off at 5 pm. Around 2:30 pm this morning, patient woke up, vomited once with non-bloody , non-bilious emesis and was noted to be agitated and combative on her boyfriend. Patient has reportedly been evaluated a few months ago at [facility] for a liver transplant and was deemed to be a candidate for OLT and was recommended to be referred for hospice. She was recently discharged from [facility] for bacteremia with Streptococcus salivarius from SBP and was sent home on a PICC line for IV antibiotics. Discussed with [facility] ID who saw the patient and says her last dose of Rocephin is tomorrow 09/07/18. In the ER, she was noted to be lethargic and confused. Her ammonia level was also elevated. Head CT was unremarkable. Her mentation did gradually improve with fluids. She became more awake and oriented to person, place and situation. She was able to recognize her sister who she identified as her surrogate decision maker. Discussed code status and plans of care on bedside with patient and sister. Patient's mother in [place] was also updated over phone. She verbalized she is a DNR/DNI and she has made this transition when she was admitted recently at [facility]. She says she also wants to be on hospice care and be transitioned to comfort measures. Sister also agreed to transitioning her to hospice. She did complain of back and abdominal pain overnight and had an episode of agitation. She was given morphine and ativan. She will be transitioned to home hospice. Physical Exam Vital Signs: Temp Pulse Resp BP Pulse Ox 97.4 F 89 20 83/59 L 100 09/07/18 07:42 09/07/18 07:42 09/07/18 07:42 09/07/18 07:42 09/07/18 09:48 Intake & Output 09/06/18 09/07/18 09/08/18 06:59 06:59 06:59 Intake Total 628 0 Output Total 225 Balance 628 -225 General appearance: PRESENT: no acute distress, well-developed, well-nourished Head exam: PRESENT: atraumatic, normocephalic Eye exam: PRESENT: conjunctiva pink, EOMI, PERRLA. ABSENT: scleral icterus Ear exam: PRESENT: normal external ear exam Mouth exam: PRESENT: moist, tongue midline Neck exam: ABSENT: carotid bruit, JVD, lymphadenopathy, thyromegaly Respiratory exam: PRESENT: clear to auscultation bria. ABSENT: rales, rhonchi, wheezes Cardiovascular exam: PRESENT: RRR. ABSENT: diastolic murmur, rubs, systolic murmur Pulses: PRESENT: normal dorsalis pedis pul GI/Abdominal exam: PRESENT: ascites, distended Rectal exam: PRESENT: deferred Neurological exam: PRESENT: awake, oriented to person, oriented to situation Results Laboratory Results: 09/06/18 18:30 09/06/18 18:30 09/06/18 09/06/18 18:30 18:30 WBC 3.3 L RBC 2.03 L Hgb 6.4 L Hct 18.6 L MCV 92 MCH 31.4 MCHC 34.3 RDW 15.8 H Plt Count 28 L* Seg Neutrophils % 71.5 Lymphocytes % 20.0 Monocytes % 4.4 Eosinophils % 3.5 Basophils % 0.6 Absolute Neutrophils 2.4 Absolute Lymphocytes 0.7 Absolute Monocytes 0.1 Absolute Eosinophils 0.1 Absolute Basophils 0.0 Sodium 140.4 Potassium 5.8 H Chloride 111 H Carbon Dioxide 13 L Anion Gap 16 BUN 88 H Creatinine 6.76 H Est GFR ( Amer) 8 L Est GFR (Non-Af Amer) 6 L Glucose 88 Calcium 9.0 Impressions: Chest X-Ray 09/06/18 06:16 IMPRESSION: No acute cardiopulmonary findings. Head CT 09/06/18 06:16 IMPRESSION: No significant change. Abdomen/Pelvis CT 09/06/18 07:49 IMPRESSION: Persistent ascites. Portal hypertension splenomegaly cirrhosis similar compared to previous studies Qualifiers - * PATIENT BEING DISCHARGED WITH ANY OF THE FOLLOWING DIAGNOSIS: No
[2018-09-08] MEDS: LORAZEPAM INJ 2 MG/1 ML VIAL IV PRN ×3 (02:26→09:08)
[2018-09-08] MEDS: MORPHINE SULFATE 10 MG/ML INJ IV PRN ×2 (02:27→12:38)
[2018-09-08] MEDS: DIPHENHYDRAMINE HCL 50 MG/ML VIAL INJ PRN (06:33)
[2018-09-08 07:55] VITALS: BP 106/45
[2018-09-08] MEDS ORDERED: DIPHENHYDRAMINE HCL 50 MG/ML VIAL IV PRN (08:12)
[2018-09-08] MEDS: CEFTRIAXONE SODIUM 2,000 MG in DEXTROSE 5%-WATER 100 ML IV SCH (09:16)
[2018-09-08] MEDS: LACTULOSE SYRUP 20 GM/30 ML UDCUP PO SCH ×2 (09:16→13:27)
[2018-09-08] MEDS ORDERED: DIPHENHYDRAMINE HCL 25 MG CAPSULE PO PRN (09:22)
== END 2018-09-08 14:00 | disposition hospice, home (50) | DRG 640 ==
LOC: ER 06:03 → EH 10:58 → 3N 14:44 → 3W 09-08 03:42
PROVIDERS: ADMIT Internal Medicine; ATTEND Internal Medicine
PROC: 30233R1 Transfusion of Nonautologous Platelets into Peripheral Vein, Percutaneous Approach (ICD-10-PCS; principal; 2018-09-06)
DX: E86.9 Volume depletion, unspecified (principal); N18.6 End stage renal disease; N17.9 Acute kidney failure, unspecified; I12.0 Hypertensive chronic kidney disease with stage 5 chronic kidney disease or end stage renal disease; R18.8 Other ascites; Z66 Do not resuscitate; E87.5 Hyperkalemia; D63.1 Anemia in chronic kidney disease; K72.90 Hepatic failure, unspecified without coma; E78.00 Pure hypercholesterolemia, unspecified; E11.22 Type 2 diabetes mellitus with diabetic chronic kidney disease; K21.9 Gastro-esophageal reflux disease without esophagitis; K76.0 Fatty (change of) liver, not elsewhere classified; M46.90 Unspecified inflammatory spondylopathy, site unspecified; F31.9 Bipolar disorder, unspecified; F17.210 Nicotine dependence, cigarettes, uncomplicated; K74.60 Unspecified cirrhosis of liver; D69.59 Other secondary thrombocytopenia; Z79.899 Other long term (current) drug therapy; Z90.49 Acquired absence of other specified parts of digestive tract; Z90.710 Acquired absence of both cervix and uterus; Z86.73 Personal history of transient ischemic attack (TIA), and cerebral infarction without residual deficits
CPT/HCPCS: 36415; 36430; 51701; 70450; 71045; 74176; 80048; 80053; 81001; 82140; 82550; 82553; 82962; 83605; 84484; 85025; 85610; 85730; 86900; 86901; 87040; 93005; 93010; 96361; 96365; 96375; 99291; J0696; J1200; J1815; J2060; J2270; J3490; J7120; P9035; P9047